=== PATIENT | female | born 1955 | race Caucasian/White ===

== ENCOUNTER 2020-12-10 10:21 | Inpatient (IN) | payer MEDICARE, MEDICAID, SELFPAY ==
[2020-12-10] VITALS (15 sets, daily range): BP systolic 122–159; BP diastolic 63–113; PULSE 67–85; RESP 14–26; TEMP 35.9–36.8; O2SAT 96–99; BMI 27.6
--- NOTE | 2020-12-10 10:24 | EKG12_ITS ---
Test Reason : STROKE Blood Pressure : / mmHG Vent. Rate : 069 BPM Atrial Rate : 159 BPM P-R Int : 000 ms QRS Dur : 090 ms QT Int : 430 ms P-R-T Axes : 000 016 231 degrees QTc Int : [address] & T wave abnormality, consider inferior ischemia ST & T wave abnormality, consider anterolateral ischemia Abnormal ECG Confirmed by ALESHA FARR, WILMA ([id number]), book or script editor JANELL BANGURA ([id number]) on 12/12/2020 12:31:55 PM Referred By: Confirmed By:WILMA EDUARDO MD
--- NOTE | 2020-12-10 10:24 | CT_ITS ---
STUDY: CTA HEAD AND NECK WITH CONTRAST REASON FOR EXAM: Female, 65 years old. Neuro deficit, acute, stroke suspected RADIATION DOSAGE (If Supplied By Facility): CTDIvol = ( ) mGy, DLP = ( ) mGycm TECHNIQUE: CT angiography was performed with a multi-detector CT scanner. Data acquisition was obtained from the skull base through the vertex following intravenous administration of IV 100mL Isovue-[id number]. MIP images were reconstructed from the axial data set. Post-processing of the angiographic images was performed, with multiplanar reformation and 3D reconstruction. Individualized dose optimization techniques were used for this CT. COMPARISON: No relevant priors. FINDINGS: Normal bilateral petrous carotid arteries. Normal right cavernous carotid artery with a normal supraclinoid bifurcation. Normal left cavernous carotid artery with a normal supraclinoid bifurcation. Normal right A1 segments of the anterior cerebral artery. Normal left A1 segments of the anterior cerebral artery. Normal intact anterior communicating artery (ACOM). Normal bilateral A2 segments of the anterior cerebral arteries. Normal right M1 and M2 segments of the middle cerebral arteries, with a normal M1 bifurcation. Normal left M1 and M2 segments of the middle cerebral arteries, with a normal M1 bifurcation. Normal right posterior communicating artery (PCOM). Normal left posterior communicating artery (PCOM). Normal bilateral vertebral arteries. Normal basilar artery with a normal basilar bifurcation. The visualized bilateral superior cerebellar (SCA) arteries are normal. Normal bilateral P1, P2 and visualized P3 segments of the posterior cerebral arteries. There is no demonstrated aneurysm of the [place] of [place]. AORTIC ARCH: Normal visualized aortic arch. Normal origins of the brachiocephalic, left common carotid, and left subclavian arteries. RIGHT CAROTID ARTERIES: Normal right common carotid artery (CCA). Normal right common carotid bulb. There is extensive atherosclerotic plaque formation of the origin of the right internal carotid artery with an estimated stenosis of greater than 80%. Normal visualized cervical portion of the right internal carotid artery. Normal origin of the right external carotid artery (ECA). LEFT CAROTID ARTERIES: Normal left common carotid artery (CCA). Normal left common carotid bulb. There is mild atherosclerotic plaque formation of the origin of the left internal carotid artery with less than 50% cross sectional diameter stenosis. Normal visualized cervical portion of the left internal carotid artery. Normal origin of the left external carotid artery (ECA). VERTEBRAL ARTERIES: Normal bilateral vertebral arteries. Multilevel degenerative changes of the cervical spine. CT/STROKE CTA Head AND Neck W/Con IMPRESSION: Calcific plaque at the origin of the right internal carotid artery causing greater than 80% luminal narrowing. Mild narrowing at the origin of the left internal carotid artery. N.B. : The above Results were Read Back by Yony Schmidt MD to Pedro Alex and understanding confirmed on 12/10/2020 10:44:46 (ET). Electronically Signed: Yony Schmidt MD at 10:46 EDT , Service support ,
--- NOTE | 2020-12-10 10:24 | RAD_ITS ---
STUDY: X-RAY CHEST REASON FOR EXAM: Female, 65 years old. Neuro deficit, acute, stroke suspected TECHNIQUE: Single AP portable view of the chest. COMPARISON: None. FINDINGS: EKG electrodes are seen. The lungs are clear and expanded. There is no demonstrated pleural abnormality. There is borderline cardiomegaly. Normal mediastinum and grover. Normal visualized pulmonary arteries. There is atherosclerotic tortuosity of the aortic arch and descending thoracic aorta. Normal visualized thoracic spine. Normal visualized ribs, clavicles, and shoulders. There is no demonstrated abnormality of the visualized soft tissue structures of the upper abdomen. RAD/Chest 1 View IMPRESSION: Borderline cardiomegaly. Electronically Signed: Yony Schmidt MD at 11:07 EDT , Service support ,
--- NOTE | 2020-12-10 10:24 | CT_ITS ---
STUDY: CT HEAD STROKE PROTOCOL W/O CONTRAST INJECTION REASON FOR EXAM: Female, 65 years old. Neuro deficit, acute, stroke suspected RADIATION DOSAGE (If Supplied By Facility): CTDIvol = ( 44.99 ) mGy, DLP = ( 745.49 ) mGycm TECHNIQUE: Transaxial CT imaging of the brain was performed without administration of intravenous contrast material. Individualized dose optimization techniques were used for this CT. COMPARISON: No relevant priors. FINDINGS: Normal soft tissue structures. Normal calvarium. There is mild cerebral atrophy with widening of the extra-axial spaces and ventricular dilatation. There are areas of decreased attenuation within the white matter tracts of the supratentorial brain, consistent with microvascular disease changes. Questionable early infarct in the left thalamus. Normal brainstem. Normal cerebellum. There is no intracranial hemorrhage. There are no findings of an acute ischemic infarction. Dense atherosclerotic calcification of the vertebral arteries bilaterally. Atherosclerotic calcification of the cavernous portions of the internal carotid arteries bilaterally. Normal visualized paranasal sinuses. CT/STROKE Brain/Head without Cont IMPRESSION: Questionable early changes of infarction in the left thalamus. Chronic involutional changes of the brain. N.B. : The above Results were Read Back by Yony Schmidt MD to Pedro Alex and understanding confirmed on 12/10/2020 10:37:32 (ET). Electronically Signed: Yony Schmidt MD at 10:38 EDT , Service support ,
[2020-12-10 10:40] LABS: Absolute Lymphocyte Count 2.43 X10^3/uL (0.83-4.51); Absolute Neutrophil Count 5.4 X10^3/uL (2.0-7.7); Basophil# 0.13 X10^3/uL; Basophil% 1.3 % (0-1); Eosinophil# 0.68 X10^3/uL; Eosinophils% 6.9 % (0-5); Hematocrit 52.5 % (37-47); Lymphocyte # 2.43 X10^3/ul (0.83-4.51); Lymphocyte % 24.5 % (19-41); Mean Corp Hgb Conc 34.9 g/dL (32-36); Mean Corpuscular Hgb 32.4 pg (27.0-32.0); Mean Corpuscular Volume 92.9 fL (81-99); Mean Platelet Vol. 9.8 fl (6.2-12.0); Monocyte# 1.14 X10^3/uL; Monocyte% 11.5 % (0-10); NRBC Flagged by Analyzer 0 % (0-5); Neutrophil % 54.6 % (47-70); Platelet Count 329 K/mm3 (150-450); RBC Distribution Width CV 12.2 % (11.6-14.6); RBC Distribution Width SD 42.1 fl (35.1-43.9); Red Blood Count 5.65 M/mm3 (4.2-5.4); White Blood Count 9.9 K/mm3 (4.4-11.0)
[2020-12-10 10:45] LABS: Bedside Glucose 123 mg/dL (70-110)
[2020-12-10 10:52] LABS: Partial Thromboplast Time 28.1 Seconds (24.1-36.2); Prothrombin Time (Protime)PT. 12.5 SECONDS (11.7-14.9)
[2020-12-10 10:58] LABS: Anion Gap 5 (5-15); BUN 26 mg/dL (7-18); BUN/Creat Ratio 28.6 RATIO (10-20); Calcium,Total 9.6 mg/dL (8.5-10.1); Chloride 103 mmol/L (98-107); Creatinine, Serum 0.91 mg/dL (0.55-1.02); EST Glomerular Filtration Rate 66 mL/min (>60); Est Glom Filt Rate - Afr Amer 80 mL/min (>60); Estimated Creatinine Clearance 56.93 ml/min; Glucose 118 mg/dL (74-106); Potassium 3.1 mmol/L (3.5-5.1); Sodium Level 136 mmol/L (136-145)
[2020-12-10 11:02] LABS: Differential Indicated SCAN CRITERIA MET
[2020-12-10 11:04] LABS: Hemoglobin 18.3 g/dL (12.0-15.0)
--- NOTE | 2020-12-10 11:05 | ED.VIS.STROK ---
HPI History of Present Illness Chief Complaint: Neuro S/Sx Informant: patient and EMS Narrative Narrative: 65-year-old female was found sitting in her car in the parking lot of a [employer]. She was noted to have facial droop and slurred speech and right-sided weakness. Patient states that she has been in [place] most of the day. She states the last time she felt normal was at 0300 hours. She states that she got drowsy at 0900 hours. She denies history of atrial fibrillation. She has a medication list in her purse does not show any anticoagulant use. PFSH PFS Social History Smoking Status: Unknown if ever smoked ROS ROS ED Constitutional Constitutional ED: Reports other Details: Fatigue ; Denies chills or weight loss Eyes Eyes: Denies change in vision or diplopia ENT ENT ED: Denies ear pain, rhinorrhea or sore throat Cardiovascular Cardiovascular: Denies chest pain, orthopnea, palpitations or racing heartbeat Respiratory/Chest Respiratory/Chest: Denies cough, dyspnea or orthopnea Gastrointestinal Gastrointestinal: Denies abdominal pain, diarrhea, nausea or vomiting Genitourinary Genitourinary ED: Denies dysuria, hematuria or urinary frequency Musculoskeletal Musculoskeletal: Denies arthralgias or myalgias Integumentary Denies abscess or rash Neurologic Neurologic: Reports weakness and other Details: Facial droop slurred speech ; Denies headache(s) Psychiatric Psychiatric: Denies anxiety, depression, suicidal ideation or suicidal thoughts Endocrine Endocrinology: Denies polydipsia, polyphagia or polyuria Allergic/Immunologic Allergic/Immunologic ED: Denies mouth swelling, tongue swelling or urticaria EXAM Physical Exam Const Vital Signs: 12/10/20 10:24 12/10/20 10:25 12/10/20 10:30 Temperature 97.2 F L 97.2 F L Temperature Source Temporal Temporal Pulse Rate 67 73 Respiratory Rate 26 H 21 H Blood Pressure 139/93 H 139/90 H Blood Pressure Mean 108 106 Pulse Ox 98 97 Oxygen Delivery Method Room Air Room Air Room Air Positive well nourished and well developed General Appearance ED: well developed HEENT Reports normocephalic, head/scalp atraumatic and moist mucous membranes Eyes PERRL and EOMs intact bilaterally Neck no lymphadenopathy, supple and no JVD Resp normal respiratory effort and clear to auscultation bilaterally Cardio regular rate, regular rhythm and no murmurs GI normal to inspection, nondistended, normoactive bowel sounds and non-tender Palpation: soft Back/Spine no CVA tenderness and normal ROM Extremity normal to inspection General Extremety ED: Negative for edema General Extremity: Negative for edema Neuro Neuro Narrative: Patient has noted dysarthria. She has facial droop on the right. Both arms are able to be lifted up off the bed and held. Both legs same. No apparent visual changes. She seems to have some mild extinction on the right. She is constantly yawning. Sensorium / Orientation: alert Psych mental status grossly normal Mood & Affect: Negative for depressed or tearful Skin no rashes or lesions noted and no wounds STROKE Vital Signs/Narrative: Vital Signs Temp Pulse Resp BP Pulse Ox 12/10/20 10:30 97.2 F L 73 21 H 139/90 H 97 12/10/20 10:25 97.2 F L 67 26 H 139/93 H 98 MDM MDM MDM Narrative Medical decision making narrative: Prehospital stroke team was called. Patient was met in the ambulance bay and taken directly to CT. Initial noncontrasted head CT shows no bleed. CTA shows 80% stenosis on the right RCA. No large vessel occlusion noted. Patient was assessed by [facility] neurology. No TPA was recommended. Was noted that the patient appears to have new onset atrial fibrillation. My interpretation of the chest x-ray is no acute process. Plan will be for admission into the hospital. Lab Data Attestation: I reviewed the patient's lab results. Labs: Laboratory Results - last 24 hr 12/10/20 12/10/20 12/10/20 10:25 10:25 10:25 WBC 9.9 RBC 5.65 H Hgb 18.3 H* Hct 52.5 H MCV 92.9 MCH 32.4 H MCHC 34.9 RDW Std Deviation 42.1 RDW Coeff of Chasity 12.2 Plt Count 329 MPV 9.8 Immature Gran % (Auto) 1.200 H Neut % (Auto) 54.6 Lymph % (Auto) 24.5 [place] % (Auto) 11.5 H Eos % (Auto) 6.9 H Baso % (Auto) 1.3 H Absolute Neuts (auto) 5.4 Absolute Lymphs (auto) 2.43 Nucleated RBC % 0 Diff Path Review May foll PT 12.5 INR 1.0 APTT 28.1 Sodium 136 Potassium 3.1 L Chloride 103 Carbon Dioxide 28.0 Anion Gap 5 BUN 26 H Creatinine 0.91 Estim Creat Clear Calc 56.93 Est GFR (MDRD) Af Amer 80 Est GFR (MDRD) Non-Af 66 BUN/Creatinine Ratio 28.6 H Glucose 118 H Calcium 9.6 Troponin I High Sens 8.0 POC Glucose 12/10/20 10:28 WBC RBC Hgb Hct MCV MCH MCHC RDW Std Deviation RDW Coeff of Chasity Plt Count MPV Immature Gran % (Auto) Neut % (Auto) Lymph % (Auto) [place] % (Auto) Eos % (Auto) Baso % (Auto) Absolute Neuts (auto) Absolute Lymphs (auto) Nucleated RBC % Diff Path Review PT INR APTT Sodium Potassium Chloride Carbon Dioxide Anion Gap BUN Creatinine Estim Creat Clear Calc Est GFR (MDRD) Af Amer Est GFR (MDRD) Non-Af BUN/Creatinine Ratio Glucose Calcium Troponin I High Sens POC Glucose 123 H Radiography Diagnostic Testing: Radiology Impression Brain CT 12/10/20 10:24 IMPRESSION: Questionable early changes of infarction in the left thalamus. Chronic involutional changes of the brain. N.B. : The above Results were Read Back by Yony Schmidt MD to Pedro Alex and understanding confirmed on 12/10/2020 10:37:32 (ET). Electronically Signed: Yony Schmidt MD at 10:38 EDT , Service support , ADDENDUM: 12/10/20 1045 IMPRESSION: Questionable early changes of infarction in the left thalamus. Chronic involutional changes of the brain. N.B. : The above Results were Read Back by Yony Schmidt MD to Pedro Alex and understanding confirmed on 12/10/2020 10:37:32 (ET). Electronically Signed: Yony Schmidt MD at 10:38 EDT , Service support , Head/Neck CTA 12/10/20 10:24 IMPRESSION: Calcific plaque at the origin of the right internal carotid artery causing greater than 80% luminal narrowing. Mild narrowing at the origin of the left internal carotid artery. N.B. : The above Results were Read Back by Yony Schmidt MD to Pedro Alex and understanding confirmed on 12/10/2020 10:44:46 (ET). Electronically Signed: Yony Schmidt MD at 10:46 EDT , Service support , ADDENDUM: 12/10/20 1053 IMPRESSION: Calcific plaque at the origin of the right internal carotid artery causing greater than 80% luminal narrowing. Mild narrowing at the origin of the left internal carotid artery. N.B. : The above Results were Read Back by Yony Schmidt MD to Pedro Alex and understanding confirmed on 12/10/2020 10:44:46 (ET). Electronically Signed: Yony Schmidt MD at 10:46 EDT , Service support , EKG Initial EKG: Attestation: I personally reviewed and interpreted this EKG as follows: Comments: EKG demonstrates atrial fibrillation at a rate of 69 bpm. Critical Care Time Critical Care Time: Yes Critical care time (excluding procedures): 30-74 minutes (35 min), Including time spent:, Discussing w/Patient &/or Family/Tracer Bullet Section Supervisor, Discussing w/Consultants, Arranging Admission or Transfer and Performing Direct Patient Care at Bedside Discharge Plan Dx/Rx/DC Orders Clinical Impression: New onset atrial fibrillation, Acute embolic stroke Disposition Disposition: Acute Care [facility]
[2020-12-10 11:42] LABS: Magnesium 2.3 mg/dL (1.6-2.6)
--- NOTE | 2020-12-10 12:00 | CM.ED ---
SOCIAL WORK Responded to Stroke Alert. Met with mother and sister in room. Education and support provided. Dr. Alex to meet with family. Nell Mancilla, INSECT CONTROL AIDE, SANDBLAST CARVER
--- NOTE | 2020-12-10 13:15 | MRI_ITS ---
ACR Level 3 findings have been noted. An addendum which confirms receipt of the report will follow. STUDY: MRI BRAIN WITHOUT CONTRAST REASON FOR EXAM: Female, 65 years old. CVA, effusion, right sided weakness TECHNIQUE: Standardized multiplanar fat and water weighted pulse sequences were obtained. COMPARISON: CT FINDINGS: There is mild cerebral atrophy with widening of the extra-axial spaces and ventricular dilatation. There are multiple white matter hyperintensities, distributed throughout the deep white matter tracts of the cerebral hemispheres, consistent with moderate chronic white matter ischemic changes. There are foci of restricted diffusion with recent, acute or subacute, infarcts of the left thalamus and periphery of the left parietal lobe, series 4 images through . There is no evidence for recent intracranial ischemia or other cause of cytotoxic edema on diffusion weighted imaging (DWI). Normal bilateral basal ganglia. There is no extra-axial fluid accumulation. Normal flow voids within the major intracranial circulation suggesting patency by spin echo criteria. Normal sella turcica, pituitary gland, infundibular stalk, optic chiasm and hypothalamus. Normal tectal plate and pineal gland. Normal midbrain, iain and medulla. Normal cerebellum. Normal basal cisterns. Normal bilateral temporal bones. Normal bilateral internal auditory canals. No demonstrated orbital abnormality, within the constraints of a routine brain study. Normal visualized paranasal sinuses. Normal calvarium and skull base. Normal visualized soft tissue structures. Normal visualized upper cervical spine. MRI/Brain without Contrast IMPRESSION: Involutional changes of the brain, as described above. Recent left parietal and thalamic infarcts. No hemorrhage. Electronically Signed: Inocente Lang MD at 16:00 EDT , Service support ,
--- NOTE | 2020-12-10 13:53 | ECHOCS_ITS ---
Reason For Study: TIA/CVA, NEW AFIB Procedure This was a 2D Doppler, Color Flow transthoracic echocardiogram. The study was technically difficult. Contrast injection was performed. Exam performed portable in patient room. Left Ventricle Normal LV size. Left ventricular systolic function is normal. The estimated ejection fraction is 55 %. Unable to assess diastolic dysfunction. No regional wall motion abnormalities noted. Right Ventricle Normal RV size. Normal systolic function. Atria The left atrium is moderately enlarged. The right atrium is moderately enlarged. No doppler evidence for ASD. Bubble contrast study negative for right to left interatrial shunt. Mitral Valve There is mild mitral annular calcification. Extension the mitral annular calcification on the base of the posterior mitral valve leaflet. Mild (1+) mitral valve insufficiency. Tricuspid Valve Normal tricuspid valve. Trivial tricuspid valve insufficiency. Right ventricular systolic pressure estimated to be 41 mmHg. Aortic Valve Trisinus/trileaflet aortic valve. Mild focal aortic valve calcification. Mild to moderate aortic stenosis. Trivial aortic valve insufficiency. Pulmonic Valve The pulmonic valve is not well visualized. Trivial pulmonic valve insufficiency. Great Vessels Normal sized aortic root. Pericardium/Pleural Trivial pericardial effusion. There are no echocardiographic indications of cardiac tamponade. Medication Performed a rapid injection of agitated mix of 9 cc saline and 1cc air to assess for atrial septal defect. Diluted definity 2ml given slow IV push to enhance endocardial definition. MMode/2D Measurements & Calculations LVIDd: 4.2 cm IVSd: 1.1 cm LVOT diam: 2.0 cm LVIDs: 2.9 cm LVPWd: 1.1 cm FS: 29.0 % LVOT area: 3.1 cm2 Ao root diam: 2.9 cm LAV(MOD-bp): 61.4 ml LVAd ap4: 23.2 cm2 LAV(MOD-bp) Indexed: 32.8 ml/m2 LVLd ap4: 7.2 cm LAV(MOD-sp2): 60.0 ml EDV(MOD-sp4): 62.4 ml LAV(MOD-sp4): 61.4 ml EDV(sp4-el): 63.5 ml LVAs ap4: 14.4 cm2 LVLs ap4: 6.2 cm ESV(MOD-sp4): 28.9 ml ESV(sp4-el): 28.4 ml EF(MOD-sp4): 53.7 % EF(sp4-el): 55.3 % SV(MOD-sp4): 33.5 ml SV(sp4-el): 35.1 ml LA A4 area: 21.5 cm2 LA dimension(2D): 4.1 cm RA A4 area: 20.2 cm2 Doppler Measurements & Calculations MV E max cristel: 94.8 cm/sec Ao V2 max: 237.7 cm/sec LV V1 max: 73.0 cm/sec Ao max P.6 mmHg LV V1 max P.1 mmHg Ao V2 mean: 181.8 cm/sec LV V1 mean P.2 mmHg Ao mean P.5 mmHg LV V1 mean: 50.8 cm/sec Ao V2 VTI: 48.6 cm LV V1 VTI: 14.4 cm JAYNE(I,D): 0.92 cm2 JAYNE(V,D): 0.95 cm2 SV(LVOT): 44.9 ml PA V2 max: 74.9 cm/sec TR max cristel: 307.9 cm/sec TR max P.9 mmHg ECHO/Echo Complete W/ Contrast Interpretation Summary The study was technically difficult. Contrast injection was performed. Left ventricular systolic function is normal. The estimated ejection fraction is 55 %. The left atrium is moderately enlarged. The right atrium is moderately enlarged. There is mild mitral annular calcification. Extension the mitral annular calcification on the base of the posterior mitral valve leaflet. Mild (1+) mitral valve insufficiency. Trivial tricuspid valve insufficiency. Mild focal aortic valve calcification. Mild to moderate aortic stenosis. Trivial aortic valve insufficiency. Trivial pulmonic valve insufficiency. Trivial pericardial effusion. There are no echocardiographic indications of cardiac tamponade. Right ventricular systolic pressure estimated to be 41 mmHg. Unable to assess diastolic dysfunction. Bubble contrast study negative for right to left interatrial shunt. Ordering Physician: Arvin Olguin Performed By: Lavonne Samson RDCS
--- NOTE | 2020-12-10 13:53 | CDU_ITS ---
Reason For Study: 80% occlusion in NIKKI on CTA, better clarification. CVA Rt. Velocities/BP Lt. Velocities/BP Prox CCA 53.9/9.5 cm/sec. Prox CCA 59.1/13.4 cm/sec. Mid CCA 44.7/10.8 cm/sec. Mid CCA 56.4/17.3 cm/sec. Dist CCA 56.5/12.1 cm/sec. Dist CCA 46/14.7 cm/sec. Prox ICA 89.1/30.4 cm/sec. Prox ICA 46/17.3 cm/sec. Mid ICA 95.6/27.8 cm/sec. Mid ICA 86.4/23.9 cm/sec. Dist ICA 78.6/23.9 cm/sec. Dist ICA 107.3/42.1 cm/sec. Rt. ICA/CCA = 1.77. Lt. ICA/CCA = 1.90. Prox ECA 76/9.5 cm/sec. Prox ECA 87.7/8.2 cm/sec. Rt. Vert. 53.9/12.1 cm/sec. Lt. Vert. 25.8/8.8 cm/sec. Right Extracranial There is homogeneous, smooth atherosclerotic plaque noted in the right common carotid artery. There is heterogeneous, irregular atherosclerotic plaque noted in the right internal carotid artery. There is intimal thickening but no significant atherosclerotic plaque noted in the right external carotid artery. Antegrade flow is noted in the right vertebral artery. Left Extracranial There is homogeneous, smooth atherosclerotic plaque noted in the left common carotid artery. There is homogeneous, irregular atherosclerotic plaque noted in the left internal carotid artery. There is heterogeneous, irregular atherosclerotic plaque noted in the left external carotid artery. Antegrade flow is noted in the left vertebral artery. Procedure Carotid Duplex 90024. This is a Carotid Duplex examination using B-mode, color flow and specral Doppler. Exam performed portable in patient room. VL/Carotid Duplex Ultrasound Interpretation Summary Irregular calcific plaque at the proximal right internal carotid artery with le ss than 50% stenosis Less than 50% stenosis right external carotid artery Mild plaque at the proximal left internal carotid artery with less than 50% mercedes nosis Less than 50% stenosis left external carotid artery Patent and antegrade vertebral arteries bilaterally Ordering Physician: Arvin Olguin Performed By: Robyn Vanessa RVT
[2020-12-10] MEDS: 0.9% Normal Saline 1,000 ML 100 ML IV (16:08)
--- NOTE | 2020-12-10 16:25 | TELEMED_ITS ---
[facility] Tele[facility] has confirmed receipt of a request for visit. This document confirms receipt of the order initiating the consult. To find the results of the consultation, please view the patient's reports for the scanned Telemed Consult.
[2020-12-10] MEDS: Aspirin 325 MG Tablet PO (17:02)
--- NOTE | 2020-12-10 17:05 | PCM.HP.STD ---
HPI - General General Date of Admission: 12/10/20 HPI Narrative NAOMI ANGUIANO, is a 65 F who presents from home with right facial droop and right weakness. She states that she wakes up at 3 AM and usually leaves the house for work at around 4. She states that she was feeling tired so she fell asleep in her car. She does remember much beyond that she was found in the parking lot of a [employer] where she was found to have slurred speech and right facial droop as well as right-sided weakness and EMS was called and she was brought here to the hospital. Initial work-up for stroke was negative on the CTA of her brain, she did have an 80% stenosis in the right ICA on CTA. An MRI of the brain was obtained on admission which did demonstrate left parietal and thalamic infarcts. Family states that she had had a similar episode about a week ago but never sought medical care. Also of note in the ER she was noted to have A. fib versus a flutter which is a new diagnosis for her. [facility] Home Medications atenolol 100 mg PO DAILY 12/10/20 [History Last Taken 12/10/20] fluticasone propion-salmeterol [Wixela Inhub] 1 inh INHALATION BID 12/10/20 [History Last Taken 12/10/20] fluticasone propionate 2 spray INTRANASAL DAILY 12/10/20 [History Last Taken 12/10/20] levothyroxine [Euthyrox] 75 mcg PO DAILY 12/10/20 [History Last Taken 12/10/20] losartan 100 mg PO BID 12/10/20 [History Last Taken 12/10/20] Allergy/AdvReac Type Severity Reaction Status Date / Time No Known Allergies Allergy Verified 12/10/20 11:14 Family History (Updated 12/10/20 @ 17:[address] Arvin Olguin MD) Other CAD (coronary artery disease) Cancer Social History (Updated 12/10/20 @ 17:[address] Arvin Olguin MD) Smoking Status: Never smoker alcohol intake: never substance use type: does not use ROS Constitutional Constitutional: Denies chills, fatigue, fever(s) or malaise Eyes Eyes: Denies blurry vision ENT HEENT: Denies headache(s) or nasal discharge Cardiovascular Cardiovascular: Denies chest pain, dyspnea on exertion or syncope Respiratory/Chest Respiratory/Chest: Denies cough, shortness of breath at rest or shortness of breath with exertion Gastrointestinal Gastrointestinal: Denies constipation, diarrhea, nausea or vomiting Genitourinary Genitourinary: Denies dysuria Neurologic Neurologic: Reports abnormal speech; Denies focal weakness, numbness or tremor(s) Psychiatric Psychiatric: Denies anxiety or depression Vital Signs Vital Signs Vital Signs: 12/10/20 10:24 12/10/20 10:25 12/10/20 10:30 Temperature 97.2 F L 97.2 F L Temperature Source Temporal Temporal Pulse Rate 67 73 Respiratory Rate 26 H 21 H Respiratory Effort Respiratory Depth Respiratory Pattern Blood Pressure 139/93 H 139/90 H Blood Pressure Mean 108 106 Blood Pressure Source Blood Pressure Position Blood Pressure Location Pulse Ox 98 97 Oxygen Delivery Method Room Air Room Air Room Air 12/10/20 10:54 12/10/20 11:24 12/10/20 11:30 Temperature 97.6 F L Temperature Source Temporal Pulse Rate 68 69 67 Respiratory Rate 17 19 H 20 H Respiratory Effort Respiratory Depth Respiratory Pattern Blood Pressure 142/92 H 133/81 H 122/83 H Blood Pressure Mean 108 98 96 Blood Pressure Source Blood Pressure Position Blood Pressure Location Pulse Ox 98 98 98 Oxygen Delivery Method Room Air Room Air Room Air 12/10/20 12:00 12/10/20 12:30 12/10/20 13:00 Temperature 96.7 F L 97.2 F L 97.6 F L Temperature Source Temporal Temporal Temporal Pulse Rate 72 75 74 Respiratory Rate 15 15 19 H Respiratory Effort Respiratory Depth Respiratory Pattern Blood Pressure 143/92 H 137/113 H 134/91 H Blood Pressure Mean 109 121 105 Blood Pressure Source Blood Pressure Position Blood Pressure Location Pulse Ox 96 97 98 Oxygen Delivery Method Room Air Room Air 12/10/20 13:30 12/10/20 13:55 12/10/20 15:00 Temperature 98.2 F Temperature Source Oral Pulse Rate 72 85 Respiratory Rate 16 16 Respiratory Effort Normal Short of Breath Respiratory Depth Normal Respiratory Pattern Normal Blood Pressure 143/92 H 159/103 H Blood Pressure Mean 109 121 Blood Pressure Source Manual Blood Pressure Position Semi-Fowlers Blood Pressure Location Right Arm Pulse Ox 98 99 Oxygen Delivery Method Room Air Room Air 12/10/20 15:38 Temperature Temperature Source Pulse Rate 70 Respiratory Rate Respiratory Effort Respiratory Depth Respiratory Pattern Blood Pressure Blood Pressure Mean Blood Pressure Source Blood Pressure Position Blood Pressure Location Pulse Ox Oxygen Delivery Method Weight Weight: 165 lb 9.074 oz Body Mass Index (BMI) 27.6 Physical Exam Const alert, oriented x3 and no apparent distress General Appearance: cooperative HEENT normocephalic Mouth: dry mucous membranes Eyes PERRL, EOMs intact bilaterally and conjunctivae normal Neck supple and no JVD Resp normal respiratory effort, no retractions, no use of accessory muscles and clear to auscultation bilaterally Auscultation: Negative for crackles, rales, rhonchi or wheezes Cardio regular rate, regular rhythm, S1 normal heart sound, S2 normal heart sound and no murmurs GI soft to palpation, non-tender and non-distended; Negative for hepatosplenomegaly Extremity no clubbing, cyanosis or edema Skin no rashes or lesions noted Neuro moves all extremities, no focal motor deficits and no sensory deficits noted Neuro Narrative: Right facial droop Psych affect normal Appearance: appropriate Results Lab / Micro Data Result Diagrams: 12/10/20 10:25 12/10/20 10:25 Labs: Laboratory Results - last 24 hr 12/10/20 10:25: WBC 9.9, RBC 5.65 H, Hgb 18.3 H*, Hct 52.5 H, MCV 92.9, MCH 32.4 H, MCHC 34.9, RDW Std Deviation 42.1, RDW Coeff of Chasity 12.2, Plt Count 329, MPV 9.8, Immature Gran % (Auto) 1.200 H, Neut % (Auto) 54.6, Lymph % (Auto) 24.5, [place] % (Auto) 11.5 H, Eos % (Auto) 6.9 H, Baso % (Auto) 1.3 H, Absolute Neuts (auto) 5.4, Absolute Lymphs (auto) 2.43, Nucleated RBC % 0, Diff Path Review September12/10/20 10:25: PT 12.5, INR 1.0, APTT 28.1 12/10/20 10:25: Sodium 136, Potassium 3.1 L, Chloride 103, Carbon Dioxide 28.0, Anion Gap 5, BUN 26 H, Creatinine 0.91, Estim Creat Clear Calc 56.93, Est GFR (MDRD) Af Amer 80, Est GFR (MDRD) Non-Af 66, BUN/Creatinine Ratio 28.6 H, Glucose 118 H, Calcium 9.6, Troponin I High Sens 8.0 12/10/20 10:25: Magnesium 2.3, TSH 1.40 12/10/20 10:28: POC Glucose 123 H Radiology Impression Brain CT 12/10/20 10:24 IMPRESSION: Questionable early changes of infarction in the left thalamus. Chronic involutional changes of the brain. N.B. : The above Results were Read Back by Yony Schmidt MD to Pedro Alex and understanding confirmed on 12/10/2020 10:37:32 (ET). Electronically Signed: Yony Schmidt MD at 10:38 EDT , Service support , ADDENDUM: 12/10/20 1045 IMPRESSION: Questionable early changes of infarction in the left thalamus. Chronic involutional changes of the brain. N.B. : The above Results were Read Back by Yony Schmidt MD to Pedro Alex and understanding confirmed on 12/10/2020 10:37:32 (ET). Electronically Signed: Yony Schmidt MD at 10:38 EDT , Service support , Chest X-Ray 12/10/20 10:24 IMPRESSION: Borderline cardiomegaly. Electronically Signed: oYny Schmidt MD at 11:07 EDT , Service support , Head/Neck CTA 12/10/20 10:24 IMPRESSION: Calcific plaque at the origin of the right internal carotid artery causing greater than 80% luminal narrowing. Mild narrowing at the origin of the left internal carotid artery. N.B. : The above Results were Read Back by Yony Schmidt MD to Pedro Alex and understanding confirmed on 12/10/2020 10:44:46 (ET). Electronically Signed: Yony Schmidt MD at 10:46 EDT , Service support , ADDENDUM: 12/10/20 1053 IMPRESSION: Calcific plaque at the origin of the right internal carotid artery causing greater than 80% luminal narrowing. Mild narrowing at the origin of the left internal carotid artery. N.B. : The above Results were Read Back by Yony Schmidt MD to Pedro Alex and understanding confirmed on 12/10/2020 10:44:46 (ET). Electronically Signed: Yony Schmidt MD at 10:46 EDT , Service support , Brain MRI 12/10/20 13:15 IMPRESSION: Involutional changes of the brain, as described above. Recent left parietal and thalamic infarcts. No hemorrhage. Electronically Signed: Inocente Lang MD at 16:00 EDT , Service support , ADDENDUM: 12/10/20 1631 IMPRESSION: Involutional changes of the brain, as described above. Recent left parietal and thalamic infarcts. No hemorrhage. N.B. : NUBIA Arguelles, confirmed on 12/10/2020 16:24:26 (ET) that the healthcare facility has received the radiology report. Electronically Signed: Inocente Lang MD at 16:00 EDT , Service support , Assessment & Plan Assessment/Plan (1) New onset atrial fibrillation: (2) Acute embolic stroke: PLAN: 1. Left-sided CVA likely embolic/new onset A. fib versus flutter/HTN/HLD -In the ER EKG demonstrated flutter versus A. fib, she will need to be on anticoagulation given the nature of her stroke in 2 different locations, however this can wait -We will start her on aspirin and allow for permissive hypertension, for 24 hours -Continue with Lipitor -Echo is pending, carotid duplex was also ordered secondary to the 80% stenosis just to get better clarification since it was identified on CTA initially -She will need this evaluated and repaired at some point in the future -Consult neurology 2. Hypothyroidism -Stable -Continue with Synthroid DVT: Lovenox Charges/Coding Visit Charges OBSV E&M: 26122 Initial observation care L3
[2020-12-10] MEDS: Atorvastatin Calcium 80 MG Tablet PO (22:09)
[2020-12-11] VITALS (13 sets, daily range): BP systolic 118–164; BP diastolic 57–111; PULSE 66–93; RESP 12–18; TEMP 36.2–37; O2SAT 94–99; BMI 27.6
[2020-12-11] MEDS: 0.9% Normal Saline 1,000 ML 100 ML IV ×2 (02:15→11:51)
[2020-12-11 06:07] LABS: Absolute Lymphocyte Count 2.34 X10^3/uL (0.83-4.51); Absolute Neutrophil Count 4.2 X10^3/uL (2.0-7.7); Basophil# 0.11 X10^3/uL; Basophil% 1.3 % (0-1); Eosinophil# 0.72 X10^3/uL; Eosinophils% 8.5 % (0-5); Hematocrit 47.9 % (37-47); Hemoglobin 15.9 g/dL (12.0-15.0); Lymphocyte # 2.34 X10^3/ul (0.83-4.51); Lymphocyte % 27.7 % (19-41); Mean Corp Hgb Conc 33.2 g/dL (32-36); Mean Corpuscular Hgb 31.8 pg (27.0-32.0); Mean Corpuscular Volume 95.8 fL (81-99); Mean Platelet Vol. 9.8 fl (6.2-12.0); Monocyte# 0.97 X10^3/uL; Monocyte% 11.5 % (0-10); NRBC Flagged by Analyzer 0 % (0-5); Neutrophil # 4.22 X10^3/uL (2.7-7.7); Neutrophil % 49.8 % (47-70); Platelet Count 262 K/mm3 (150-450); RBC Distribution Width CV 12.3 % (11.6-14.6); RBC Distribution Width SD 43.3 fl (35.1-43.9); White Blood Count 8.5 K/mm3 (4.4-11.0)
[2020-12-11 06:35] LABS: Anion Gap 7 (5-15); BUN 24 mg/dL (7-18); Calcium,Total 8.5 mg/dL (8.5-10.1); Chloride 106 mmol/L (98-107); Cholesterol 235 mg/dL (200); EST Glomerular Filtration Rate 59 mL/min (>60); Est Glom Filt Rate - Afr Amer 71 mL/min (>60); Estimated Creatinine Clearance 51.81 ml/min; Glucose 93 mg/dL (74-106); High Density Lipoprotein 51 mg/dL; Potassium 3.7 mmol/L (3.5-5.1); Sodium Level 140 mmol/L (136-145); Triglycerides 123 mg/dL; Very Low Density Lipoprotein 25 mg/dL (5-40)
[2020-12-11] MEDS: Aspirin 81 MG TAB.CHEW PO (08:59)
[2020-12-11] MEDS: Enoxaparin 40 MG/0.4 ML Syringe SC (08:59)
--- NOTE | 2020-12-11 09:14 | CASEMGMT ---
SW completed a PHQ 9 with patient as she had a Stroke. She scored a 2 which indicates minimal depression. She declined need for counseling resources nor did she want information on the [facility] Stroke support group. Wendy JOINER
--- NOTE | 2020-12-11 10:03 | MRI_ITS ---
STUDY: MRI BRAIN WITH AND WITHOUT CONTRAST REASON FOR EXAM: Female, 65 years old. repeat MRI to re-evaluate infarct -- per neurology TECHNIQUE: Standardized multiplanar fat and water weighted pulse sequences were obtained. IV 15cc dotarem was administered for the contrast portion of the examination. COMPARISON: MRI 12/10/2020 FINDINGS: There is mild cerebral atrophy with widening of the extra-axial spaces and ventricular dilatation. There are a limited number of small white matter hyperintensities, distributed throughout the deep white matter tracts of the cerebral hemispheres, consistent with mild chronic white matter ischemic changes. There is no change in the hyperintensity of the anterior aspect of the left thalamus which demonstrates restricted diffusion consistent with a acute/subacute infarct. There is also no change in the tiny hyperintensity of the cortex of the posterior left parietal lobe which demonstrates restricted diffusion consistent with a acute/subacute cortical infarct. Normal T2* images of the brain without demonstrated susceptibility artifact. There is no demonstrated hemosiderin stain. Normal bilateral basal ganglia. Normal thalami. There is no extra-axial fluid accumulation. Normal flow voids within the major intracranial circulation suggesting patency by spin echo criteria. Normal venous enhancement. There is no enhancing intra-axial or extra-axial abnormality. Normal sella turcica, pituitary gland, infundibular stalk, optic chiasm and hypothalamus. Normal tectal plate and pineal gland. Normal midbrain, iain and medulla. Normal cerebellum. Normal basal cisterns. Normal bilateral temporal bones. Normal bilateral internal auditory canals. No demonstrated orbital abnormality, within the constraints of a routine brain study. Normal visualized paranasal sinuses. Normal calvarium and skull base. Normal visualized soft tissue structures. Normal visualized upper cervical spine. MRI/Brain W/WO Contrast IMPRESSION: Involutional changes of the brain, as described above. No change in the acute/subacute infarcts of the anterior left thalamus and cortex of the posterior left parietal lobe. Electronically Signed: John Stone MD at 14:36 EDT Tel , Service support ,
--- NOTE | 2020-12-11 10:03 | MRI_ITS ---
STUDY: MRA NECK WITH AND WITHOUT CONTRAST REASON FOR EXAM: Female, 65 years old. neurology reccomendation TECHNIQUE: 3-D jofg-ru-[id number] (TOF) imaging was performed in an 1.5 T MRI scanner. 15 CC IV DOTAREM was administered for the contrast enhanced images. COMPARISON: None. FINDINGS: RIGHT CAROTID ARTERIES: Normal right common carotid artery (CCA). Normal right common carotid bulb. Normal origin of the right internal carotid (ICA) artery without a hemodynamically significant stenosis. Normal visualized cervical portion of the right internal carotid artery. Normal origin of the right external carotid artery (ECA). LEFT CAROTID ARTERIES: Normal left common carotid artery (CCA). Normal left common carotid bulb. Normal origin of the left internal carotid (ICA) artery without a hemodynamically significant stenosis. Normal visualized cervical portion of the left internal carotid artery. Normal origin of the left external carotid artery (ECA). VERTEBRAL ARTERIES: Normal antegrade flow within the bilateral vertebral artery without a hemodynamically significant stenosis. MRI/MRA Neck WITH and W/O Contrast IMPRESSION: Normal bilateral cervical carotid and vertebral arteries. Electronically Signed: John Stone MD at 14:37 EDT Tel , Service support ,
--- NOTE | 2020-12-11 10:50 | CASEMGMT ---
RN CM Face to Face with patient for initial transition planning/care coordination assessment. RN CM introduced self and role at [facility]. Patient lying in bed, alert and oriented, mother at bedside. Patient willing to participate in assessment and is able to answer all questions appropriately. Care providers, pharmacy, and demographics verified. Patient wishes to discharge home, denies need for home health at this time, will monitor progress with therapy. Patient states she has no further needs or concerns at this time. CM to follow for discharge planning needs that may arise. PCP: Fabián Specialists: none Preferred Pharmacy: [facility] Insurance: [employer] Prescription Benefit: yes Living Will/HPOA: none LNOK: mother Living Arrangements: Patient lives with mother in a single story home with 1 step and grab bar to enter the home. Patient states she is independent at home and works at [employer]. Transportation: self, mother DME/HHC: Patient states she has grab bar in shower at home. Denies further DME. Will monitor for HHC and DME pending therapy. Disposition Plan: Patient to discharge home with family support and follow-up plans in place. Possible HHC vs Outpt therapy. Robyn WHYTE, RN, CM
[2020-12-11 12:40] LABS: Pathologist Review Reviewed
--- NOTE | 2020-12-11 13:17 | PN.HOSP_ITS ---
Subjective Subjective Still with a right facial droop and slurred speech. Overnight she was having waxing and waning symptoms with her stroke. Objective Data Objective Data Vital Signs: Vital Signs Temp Pulse Resp BP Pulse Ox 97.8 F 82 16 123/89 H 94 12/11/20 11:44 12/11/20 11:44 12/11/20 11:44 12/11/20 11:44 12/11/20 11:44 Oxygen Delivery Method Room Air Weight: 165 lb 9.074 oz Body Mass Index (BMI) 27.6 Intake & Output: Intake and Output for Last 24 Hours 12/10/20 12/11/20 12/12/20 03:59 03:59 03:59 Intake Total 1000 / 1000 1201.67 / 1201.67 Output Total 0 / 0 Balance 1000 / 1000 1201.67 / 1201.67 Lab / Micro Data Result Diagrams: 12/11/20 05:55 12/11/20 05:45 Labs: Laboratory Results - last 24 hr 12/10/20 10:25: Diff Path Review Reviewed 12/11/20 05:45: Sodium 140, Potassium 3.7, Chloride 106, Carbon Dioxide 27.0, Anion Gap 7, BUN 24 H, Creatinine 1.00, Estim Creat Clear Calc 51.81, Est GFR (MDRD) Af Amer 71, Est GFR (MDRD) Non-Af 59 L, BUN/Creatinine Ratio 24.0 H, Glucose 93, Calcium 8.5, Triglycerides 123, Cholesterol 235 H, LDL Cholesterol 159 H, VLDL Cholesterol 25, HDL Cholesterol 51 12/11/20 05:55: WBC 8.5, RBC 5.00, Hgb 15.9 H, Hct 47.9 H, MCV 95.8, MCH 31.8, MCHC 33.2, RDW Std Deviation 43.3, RDW Coeff of Chasity 12.3, Plt Count 262, MPV 9.8, Immature Gran % (Auto) 1.200 H, Neut % (Auto) 49.8, Lymph % (Auto) 27.7, [place] % (Auto) 11.5 H, Eos % (Auto) 8.5 H, Baso % (Auto) 1.3 H, Absolute Neuts (auto) 4.2, Absolute Lymphs (auto) 2.34, Nucleated RBC % 0 Radiography Diagnostic Testing: Radiology Impression Brain MRI 12/10/20 13:15 IMPRESSION: Involutional changes of the brain, as described above. Recent left parietal and thalamic infarcts. No hemorrhage. Electronically Signed: Inocente Lang MD at 16:00 EDT , Service support , ADDENDUM: 12/10/20 1631 IMPRESSION: Involutional changes of the brain, as described above. Recent left parietal and thalamic infarcts. No hemorrhage. N.B. : NUBIA Arguelles, confirmed on 12/10/2020 16:24:26 (ET) that the healthcare facility has received the radiology report. Electronically Signed: Inocente Lang MD at 16:00 EDT , Service support , Carotid Duplex 12/10/20 13:53 Interpretation Summary Irregular calcific plaque at the proximal right internal carotid artery with less than 50% stenosis Less than 50% stenosis right external carotid artery Mild plaque at the proximal left internal carotid artery with less than 50% stenosis Less than 50% stenosis left external carotid artery Patent and antegrade vertebral arteries bilaterally Ordering Physician: Arvin Olguin Performed By: Robyn Vanessa RVT Physical Exam Const alert, oriented x3 and no apparent distress General Appearance: cooperative HEENT normocephalic Eyes PERRL, EOMs intact bilaterally and conjunctivae normal Neck supple and no JVD Resp normal respiratory effort, no retractions, no use of accessory muscles and clear to auscultation bilaterally Auscultation: Negative for crackles, rales, rhonchi or wheezes Cardio regular rate, regular rhythm, S1 normal heart sound, S2 normal heart sound and no murmurs GI soft to palpation, non-tender and non-distended; Negative for hepatosplenomegaly Extremity no clubbing, cyanosis or edema Skin no rashes or lesions noted Neuro moves all extremities, no focal motor deficits and no sensory deficits noted Neuro Narrative: Right facial droop Psych affect normal Appearance: appropriate Assessment & Plan Assessment/Plan (1) New onset atrial fibrillation: (2) Acute embolic stroke: PLAN: 1. Left-sided CVA likely embolic/new onset A. fib versus flutter/HTN/HLD -In the ER EKG demonstrated flutter versus A. fib, she will need to be on anticoagulation given the nature of her stroke in 2 different locations, however this can wait -We will start her on aspirin and allow for permissive hypertension, for 24 hours -Continue with Lipitor -CTA demonstrated 80% stenosis, carotid Doppler demonstrated a less than 50% stenosis, neurology was consulted and wanted to get a third study so we are proceeding with an MRI of the neck to see if there is concurrent with either an 80% or 50% stenosis. -Given her waxing waning symptoms overnight, we will repeat an MRI to help dictate when to initiate potential anticoagulation -Appreciate neurology recommendations -PT/OT/speech 2. Hypothyroidism -Stable -Continue with Synthroid DVT: Lovenox Charges/Coding Visit Charges Inpatient E&M: 57262 Subs Hosp L2
[2020-12-11] MEDS: Atorvastatin Calcium 80 MG Tablet PO (22:49)
[2020-12-12] VITALS (13 sets, daily range): BP systolic 137–159; BP diastolic 84–98; PULSE 38–92; RESP 12–18; TEMP 35.9–36.8; O2SAT 95–100
[2020-12-12 06:38] LABS: Absolute Lymphocyte Count 1.99 X10^3/uL (0.83-4.51); Absolute Neutrophil Count 3.6 X10^3/uL (2.0-7.7); Basophil# 0.12 X10^3/uL; Basophil% 1.7 % (0-1); Eosinophil# 0.78 X10^3/uL; Eosinophils% 10.7 % (0-5); Hematocrit 46.7 % (37-47); Hemoglobin 15.4 g/dL (12.0-15.0); Lymphocyte # 1.99 X10^3/ul (0.83-4.51); Lymphocyte % 27.4 % (19-41); Mean Corpuscular Hgb 31.4 pg (27.0-32.0); Mean Corpuscular Volume 95.3 fL (81-99); Mean Platelet Vol. 9.8 fl (6.2-12.0); Monocyte# 0.74 X10^3/uL; Monocyte% 10.2 % (0-10); NRBC Flagged by Analyzer 0 % (0-5); Neutrophil # 3.57 X10^3/uL (2.7-7.7); Platelet Count 243 K/mm3 (150-450); RBC Distribution Width SD 42.2 fl (35.1-43.9); White Blood Count 7.3 K/mm3 (4.4-11.0)
[2020-12-12 07:03] LABS: Anion Gap 5 (5-15); BUN 17 mg/dL (7-18); BUN/Creat Ratio 20.9 RATIO (10-20); Calcium,Total 8.6 mg/dL (8.5-10.1); Chloride 106 mmol/L (98-107); Creatinine, Serum 0.81 mg/dL (0.55-1.02); EST Glomerular Filtration Rate 75 mL/min (>60); Est Glom Filt Rate - Afr Amer 91 mL/min (>60); Estimated Creatinine Clearance 63.96 ml/min; Glucose 83 mg/dL (74-106); Potassium 3.7 mmol/L (3.5-5.1); Sodium Level 137 mmol/L (136-145)
[2020-12-12] MEDS: Aspirin 325 MG Tablet PO (08:42)
[2020-12-12] MEDS: Enoxaparin 40 MG/0.4 ML Syringe SC (10:54)
--- NOTE | 2020-12-12 14:43 | PN.HOSP_ITS ---
Subjective Subjective Still somewhat childlike in her behavior. She does have improvement in her right facial droop. Objective Data Objective Data Vital Signs: Vital Signs Temp Pulse Resp BP Pulse Ox 98.2 F 72 16 137/84 H 95 12/12/20 12:25 12/12/20 12:25 12/12/20 12:25 12/12/20 12:25 12/12/20 12:25 Oxygen Delivery Method Room Air Weight: 165 lb 9.074 oz Body Mass Index (BMI) 27.6 Intake & Output: Intake and Output for Last 24 Hours 12/11/20 12/12/20 12/13/20 03:59 03:59 03:59 Intake Total 1000 / 1000 1681.67 / 1681.67 640 / 640 Output Total 0 / 0 Balance 1000 / 1000 1681.67 / 1681.67 640 / 640 Medical Nutrition Assessment Dietitian: Nutrition Therapy Diagnosis Start: 12/12/20 10:52 Freq: Status: Active Protocol: Document 12/12/20 10:53 RMA (Rec: 12/12/20 10:53 RMA [id number]) Nutrition Malnutrition Evidence of Malnutrition Exists No Clinical Problem Swallowing Difficulty Etiology r/t stroke Signs/Symptoms as evidence by failed dysphagia screening and NPO status. Status Resolved Problem Recommendation Dietitian Recommendations/Changes Continue Cardiac diet as ordered. ONS only if PO fails at meals, will defer for now. Additional diet education as pt willing. Lab / Micro Data Result Diagrams: 12/12/20 06:14 12/12/20 06:14 Labs: Laboratory Results - last 24 hr 12/12/20 06:14: WBC 7.3, RBC 4.90, Hgb 15.4 H, Hct 46.7, MCV 95.3, MCH 31.4, MCHC 33.0, RDW Std Deviation 42.2, RDW Coeff of Chasity 12.0, Plt Count 243, MPV 9.8, Immature Gran % (Auto) 1.000 H, Neut % (Auto) 49.0, Lymph % (Auto) 27.4, [place] % (Auto) 10.2 H, Eos % (Auto) 10.7 H, Baso % (Auto) 1.7 H, Absolute Neuts (auto) 3.6, Absolute Lymphs (auto) 1.99, Nucleated RBC % 0 12/12/20 06:14: Sodium 137, Potassium 3.7, Chloride 106, Carbon Dioxide 26.0, Anion Gap 5, BUN 17, Creatinine 0.81, Estim Creat Clear Calc 63.96, Est GFR (MDRD) Af Amer 91, Est GFR (MDRD) Non-Af 75, BUN/Creatinine Ratio 20.9 H, Glucose 83, Calcium 8.6 Radiography Diagnostic Testing: Radiology Impression Echocardiogram 12/10/20 13:53 Interpretation Summary The study was technically difficult. Contrast injection was performed. Left ventricular systolic function is normal. The estimated ejection fraction is 55 %. The left atrium is moderately enlarged. The right atrium is moderately enlarged. There is mild mitral annular calcification. Extension the mitral annular calcification on the base of the posterior mitral valve leaflet. Mild (1+) mitral valve insufficiency. Trivial tricuspid valve insufficiency. Mild focal aortic valve calcification. Mild to moderate aortic stenosis. Trivial aortic valve insufficiency. Trivial pulmonic valve insufficiency. Trivial pericardial effusion. There are no echocardiographic indications of cardiac tamponade. Right ventricular systolic pressure estimated to be 41 mmHg. Unable to assess diastolic dysfunction. Bubble contrast study negative for right to left interatrial shunt. Ordering Physician: Arvin Olguin Performed By: Lavonne Samson RDCS Physical Exam Const alert, oriented x3 and no apparent distress General Appearance: cooperative HEENT normocephalic Eyes PERRL, EOMs intact bilaterally and conjunctivae normal Neck supple and no JVD Resp normal respiratory effort, no retractions, no use of accessory muscles and clear to auscultation bilaterally Auscultation: Negative for crackles, rales, rhonchi or wheezes Cardio regular rate, regular rhythm, S1 normal heart sound, S2 normal heart sound and no murmurs GI soft to palpation, non-tender and non-distended; Negative for hepatosplenomegaly Extremity no clubbing, cyanosis or edema Skin no rashes or lesions noted Neuro moves all extremities, no focal motor deficits and no sensory deficits noted Neuro Narrative: Right facial droop-improving Psych affect normal Appearance: appropriate Assessment & Plan Assessment/Plan (1) New onset atrial fibrillation: (2) Acute embolic stroke: PLAN: 1. Left-sided CVA likely embolic/new onset A. fib versus flutter/HTN/HLD -In the ER EKG demonstrated flutter versus A. fib, she will need to be on anticoagulation given the nature of her stroke in 2 different locations, however this can wait -We will start her on aspirin and allow for permissive hypertension, for 24 hours -Continue with Lipitor -CTA demonstrated 80% stenosis, carotid Doppler demonstrated a less than 50% stenosis, neurology was consulted and wanted to get a third study, MRA was negative for any significant stenosis on the right -Appreciate neurology recommendations -PT/OT/speech, evaluation shows decreased safety awareness and some weakness therefore will discuss with family for possible placement in rehab. 2. Hypothyroidism -Stable -Continue with Synthroid DVT: Lovenox Charges/Coding Visit Charges Inpatient E&M: 04885 Subs Hosp L2
--- NOTE | 2020-12-12 15:30 | CASEMGMT ---
Addendum entered by Wendy Carl 12/12/20 15:47: Patient's sister did say patient is normally not a very social person. She is very private. Patient's mom and sister did not even know patient had insurance as patient does not share any of this information with them. Wendy JOINER Original Note: MICKI called patient's mom and left a message for her to return SW's call. SW received a return call from patient's sister, Milka. She said she is with her mom right now. SW asked her if patient has any Developmental Delays. She said patient does not. She said normally she is very intelligent and has a college degree. SW repeated what patient told therapy when they asked her if she had a raised toilet seat. Patient said, I poop and tinkle on the potty. Patient's sister said that is not something patient would normally say. She does not watch cartoons regularly. She likes to watch the [employer]. She is usually a know it all. She said if patient is not independent with everything she cannot go home. She said that their mom cannot help patient. They were on their way in to the hospital. SW told her to ask for SW when they get here. MICKI spoke with patient's mom and sister when they arrived. MICKI discussed placement and coverage. MICKI also explained [facility] 4th floor rehab unit since patient had a Stroke. The physician then walked up and he spoke with them regarding patient's medical conditions. He recommended 4th floor rehab for patient. He also did not feel patient is in any condition to make appropriate decisions. MICKI explained to them that the physician in the Rehab Unit will have to accept patient and her insurance will have to approve her as well. MICKI explained this will not happen today. They just asked that SW keep them updated. MICKI spoke with Tonia regarding referral to the Inpatient Rehab Unit. She will check with Dr Rm. Await return call. Wendy JOINER
[2020-12-13] VITALS (10 sets, daily range): BP systolic 135–155; BP diastolic 83–100; PULSE 63–82; RESP 12–18; TEMP 36.2–36.9; O2SAT 94–99
[2020-12-13] MEDS: 0.9% Saline Lock 10 ML Syringe IV (02:00)
[2020-12-13] MEDS: Aspirin 325 MG Tablet PO (08:42)
--- NOTE | 2020-12-13 09:58 | CASEMGMT ---
MICKI spoke with Tonia on [facility] post acute referral line. She is still waiting to see if Dr Rm will accept patient in the rehab unit and then she will need to start the pre-cert. MICKI would like to wait until patient is accepted in rehab unit by Dr Rm before talking with patient about it. Wendy Carl VOLUNTEER RECRUITMENT COORDINATOR MARISEL
[2020-12-13] MEDS: Enoxaparin 40 MG/0.4 ML Syringe SC (10:33)
--- NOTE | 2020-12-13 12:07 | PN.HOSP_ITS ---
Subjective Subjective Doing well, still with some unsteadiness with physical therapy. Right facial droop is improving Objective Data Objective Data Vital Signs: Vital Signs Temp Pulse Resp BP Pulse Ox 98.4 F 68 16 149/86 H 98 12/13/20 08:30 12/13/20 08:30 12/13/20 08:30 12/13/20 08:30 12/13/20 08:30 Oxygen Delivery Method Room Air Weight: 165 lb 9.074 oz Body Mass Index (BMI) 27.6 Intake & Output: Intake and Output for Last 24 Hours 12/12/20 12/13/20 12/14/20 03:59 03:59 03:59 Intake Total 1681.67 / 1681.67 940 / 940 Balance 1681.67 / 1681.67 940 / 940 Medical Nutrition Assessment Dietitian: Nutrition Therapy Diagnosis Start: 12/12/20 10:52 Freq: Status: Active Protocol: Document 12/12/20 10:53 RMA (Rec: 12/12/20 10:53 RMA [id number]) Nutrition Malnutrition Evidence of Malnutrition Exists No Clinical Problem Swallowing Difficulty Etiology r/t stroke Signs/Symptoms as evidence by failed dysphagia screening and NPO status. Status Resolved Problem Recommendation Dietitian Recommendations/Changes Continue Cardiac diet as ordered. ONS only if PO fails at meals, will defer for now. Additional diet education as pt willing. Lab / Micro Data Result Diagrams: 12/12/20 06:14 12/12/20 06:14 Physical Exam Const alert, oriented x3 and no apparent distress General Appearance: cooperative HEENT normocephalic Eyes PERRL, EOMs intact bilaterally and conjunctivae normal Neck supple and no JVD Resp normal respiratory effort, no retractions, no use of accessory muscles and clear to auscultation bilaterally Auscultation: Negative for crackles, rales, rhonchi or wheezes Cardio regular rate, regular rhythm, S1 normal heart sound, S2 normal heart sound and no murmurs GI soft to palpation, non-tender and non-distended; Negative for hepatosplenomegaly Extremity no clubbing, cyanosis or edema Skin no rashes or lesions noted Neuro moves all extremities, no focal motor deficits and no sensory deficits noted Neuro Narrative: Right facial droop-improving Psych affect normal Appearance: appropriate Assessment & Plan Assessment/Plan (1) New onset atrial fibrillation: (2) Acute embolic stroke: PLAN: 1. Left-sided CVA likely embolic/new onset A. fib versus flutter/HTN/HLD -In the ER EKG demonstrated flutter versus A. fib, she will need to be on anticoagulation given the nature of her stroke in 2 different locations, however this can wait -We will start her on aspirin and allow for permissive hypertension, for 24 hours -Continue with Lipitor -CTA demonstrated 80% stenosis, carotid Doppler demonstrated a less than 50% mercedes nosis, neurology was consulted and wanted to get a third study, MRA was negative for any significant stenosis on the right -Appreciate neurology recommendations, will plan to get a CT scan of her brain tomorrow and if still no bleed, then can initiate Eliquis -PT/OT/speech, evaluation shows decreased safety awareness and some weakness therefore will discuss with family for possible placement in rehab. 2. Hypothyroidism -Stable -Continue with Synthroid DVT: Lovenox Charges/Coding Visit Charges Inpatient E&M: 59128 Subs Hosp L2
--- NOTE | 2020-12-13 12:32 | CASEMGMT ---
MICKI spoke with patient's mom in the room earlier and let her know at that time MICKI was waiting to hear whether or not the physician in rehab will take patient. She asked MICKI to call her daughter. MICKI received a voice mail from Tonia and Dr Rm will take patient in the rehab unit. Tonia will start pre-cert request with insurance. MICKI called patient's sister Milka. MICKI let her know Rehab will take patient, but we need to wait on insurance to approve. MICKI did let her know that it is possible insurance could deny her to go to the rehab unit. Usually if they do this they will say if they would approve SNF level of care. MICKI told her that if the rehab unit does not get approved we could move forward with snf placement. She asked about Medicaid etc. MICKI told her once patient clears up a little more we could do a Medicaid application. MICKI will talk with patient and her mom if she is present. Plan: [facility] 4th floor rehab unit pending insurance approval. Wendy Carl GYRO MECHANIC MARISEL
[2020-12-13] MEDS: Atorvastatin Calcium 80 MG Tablet PO (21:50)
[2020-12-14 02:58] VITALS: BP 157/96; PULSE 68; RESP 18; TEMP 36.6; O2SAT 100
[2020-12-14 03:00] VITALS: PULSE 75
[2020-12-14 07:05] VITALS: PULSE 67
--- NOTE | 2020-12-14 07:41 | CT_ITS ---
STUDY: CT BRAIN WITHOUT CONTRAST REASON FOR EXAM: Female, 65 years old. Check for post stroke bleed RADIATION DOSAGE (If Supplied By Facility): CTDIvol = ( 44.99 ) mGy, DLP = ( 745.49 ) mGycm TECHNIQUE: Transaxial CT imaging of the brain was performed without administration of intravenous contrast material. Individualized dose optimization techniques were used for this CT. COMPARISON: CT scan of the brain of 12/10/2020 and MRI of 12/11/2020. FINDINGS: Normal soft tissue structures. Normal calvarium. There is mild cerebral atrophy with widening of the extra-axial spaces and ventricular dilatation. There are areas of decreased attenuation within the white matter tracts of the supratentorial brain, consistent with mild microvascular disease changes. Acute infarct in the left thalamus is again seen. The left posterior parietal infarct is better evaluated by MRI. Normal cerebellum. There is no intracranial hemorrhage. Normal visualized paranasal sinuses. CT/Brain/Head without Contrast IMPRESSION: Left thalamic infarct unchanged prior exam. No evidence of acute bleed. Electronically Signed: Yaya Diaz MD at 9:48 EDT Tel , Service support ,
--- NOTE | 2020-12-14 09:08 | CASEMGMT ---
MICKI received a voice mail from [facility] and patient was approved for the Inpatient Rehab Unit. MICKI notified physician. MICKI will notify patient and family. Wendy JOINER
[2020-12-14 09:24] VITALS: BP 139/66; PULSE 64; RESP 16; TEMP 36.7; O2SAT 97
[2020-12-14] MEDS: Enoxaparin 40 MG/0.4 ML Syringe SC (09:35)
[2020-12-14] MEDS: Aspirin 325 MG Tablet PO (09:35)
--- NOTE | 2020-12-14 09:48 | CASEMGMT ---
MICKI went to patient's room. She was watching cartoons. SW let her know therapy and physician are recommending she to go [facility] Inpatient Rehab Unit. MICKI told her that her insurance approved her and she will likely go today. MICKI told her that her family can visit her over there just like they do here. She said ok what time. MICKI told her SW does not have a time yet. MICKI called patient's sister, Milka and let her know patient was approved for the rehab unit. MICKI told her that they should gather some clothes, toothbrush etc for patient. She thanked MICKI for all of the help. Plan: d/c to [facility] 4th Floor Rehab Unit. Wendy JOINER
--- NOTE | 2020-12-14 09:56 | PCM.DC ---
Discharge Instructions Diet Discharge Diet: Light diet - advance as tolerated Activity Discharge Activity: Return to Normal Activity Dressing / Incision Call your doctor if you observe: Fever of 101 or Higher, Shortness of breath, Dizziness, Swelling in the ankles, Chest pain and Increased palpitations (irregular heartbeat) Follow Up Care Test Results: Test results from this visit will be discussed in further detail at your follow-up appointment, if applicable. Discharge Plan Admission Admit Date/Time: 12/11/20 11:04 Attending Provider: Arvin Olguin Primary Care Provider: Corina Lockwood Instructions Patient Instructions: Stroke and Heart Disease, Stroke Prevent Live W Atrial Fib Discharge Orders/Prescriptions Prescriptions: New atorvastatin 80 mg Tablet 80 mg PO QHS Qty: 0 RF: 0 Eliquis 5 mg tablet 5 mg PO BID Qty: 60 RF: 0 aspirin 81 mg tablet,chewable 81 mg PO BREAKFAST Qty: 0 RF: 0 Continued fluticasone propion-salmeterol [Wixela Inhub] 250-50 mcg/dose blister with device 1 inh INHALATION BID RF: 0 levothyroxine [Euthyrox] 75 mcg tablet 75 mcg PO DAILY RF: 0 losartan 100 mg tablet 100 mg PO BID RF: 0 fluticasone propionate 50 mcg/actuation spray,suspension 2 spray INTRANASAL DAILY RF: 0 atenolol 100 mg tablet 100 mg PO DAILY Qty: 0 RF: 0 Referrals / Follow Up: Corina Lockwood MD [Primary Care Provider] - Care Physician,No Primary [NON-STAFF] - Disposition Disposition (needs filled in before D/C Order can be placed): Inpatient Rehab Unit/Facility
--- NOTE | 2020-12-14 10:13 | PCM.DC.SUM ---
Providers Date of Admission: 12/11/20 Primary Care Physician: Dr. Corina Lockwood MD Reason For Visit: CVA NEW AFIB Diagnosis Discharge Diagnosis (1) New onset atrial fibrillation: Status: Acute Code(s): I48.91 - Unspecified atrial fibrillation (2) Acute embolic stroke: Status: Acute Code(s): I63.9 - Cerebral infarction, unspecified Medications at Discharge Home Medications fluticasone propion-salmeterol [Wixela Inhub] 1 inh INHALATION BID 12/10/20 fluticasone propionate 2 spray INTRANASAL DAILY 12/10/20 levothyroxine [Euthyrox] 75 mcg PO DAILY 12/10/20 losartan 100 mg PO BID 12/10/20 apixaban [Eliquis] 5 mg PO BID #60 tab 12/14/20 aspirin 81 mg PO BREAKFAST #0 tab 12/14/20 atenolol 100 mg PO DAILY #0 tab 12/14/20 atorvastatin 80 mg PO QHS #0 tab 12/14/20 Hospital Course Operations None Procedures 2-D Echocardiogram Summary of Care Provided Minutes Spent on Discharge: 45 Hospital Course: Per HPI: NAOMI ANGUIANO, is a 65 F who presents from home with right facial droop and right weakness. She states that she wakes up at 3 AM and usually leaves the house for work at around 4. She states that she was feeling tired so she fell asleep in her car. She does remember much beyond that she was found in the parking lot of a [employer] where she was found to have slurred speech and right facial droop as well as right-sided weakness and EMS was called and she was brought here to the hospital. Initial work-up for stroke was negative on the CTA of her brain, she did have an 80% stenosis in the right ICA on CTA. An MRI of the brain was obtained on admission which did demonstrate left parietal and thalamic infarcts. Family states that she had had a similar episode about a week ago but never sought medical care. Also of note in the ER she was noted to have A. fib versus a flutter which is a new diagnosis for her. Hospital Course: 1. Left-sided CVA likely embolic/new onset A. fib versus flutter/HTN/TPG-65-vewd-old female who presented from home with right facial droop and right-sided weakness states that she had woken up at around 3 AM and felt tired on her way to work so she pulled over and [employer] parking lot and fell asleep and then when she woke up people noticed that she had a right facial droop and brought her to the hospital. She does not recall much of this history. Here in the hospital she was found to have a left-sided stroke on 2 different locations, neurology was consulted and recommended Eliquis therapy after a normal CT scan of the brain which was obtained today, pending read though on my read it does not look like she has had any bleed around the stroke therefore she is likely safe to start Eliquis this evening. We will decrease her aspirin from 325 to 81 mg daily. Continue with Lipitor as well. Of note the head and neck CTA read an 80% occlusion in the RCA however a carotid Doppler was obtained which said that the stenosis was less than 50%. Neurology felt that getting a third modality would help solve the issue so an MRA of the neck was performed which was also negative for an RCA stenosis. Of note she has not been restarted any of her home blood pressure medications during this admission, her heart rate is stayed below 80 so her atenolol was not restarted and her blood pressure has not been significantly elevated, I do recommend continuing her losartan will monitor her heart rate prior to restarting atenolol. 2. Hypothyroidism?stable, will continue with her home Synthroid. Physical Exam Const alert, oriented x3 and no apparent distress General Appearance: cooperative HEENT normocephalic Eyes PERRL, EOMs intact bilaterally and conjunctivae normal Neck supple and no JVD Resp normal respiratory effort, no retractions, no use of accessory muscles and clear to auscultation bilaterally Auscultation: Negative for crackles, rales, rhonchi or wheezes Cardio regular rate, regular rhythm, S1 normal heart sound, S2 normal heart sound and no murmurs GI soft to palpation, non-tender and non-distended; Negative for hepatosplenomegaly Extremity no clubbing, cyanosis or edema Skin no rashes or lesions noted Neuro moves all extremities, no focal motor deficits and no sensory deficits noted Neuro Narrative: Right facial droop-improving Psych affect normal Appearance: appropriate Medical Records Data Medical Nutrition Assessment Dietitian: Nutrition Therapy Diagnosis Start: 12/12/20 10:52 Freq: Status: Active Protocol: Document 12/12/20 10:53 RMA (Rec: 12/12/20 10:53 RMA [id number]) Nutrition Malnutrition Evidence of Malnutrition Exists No Clinical Problem Swallowing Difficulty Etiology r/t stroke Signs/Symptoms as evidence by failed dysphagia screening and NPO status. Status Resolved Problem Recommendation Dietitian Recommendations/Changes Continue Cardiac diet as ordered. ONS only if PO fails at meals, will defer for now. Additional diet education as pt willing. Weight / BMI Weight Weight: 165 lb 9.074 oz Body Mass Index (BMI) 27.6 ABG / Lab / Microbiology Data Result Diagrams: 12/12/20 06:14 12/12/20 06:14 D/C Instructions Discharge Diet: Light diet - advance as tolerated Call your doctor if you observe: Fever of 101 or Higher, Shortness of breath, Dizziness, Swelling in the ankles, Chest pain and Increased palpitations (irregular heartbeat) Meaningful Use Info Meaningful Use Diagnoses (Choose all that apply): None applicable Discharge Plan Admission Admit Date/Time: 12/11/20 11:04 Attending Provider: Arvin Olguin Primary Care Provider: Corina Lockwood Instructions Patient Instructions: Stroke and Heart Disease, Stroke Prevent Live W Atrial Fib Discharge Orders/Prescriptions Prescriptions: New atorvastatin 80 mg Tablet 80 mg PO QHS Qty: 0 RF: 0 Eliquis 5 mg tablet 5 mg PO BID Qty: 60 RF: 0 aspirin 81 mg tablet,chewable 81 mg PO BREAKFAST Qty: 0 RF: 0 Continued fluticasone propion-salmeterol [Wixela Inhub] 250-50 mcg/dose blister with device 1 inh INHALATION BID RF: 0 levothyroxine [Euthyrox] 75 mcg tablet 75 mcg PO DAILY RF: 0 losartan 100 mg tablet 100 mg PO BID RF: 0 fluticasone propionate 50 mcg/actuation spray,suspension 2 spray INTRANASAL DAILY RF: 0 atenolol 100 mg tablet 100 mg PO DAILY Qty: 0 RF: 0 Referrals / Follow Up: Corina Lockwood MD [Primary Care Provider] - Care Physician,No Primary [NON-STAFF] - Disposition Disposition (needs filled in before D/C Order can be placed): Inpatient Rehab Unit/Facility Charges/Coding Visit Charges Inpatient E&M: 77160 Disch Hosp
[2020-12-14 11:23] VITALS: PULSE 76
--- NOTE | 2020-12-14 11:42 | CASEMGMT ---
Patient's mom came to [facility]. MICKI let her know patient was approved to go to the Inpatient Rehab Unit. MICKI gave her an Inpatient Rehab pamphlet with visitation hours. She thanked MICKI for the assistance. Plan: d/c to [facility] 4th floor Inpatient Rehab Unit. Wendy JOINER
--- NOTE | 2020-12-14 14:00 | NURSING ---
Report called to FILIBERTO Garza in Rehab Unit.
[2020-12-14 14:45] VITALS: BP 130/91; PULSE 74; RESP 16; TEMP 36.7; O2SAT 99
== END 2020-12-14 15:05 | DRG 65 ==
LOC: ED 13:23 → PCU 13:30
PROVIDERS: Admitting Provider Family Medicine; Emergency Provider Emergency Medicine; PCP Internal Medicine; Visit Provider Family Medicine
DX: I63.49 Cerebral infarction due to embolism of other cerebral artery (principal); G81.91 Hemiplegia, unspecified affecting right dominant side; I48.91 Unspecified atrial fibrillation; I10 Essential (primary) hypertension; E78.5 Hyperlipidemia, unspecified; E03.9 Hypothyroidism, unspecified; R29.810 Facial weakness; R47.81 Slurred speech; Z79.899 Other long term (current) drug therapy
CPT/HCPCS: 36415; 70450; 70496; 70498; 70549; 70551; 70553; 71045; 80048; 80061; 82962; 83735; 84443; 84484; 85025; 85610; 85730; 92507; 92526; 92610; 93005; 93306; 93880; 94762; 97110; 97116; 97163; 97167; 97530; 97535; 97802; 97803; 99284; A9575; J7030; Q9957; Q9967; A4216; C8929; J3490

== ENCOUNTER 2020-12-14 15:19 | Inpatient (IN) | payer MEDICARE, MEDICAID, SELFPAY ==
[2020-12-11 07:58] VITALS: BMI 27.6
[2020-12-14 15:26] VITALS: BP 140/82; PULSE 65; RESP 18; TEMP 36.7; O2SAT 96; BMI 29.1
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
[2020-12-14 18:57] VITALS: BP 141/80; PULSE 70; RESP 18; TEMP 36.6; O2SAT 96
[2020-12-14 19:27] VITALS: O2SAT 95
[2020-12-14 19:48] VITALS: PULSE 89; RESP 16; O2SAT 95
[2020-12-14 20:25] VITALS: BMI 29.1
[2020-12-14 21:04] VITALS: PULSE 87
[2020-12-14] MEDS: Metoprolol Tartrate 25 MG Tablet PO (21:04)
[2020-12-14] MEDS: Fluticasone Propion/Salmeterol 250-50 Inhaler 1 PUFF INHALATION (21:04)
[2020-12-14] MEDS: Atorvastatin Calcium 80 MG Tablet PO (21:05)
[2020-12-14] MEDS: Losartan Potassium 100 MG Tablet PO (21:05)
[2020-12-14] MEDS: APIXABAN 5 MG TABLET PO (21:05)
--- NOTE | 2020-12-14 22:01 | NURSING ---
PT IMPULSIVE AND REMINDED REPEATEDLY TO USE CALL LIGHT FOR TOILETING NEEDS. PT HAS ATTEMPTED TO GET OUT OF BED TWICE AND SET OFF ALARMS. PT ACKNOWLEDGES STAFF REQUEST YET CONTINUES NONCOMPLIANCE WITH CALL LIGHT.
[2020-12-15] MEDS: Levothyroxine 75 MCG Tablet PO (06:13)
[2020-12-15 07:07] LABS: Absolute Lymphocyte Count 1.88 X10^3/uL (0.83-4.51); Absolute Neutrophil Count 7.4 X10^3/uL (2.0-7.7); Basophil# 0.08 X10^3/uL; Basophil% 0.7 % (0-1); Eosinophil# 0.79 X10^3/uL; Hematocrit 50.4 % (37-47); Hemoglobin 17.1 g/dL (12.0-15.0); Lymphocyte # 1.88 X10^3/ul (0.83-4.51); Lymphocyte % 16.6 % (19-41); Mean Corp Hgb Conc 33.9 g/dL (32-36); Mean Corpuscular Hgb 31.5 pg (27.0-32.0); Mean Corpuscular Volume 92.8 fL (81-99); Mean Platelet Vol. 10.1 fl (6.2-12.0); Monocyte# 1.15 X10^3/uL; Monocyte% 10.2 % (0-10); NRBC Flagged by Analyzer 0 % (0-5); Neutrophil # 7.37 X10^3/uL (2.7-7.7); Platelet Count 267 K/mm3 (150-450); RBC Distribution Width CV 11.9 % (11.6-14.6); RBC Distribution Width SD 40.8 fl (35.1-43.9); Red Blood Count 5.43 M/mm3 (4.2-5.4); White Blood Count 11.3 K/mm3 (4.4-11.0)
[2020-12-15 07:38] VITALS: BP 140/76; PULSE 67; RESP 17; TEMP 36.6; O2SAT 95
[2020-12-15 07:46] VITALS: PULSE 77
[2020-12-15] MEDS: Fluticasone 0.05% 1 SPRAY NASAL.SRY 2 SPRAY NASAL (07:46)
[2020-12-15] MEDS: Losartan Potassium 100 MG Tablet PO ×2 (07:46→19:56)
[2020-12-15] MEDS: APIXABAN 5 MG TABLET PO ×2 (07:46→19:56)
[2020-12-15] MEDS: Metoprolol Tartrate 25 MG Tablet PO ×2 (07:46→19:56)
[2020-12-15] MEDS: Aspirin 81 MG TAB.CHEW PO (07:46)
[2020-12-15] MEDS: Fluticasone Propion/Salmeterol 250-50 Inhaler 1 PUFF INHALATION ×2 (07:48→19:57)
[2020-12-15 08:05] LABS: Anion Gap 8 (5-15); BUN 23 mg/dL (7-18); BUN/Creat Ratio 26.4 RATIO (10-20); Calcium,Total 9.6 mg/dL (8.5-10.1); Chloride 102 mmol/L (98-107); Creatinine, Serum 0.87 mg/dL (0.55-1.02); EST Glomerular Filtration Rate 69 mL/min (>60); Est Glom Filt Rate - Afr Amer 84 mL/min (>60); Estimated Creatinine Clearance 52.62 ml/min; Glucose 106 mg/dL (74-106); Potassium 3.9 mmol/L (3.5-5.1); Sodium Level 133 mmol/L (136-145)
[2020-12-15 08:07] LABS: Hemoglobin A1c 5.4 % (3.8-5.6)
[2020-12-15] MEDS: QUEtiapine 25 MG Tablet 12.5 MG PO (11:24)
[2020-12-15 15:46] VITALS: BMI 29.1
[2020-12-15 19:33] VITALS: PULSE 82; O2SAT 97
[2020-12-15 19:56] VITALS: BP 124/76; PULSE 80
[2020-12-15] MEDS: Atorvastatin Calcium 80 MG Tablet PO (19:56)
[2020-12-15] MEDS: QUEtiapine 25 MG Tablet PO (19:56)
[2020-12-15 20:00] VITALS: PULSE 80; RESP 16; O2SAT 97
[2020-12-15 20:02] VITALS: BP 124/76; PULSE 80; RESP 16; TEMP 36.7; O2SAT 97
[2020-12-15 20:02] LABS: Red Blood Cells-Urine 0 SEEN /hpf (0-5); Squamous Epithelial Cells - UA 0 SEEN /hpf (5-10); White Blood Cells 0 SEEN /hpf (0-5)
[2020-12-15 20:06] LABS: Color, Urine Yellow (Yellow); Glucose, Dipstick Normal (Normal); Ketone-Dipstick Negative (Negative); Leukocyte Esterase-Dipstick Negative /ul (Negative); Nitrite-Dipstick Negative (Negative); Occult Blood-Urine Negative /ul (Negative); Protein-Dipstick 15 mg/dl (Negative); Urine Bilirubin Dipstick Negative (Negative); Urine Clarity Sl. Cloudy (Clear); Urine Urobilinogen Normal (Normal)
[2020-12-15 20:12] LABS: Bacteria RARE /hpf (None Seen); Mucous, Urine 1+ /hpf (<or=2+)
[2020-12-16] VITALS: BMI 29.1
--- NOTE | 2020-12-16 00:25 | NURSING ---
Reviewed and agree with [facility] documentation and assessment charting.
[2020-12-16] MEDS: Levothyroxine 75 MCG Tablet PO (05:32)
[2020-12-16 07:22] VITALS: BP 115/72; PULSE 76; RESP 16; TEMP 36.2; O2SAT 94
[2020-12-16] MEDS: Fluticasone 0.05% 1 SPRAY NASAL.SRY 2 SPRAY NASAL (07:53)
[2020-12-16] MEDS: Fluticasone Propion/Salmeterol 250-50 Inhaler 1 PUFF INHALATION ×2 (07:53→20:31)
[2020-12-16 07:54] VITALS: PULSE 70
[2020-12-16] MEDS: Losartan Potassium 100 MG Tablet PO ×2 (07:54→20:31)
[2020-12-16] MEDS: Metoprolol Tartrate 25 MG Tablet PO ×2 (07:54→20:27)
[2020-12-16] MEDS: Aspirin 81 MG TAB.CHEW PO (07:54)
[2020-12-16] MEDS: APIXABAN 5 MG TABLET PO ×2 (07:54→20:27)
[2020-12-16] MEDS: QUEtiapine 25 MG Tablet 12.5 MG PO (07:55)
[2020-12-16] MEDS: Acetaminophen 325 MG Tablet 650 MG PO ×2 (12:17→20:26)
--- NOTE | 2020-12-16 13:12 | PCM.RU.PYE ---
Admission Information Primary Diagnosis:: Debility due to embolic CVA's in the left thalamus and left parietal lobe Actual Problem List:: Pain, ALteration in Cmfrt, Cognitve Impr/Memory Loss, Alteration in Sleep, Mobility Impaired, Self Care Deficit, Ineffective Communication, Know.Dfct/Disease Process, Know.Dfct of Medicaitons, BP, Hypertension, Alteration/ Air Exchange and Alteration-Leisure Activ. Potential Problem List:: DVT, Bleeding, Infection, UTI, Aspiration, Falls, Skin Integrity and Depression Risk of Complications DVT: TOMMY Hose and - (Eliquis) Bleeding: Monitor Lab Values, Nursing to Teach Precautions for anti-coagulation therapy., Wound, if applicable, to be assessed every shift. and Stroke patients assessed for lethargy or change in status. Infection: Clinical Staff to Monitor for S/S of infection: and S/S of infection include fever, redness, warmth, etc. Urinary Tract Infection: Monitor for frequency, burning, discomfort, or incontinence. and Nursing will obtain urine sample for urinalysis and C&S when ordered. Aspiration: Clinical staff will monitor for coughing, drooling, congestion., Speech will evaluate swallowing and dsyphasia. and Nursing will monitor patient swallowing during meals. Falls: Patient will be evaluated for Fall Precautions and Patient will be placed on Fall Precautions as indicated per protocol. Skin Breakdown: Nursing will assess skin daily using assessment tool. and Nursing will place on Skin Breakdown Precautions as indicated. Pain: Clinical staff will assess patient's pain level per protocol., Medications will be given, if needed, and the pain level reassessed. and Other methods: Massage, distraction, decrease stimulus, etc. used PRN. Plan of Care Patient requires physician specializing in physical medicine and rehab oversight to provide close medical supervision of rehab issues including: Pain Management, Sleep Problems, Bowel and Bladder, Medical and co-morbidity Management, DVT prophylaxis, Rehabilitation Leadership and Coordination of treatment team Patient needs Physical Therapy: For a minimum of 1 hour and At least 5 out of 7 days Patient needs Physical Therapy to improve:: Mobility, Strengthening, Transfers, Stretching, ROM, Endurance, Stairs, Gait and Balance Patient needs Occupational Therapy: For a minimum of 1 hour and At least 5 out of 7 days Patient needs Occupational Therapy to improve ADL's incl.: Eating, Grooming, Bathing, Dressing, Toileting, Toilet transfers, Community Reintegration, Higher functioning activities, Household tasks, Adaptive Equipment, Splinting and Other activities as determined Patient requires speech therapy: For a minimum of 1 hour and At least 5 out of 7 days Patient requires speech therapy for: Swallowing, Cognition, Language Skills and Compensatory Strategies Patient requires 24/7 Rehabilitation Nursing for: Pain Issues, Identifying and preventing risk factors, Monitoring and reporting current medical conditions, Assisting with ambulation, transfer, and all ADL's, Teaching patients about disease process and medications, Family teaching, Providing safe environment, Bowel and Bladder Issues, Skin integrity and Medication Management Patient needs Event Marketing Specialist/ Case Management for: Discharge Planning, Arranging Home Equipment or Services and Family Interventions Patient needs Dietary and Nutrition Services for: Adequate Nutrition, Nutritional Supplements and Nutritional Education Goals Patient will remain: free from falls and or injury at time of discharge. Patient will perform bed mobility at: MOD I level of assist. Patient will complete transfers from bed to chair at: MOD I level of assist. Patient will ambulate: 100 feet and with LRD Patient will complete upper body dressing at: MOD I level of assist. Patient will complete lower body dressing at: MOD I level of assist. Patient will complete toileting at: MOD I level of assist. Patient will perform bathing at: MOD I level of assist. Patient will complete grooming at: MOD I level of assist. Patient will complete home management skills at: MOD I level of assist. Patient will achieve: - (1 curb step) Patient will have pain level of: of 3 or less Patient's skin will: remain intact Patient will receive: adequate nutrition. Discharge Planning Pt Prognosis for Sig. Practical Improv. w/in Reasonable Time: Good Estimated Length of stay (days): 28 Anticipated D/C Destination: Home Was Preadmission Assessment Accurate?: Yes
[2020-12-16 17:00] VITALS: BMI 29.1
[2020-12-16 20:09] VITALS: BP 121/79; PULSE 80; RESP 16; TEMP 36.6; O2SAT 97
[2020-12-16] MEDS: Atorvastatin Calcium 80 MG Tablet PO (20:26)
[2020-12-16 20:27] VITALS: BP 121/79; PULSE 80
[2020-12-16] MEDS: QUEtiapine 25 MG Tablet PO (20:31)
[2020-12-16 23:28] VITALS: BMI 29.1
[2020-12-17] MEDS: Levothyroxine 75 MCG Tablet PO (05:17)
[2020-12-17 07:00] VITALS: O2SAT 95
[2020-12-17 08:01] VITALS: BP 161/78; PULSE 69; RESP 18; TEMP 36.3; O2SAT 97
[2020-12-17] MEDS: QUEtiapine 25 MG Tablet 12.5 MG PO (08:12)
[2020-12-17] MEDS: APIXABAN 5 MG TABLET PO ×2 (08:12→19:55)
[2020-12-17] MEDS: Losartan Potassium 100 MG Tablet PO ×2 (08:12→19:55)
[2020-12-17] MEDS: Fluticasone 0.05% 1 SPRAY NASAL.SRY 2 SPRAY NASAL (08:12)
[2020-12-17] MEDS: Aspirin 81 MG TAB.CHEW PO (08:12)
[2020-12-17] MEDS: Fluticasone Propion/Salmeterol 250-50 Inhaler 1 PUFF INHALATION ×2 (08:13→19:56)
[2020-12-17 08:59] VITALS: PULSE 68
--- NOTE | 2020-12-17 10:27 | PN_ITS ---
Progress Note Jackelyn was Seen on team rounds today. Her mother Fadia and her Sister Ana were present in the room for rounds. afebrile VSS - BP is a little high today at 161/78 but other BP's have been well controlled. Maintaining appropriate oxygen saturation on RA while awake Oral intake is adequate Discussed with nursing - She slept well last night. she is not taking small bites or small sips. She is gulping and pocketing. She even picked the plate up and licked it. Reviewed the PT/OT/ST notes - her motivation seems to wax and wane which is wh at they observed on the acute side of the hospital. To the point where a second MRI was done to R/O extension of the stroke. There was no change. Medication list reviewed. I reviewed the overnight trending pulse ox yesterday and 50.9% of the time the pulse ox is 70-79%. This may explain the pulmonary hypertension and the polycythemia. She may also have an endocrine problem, such as hypertes tosteronism, that contributes to polycythemia. Physical Exam Const alert and no apparent distress Constitutional Narrative: She is lying in bed. she is able to verbalize when she needs to use the toilet. She is not using the RUE while lying in bed. She is constantly smoothing her hair but, only on the left side. She is requiring 2 people to get her to the toilet and she is not assisting or attempting to assist at all today. Resp normal respiratory effort and clear to auscultation bilaterally Resp Narrative: Diminished because she is breathing through her nose despite me telling her to breath through her mouth. She is not tachypneic. Cardio no murmurs and no gallops Cardio Narrative: She is in AF. The HR has been well controlled. She has been getting Metoprolol 25 mg BID. This AM the dose was held because the HR was < 80. No bradycardia and no tachycardia. GI soft to palpation, non-tender and non-distended GI Narrative: BS's present in all quadrants. No guarding with palpation. Extremity no calf tenderness and no pedal edema Skin Skin Narrative: + hirsutism General Skin Exam: no breakdown Rashes: no rashes Neuro Neuro Narrative: R facial droop is worse today. Mild dysarthria. She projects her voice well and is yelling at times. She has drift with the RUE and she is R handed. She neglects to use the R hand/RUE. No drift with the RLE. There is no drift with the LUE or the LLE. No sensory loss and no ataxia. Psych Psych Narrative: Strange behavior. Yelling when she does not get what she wants right away. Not really participating in a conversation but, will answer questions. Assessment & Plan Assessment/Plan (1) Debility: (2) Acute embolic stroke: (3) New onset atrial fibrillation: (4) Polycythemia: (5) Pulmonary hypertension: (6) Sleep-disordered breathing: (7) Hypoxemia: (8) Hirsutism: PLAN: 1. Encouraged increased water intake 2. Continue therapy 3. Oxygen when sleeping. I would try a CPAP trial but, I do not think she would tolerate due to the behavior issues at present. 4. Refer to Dr. Fitzgerald post DC to be evaluated for the cause of the hirsutism.......if she has increased androgens this may be contributing to the polycythemia which would increase risk for stroke. 5. May also need to refer to hematology to W/U fo the cause of the polycythemia. 6. she will need a formal sleep study post DC. Capacity Capacity Assessment Tool Can the patient make a choice & communicate that choice?: Unable to Determine Can the patient understand benefits, risks and alternatives?: Unable to Determine Can the patient make a logical, rational choice?: Unable to Determine Is the choice the patient makes consistent w/ their values?: Comment (I do not know her values) Is there an impending, emergent risk to the patient?: No Does the patient have an Advance Directive?: No Is there a Surrogate Available?: Yes i.e. HCPOA: No i.e. close relative (spouse, child, parent, sibling)?: Yes Visit Charges Inpatient E&M: 27468 Subs Hosp L2
--- NOTE | 2020-12-17 11:00 | CASEMGMT ---
Team meeting held today with pt, pt sister Milka and pt mother Fadia present. Pt is currently receiving PT/OT/ST with functional decline from time of admission until this morning. Per Dr. Rm, pt will need a sleep study at time of discharge due to likely sleep apnea. According to family, pt presenting with severe cognitive changes since time of stroke. SW met with Milka and Fadia after team. Pt lives at home with Fadia however Fadia will be unable to provide any care for pt if she were to return home. Per family, pt finances are very limited. SW provided a list of SNF providers including quality and resource use data and consistent with the patient's preferred geographic region, medical needs and insurance network. SW also explained Medicaid process to pt sister and provided a Medicaid application. Milka states intentions to complete on behalf of pt and submit to [facility]. SW provided emotional support and will continue to follow for support and discharge planning. ISRA Alva
[2020-12-17 13:40] VITALS: BMI 29.1
[2020-12-17] MEDS: Acetaminophen 325 MG Tablet 650 MG PO (16:58)
[2020-12-17 19:25] VITALS: BP 114/70; PULSE 62; RESP 16; TEMP 36.4; O2SAT 97
[2020-12-17 19:50] VITALS: BMI 29.1
[2020-12-17] MEDS: QUEtiapine 25 MG Tablet PO (19:51)
[2020-12-17] MEDS: Atorvastatin Calcium 80 MG Tablet PO (19:54)
[2020-12-17 19:56] VITALS: PULSE 64
[2020-12-17] MEDS: Metoprolol Tartrate 25 MG Tablet PO (19:56)
[2020-12-17 20:25] VITALS: BMI 29.1
[2020-12-17 22:00] VITALS: PULSE 65; RESP 16
[2020-12-18] MEDS: Acetaminophen 325 MG Tablet 650 MG PO (04:19)
[2020-12-18] MEDS: Levothyroxine 75 MCG Tablet PO (04:20)
--- NOTE | 2020-12-18 04:28 | NURSING ---
Pt x3 assist to transfer to and from [facility]. Pt cued to sit up straight or stand tall but pt failed command. Pt not using rt arm for transfer but able to lift bottom enough to assist with putting on shorts. Tylenol prn provided for c/o pain in neck while sitting up.
[2020-12-18 07:51] VITALS: BP 113/70; PULSE 78
[2020-12-18] MEDS: Aspirin 81 MG TAB.CHEW PO (07:51)
[2020-12-18] MEDS: Metoprolol Tartrate 25 MG Tablet PO ×2 (07:51→20:08)
[2020-12-18] MEDS: Losartan Potassium 100 MG Tablet PO ×2 (07:51→20:07)
[2020-12-18] MEDS: APIXABAN 5 MG TABLET PO ×2 (07:51→20:05)
[2020-12-18] MEDS: QUEtiapine 25 MG Tablet 12.5 MG PO (07:52)
[2020-12-18] MEDS: Fluticasone 0.05% 1 SPRAY NASAL.SRY 2 SPRAY NASAL (07:52)
[2020-12-18] MEDS: Fluticasone Propion/Salmeterol 250-50 Inhaler 1 PUFF INHALATION ×2 (07:52→20:04)
[2020-12-18 08:00] VITALS: BP 109/76; PULSE 76; RESP 18; TEMP 36.5; O2SAT 98
[2020-12-18 15:03] VITALS: BMI 29.1
[2020-12-18 19:11] VITALS: BP 149/91; PULSE 86; RESP 18; TEMP 36.8; O2SAT 95
[2020-12-18] MEDS: QUEtiapine 25 MG Tablet PO (19:56)
[2020-12-18 20:03] VITALS: BMI 29.1
[2020-12-18] MEDS: Senna/Docusate Sodium 1 Tablet 2 TABLET PO (20:05)
[2020-12-18 20:08] VITALS: PULSE 80
[2020-12-18] MEDS: Atorvastatin Calcium 80 MG Tablet PO (20:08)
[2020-12-18 20:23] VITALS: PULSE 82; RESP 17; O2SAT 97
[2020-12-19] MEDS: Levothyroxine 75 MCG Tablet PO (06:33)
[2020-12-19 07:29] VITALS: BP 132/84; PULSE 65; RESP 16; TEMP 36.8; O2SAT 92
[2020-12-19] MEDS: QUEtiapine 25 MG Tablet 12.5 MG PO (08:39)
[2020-12-19] MEDS: Aspirin 81 MG TAB.CHEW PO (08:39)
[2020-12-19] MEDS: Losartan Potassium 100 MG Tablet PO (08:40)
[2020-12-19] MEDS: Fluticasone 0.05% 1 SPRAY NASAL.SRY 2 SPRAY NASAL (08:40)
[2020-12-19] MEDS: APIXABAN 5 MG TABLET PO (08:40)
[2020-12-19 08:41] VITALS: PULSE 65
[2020-12-19] MEDS: Metoprolol Tartrate 25 MG Tablet PO (08:41)
[2020-12-19] MEDS: Fluticasone Propion/Salmeterol 250-50 Inhaler 1 PUFF INHALATION (08:41)
--- NOTE | 2020-12-19 09:45 | NURSING ---
0945 pt riding on [employer] at this time with PT when therapist calls to this RN for assistance. pt became very diaphoretic and and lethargic. pt's vital signs obtained BP was noted to be 76/47. Blood pressure cuff readjusted and taken again. after 3 minutes the blood pressure was 120/83, pulse of 92. Blood glucose obtained and was 85. pt given a cool rag and transferred back into recliner. pt still lethargic and not answering questions if asked. pt began to drool. Rapid response called at 0953. pt transferred into bed and vitals retaken. BP 120/78. pt assessed and transferred down to CT at 1000. Dr Sujey perkins.
[2020-12-19 10:00] LABS: Bedside Glucose 85 mg/dL (70-110)
--- NOTE | 2020-12-19 10:02 | CT_ITS ---
STUDY: CT BRAIN WITHOUT CONTRAST REASON FOR EXAM: Female, 65 years old. Altered mental status RADIATION DOSAGE (If Supplied By Facility): CTDIvol = ( 44.99 ) mGy, DLP = ( 745.49 ) mGycm TECHNIQUE: Transaxial CT imaging of the brain was performed without administration of intravenous contrast material. Individualized dose optimization techniques were used for this CT. COMPARISON: Comparison is made with prior study dated 12/14/2020. FINDINGS: Normal soft tissue structures. Normal calvarium. There is mild cerebral atrophy with widening of the extra-axial spaces and ventricular dilatation. There are areas of decreased attenuation within the white matter tracts of the supratentorial brain, consistent with microvascular disease changes. Once again, there is evidence of an acute infarct in the left thalamus. Focal area of decreased attenuation is also seen in the posterior medial aspect of the left parietal lobe in keeping with the acute to subacute infarct. Normal brainstem. Normal cerebellum. There is no intracranial hemorrhage. There are no findings of an acute ischemic infarction. Atherosclerotic calcification of the vertebral arteries and cavernous portions of the internal carotid arteries bilaterally. Normal visualized paranasal sinuses. CT/Brain/Head without Contrast IMPRESSION: Chronic involutional changes of the brain. Stable appearance of the infarction in the left thalamus. Progressive decrease attenuation in the posterior medial aspect of the left occipital lobe. Electronically Signed: Yony Schmidt MD at 10:49 EDT , Service support ,
--- NOTE | 2020-12-19 10:31 | PCM.DC.SUM ---
Providers Date of Admission: 12/14/20 Primary Care Physician: Dr. Corina Lockwood MD Reason For Visit: STROKE Diagnosis Discharge Diagnosis (1) Hemiparesis, right: Status: Acute Code(s): G81.91 - Hemiplegia, unspecified affecting right dominant side (2) Altered mental status: Status: Acute Code(s): R41.82 - Altered mental status, unspecified (3) Debility: Status: Acute Code(s): R53.81 - Other malaise (4) Acute embolic stroke: Status: Acute Code(s): I63.9 - Cerebral infarction, unspecified (5) New onset atrial fibrillation: Status: Acute Code(s): I48.91 - Unspecified atrial fibrillation (6) Behavioral change: Status: Acute Code(s): R46.89 - Other symptoms and signs involving appearance and behavior (7) Polycythemia: Status: Acute Code(s): D75.1 - Secondary polycythemia (8) Pulmonary hypertension: Status: Acute Code(s): I27.20 - Pulmonary hypertension, unspecified (9) Biatrial enlargement: Status: Acute Code(s): I51.7 - Cardiomegaly (10) Aortic stenosis: Status: Acute Code(s): I35.0 - Nonrheumatic aortic (valve) stenosis (11) Dyslipidemia: Status: Acute Code(s): E78.5 - Hyperlipidemia, unspecified (12) Hirsutism: Status: Acute Code(s): L68.0 - Hirsutism (13) Hypoxemia: Status: Acute Code(s): R09.02 - Hypoxemia (14) Sleep-disordered breathing: Status: Acute Code(s): G47.30 - Sleep apnea, unspecified (15) Hypothyroidism: Status: Acute Code(s): E03.9 - Hypothyroidism, unspecified Plan: An PATIENT SVCS MGR was called on Jackelyn this morning. While she was working with the PT she became confused, got diaphoretic and was not moving the R side at all. She was obtunded. She was taken for a STAT NO CTB and it was negative for hemorrhagic conversion. She was then transferred to PCU 120 for altered mental status and progressive neurologic deficit on the R side. Medications at Discharge Home Medications fluticasone propion-salmeterol [Wixela Inhub] 1 inh INHALATION BID 12/10/20 fluticasone propionate 2 spray INTRANASAL DAILY 12/10/20 levothyroxine [Euthyrox] 75 mcg PO DAILY 12/10/20 losartan 100 mg PO BID 12/10/20 apixaban [Eliquis] 5 mg PO BID 12/14/20 aspirin 81 mg PO BREAKFAST 12/14/20 atenolol 100 mg PO DAILY #0 tab 12/14/20 atorvastatin 80 mg PO QHS 12/14/20 Hospital Course Operations None Summary of Care Provided Minutes Spent on Discharge: 45 Hospital Course: a left thalamic infarct which was unchanged from the prior exam. There was no evidence of acute bleed.That showed JACKELYN ANGUIANO, is a 65 YO F with a PMH of HTN, Hypothyroidism and allergies for which she uses an inhaler and a nasal spray who presented to the ED at [facility] on 12/10/20 with R facial droop, slurred speech and R side weakness. LKW was > 4 hours prior to arriving in the ED. She was found to be in AF in the ED. A noncontrasted CT brain showed chronic involutional changes with no intracerebral hemorrhage but, with a questionable early change of ischemic infarction in the left thalamus. CTA of the head and neck showed calcific plaque at the origin of the right internal carotid artery causing greater than 80% luminal narrowing. Consult was obtained with [facility] telestroke and admission to the hospital was recommended but, no TPA because she was outside of the window. she was admitted to the Progressive care unit. Transthoracic echocardiogram showed a normal ejection fraction of 55% with no wall motion abnormalities. There was moderate biatrial enlargement. There was mild to moderate aortic stenosis. Right ventricular systolic pressure was estimated at 41 which is consistent with mild pulmonary hypertension. The bubble contrast study was negative for right to left interatrial shunt. A carotid duplex showed irregular calcific plaque at the proximal right internal carotid artery with less than 50% stenosis. There was also mild plaque at the proximal left internal carotid artery with less than 50% stenosis. MRI of the brain on 12/10/2020 showed involutional changes with recent left parietal and thalamic infarcts. There was no hemorrhage On 12/11/2020 another teleneurology consult was obtained with SOC because of fluctuating neurologic deficits. NIHSS score at the time of the SOC consult was 6. A repeat MRI and an MRA was recommended. Lipitor and an increase in aspirin to 325 mg was recommended. They also recommended a repeat CT head in approximately 4 days prior to starting anticoagulation. The repeat MRI was unchanged. MRA showed normal bilateral cervical carotid and vertebral arteries. She had a CT brain on 12/14/20 that showed a Left thalamic infarct unchanged from previous study with no evidence of bleeding. She was started on Eliquis 5 mg BID. She had been on Atenolol 100 mg prior to presenting to the ED for HTN but, it was held in the hospital because the HR was < 80 per documentation. Significant lab in the hospital was an LDL of 159 with an HDL of 51. Triglycerides were 123 and the TSH was within normal limits at 1.4. She was quite hemoconcentrated at admission with a hemoglobin of 18.3 and she was not on a diuretic as an outpatient. BUN was 26 with a creatinine of 0.91. Potassium was low at 3.7 and a random blood sugar was 118. She was transferred to the acute inpt rehab unit at [facility] on 12/14/20 for 3 hours of therapy daily to restore her at or near her prior level of function. Her behavior was quite child like. The NIHSS was 3 at the time of presentation to the rehab unit. She was unable to sleep at night and had behavior disturbances and she was started on Seroquel at and after that slept well. Because of the polycythemia and the Pulmonary HTN and new onset AF we obtained an overnight trending pulse ox which showed a pulse ox on to be 70-79% 50.9 % of the time she was monitored, Oxygen was ordered at 2-3 LPM any time she is sleeping. Her neurologic findings/functional ability have waxed and waned while on rehab. On the morning of 12/19 while she was working with the PT she developed garbled speech and was very impulsive. While doing the Nu-step she suddenly got diaphoretic. Vital signs showed a blood pressure of 74/46 while seated on the NuStep. A second blood pressure was immediately checked and was 120/76. The blood sugar was 85. She was drooling from the right side of her mouth. An PATIENT SVCS MGR was called and the pt was taken to CT under stroke protocol. A NC CTB was unchanged from the previous study and specifically there was no evidence of hemorrhagic conversion. While in rehab she has been on Metoprolol 25 BID and she has not had any tachycardia. She has not been bradycardic. Her oral intake has been decreased but, CREAT has been stable. She is polycythemic and this likely contributes to her hypercoagulability. she has been on ASA and Eliquis. She is also quite hirsute and I am curious to know if the Testosterone is elevated. she was transferred to PCU following the CTB and will be admitted by Dr. Holbrook to the hospitalist service. I notified her sister Ana of the transfer. We will be happy to take her back to rehab when she is ready. Physical Exam Const Constitutional Narrative: She is drowsy but she is able to follow my commands. Initially she was mumbling and speaking quite softly but, when asked to speak up the volume and dysarthria improved. HEENT normocephalic Mouth: dry mucous membranes Eyes PERRL and EOMs intact bilaterally Neck supple Neck Narrative: ? soft bruit on the R. Lymph Lymphatic: no lymphadenopathy noted Resp normal respiratory effort Auscultation: diminished lung sounds; Negative for rales, rhonchi or wheezes Cardio S1 normal heart sound, S2 normal heart sound, no murmurs, no rub and no gallops Cardio Narrative: She remains in AF with HR within normal limits. GI soft to palpation, non-tender and non-distended Extremity no clubbing, cyanosis or edema Skin General Skin Exam: no breakdown Rashes: no rashes Neuro Neuro Narrative: R facial droop is more pronounced today. She has 0/5 strength in the RUE and the RLE. She has intact sensation. She told me it was July but, she was able to tell me the correct age. She followed 2/2 commands appropriately. She has 5/5 strength on the left side. Mild dysarthria but, I am able to understand her. No ataxia. Psych Psych Narrative: She has had very child like behavior and she is quite impulsive. She expects her needs to be met immediately and if not then she starts yelling. This is new for her according to the family. Weight / BMI Weight Weight: 164 lb 3.91 oz Body Mass Index (BMI) 29.1 ABG / Lab / Microbiology Data Result Diagrams: 12/15/20 06:44 12/15/20 06:44 Laboratory: Laboratory Results - last 24 hr 12/19/20 09:43: POC Glucose 85 Meaningful Use Info Meaningful Use Diagnoses (Choose all that apply): Ischemic CVA CVA Therapy Assessed for PT,OT and/or ST?: Yes Ischemic Stroke Antithrombotic order at d/c?: Yes Dx of Atrial fib/flutter?: Yes Anticoagulant at discharge?: Yes Statins at discharge?: Yes Primary Dx Acute Ischemic CVA?: Yes IV tPA ordered during stay?: No Reason IV t-PA not ordered: Treatment not Indicated Discharge Plan Admission Admit Date/Time: 12/14/20 15:19 Primary Reason for Your Visit: DEBILITY DUE TO STROKE Attending Provider: Radha Rm Primary Care Provider: Corina Lockwood Discharge Orders/Prescriptions Prescriptions: No Action fluticasone propion-salmeterol [Wixela Inhub] 250-50 mcg/dose blister with device 1 inh INHALATION BID RF: 0 levothyroxine [Euthyrox] 75 mcg tablet 75 mcg PO DAILY RF: 0 losartan 100 mg tablet 100 mg PO BID RF: 0 fluticasone propionate 50 mcg/actuation spray,suspension 2 spray INTRANASAL DAILY RF: 0 atenolol 100 mg tablet 100 mg PO DAILY Qty: 0 RF: 0 atorvastatin 80 mg tablet 80 mg PO QHS RF: 0 aspirin 81 mg tablet,chewable 81 mg PO BREAKFAST RF: 0 Eliquis 5 mg tablet 5 mg PO BID RF: 0 Referrals / Follow Up: Corina Lockwood MD [Primary Care Provider] - Disposition Disposition (needs filled in before D/C Order can be placed): Acute Care Hospital [facility] Charges/Coding Visit Charges Inpatient E&M: 07249 Disch Hosp
--- NOTE | 2020-12-19 10:37 | EKG12_ITS ---
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 Rate : 068 BPM Atrial Rate : 068 BPM P-R Int : 160 ms QRS Dur : 082 ms QT Int : 404 ms P-R-T Axes : 036 042 100 degrees QTc Int : 429 ms Atrial fibrillation Nonspecific T wave abnormality Abnormal ECG Confirmed by MI FARR, CHARLENE ([id number]), acquisition editor JANELL BANGURA ([id number]) on 12/24/2020 10:39:06 AM Referred By: DR Leslie Confirmed By:DARIUS STARK MD
== END 2020-12-19 10:20 | disposition short-term general hospital (02) | DRG 57 ==
PROVIDERS: Admitting Provider Internal Medicine; PCP Internal Medicine; Visit Provider Internal Medicine
DX: I69.351 Hemiplegia and hemiparesis following cerebral infarction affecting right dominant side (principal); I69.392 Facial weakness following cerebral infarction; I69.322 Dysarthria following cerebral infarction; E03.9 Hypothyroidism, unspecified; I10 Essential (primary) hypertension; Z79.899 Other long term (current) drug therapy; Z79.01 Long term (current) use of anticoagulants; Z79.82 Long term (current) use of aspirin; Z79.51 Long term (current) use of inhaled steroids; J45.909 Unspecified asthma, uncomplicated; I48.91 Unspecified atrial fibrillation; E78.5 Hyperlipidemia, unspecified; I27.20 Pulmonary hypertension, unspecified; D75.1 Secondary polycythemia; L68.0 Hirsutism
CPT/HCPCS: 36415; 70450; 80048; 81001; 82962; 83036; 85025; 92507; 92523; 92526; 92610; 93005; 94762; 97110; 97112; 97116; 97140; 97162; 97166; 97530; 97535; 99251; G0463

== ENCOUNTER 2020-12-19 11:16 | Inpatient (IN) | payer MEDICARE, MEDICAID, SELFPAY ==
[2020-12-18 20:03] VITALS: BMI 29.1
[2020-12-19 10:30] VITALS: BP 106/67; PULSE 70; RESP 20; TEMP 36.1; O2SAT 99
[2020-12-19 10:41] VITALS: BMI 28.8
--- NOTE | 2020-12-19 11:15 | HP.PCM.HOS_ITS ---
HPI - General General Date of Admission: 12/19/20 Date of Service: 12/19/20 Chief Complaint: Altered mental status HPI Narrative NAOMI ANGUIANO, is a 65 F who who initially presented to the emergency department on 12/10/2020 with right facial droop slurred speech and right-sided weakness diagnosed with an acute ischemic infarction in the left thalamus. Patient did not receive TPA she was outside the window. Patient was also found to have new onset A. fib. Managed on a monitored bed and subsequently discharged to the inpatient rehab unit. Patient was found to have altered mental status with more lethargy and significant flaccid paralysis involving the right side worse compared to previously. A stat head CT was obtained which demonstrated Stable appearance of the infarction in the left thalamus. Progressive decrease attenuation in the posterior medial aspect of the left occipital lobe admitted to monitored bed for subsequent management [facility] Medical History (Updated 12/19/20 @ 12:[address] Vishal Holbrook MD) Allergic rhinitis Asthma Hirsutism Hypertension Hypothyroidism Stroke/cerebrovascular accident (~12/10/20) Home Medications fluticasone propion-salmeterol [Wixela Inhub] 1 inh INHALATION BID 12/10/20 [History Last Taken 12/10/20] fluticasone propionate 2 spray INTRANASAL DAILY 12/10/20 [History Last Taken ] levothyroxine [Euthyrox] 75 mcg PO DAILY 12/10/20 [History Last Taken 12/10/20] losartan 100 mg PO BID 12/10/20 [History Last Taken 12/10/20] apixaban [Eliquis] 5 mg PO BID 12/14/20 [History Last Taken Unknown] aspirin 81 mg PO BREAKFAST 12/14/20 [History Last Taken Unknown] atenolol 100 mg PO DAILY #0 tab 12/14/20 [Rx Last Taken 12/10/20] atorvastatin 80 mg PO QHS 12/14/20 [History Last Taken Unknown] Allergy/AdvReac Type Severity Reaction Status Date / Time No Known Allergies Allergy Verified 12/10/20 11:14 Family History Other CAD (coronary artery disease) Cancer Surgical History History of appendectomy History of repair of laceration Social History (Updated 12/14/20 @ 19:[address] 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 Smoking Status: Never smoker alcohol intake: never substance use type: does not use additional social history: She tells me that she graduated college in Business administration but, when I asked her where she worked after college she told me no where and said no one wanted her? She has never been and has never been . She currently lives with her mother. She drives. ROS Review of Systems ROS Unobtainable: due to encephalopathy Vital Signs Vital Signs Vital Signs: 12/19/20 10:30 Temperature 97.0 F L Temperature Source Temporal Pulse Rate 70 Respiratory Rate 20 H Blood Pressure 106/67 Blood Pressure Mean 80 Blood Pressure Source Monitor Blood Pressure Position Semi-Fowlers Blood Pressure Location Right Arm Pulse Ox 99 Oxygen Delivery Method Room Air Weight Weight: 73.9 kg Body Mass Index (BMI) 28.8 Physical Exam Narrative GENERAL: Lethargic but arousable and able to answer questions HEENT: Atraumatic; EYES; Anicteric, Normal Conjunctiva NECK; supple, normal thyroid, RESPIRATORY: Diminished to auscultation CARDIOVASCULAR: Regular S1 S2, GI: soft, normoactive bowel sounds, : No Renal angle tenderness; EXTREMITIES: No edema, no clubbing, MUSCULOSKELETAL: no muscle waisting NEURO: Flaccid paralysis involving the right side with right facial droop SKIN: No Rash PSYCH; Flat affect Assessment & Plan Assessment/Plan (1) Hemiparesis, right: (2) Hypothyroidism: (3) Altered mental status: (4) Acute embolic stroke: (5) New onset atrial fibrillation: (6) Dyslipidemia: (7) Hypertension: PLAN: Patient is a 65-year-old lady recently diagnosed with acute embolic CVA who was being managed on the inpatient rehab unit transferred to the progressive care unit after developing altered mental status and significant right-sided paralysis 1. Acute on chronic ischemic CVA ?Patient is known to have acute infarction involving the left thalamus. Repeat head CT obtained demonstrated new occipital lobe infarct as well as some infarct in the iain. Consult was placed to telemetry neurology SOC. The neurologist recommended repeat CT angio as well as MRI of the brain. Patient already on systemic anticoagulation with Eliquis aspirin and statin therapy continue 2. A. fib ?Recently diagnosed rate controlled on systemic anticoagulation with Eliquis did continue 3. Essential hypertension ?Patient blood pressure within acceptable range given her acute CVA no changes were made to her antihypertensive treatment 4. Acute encephalopathy ?Secondary to patient acute on subacute CVA. Case was discussed with neurology plan is for patient to be transferred to facility with neuro ICU capabilities. Did place a call to [facility] for transfer to 5. Dyslipidemia -Patient is on statin therapy, continued at home dose 6. Mild hyponatremia ?Repeat labs ordered subsequent management will depend on the levels 7. DVT prophylaxis ?Patient is on Eliquis Total critical care time spent evaluating patient reviewing images reviewing diagnostic data subsequent reevaluation of the patient as well as discussion with consultants on the case; 75 minutes Charges/Coding Procedures Hospitalists Procedures: 67009 Critial Care 1st Hr Multi Select Codes Hospitalists' Procedures Procedures: 81834 Critial Care Addl 30 Min
[2020-12-19 11:25] VITALS: BP 93/57; PULSE 68; RESP 16; TEMP 36.2; O2SAT 97
--- NOTE | 2020-12-19 11:30 | NURSING ---
This RN in to see patient. Patient noted to be very cool to touch and clammy. Responsive to painful stimuli. Blood sugar obtained 101. Vitals obtained. Respirations noted to be shallow with questionable periods of apnea noted. RN asked for Dr. Rm to come see patient as she was on unit and had been following patient over on the Rehab Unit. Dr. Rm in to see patient and orders received. Teleneurology consult done while Dr. Rm at bedside. Dr. Rm called and spoke with Dr. Holbrook. Updated on patient condition.
--- NOTE | 2020-12-19 11:42 | MRI_ITS ---
We are attempting to reach an attending provider to discuss findings. An addendum with communication details will be sent when the communication is complete. EXAM: MR HEAD WITHOUT INTRAVENOUS CONTRAST CLINICAL INDICATION: CVA, increased lethargy, increased flaccid paralysis rt side TECHNIQUE: Multiplanar and multisequence MR images of the brain were obtained without intravenous contrast. This report was created using [employer] report generation technology. COMPARISON: CTA head with and without contrast 12/19/2020 and 12/10/2020. MRI brain with and without contrast 12/11/2020. FINDINGS: BRAIN AND EXTRA-AXIAL SPACES: Abnormal gyriform diffusion restriction involving the left occipital pole, along the left lingual gyrus, left hippocampus and the left cerebral peduncle. Increase in length of the diffusion restriction along the left thalamus. Curvilinear diffusion restriction in the left supramarginal gyrus and a nodular diffusion restriction in the more caudal aspect of the left supramarginal gyrus. These are all visible on the T2 FLAIR sequence. These are consistent with subacute ischemic infarcts. No intra- or extra-axial hemorrhage. Posterior fossa structures are unremarkable. Ventricles are appropriate for age. No hydrocephalus. Basal cisterns are patent. SELLA: Unremarkable. Normal sella turcica, pituitary gland, infundibular stalk, optic chiasm and hypothalamus. AUDITORY SYSTEM: Unremarkable. The internal auditory canals are patent. BONES/JOINTS: Unremarkable. No discrete lytic or blastic abnormalities. SINUSES: Unremarkable as visualized. Clear. MASTOID AIR CELLS: Unremarkable as visualized. Clear. ORBITS: Unremarkable as visualized. Both globes, extraocular muscles, optic nerves and retrobulbar fat appear unremarkable. VASCULATURE: Unremarkable as visualized. Normal flow voids in the major intracranial circulation. MRI/Brain without Contrast IMPRESSION: 1. 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 2. No other additional findings or changes when compared to 12/11/2020. Electronically Signed: Moise Hurd MD at 15:53 EDT , Service support ,
[2020-12-19] MEDS: 0.9% Normal Saline 1,000 ML 100 ML IV (11:45)
--- NOTE | 2020-12-19 12:12 | CASEMGMT ---
[facility] is recommended is as follows: [facility], [place], [facility], [facility], [facility], [facility]), and . Sandra GUZMANN RN CM
--- NOTE | 2020-12-19 12:16 | CT_ITS ---
STUDY: CTA OF THE BRAIN REASON FOR EXAM: Female, 65 years old. ALTERED MENTAL STATUS RADIATION DOSAGE (If Supplied By Facility): CTDIvol = ( 24.20 ) mGy, DLP = ( 376.89 ) mGycm TECHNIQUE: CT angiography was performed with a multi-detector CT scanner. Data acquisition was obtained from the skull base through the vertex following intravenous administration of IV 100mL Isovue-370. MIP images were reconstructed from the axial data set. Post-processing of the angiographic images was performed, with multiplanar reformation and 3D reconstruction. Individualized dose optimization techniques were used for this CT. COMPARISON: None. FINDINGS: Normal bilateral petrous carotid arteries. Normal right cavernous carotid artery with a normal supraclinoid bifurcation. Normal left cavernous carotid artery with a normal supraclinoid bifurcation. Normal right A1 segments of the anterior cerebral artery. Normal left A1 segments of the anterior cerebral artery. Normal intact anterior communicating artery (ACOM). Normal bilateral A2 segments of the anterior cerebral arteries. Normal right M1 and M2 segments of the middle cerebral arteries, with a normal M1 bifurcation. Normal left M1 and M2 segments of the middle cerebral arteries, with a normal M1 bifurcation. Normal right posterior communicating artery (PCOM). Normal left posterior communicating artery (PCOM). Normal bilateral vertebral arteries. Normal basilar artery with a normal basilar bifurcation. The visualized bilateral superior cerebellar (SCA) arteries are normal. Normal bilateral P1, P2 and visualized P3 segments of the posterior cerebral arteries. There is no demonstrated aneurysm of the tribe of Fitzgerald. CT/CTA Head W/WO Contrast IMPRESSION: Normal tribe of Fitzgerald without a demonstrated aneurysm or hemodynamically significant stenosis. Electronically Signed: Yony Schmidt MD at 12:56 EDT , Service support ,
[2020-12-19 12:50] LABS: Allen Test Positive; Base Excess -3 mmol/L (-2 to +2); Bicarbonate 21.6 mmol/L (22-26); Blood Gas Specimen Type ART; O2 Delivery Device Cannula; PO2 160 mmHG (75-100); SITE L Radial; SO2 100 % (95-99); Total Carbon Dioxide 23 mmol/L; pCO2 33.1 mmHg (35-45); pH 7.42 (7.35-7.45)
[2020-12-19 12:56] LABS: Hematocrit 45.5 % (37-47); Mean Corpuscular Hgb 31.4 pg (27.0-32.0); Mean Corpuscular Volume 95.2 fL (81-99); Mean Platelet Vol. 10.2 fl (6.2-12.0); Platelet Count 236 K/mm3 (150-450); RBC Distribution Width CV 11.9 % (11.6-14.6); RBC Distribution Width SD 41.9 fl (35.1-43.9); Red Blood Count 4.78 M/mm3 (4.2-5.4); White Blood Count 9.7 K/mm3 (4.4-11.0)
[2020-12-19 13:19] LABS: ALB/GLOB Ratio 0.8 RATIO (0.9-2.4); AST(SGOT) 24 U/L (15-37); Alanine Aminotransfer ALT/SGPT 35 U/L (13-56); Albumin, Serum 2.7 g/dL (3.2-5.0); Alkaline Phosphatase 90 U/L (45-117); Anion Gap 7 (5-15); BUN 18 mg/dL (7-18); BUN/Creat Ratio 24.8 RATIO (10-20); Calcium,Total 8.8 mg/dL (8.5-10.1); Chloride 103 mmol/L (98-107); Creatinine, Serum 0.72 mg/dL (0.55-1.02); EST Glomerular Filtration Rate 85 mL/min (>60); Est Glom Filt Rate - Afr Amer 103 mL/min (>60); Estimated Creatinine Clearance 45.78 ml/min; Globulin 3.6 g/dL (2.2-4.2); Glucose 89 mg/dL (74-106); Potassium 4.1 mmol/L (3.5-5.1); Protein, Total 6.3 g/dL (6.4-8.2); Sodium Level 134 mmol/L (136-145); Troponin-I HS 7.6 pg/mL (3.0-53.7)
[2020-12-19 13:25] VITALS: RESP 20; O2SAT 99
[2020-12-19 14:25] LABS: Bedside Glucose 101 mg/dL (70-110)
[2020-12-19 15:37] VITALS: PULSE 63
--- NOTE | 2020-12-19 16:46 | PCM.DC.SUM ---
Providers Date of Admission: 12/19/20 Primary Care Physician: Dr. Corina Lockwood MD Diagnosis Discharge Diagnosis (1) Hemiparesis, right: Status: Acute Code(s): G81.91 - Hemiplegia, unspecified affecting right dominant side (2) Hypothyroidism: Status: Acute Code(s): E03.9 - Hypothyroidism, unspecified (3) Altered mental status: Status: Acute Code(s): R41.82 - Altered mental status, unspecified (4) Acute embolic stroke: Status: Acute Code(s): I63.9 - Cerebral infarction, unspecified (5) New onset atrial fibrillation: Status: Acute Code(s): I48.91 - Unspecified atrial fibrillation (6) Dyslipidemia: Status: Acute Code(s): E78.5 - Hyperlipidemia, unspecified (7) Hypertension: Status: Chronic Code(s): I10 - Essential (primary) hypertension Medications at Discharge Home Medications fluticasone propion-salmeterol [Wixela Inhub] 1 inh INHALATION BID 12/10/20 fluticasone propionate 2 spray INTRANASAL DAILY 12/10/20 levothyroxine [Euthyrox] 75 mcg PO DAILY 12/10/20 losartan 100 mg PO BID 12/10/20 Eliquis 5 mg PO BID 12/14/20 aspirin 81 mg PO BREAKFAST 12/14/20 atenolol 100 mg PO DAILY #0 tab 12/14/20 atorvastatin 80 mg PO QHS 12/14/20 Hospital Course Summary of Care Provided Minutes Spent on Discharge: 35 Hospital Course: Patient is a 65-year-old lady recently diagnosed with acute embolic CVA who was being managed on the inpatient rehab unit transferred to the progressive care unit after developing altered mental status and significant right-sided paralysis 1. Acute on chronic ischemic CVA ?Patient is known to have acute infarction involving the left thalamus. Repeat head CT obtained demonstrated new occipital lobe infarct as well as some infarct in the iain. Consult was placed to telemetry neurology SOC. The neurologist recommended repeat CT angio as well as MRI of the brain. Patient already on systemic anticoagulation with Eliquis aspirin and statin therapy continue -Case was discussed with telemetry neurology recommended for patient to be transferred to a facility with neuro ICU capabilities. Patient was transferred to [facility] 2. A. fib ?Recently diagnosed rate controlled on systemic anticoagulation with Eliquis did continue 3. Essential hypertension ?Patient blood pressure within acceptable range given her acute CVA no changes were made to her antihypertensive treatment 4. Acute encephalopathy ?Secondary to patient acute on subacute CVA. Case was discussed with neurology plan is for patient to be transferred to facility with neuro ICU capabilities. Did place a call to [facility] for transfer to 5. Dyslipidemia -Patient is on statin therapy, continued at home dose 6. Mild hyponatremia ?Repeat labs ordered subsequent management will depend on the levels 7. DVT prophylaxis ?Patient is on Eliquis Physical Exam Narrative GENERAL: Lethargic HEENT: Atraumatic; EYES; Anicteric, Normal Conjunctiva NECK; supple, normal thyroid, RESPIRATORY: Diminished to auscultation CARDIOVASCULAR: Regular S1 S2, GI: soft, normoactive bowel sounds, : No Renal angle tenderness; EXTREMITIES: No edema, no clubbing, MUSCULOSKELETAL: no muscle waisting NEURO: Flaccid paralysis involving the right side with right facial droop SKIN: No Rash PSYCH; Flat affect Medical Records Data Medical Nutrition Assessment Dietitian: Nutrition Therapy Diagnosis Start: 12/19/20 13:37 Freq: Status: Active Protocol: Document 12/19/20 13:47 AG (Rec: 12/19/20 13:47 AG [id number]) Nutrition Malnutrition Evidence of Malnutrition Exists No Clinical Problem Biting/Chewing Difficulty Etiology r/t hx of CVA Signs/Symptoms as evidenced by need for texture modifications Status Active Problem Recommendation Dietitian Recommendations/Changes continue regular diet, texture /consistency modifications per MACHINIST BENCH. Weight / BMI Weight Weight: 73.9 kg Body Mass Index (BMI) 28.8 ABG / Lab / Microbiology Data Result Diagrams: 12/19/20 12:48 12/19/20 12:48 Laboratory: Laboratory Results - last 24 hr 12/19/20 11:26: POC Glucose 101 12/19/20 12:06: Ammonia 21.0 12/19/20 12:48: WBC 9.7, RBC 4.78, Hgb 15.0, Hct 45.5, MCV 95.2, MCH 31.4, MCHC 33.0, RDW Std Deviation 41.9, RDW Coeff of Chasity 11.9, Plt Count 236, MPV 10.2 12/19/20 12:48: Sodium 134 L, Potassium 4.1, Chloride 103, Carbon Dioxide 24.0, Anion Gap 7, BUN 18, Creatinine 0.72, Estim Creat Clear Calc 45.78, Est GFR (MDRD) Af Amer 103, Est GFR (MDRD) Non-Af 85, BUN/Creatinine Ratio 24.8 H, Glucose 89, Calcium 8.8, Magnesium 2.0, Total Bilirubin 0.70, AST 24, ALT 35, Alkaline Phosphatase 90, Troponin I High Sens 7.6, Total Protein 6.3 L, Albumin 2.7 L, Globulin 3.6, Albumin/Globulin Ratio 0.8 L Microbiology: Microbiology 12/19/20 13:40 Mucosa - Nasopharyngeal SARS-CoV-2 Antigen (Rapid) - Final ABG: ABG 12/19/20 12:45 Specimen Type ART Sample Site L Radial pH 7.42 Bicarbonate Actual 21.6 L Total CO2 23 Base Excess -3 L O2 Saturation 100 H ABG pCO2 33.1 L ABG pO2 160 H Randall Test Positive O2 Delivery Device Cannula Liter Flow 3.0 Radiography Diagnostic Testing: Radiology Impression Brain MRI 12/19/20 11:42 IMPRESSION: 1. 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 2. No other additional findings or changes when compared to 12/11/2020. Electronically Signed: Moise Hurd MD at 15:53 EDT , Service support , ADDENDUM: 12/19/20 1609 IMPRESSION: 1. 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 2. No other additional findings or changes when compared to 12/11/2020. N.B. : The above Results were Read Back by Moise Hurd MD to Macarena Bright RN, and understanding confirmed on 12/19/2020 16:02:24 (ET). Electronically Signed: Moise Hurd MD at 15:53 EDT , Service support , Head CTA 12/19/20 12:16 IMPRESSION: Normal [place] without a demonstrated aneurysm or hemodynamically significant stenosis. Electronically Signed: Yony Schmidt MD at 12:56 EDT , Service support , Meaningful Use Info Meaningful Use Diagnoses (Choose all that apply): Ischemic CVA CVA Therapy Assessed for PT,OT and/or ST?: Yes Ischemic Stroke Antithrombotic order at d/c?: Yes Dx of Atrial fib/flutter?: Yes Anticoagulant at discharge?: Yes Statins at discharge?: Yes Primary Dx Acute Ischemic CVA?: Yes IV tPA ordered during stay?: No Reason IV t-PA not ordered: Medical Contraindication Discharge Plan Admission Admit Date/Time: 12/19/20 11:16 Primary Reason for Your Visit: Acute CVA Attending Provider: Vishal Holbrook Primary Care Provider: Corina Lockwood Instructions Additional Instructions / Restrictions: Patient Problems: Altered Health Status related to Hospitalization Patient Goals: *Optimal Level of Health *Keep Appointments *Medication Compliance *Remain Safe Discharge Orders/Prescriptions Prescriptions: Continued fluticasone propion-salmeterol [Wixela Inhub] 250-50 mcg/dose blister with device 1 inh INHALATION BID RF: 0 levothyroxine [Euthyrox] 75 mcg tablet 75 mcg PO DAILY RF: 0 losartan 100 mg tablet 100 mg PO BID RF: 0 fluticasone propionate 50 mcg/actuation spray,suspension 2 spray INTRANASAL DAILY RF: 0 atenolol 100 mg tablet 100 mg PO DAILY Qty: 0 RF: 0 atorvastatin 80 mg tablet 80 mg PO QHS RF: 0 aspirin 81 mg tablet,chewable 81 mg PO BREAKFAST RF: 0 Eliquis 5 mg tablet 5 mg PO BID RF: 0 Referrals / Follow Up: Corina Lockwood MD [Primary Care Provider] - Within 2 Weeks Disposition Disposition (needs filled in before D/C Order can be placed): Acute Care Hospital Charges/Coding Visit Charges Inpatient E&M: 81555 Disch Hosp
[2020-12-19 16:47] VITALS: BP 127/90; PULSE 57; RESP 11; TEMP 36.5; O2SAT 100
--- NOTE | 2020-12-19 17:15 | NURSING ---
Patient incontinent of urine. Attempted urinary straight catheterization x2 without success. Patient tolerated well.
--- NOTE | 2020-12-19 19:10 | NURSING ---
This RN phoned patient's sister, Ana for consent to transfer to [facility]. FILIBERTO Diaz was second RN to verify consent.
--- NOTE | 2020-12-19 19:24 | NURSING ---
This RN called [facility] to give report. RN at facility was not available. Message left with PCU phone number for [place] nurse at [facility] to call back for report.
--- NOTE | 2020-12-19 19:34 | NURSING ---
FILIBERTO Melara at [facility] phones. Report given.
== END 2020-12-19 19:50 | disposition short-term general hospital (02) | DRG 65 ==
PROVIDERS: Internal Medicine; Admitting Provider Internal Medicine; PCP Internal Medicine; Visit Provider Internal Medicine
DX: I63.9 Cerebral infarction, unspecified (principal); G93.40 Encephalopathy, unspecified; E87.1 Hypo-osmolality and hyponatremia; G81.01 Flaccid hemiplegia affecting right dominant side; I48.91 Unspecified atrial fibrillation; I10 Essential (primary) hypertension; E78.5 Hyperlipidemia, unspecified; Z79.02 Long term (current) use of antithrombotics/antiplatelets
CPT/HCPCS: 36415; 36600; 70496; 70551; 80053; 82140; 82803; 82962; 83735; 84484; 85027; 87426; 94762; 99251; J7030; J7040; Q9967; G0463

== ENCOUNTER 2020-12-25 18:00 | Inpatient (IN) | payer MEDICARE, SELFPAY ==
[2020-12-25 18:19] VITALS: BP 111/72; PULSE 80; RESP 16; TEMP 36.8; O2SAT 96; BMI 29.4
[2020-12-25 20:07] VITALS: BP 115/70; PULSE 84; RESP 16; TEMP 36.7; O2SAT 95
[2020-12-25] MEDS: Nystatin Powder 15gm Bottle 1 APPLIC TOPICAL (20:37)
[2020-12-25] MEDS: Menthol/Lanolin/Calamine/Znox 113 GM Tube 1 APPLIC TOPICAL (20:37)
[2020-12-25] MEDS: APIXABAN 5 MG TABLET PO (20:38)
[2020-12-25] MEDS: MELATONIN 3 MG TABLET PO (20:39)
[2020-12-25] MEDS: Atorvastatin Calcium 80 MG Tablet PO (20:39)
[2020-12-25] MEDS: Senna/Docusate Sodium 1 Tablet 2 TABLET PO (20:39)
[2020-12-25] MEDS: Fluticasone Propion/Salmeterol 250-50 Inhaler 1 PUFF INHALATION (20:40)
[2020-12-25 21:05] VITALS: O2SAT 95; BMI 29.4
[2020-12-25 22:00] VITALS: PULSE 84; RESP 16; O2SAT 95
--- NOTE | 2020-12-26 00:18 | NURSING ---
Pt still awake in bed at this time, fidgeting left leg. Pt states that she can not sleep. Staff has repositioned pt and inquired about comfortable room temperature. Pt denies needs.
[2020-12-26] MEDS: Levothyroxine 75 MCG Tablet PO (04:13)
[2020-12-26] MEDS: Acetaminophen 325 MG Tablet 650 MG PO (04:13)
[2020-12-26 06:58] VITALS: BP 99/75; PULSE 76; RESP 16; TEMP 36.5; O2SAT 94
[2020-12-26 07:08] VITALS: O2SAT 95
[2020-12-26] MEDS: Losartan Potassium 100 MG Tablet PO (09:20)
[2020-12-26] MEDS: Fluticasone 0.05% 1 SPRAY NASAL.SRY NASAL (09:20)
[2020-12-26] MEDS: Ergocalciferol 1.25 MG (50, 000 UNIT) Capsule PO (09:20)
[2020-12-26] MEDS: Aspirin 81 MG TAB.CHEW PO (09:20)
[2020-12-26] MEDS: APIXABAN 5 MG TABLET PO (09:20)
[2020-12-26] MEDS: Fluticasone Propion/Salmeterol 250-50 Inhaler 1 PUFF INHALATION (09:21)
[2020-12-26] MEDS: Atenolol 50 MG Tablet PO (09:21)
[2020-12-26] MEDS: Menthol/Lanolin/Calamine/Znox 113 GM Tube 1 APPLIC TOPICAL (09:27)
[2020-12-26] MEDS: Nystatin Powder 15gm Bottle 1 APPLIC TOPICAL (09:28)
--- NOTE | 2020-12-26 10:54 | EX.PCM.HP.RE ---
[facility] Date of Admission: 12/25/20 HPI Narrative JACKELYN ANGUIANO, is a 65 year-old female with a past medical history of hypertension, hypothyroidism, allergic rhinitis, sleep disordered breathing, atrial fibrillation, polycythemia, pulmonary hypertension, nonrheumatic aortic stenosis (mild to moderate), hyperlipidemia, biatrial enlargement and hirsutism who initially presented to the inpt acute rehab unit at [facility] on 12/14/20 for debility due to embolic CVA's involving the left thalamus and the Left parietal areas. On 12/19 while in PT she developed garbled speech and drooling and she became flaccid on the R side. She was taken for a stat noncontrasted CT brain and this showed new areas of infarction in the Left occipital lobe. 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 A CTA of the head was also obtained to r/o LVO and this showed a normal [place] without a demonstrated aneurysm or hemodynamically significant stenosis. Consult was obtained with tele-neurology and they recommended transfer to a facility with a neurologist on site and neuro ICU capabilities. She was transferred to [facility] on 12/19/20. MRI done at [facility] disclosed multiple areas of acute infarction in the left side of the thalamus, internal capsule, midbrain, left occipital lobe, iain, posterior parietal lobe, temporal lobe and corpus callosum. NIHSS was 12 at presentation to [facility]. The left P1 segment of the posterior cerebral artery showed severe stenosis. CTA of the neck showed 70% stenosis of the right internal carotid artery. While at [facility] she developed a pruritic maculopapular rash which was attributed to perspiration. No intervention was required and Jackelyn was transferred back to the inpt acute rehab floor at [facility] on 12/25/20 for 3 hours of therapy daily to restore function at or near her prior level of function and independence. All documentation sent with the pt from [facility] was personally reviewed. Today her blood pressure is on the low side at 99/75 and she complained of dizziness when standing and working with the occupational therapist. Heart rate is 76 and she is afebrile. She is 94 to 95% saturated on room air while awake. [facility] Medical History (Updated 12/28/20 @ 11:[address] Radha Rm DO) Allergic rhinitis Aortic stenosis Asthma Biatrial enlargement Dyslipidemia Hirsutism Hypertension Hypothyroidism New onset atrial fibrillation Polycythemia Pulmonary hypertension Sleep-disordered breathing Stroke/cerebrovascular accident (~12/10/20) Home Medications fluticasone propion-salmeterol [Wixela Inhub] 1 inh INHALATION BID 12/10/20 [History Last Taken 12/10/20] fluticasone propionate 1 spray INTRANASAL DAILY 12/10/20 [History Last Taken 12/10/20] levothyroxine [Euthyrox] 75 mcg PO DAILY 12/10/20 [History Last Taken 12/10/20] losartan 100 mg PO DAILY 12/10/20 [History Last Taken 12/10/20] Eliquis 5 mg PO BID 12/14/20 [History Last Taken Unknown] aspirin 81 mg PO DAILY 12/14/20 [History Last Taken Unknown] atorvastatin 80 mg PO QHS 12/14/20 [History Last Taken Unknown] albuterol sulfate [Proventil HFA] 2 puff INHALATION Q6H PRN PRN 12/25/20 [History Last Taken Unknown] atenolol 50 mg PO DAILY 12/25/20 [History Last Taken Unknown] zpnahughlz-onzetoc-bxudygjlls [Cepacol (with benzocain-menth)] 1 shan MUCOUS MEMBRANE Q2H PRN PRN 12/25/20 [History Last Taken Unknown] cholecalciferol (vitamin D3) 1,250 mcg PO QWEEK 12/25/20 [History Last Taken 12/19/20 10:00] hydroxyzine HCl [Atarax] 25 mg PO Q6H PRN PRN 12/25/20 [History Last Taken Unknown] lidocaine [Salonpas (lidocaine)] 1 patch TOPICAL DAILY 12/25/20 [History Last Taken Unknown] melatonin 3 mg PO QHS 12/25/20 [History Last Taken Unknown] triamcinolone acetonide [Kenalog] 1 applic TOPICAL BID 12/25/20 [History Last Taken Unknown] Allergy/AdvReac Type Severity Reaction Status Date / Time No Known Allergies Allergy Verified 12/10/20 11:14 Family History Other CAD (coronary artery disease) Cancer Surgical History History of appendectomy History of repair of laceration Social History household members: family number of children: 0 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 Smoking Status: Never smoker alcohol intake: never substance use type: does not use additional social history: She tells me that she graduated college in Business administration but, when I asked her where she worked after college she told me no where and said no one wanted her? She has never been and has never been . She currently lives with her mother. She drives. ROS Constitutional Constitutional: Reports fatigue Eyes Eyes: Reports change in vision ENT HEENT: Denies headache(s) or sore throat Cardiovascular Cardiovascular: Denies chest pain or edema Respiratory/Chest Respiratory/Chest: Reports cough and other Details: she is frequently clearing her throat and coughing a few times every 30-60 minutes even when not eating Gastrointestinal Gastrointestinal: Reports other Details: incontinent of stool ; Denies abdominal pain, constipation or diarrhea Genitourinary Genitourinary: Reports urinary incontinence; Denies dysuria Musculoskeletal Musculoskeletal: Reports other Details: she has a lidocaine patch on for left chest pain. Integumentary Integumentary: Reports rash Neurologic Neurologic: Reports abnormal speech, dizziness and focal weakness; Denies headache(s), numbness, seizures, sensory deficit or tremor(s) Vital Signs Vital Signs Vital Signs: 12/25/20 18:19 12/25/20 20:07 12/25/20 21:05 Temperature 98.3 F 98.1 F Temperature Source Oral Oral Pulse Rate 80 84 Respiratory Rate 16 16 Respiratory Effort Respiratory Depth Respiratory Pattern Blood Pressure 111/72 115/70 Blood Pressure Mean 85 85 Blood Pressure Source Monitor Monitor Blood Pressure Position Semi-Fowlers Semi-Fowlers Blood Pressure Location Left Arm Right Arm Pulse Ox 96 95 95 Oxygen Delivery Method Room Air Room Air Room Air 12/25/20 22:00 12/26/20 06:58 12/26/20 07:08 Temperature 97.7 F L Temperature Source Oral Pulse Rate 84 76 Respiratory Rate 16 16 Respiratory Effort Normal Non-Labored Respiratory Depth Normal Respiratory Pattern Normal Blood Pressure 99/75 Blood Pressure Mean 83 Blood Pressure Source Monitor Blood Pressure Position Semi-Fowlers Blood Pressure Location Left Arm Pulse Ox 95 94 95 Oxygen Delivery Method Room Air Room Air Room Air Weight Weight: 166 lb 0.129 oz Body Mass Index (BMI) 29.4 Indicators for Scoring Admitted with or Primary Diagnosis of CVA/Stroke: Yes Hx of CVA/Stroke: Yes Modified Acadia Score MRS Score at time of Evaluation: 5-Severe disability NIHSS NIHSS 1a. Level of Consciousness: Alert; keenly responsive 1b. LOC Questions: Answers BOTH questions correctly. 1c. LOC Commands: Performs both tasks correctly. 2. Best Gaze: Normal 3. Visual: Complete hemianopia 4. Facial Palsy: Partial paralysis (total or near-total paralysis of lower face) 5a. Left Arm: No drift; arm holds 90 (or 45) degrees for full 10 seconds 5b. Right Arm: No movement 6a. Left Leg: No drift; leg holds 30-degree position for full 5 seconds 6b. Right Leg: No movement 7. Limb Ataxia: Absent 8. Sensory: Normal; no sensory loss 9. Best Language: No aphasia; normal 10. Dysarthria: Mojd-os-ouwiideh dysarthria; 11. Extinction and Inattention: Visual, tactile, auditory, spatial, or personal inattention Total: 14 Stroke Questions Stroke Team Activated: No Physical Exam Const alert, oriented x3, no apparent distress and well nourished Constitutional Narrative: she has a roy General Appearance: cooperative, comfortable and well developed HEENT normocephalic Mouth: dry mucous membranes Eyes PERRL and EOMs intact bilaterally Neck no lymphadenopathy, supple, no JVD and no carotid bruits General: trachea midline Resp normal respiratory effort, no use of accessory muscles and clear to auscultation bilaterally Resp Narrative: Not tachypneic and no conversational dyspnea. No respiratory distress but not cooperating with taking deep breaths so the BS's are diminished Cardio regular rate, regular rhythm, S1 normal heart sound, S2 normal heart sound, no rub and no gallops Cardio Narrative: She has a 2/6 ATILIO at the second RICS Heart Sounds: murmur GI soft to palpation, non-tender and non-distended GI Narrative: No guarding with palpation. BS's heard in all Extremity no clubbing, cyanosis or edema and no calf tenderness Extremity Narrative: Negative George's and Marybeth's signs Skin Skin Narrative: She has a rash on her back that is red maculopapular and was attributed to a contact dermatitis at [facility] due to perspiration Neuro oriented x3 Neuro Narrative: See the NIHSS elsewhere documented in this H&P Psych cooperative Psych Narrative: she did not seem agitated like she was on the prior admission to the rehab unit Assessment & Plan Assessment/Plan (1) Debility: (2) Acute embolic stroke: (3) New onset atrial fibrillation: (4) Cognitive dysfunction: (5) Anjum-neglect of right side: (6) Hemianopsia: (7) Right hemiplegia: (8) Dysarthria: (9) Sleep-disordered breathing: (10) Dyslipidemia: (11) Aortic stenosis: (12) Biatrial enlargement: (13) Pulmonary hypertension: (14) Polycythemia: (15) Hypertension: (16) Hypothyroidism: (17) Hirsutism: (18) Cough: (19) Contact dermatitis: (20) Urinary incontinence: PLAN: PLAN PT for gait stability OT for ADL's ST for evaluation Analgesics as needed Bowel protocol Fall precautions Assess for Anxiety/Depression GI prophylaxis not necessary DVT prophylaxis with TOMMY joseph and she is on Eliquis 5 mg BID for AF Follow up with neurology and PCP following DC from IP Rehab Will more likely than not need SNF or ECF at DC since she lives with her mother and her mother is not able to physically care for her. Since Jackelyn is not competent to make financial or health care decisions for herself at this time her sister Milka has stepped up and will apply to be her guardian. Charges/Coding Visit Charges Inpatient E&M: 00026 Init Hosp L3
--- NOTE | 2020-12-26 11:28 | REHABEVAL_ITS ---
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 Potential Problem List:: DVT, Bleeding, Infection, UTI, Aspiration, Falls, Skin Integrity and Depression Risk of Complications DVT: TOMMY Cortez and - (Eliquis 5 mg p.o. twice daily for atrial fibrillation and DVT prophylaxis) Bleeding: Monitor Lab Values, Nursing to Teach Precautions for anti-coagulation therapy., Wound, if applicable, to be assessed every shift. and Stroke patients assessed for lethargy or change in status. Infection: Clinical Staff to Monitor for S/S of infection: and S/S of infection include fever, redness, warmth, etc. Urinary Tract Infection: Monitor for frequency, burning, discomfort, or incontinence. and Nursing will obtain urine sample for urinalysis and C&S when ordered. Aspiration: Clinical staff will monitor for coughing, drooling, congestion., Speech will evaluate swallowing and dsyphasia. and Nursing will monitor patient swallowing during meals. Falls: Patient will be evaluated for Fall Precautions and Patient will be placed on Fall Precautions as indicated per protocol. Skin Breakdown: Nursing will assess skin daily using assessment tool. and Nursing will place on Skin Breakdown Precautions as indicated. Pain: Clinical staff will assess patient's pain level per protocol., Medications will be given, if needed, and the pain level reassessed. and Other methods: Massage, distraction, decrease stimulus, etc. used PRN. Plan of Care Patient requires physician specializing in physical medicine and rehab oversight to provide close medical supervision of rehab issues including: Pain Management, Sleep Problems, Bowel and Bladder, Medical and co-morbidity Management, DVT prophylaxis, Rehabilitation Leadership and Coordination of treatment team Patient needs Physical Therapy: For a minimum of 1 hour and At least 5 out of 7 days Patient needs Physical Therapy to improve:: Mobility, Strengthening, Transfers, Stretching, ROM, Endurance, Stairs, Gait and Balance Patient needs Occupational Therapy: For a minimum of 1 hour and At least 5 out of 7 days Patient needs Occupational Therapy to improve ADL's incl.: Eating, Grooming, Bathing, Dressing, Toileting, Toilet transfers, Community Reintegration, Higher functioning activities, Household tasks, Adaptive Equipment, Splinting and Other activities as determined Patient requires speech therapy: For a minimum of 1 hour and At least 5 out of 7 days Patient requires speech therapy for: Swallowing, Cognition, Language Skills and Compensatory Strategies Patient requires 24/7 Rehabilitation Nursing for: Pain Issues, Identifying and preventing risk factors, Monitoring and reporting current medical conditions, Assisting with ambulation, transfer, and all ADL's, Teaching patients about disease process and medications, Family teaching, Providing safe environment, Bowel and Bladder Issues, Skin integrity and Medication Management Patient needs Electronic Maintenance Supervisor/ Case Management for: Discharge Planning, Arranging Home Equipment or Services and Family Interventions Patient needs Dietary and Nutrition Services for: Adequate Nutrition, Nutritional Supplements and Nutritional Education Goals Patient will remain: free from falls and or injury at time of discharge. Patient will perform bed mobility at: MOD I level of assist. Patient will complete transfers from bed to chair at: MOD I level of assist. Patient will ambulate: 50 feet and with LRD Patient will complete upper body dressing at: - (Minimal assist) Patient will complete lower body dressing at: - (Min assist) Patient will complete toileting at: - (Minimal assist) Patient will complete grooming at: MOD I level of assist. Patient will achieve: - (1 curb step) Patient will have pain level of: of 3 or less Patient's skin will: remain intact Patient will receive: adequate nutrition. Discharge Planning Pt Prognosis for Sig. Practical Improv. w/in Reasonable Time: Good Estimated Length of stay (days): 28 Anticipated D/C Destination: [facility] Facility Was Preadmission Assessment Accurate?: Yes
[2020-12-26 14:41] VITALS: BMI 29.4
[2020-12-26 20:49] VITALS: BP 91/44; PULSE 67; RESP 16; TEMP 36.3; O2SAT 96
[2020-12-26 22:00] VITALS: BMI 29.4
[2020-12-27] MEDS: APIXABAN 5 MG TABLET PO ×3 (00:18→22:18)
[2020-12-27] MEDS: MELATONIN 3 MG TABLET PO ×2 (00:19→22:18)
[2020-12-27] MEDS: Atorvastatin Calcium 80 MG Tablet PO ×2 (00:19→22:18)
[2020-12-27] MEDS: Nystatin Powder 15gm Bottle 1 APPLIC TOPICAL ×3 (00:19→22:19)
[2020-12-27] MEDS: Fluticasone Propion/Salmeterol 250-50 Inhaler 1 PUFF INHALATION ×3 (00:22→22:21)
[2020-12-27] MEDS: Menthol/Lanolin/Calamine/Znox 113 GM Tube 1 APPLIC TOPICAL ×3 (00:24→22:19)
[2020-12-27] MEDS: Levothyroxine 75 MCG Tablet PO (06:12)
[2020-12-27 07:05] VITALS: BP 129/67; PULSE 71; RESP 16; TEMP 36.6; O2SAT 95
[2020-12-27] MEDS: Fluticasone 0.05% 1 SPRAY NASAL.SRY NASAL (10:20)
[2020-12-27] MEDS: Losartan Potassium 100 MG Tablet PO (10:20)
[2020-12-27] MEDS: Aspirin 81 MG TAB.CHEW PO (10:20)
[2020-12-27] MEDS: Atenolol 50 MG Tablet PO (10:21)
--- NOTE | 2020-12-27 11:45 | SP.MBSS_ITS ---
Modified Barium Swallow - Patient Information Study Date: 12/27/20 Study Time: 11:45 Direct Billable Minutes: 135 Total Minutes procedure & reportin Diagnosis: dysphagia Referring Physician: Radha Rm Reason for Referral: Objective assessment of swallow function under fluoroscopy recommended following bedside assessment to further elucidate deficits and shape recommendations for diet texture, liquid consistency and therapeutic strategies to reduce aspiration risk s/p CVA. Medical History: This patient is a 65 year old female with below PMH. She recently experienced ischemic stroke on 12/10/20 and received nursing care and therapy at [facility]. She was transferred to [facility] inpatient rehabilitation on 12/14/20 for further m anagement of CVA and skilled OT, PT, and ST services. The patient was seeing speech therapy from 12/15/20-12/18/20 to address impairments related to oropharyngeal phase dysphagia and cognitive communication deficit. She was on soft and bite sized diet / thin liquids with 1:1 supervision and feeding assistance required due to impulsivity and rapid rate of intake. The patient was transferred on 12/19/20 to [facility] after Brain MRI revealed multiple areas of acute infarction in L thalamus, midbrain, occipital lobe, iain, posterior parietal lobe, temporal lobe, and corpus callosum. She was seen by speech therapy at [facility] with recommendation for continuation of soft and bite sized textures / thin liquids with 1:1 supervision to ensure use of aspiration precautions. She has been re-admitted to [facility] inpatient rehabilitation for continued ST, PT, and OT services with goal to discharge home to live with her mother. PMH: hypertension, hypothyroidism, allergic rhinitis, sleep disordered breat caitlin, atrial fibrillation, polycythemia, pulmonary hypertension, nonrheumatic aortic stenosis (mild to moderate), hyperlipidemia, biatrial enlargement and hirsutism Dentition: Natural Teeth, Missing Teeth Mental Status: Impaired - s/p CVA, R visuospatial neglect, impulsivity Respiratory Status: Oxygenating on Room Air - patient has been requiring aerosol breathing treatments and lung sounds are marked by bilateral fine crackles - Penetration-Aspiration Scale Penetration-Aspiration Scale: OBJECTIVE ASSESSMENT OF SWALLOW FUNCTION (QUANTITATIVE ? PER TRIAL): PENETRATION / ASPIRATION SCALE (CONTRERAS): 1 = does not enter airway 2 = enters airway/above vocal folds/ejected 3 = enters airway/above vocal folds/not ejected 4 = enters airway/contacts vocal folds/ejected 5 = enters airway/contacts vocal folds/not ejected 6 = enters airway/below vocal folds/ejected 7 = enters airway/below vocal folds/not ejected despite effort 8 = enters airway/below vocal folds/no effort - Penetration-Aspiration Scale Score Thin Liquid via teaspoon Result: 7= enters airways/below vocal folds/not ejected despite effort Thin Liquid via teaspoon Trial 2 Result: 2= enter airway/above vocal folds/ejected Thin Liquid via cup Result: 8= enters airway/below vocal folds/no effort Comment: pharyngeal residue post deglutition: 5 = enters airway/contacts folds, not ejected Thin Liquid via cup Trial 2 Result: 3= enters airways/above vocal folds/not ejected Comment: Contrast visible atop and below the vocal folds when fluoro turned on for next trial of thin liquid via straw Thin Liquid via straw Result: 8= enters airway/below vocal folds/no effort - enters laryngeal vestibule from the pyriform sinuses, contacting folds and silently dropping below Thin Liquid via straw Trial 2 Result: 5= enters airways/contacts vocal folds/not ejected Gazelle Thick Liquid via cup Result: 5= enters airways/contacts vocal folds/not ejected - trace, difficult to discern if residual from thin liquid vs. new penetration from pyriforms w/ nectar Honey Thick Liquid via cup Result: 1= does not enter airway Pudding Result: 1= does not enter airway Cookie Result: 1= does not enter airway Thin Liquid via cup Trial 3 Result: 2= enter airway/above vocal folds/ejected Thin Liquid via sequential sips from cup Result: 7= enters airways/below vocal folds/not ejected despite effort Thin Liquid via cup Trial 4 Result: 5= enters airways/contacts vocal folds/not ejected - penetration from pyriforms - Oral Phase Labial Seal: No Labial Escape Tongue Control During Bolus Hold: Posterior escape of greater than half of bolus Bolus Preparation/Mastication: Slow prolonged chewing/mashing with complete recollection Bolus Transport/Lingual Motion: Slowed tongue motion Oral Residue: Residue collection on oral structures - Pharyngeal Phase Initiation of Pharyngeal Swallow: Bolus head in pyriforms Soft Palate Elevation: No bolus between soft palate and pharyngeal wall Laryngeal Elevation: Partial superior movement thyroid cart/partial apprx aryt- epig petiole Anterior Hyoid Excursion: Partial anterior movement Epiglottic Movement: Complete inversion Laryngeal Vestibule Closure at Height of Swallow: Incomplete; narrow column of air/contrast in laryngeal vestibule Pharyngeal Stripping Wave: Present - complete Pharyngoesophageal Segment Opening: Parital distension and partial duration; parital obstruction of flow Tongue Base Retraction: Trace column of contrast between tongue base & post. pharyngeal wall Pharyngeal Residue: Collection of residue within or on pharyngeal structures - Esophageal Phase Esophageal Clearance: Esophageal retention w/ retrograde flow below pharyngoesophageal seg. - Treatment Strategies Effects of treatment strategies attemped:: * reduction in bolus volume = ineffective, unable to follow command to reduce liquid bolus volume * elimination of sequential swallows/reduced rate = effective * removal of straw = effective * cued cough to clear penetration/aspiration = not effective - Diagnosis/Impression Diagnosis: mild-moderate oropharyngeal dysphagia and pharyngoesphageal dysphagia Impression: Swallow function is characterized by: * poor oral control w/ liquids spilling into the pharynx - into the laryngeal vestibule and pooling into the pyriform sinuses - prior to swallow onset, resulting in penetration/aspiration of thin * slow mastication of solids w/ slowed lingual motion, mild oral residue retention * reduced tongue base retraction, although pharyngeal wall compensated well, mild residue collection on base of tongue w/ solids * thin and nectar thickened liquids additionally penetrated into laryngeal vestibule from the aryepiglottic folds/pyriforms during deglutition w/ contrast settling atop and eventually dropping below the folds w/ thin liquids * aspiration when entering directly into the laryngeal vestibule (thin liquid via teaspoon 1x and w/ sequential swallows of thin) resulted in a cough response, although all other penetration/aspiration attributed to trace contrast contacting the folds from the pyriforms and dropping below the vocal folds * cued coughing was extremely weak and ineffective to expel tracheal aspirate * improved swallow onset timing w/ honey thickened liquids, pudding and solids w/out pooling in pyriforms which eliminated penetration from into laryngeal vestibule from the aryepiglottic folds/pyriforms during deglutition * cricopharyngeal hypertrophy and cervical osteophyte at C 5-6 visibly reduced width of PES opening w/ trace contrast retention * esophageal screening for clearance revealed retrograde bolus flow * significant belching present following MBS conclusion; high probability of reflux also contributing to aspiration prandially as retrograde esophageal bolus flow was evidenced under fluoroscopy - Recommendations Diet: Regular Textures - Minced & Moist (IDDSI:5) , Honey-thick Liquids - Moderately Thick (IDDSI:3) Compensatory Strategies: Small Bites, Small Sips, No Straws, Slow Rate, Alternate bites/solids and sips/liquids, Sitting upright - 90 degrees for PO intake, remain upright for 30-60 minutes after intake (GERD precautions) Supervision: Total Feed, 1:1 Close Supervision Recommend Repeat Modified Barium Swallow: Yes - would discourage advancement beyond nectar thickened liquids w/out a repeat study Comment: Despite only trace amount of penetration/aspiration occurring w/ sips of thin and nectar via cup, honey thickened liquids are recommended at this time due to significant impulsivity demonstrated during meals w/ inability of this patient to consistently utilize small bites/sips, one sip at a time, placing her at high risk for continued aspiration w/ thin and nectar thickened liquids. Need for Skilled Speech Therapy Services: Yes Comment: Dysphagia intervention is recommended to: * assess diet tolerance w/ use of recommended compensatory swallowing strategies * initiate oral and pharyngeal strengthening exercises to improve swallow function and reduce aspiration risk * implement the Mendez Free Water Protocol * provide ongoing education re: MBS findings, CVA and risks associated w/ aspiration Recommended Referrals: GI Consult Education Completed: 1. Described result of evaluation., 7. Pt requires further education on strategies & risks. Comment: Extended time spent discussing findings w/ Dr. Qing DE LOS SANTOS. Will closely monitor diet tolerance. Anticipate an improvement in pulmonary status w/ downgrade to minced & moist textures and honey thickened liquids. Will initiate Mendez Free Water Protocol this date w/ water intake allowed ONLY after oral hygiene is completed by staff. If patent refuses thorough oral hygiene, was access will be restricted. Discussed findings from MBS and recommended plan of care w/ patient at bedside. Patient demonstrated poor attention and was unable to repeat back comprehension of instruction provided. FFWP signage hung and wristband indicating participation was applied. Anticipate need for frequent and ongoing patient/family education. - Status Active ST Patient: Active - Contact Information [facility] Speech Therapy:: Jaylene Pierre M.A., [facility]-OPERATING ROOM ASSISTANT [facility] [address] [place] [address] x [phone] [email or web address]
[2020-12-27 17:00] VITALS: BMI 29.4
[2020-12-27 19:50] VITALS: BP 99/55; PULSE 65; RESP 14; TEMP 36.6; O2SAT 95
[2020-12-27 22:05] VITALS: BMI 29.4
[2020-12-27] MEDS: Senna/Docusate Sodium 1 Tablet 2 TABLET PO (22:20)
[2020-12-28] MEDS: Levothyroxine 75 MCG Tablet PO (06:12)
[2020-12-28 07:33] VITALS: O2SAT 98
[2020-12-28] MEDS: Nystatin Powder 15gm Bottle 1 APPLIC TOPICAL ×2 (07:54→22:33)
[2020-12-28] MEDS: APIXABAN 5 MG TABLET PO ×2 (07:54→22:32)
[2020-12-28] MEDS: Fluticasone Propion/Salmeterol 250-50 Inhaler 1 PUFF INHALATION ×2 (07:54→22:45)
[2020-12-28] MEDS: Lidocaine 5% Patch 1 PATCH TOPICAL (07:55)
[2020-12-28] MEDS: Aspirin 81 MG TAB.CHEW PO (07:57)
[2020-12-28] MEDS: Losartan Potassium 100 MG Tablet PO (07:58)
[2020-12-28] MEDS: Atenolol 50 MG Tablet PO (08:00)
[2020-12-28] MEDS: Menthol/Lanolin/Calamine/Znox 113 GM Tube 1 APPLIC TOPICAL ×2 (08:00→22:34)
[2020-12-28] MEDS: Fluticasone 0.05% 1 SPRAY NASAL.SRY NASAL (08:01)
[2020-12-28] MEDS: Acetaminophen 325 MG Tablet 650 MG PO ×2 (08:03→22:32)
--- NOTE | 2020-12-28 08:54 | CASEMGMT ---
Social Work MICKI spoke with pt sister Milka who states she has submitted application to Medicaid last week and is waiting to hear back from S regarding case. Milka also inquiring about getting a financial POA for pt. MICKI consulted with Dr. Rm and it is agreed pt is not competent to appoint a POA at this time. MICKI explained this to Milka and explained the process of Guardianship. MICKI encouraged Milka to review the Probate Courts website and call the Probate court to obtain more information about Guardianship and to then let MICKI know if she is choosing to move forward. MICKI will continue to follow. ISRA Brand
[2020-12-28 09:28] VITALS: BP 128/72; PULSE 61; RESP 18; TEMP 36.4; O2SAT 95
--- NOTE | 2020-12-28 11:38 | PCM.PN.BLA ---
Progress Note Afebrile VSS Maintaining appropriate oxygen saturation on RA while awake. Nurses have not been putting the O2 on at night. Discussed with nursing - She remains very impulsive and she is frequently yelling and calling out for things without ringing the call light. she perseverates a lot. Reviewed the PT/OT/ST notes Medication list reviewed. Physical Exam Const alert, oriented x3 and no apparent distress General Appearance: uncooperative Resp Resp Narrative: Breath sounds are diminished but clear to auscultation with no rales, rhonchi or wheezes. She has no conversational dyspnea. Cardio regular rate, regular rhythm and no gallops Cardio Narrative: No change in the murmur at the second right intercostal space. GI normal to inspection, nondistended, normoactive bowel sounds Extremity no calf tenderness and no pedal edema General Extremity: Negative for cyanosis Skin General Skin Exam: no breakdown Rashes: rashes noted The allergic dermatitis on the back is improved Neuro Neuro Narrative: Persistent R side neglect. She remains flaccid on the R side. dysarthria is improving. Psych Psych Narrative: She is inappropriate. She yells out for things she wants and continues yelling with no patience or realization there are other patients on the floor that must be taken care of as well. She is very self aware and can express what she wants but does not seem to consider the people around her. She can be infantile. Assessment & Plan Assessment/Plan (1) Cognitive dysfunction: (2) Anjum-neglect of right side: (3) Hemianopsia: (4) Right hemiplegia: (5) Debility: (6) Acute embolic stroke: PLAN: Continue therapy Will ask her sister about any mental/emotional disabilities in the past Visit Charges Inpatient E&M: 18920 Subs Hosp L2
[2020-12-28 14:58] VITALS: BMI 29.4
[2020-12-28 22:30] VITALS: BP 135/86; PULSE 75; RESP 16; TEMP 36.8; O2SAT 97; BMI 29.4
[2020-12-28] MEDS: MELATONIN 3 MG TABLET PO (22:32)
[2020-12-28] MEDS: Atorvastatin Calcium 80 MG Tablet PO (22:33)
[2020-12-28] MEDS: Senna/Docusate Sodium 1 Tablet 2 TABLET PO (22:36)
[2020-12-28] MEDS: hydrOXYzine PAM 25 MG Capsule PO (23:07)
[2020-12-29] MEDS: Acetaminophen 325 MG Tablet 650 MG PO ×2 (05:28→20:19)
[2020-12-29] MEDS: Levothyroxine 75 MCG Tablet PO (05:29)
[2020-12-29] MEDS: Nystatin Powder 15gm Bottle 1 APPLIC TOPICAL ×2 (05:29→19:55)
[2020-12-29] MEDS: Fluticasone Propion/Salmeterol 250-50 Inhaler 1 PUFF INHALATION ×2 (07:40→19:57)
[2020-12-29] MEDS: Lidocaine 5% Patch 1 PATCH TOPICAL (07:40)
[2020-12-29] MEDS: Losartan Potassium 100 MG Tablet PO (07:41)
[2020-12-29] MEDS: Atenolol 50 MG Tablet PO (07:41)
[2020-12-29] MEDS: APIXABAN 5 MG TABLET PO ×2 (07:41→19:57)
[2020-12-29] MEDS: Aspirin 81 MG TAB.CHEW PO (07:41)
[2020-12-29] MEDS: Fluticasone 0.05% 1 SPRAY NASAL.SRY NASAL (07:41)
[2020-12-29] MEDS: Menthol/Lanolin/Calamine/Znox 113 GM Tube 1 APPLIC TOPICAL ×2 (07:47→20:03)
[2020-12-29 09:42] VITALS: BP 162/93; PULSE 56; RESP 18; TEMP 36.3; O2SAT 97
[2020-12-29 12:48] VITALS: BMI 29.4
[2020-12-29] MEDS: Atorvastatin Calcium 80 MG Tablet PO (19:57)
[2020-12-29] MEDS: MELATONIN 3 MG TABLET PO (19:57)
[2020-12-29 20:04] VITALS: BP 126/69; PULSE 70; RESP 16; TEMP 36.6; O2SAT 94
[2020-12-29 20:05] VITALS: BMI 29.4
[2020-12-29 22:00] VITALS: PULSE 69; RESP 16
--- NOTE | 2020-12-30 01:26 | NURSING ---
Pt rambling loudly in room and stating it is NOT time for sleeping. TV is not on at this time and pt continues to play with call light buttons, turning on lights. Pt has not been to sleep yet. Pt incontinent and digging at various spots on body. Pt is reminded to keep hands away while staff cleans up pt from incontinence. Pt can be heard at nursing station at times.
[2020-12-30] MEDS: Acetaminophen 325 MG Tablet 650 MG PO ×3 (02:23→20:55)
[2020-12-30] MEDS: Levothyroxine 75 MCG Tablet PO (06:20)
[2020-12-30] MEDS: Nystatin Powder 15gm Bottle 1 APPLIC TOPICAL ×2 (06:23→20:56)
[2020-12-30 07:16] VITALS: BP 158/95; PULSE 77; RESP 16; TEMP 36.4; O2SAT 98
[2020-12-30] MEDS: Lidocaine 5% Patch 1 PATCH TOPICAL (10:41)
[2020-12-30] MEDS: Aspirin 81 MG TAB.CHEW PO (10:42)
[2020-12-30] MEDS: APIXABAN 5 MG TABLET PO ×2 (10:42→20:54)
[2020-12-30] MEDS: Losartan Potassium 100 MG Tablet PO (10:42)
[2020-12-30] MEDS: Atenolol 50 MG Tablet PO (10:42)
[2020-12-30] MEDS: Fluticasone Propion/Salmeterol 250-50 Inhaler 1 PUFF INHALATION ×2 (10:42→20:55)
[2020-12-30] MEDS: Fluticasone 0.05% 1 SPRAY NASAL.SRY NASAL (10:44)
[2020-12-30] MEDS: hydrOXYzine PAM 25 MG Capsule PO ×2 (10:44→20:54)
[2020-12-30] MEDS: Menthol/Lanolin/Calamine/Znox 113 GM Tube 1 APPLIC TOPICAL ×2 (10:48→20:54)
[2020-12-30 15:15] VITALS: BMI 29.4
[2020-12-30 19:29] VITALS: BP 92/68; PULSE 75; RESP 18; TEMP 36.4; O2SAT 94
[2020-12-30 20:45] VITALS: PULSE 75; RESP 18; O2SAT 95; BMI 29.4
[2020-12-30] MEDS: QUEtiapine 25 MG Tablet 12.5 MG PO (20:53)
[2020-12-30] MEDS: Atorvastatin Calcium 80 MG Tablet PO (20:54)
[2020-12-30] MEDS: MELATONIN 3 MG TABLET PO (20:54)
--- NOTE | 2020-12-31 02:55 | NURSING ---
Reviewed and agree with AQUATIC CENTRE MANAGER documentation and assessment charting.
--- NOTE | 2020-12-31 02:55 | NURSING ---
Pt found sleeping about 01:25. Pt had been awake until then much quieter than previous night. Was uncooperative with hs care but not shouting out. Pt did not set off alarm and looked around room instead of trying to drift off to sleep. Pt is now resting and seems much more relaxed tonight.
[2020-12-31] MEDS: Acetaminophen 325 MG Tablet 650 MG PO (05:19)
[2020-12-31] MEDS: Levothyroxine 75 MCG Tablet PO (05:19)
[2020-12-31] MEDS: Nystatin Powder 15gm Bottle 1 APPLIC TOPICAL ×2 (05:20→21:13)
[2020-12-31 07:25] VITALS: BP 167/80; PULSE 84; RESP 16; TEMP 36.5; O2SAT 98
[2020-12-31] MEDS: Losartan Potassium 100 MG Tablet PO (07:33)
[2020-12-31] MEDS: APIXABAN 5 MG TABLET PO ×2 (07:33→21:15)
[2020-12-31] MEDS: Lidocaine 5% Patch 1 PATCH TOPICAL (07:33)
[2020-12-31] MEDS: Atenolol 50 MG Tablet PO (07:33)
[2020-12-31] MEDS: Aspirin 81 MG TAB.CHEW PO (07:33)
[2020-12-31] MEDS: Fluticasone Propion/Salmeterol 250-50 Inhaler 1 PUFF INHALATION ×2 (07:33→21:14)
[2020-12-31] MEDS: Fluticasone 0.05% 1 SPRAY NASAL.SRY NASAL (07:33)
[2020-12-31] MEDS: Menthol/Lanolin/Calamine/Znox 113 GM Tube 1 APPLIC TOPICAL ×2 (07:37→21:14)
[2020-12-31 10:15] VITALS: BP 115/71; PULSE 78
[2020-12-31] MEDS: Acetaminophen 500 MG Tablet 1000 MG PO ×2 (12:49→21:14)
--- NOTE | 2020-12-31 15:12 | PCM.PN.BLA ---
Progress Note Jackelyn was seen on team rounds today. Her Sister Ana and her mother were in her room to participate. Afebrile VSS Maintaining appropriate oxygen saturation on RA Oral intake isgood Discussed with nursing - no problems that need addressed Reviewed the PT/OT/ST notes Medication list reviewed. Physical Exam Const alert and oriented x3 Constitutional Narrative: When we tried to turn the TV off for the meeting she grabbed at the remote. she is constantly fixated on having the remote in her hand and she is watching cartoons and not paying attention to what is being said. General Appearance: uncooperative Resp normal respiratory effort and clear to auscultation bilaterally Effort and Inspection: able to speak in complete sentences Cardio regular rate, regular rhythm and no gallops Cardio Narrative: No ectopy GI normal to inspection, nondistended, normoactive bowel sounds Extremity normal capillary refill, no calf tenderness and no pedal edema Skin Skin Narrative: the rash she had at admission has resolved General Skin Exam: no breakdown Neuro Neuro Narrative: No significant change. Not very motivated to do therapy. Continues to perseverate and is frequently counting aloud Assessment & Plan Assessment/Plan (1) Anjum-neglect of right side: (2) Right hemiplegia: (3) Sleep-disordered breathing: (4) Acute embolic stroke: (5) New onset atrial fibrillation: PLAN: Continue therapy. She is really not progressing and I am very doubtful she will ever be able to go home. I suspect she is going to be in an ECF for the rest of her life. whatever underlying mental Health issue she has significantly impacts her ability to progress in therapy. Her mother is unable to care for her at home. We have been encouraging her sister Ana to be the guardian. Jackelyn is not capable at this time of making decisions regarding her finances or healthcare. Still awaiting family to designate an SNF. Visit Charges Inpatient E&M: 65056 Subs Hosp L2
[2020-12-31 15:15] VITALS: BMI 29.4
--- NOTE | 2020-12-31 16:45 | CASEMGMT ---
Team meeting held today with pt, pt mother Fadia and pt sister Milka present. Pt is receiving PT/OT/ST and participating. Pt and family notified that NRD for insurance is tomorrow 01/01 and continued stay is not guaranteed. Pt sister stating she is meeting with an insurance defense attorney tomorrow to discuss guardianship. Will continue with treatment plan at this time and plan to reteam next week. ISRA Brand
[2020-12-31 19:17] VITALS: BP 111/62; PULSE 71; RESP 16; TEMP 37.1; O2SAT 100
[2020-12-31 21:00] VITALS: PULSE 71; RESP 16; O2SAT 100; BMI 29.4
[2020-12-31] MEDS: ALPRAZolam 0.25 MG Tablet 0.125 MG PO (21:14)
[2020-12-31] MEDS: Atorvastatin Calcium 80 MG Tablet PO (21:15)
[2020-12-31] MEDS: BENZOCAINE/MENTHOL 1 LOZENGE MUCOUS MEM (21:15)
[2020-12-31] MEDS: MELATONIN 3 MG TABLET PO (21:15)
[2020-12-31] MEDS: hydrOXYzine PAM 25 MG Capsule PO (21:17)
--- NOTE | 2021-01-01 03:23 | NURSING ---
Reviewed and agree with EQUIPMENT CLEANER documentation and assessment charting.
[2021-01-01] MEDS: Acetaminophen 500 MG Tablet 1000 MG PO ×3 (05:05→22:51)
[2021-01-01] MEDS: Levothyroxine 75 MCG Tablet PO (05:05)
[2021-01-01] MEDS: Nystatin Powder 15gm Bottle 1 APPLIC TOPICAL ×2 (05:07→19:55)
[2021-01-01] MEDS: Lidocaine 5% Patch 1 PATCH TOPICAL (07:40)
[2021-01-01] MEDS: APIXABAN 5 MG TABLET PO ×2 (07:40→19:54)
[2021-01-01] MEDS: Atenolol 50 MG Tablet PO (07:40)
[2021-01-01] MEDS: Losartan Potassium 100 MG Tablet PO (07:40)
[2021-01-01] MEDS: Aspirin 81 MG TAB.CHEW PO (07:40)
[2021-01-01] MEDS: Fluticasone Propion/Salmeterol 250-50 Inhaler 1 PUFF INHALATION ×2 (07:40→19:52)
[2021-01-01] MEDS: Menthol/Lanolin/Calamine/Znox 113 GM Tube 1 APPLIC TOPICAL ×2 (07:41→19:54)
[2021-01-01] MEDS: Fluticasone 0.05% 1 SPRAY NASAL.SRY NASAL (07:42)
[2021-01-01] MEDS: Senna/Docusate Sodium 1 Tablet 2 TABLET PO ×2 (07:42→19:54)
[2021-01-01 08:08] VITALS: BP 145/74; PULSE 71; RESP 16; TEMP 36.7; O2SAT 100
[2021-01-01 08:49] VITALS: BMI 29.4
[2021-01-01 19:22] VITALS: BP 131/75; PULSE 72; RESP 16; TEMP 36.4; O2SAT 98
[2021-01-01] MEDS: Atorvastatin Calcium 80 MG Tablet PO (19:55)
[2021-01-01 20:00] VITALS: BMI 29.4
[2021-01-01 20:03] VITALS: PULSE 78; RESP 16; O2SAT 98
[2021-01-01] MEDS: MELATONIN 3 MG TABLET PO (22:52)
[2021-01-01] MEDS: ALPRAZolam 0.25 MG Tablet 0.125 MG PO (22:54)
--- NOTE | 2021-01-02 03:54 | NURSING ---
Pt awake in bed and states that I'm not tired, when asked by staff why she isn't sleeping. Pt fidgeting with left hand and left foot is tapping side of bed. Staff in room to check and change/reposition in bed since pt is not alerting staff of toileting needs.
[2021-01-02] MEDS: Acetaminophen 500 MG Tablet 1000 MG PO ×3 (05:11→23:12)
[2021-01-02] MEDS: Nystatin Powder 15gm Bottle 1 APPLIC TOPICAL ×2 (05:12→23:34)
[2021-01-02] MEDS: Levothyroxine 75 MCG Tablet PO (05:12)
[2021-01-02] MEDS: Aspirin 81 MG TAB.CHEW PO (08:08)
[2021-01-02] MEDS: Losartan Potassium 100 MG Tablet PO (08:08)
[2021-01-02] MEDS: Ergocalciferol 1.25 MG (50, 000 UNIT) Capsule PO (08:08)
[2021-01-02] MEDS: Atenolol 50 MG Tablet PO (08:09)
[2021-01-02] MEDS: Senna/Docusate Sodium 1 Tablet 2 TABLET PO (08:09)
[2021-01-02] MEDS: Lidocaine 5% Patch 1 PATCH TOPICAL (08:09)
[2021-01-02] MEDS: APIXABAN 5 MG TABLET PO ×2 (08:09→23:11)
[2021-01-02] MEDS: Fluticasone 0.05% 1 SPRAY NASAL.SRY NASAL (08:09)
[2021-01-02] MEDS: Menthol/Lanolin/Calamine/Znox 113 GM Tube 1 APPLIC TOPICAL ×2 (08:10→23:34)
[2021-01-02] MEDS: Fluticasone Propion/Salmeterol 250-50 Inhaler 1 PUFF INHALATION ×2 (08:10→23:14)
[2021-01-02 08:58] VITALS: BP 148/98; PULSE 74; RESP 16; TEMP 36.5; O2SAT 99
--- NOTE | 2021-01-02 09:55 | PCM.PN.BLA ---
Progress Note Afebrile VSS-blood pressure is high in the a.m. and she was started on Cardura 1 mg at HS and will get her first dose tonight. HR is WNL Maintaining appropriate oxygen saturation on RA while awake. She is on 2 L/min while sleeping due to sleep disordered breathing/hypoxia. Oral intake is good most days Bowel movements are regular. She is incontinent of stool and urine still. Discussed with nursing - no problems that need addressed. She is confused but is following commands. She is not sleeping at night. The Xanax has not helped.....she did not go to sleep until 5 AM today. As a result she is tired all day and napping. Reviewed the PT/OT/ST notes Medication list reviewed. Will DC the antihistamine so it does not further cause cognitive dysfunction. Jackelyn denies cough, shortness of breath, cephalgia, nausea/vomiting/abdominal pain, painful urination. Her only complaint is she is not sleeping well. Physical Exam Const alert and no apparent distress General Appearance: cooperative and comfortable HEENT moist oral mucous membranes Resp normal respiratory effort, normal air movement, no use of accessory muscles and clear to auscultation bilaterally Effort and Inspection: able to speak in complete sentences Cardio regular rate, regular rhythm and no gallops GI soft to palpation, non-tender and non-distended GI Narrative: Normal bowel sounds in all quadrants. Extremity no calf tenderness and no pedal edema Skin General Skin Exam: no breakdown Rashes: no rashes Neuro Neuro Narrative: The PT yesterday thought she was engaging the RLE a little when doing add exercises with the ball. On my exam today she was still flaccid in the RUE and the RLE. Less facial droop on the R side. No seizures. Speech is easy to understand and the dysarthria seems to be improving Psych Psych Narrative: She is pleasant and follows commands. No aggressive behavior. No outbursts and yelling. Assessment & Plan Assessment/Plan (1) Debility: (2) Acute embolic stroke: (3) New onset atrial fibrillation: (4) Cognitive dysfunction: (5) Anjum-neglect of right side: (6) Hemianopsia: (7) Right hemiplegia: (8) Dysarthria: (9) Insomnia: QUALIFIERS: Insomnia type: unspecified Qualified Code(s): G47.00 - Insomnia, unspecified (10) Sleep-disordered breathing: (11) Urinary incontinence: QUALIFIERS: Urinary Incontinence type: urinary incontinence without sensory awareness Qualified Code(s): N39.42 - Incontinence without sensory awareness (12) Fecal incontinence: QUALIFIERS: Fecal incontinence type: full incontinence of feces Qualified Code(s): R15.9 - Full incontinence of feces PLAN: 1. She is still requiring 1-2 people to maintain static balance at the wall rail. I think we will be sending to an SNF at [place]. Her sister Milka is working on getting guardianship because Jackelyn is not competent to make decisions at this time. She is better able to converse with her family now and is appropriate but, this is inconsistent. She is no longer getting ias irritated/agitated when her mother comes to visit. 2. Check a CBC and a BMP in the AM 3. Needs a formal sleep study post DC. Will continue O2 supplementation any time she is sleeping for now. 4. She needs to get a few nights of good sleep and we need to keep her awake during the day today. Continue Melatonin and DC the Xanax. Give 25 mg of Seroquel at 7 PM tonight and then tomorrow night start 12.5 mg Q HS. Capacity Capacity Assessment Tool Can the patient make a choice & communicate that choice?: Yes Can the patient understand benefits, risks and alternatives?: No Can the patient make a logical, rational choice?: No Is the choice the patient makes consistent w/ their values?: Unable to Determine Is there an impending, emergent risk to the patient?: No Is there a Surrogate Available?: Yes i.e. close relative (spouse, child, parent, sibling)?: Comment (her sister Milka) Visit Charges Inpatient E&M: 20529 Subs Hosp L2
[2021-01-02 10:51] VITALS: BMI 29.4
[2021-01-02] MEDS: QUEtiapine 25 MG Tablet PO (18:55)
[2021-01-02 19:50] VITALS: BP 114/67; PULSE 70; RESP 16; TEMP 37.1; O2SAT 97
[2021-01-02] MEDS: MELATONIN 3 MG TABLET PO (23:11)
[2021-01-02] MEDS: Atorvastatin Calcium 80 MG Tablet PO (23:11)
[2021-01-02] MEDS: Doxazosin 1 MG Tablet PO (23:11)
[2021-01-03 00:29] VITALS: BMI 29.4
[2021-01-03] MEDS: Acetaminophen 500 MG Tablet 1000 MG PO ×3 (05:24→21:09)
[2021-01-03] MEDS: Nystatin Powder 15gm Bottle 1 APPLIC TOPICAL ×2 (05:24→21:09)
[2021-01-03] MEDS: Levothyroxine 75 MCG Tablet PO (05:24)
[2021-01-03 05:42] LABS: Hematocrit 46.1 % (37-47); Hemoglobin 15.6 g/dL (12.0-15.0); Mean Corp Hgb Conc 33.8 g/dL (32-36); Mean Corpuscular Hgb 32.1 pg (27.0-32.0); Mean Corpuscular Volume 94.9 fL (81-99); Mean Platelet Vol. 9.8 fl (6.2-12.0); Platelet Count 308 K/mm3 (150-450); RBC Distribution Width CV 11.7 % (11.6-14.6); RBC Distribution Width SD 40.5 fl (35.1-43.9); Red Blood Count 4.86 M/mm3 (4.2-5.4); White Blood Count 10.6 K/mm3 (4.4-11.0)
[2021-01-03 06:05] LABS: Anion Gap 7 (5-15); BUN 28 mg/dL (7-18); BUN/Creat Ratio 43.3 RATIO (10-20); Calcium,Total 9.4 mg/dL (8.5-10.1); Chloride 105 mmol/L (98-107); Creatinine, Serum 0.65 mg/dL (0.55-1.02); EST Glomerular Filtration Rate 97 mL/min (>60); Est Glom Filt Rate - Afr Amer 118 mL/min (>60); Estimated Creatinine Clearance 45.78 ml/min; Glucose 98 mg/dL (74-106); Potassium 4.1 mmol/L (3.5-5.1); Sodium Level 137 mmol/L (136-145)
[2021-01-03 07:46] VITALS: BP 143/78; PULSE 86; RESP 19; TEMP 36.1; O2SAT 98
[2021-01-03] MEDS: Fluticasone Propion/Salmeterol 250-50 Inhaler 1 PUFF INHALATION ×2 (10:06→21:10)
[2021-01-03] MEDS: APIXABAN 5 MG TABLET PO ×2 (10:06→21:09)
[2021-01-03] MEDS: Atenolol 50 MG Tablet PO (10:06)
[2021-01-03] MEDS: Losartan Potassium 100 MG Tablet PO (10:06)
[2021-01-03] MEDS: Fluticasone 0.05% 1 SPRAY NASAL.SRY NASAL (10:06)
[2021-01-03] MEDS: Aspirin 81 MG TAB.CHEW PO (10:06)
[2021-01-03] MEDS: Lidocaine 5% Patch 1 PATCH TOPICAL (10:07)
[2021-01-03] MEDS: Menthol/Lanolin/Calamine/Znox 113 GM Tube 1 APPLIC TOPICAL ×2 (10:12→21:08)
[2021-01-03 11:35] VITALS: BMI 29.4
[2021-01-03 19:28] VITALS: BP 106/63; PULSE 77; RESP 18; TEMP 36.7; O2SAT 93
[2021-01-03] MEDS: QUEtiapine 25 MG Tablet 12.5 MG PO (21:08)
[2021-01-03] MEDS: Doxazosin 1 MG Tablet PO (21:09)
[2021-01-03] MEDS: MELATONIN 3 MG TABLET PO (21:09)
[2021-01-03] MEDS: Atorvastatin Calcium 80 MG Tablet PO (21:09)
[2021-01-04 01:18] VITALS: BMI 29.4
[2021-01-04] MEDS: Levothyroxine 75 MCG Tablet PO (05:57)
[2021-01-04] MEDS: Acetaminophen 500 MG Tablet 1000 MG PO ×3 (05:57→20:02)
[2021-01-04] MEDS: Nystatin Powder 15gm Bottle 1 APPLIC TOPICAL ×2 (05:58→19:55)
[2021-01-04 07:42] VITALS: BP 123/67; PULSE 68; RESP 18; TEMP 36.4; O2SAT 98
[2021-01-04] MEDS: Fluticasone 0.05% 1 SPRAY NASAL.SRY NASAL (08:21)
[2021-01-04] MEDS: Fluticasone Propion/Salmeterol 250-50 Inhaler 1 PUFF INHALATION ×2 (08:21→19:57)
[2021-01-04] MEDS: Lidocaine 5% Patch 1 PATCH TOPICAL (08:22)
[2021-01-04] MEDS: Atenolol 50 MG Tablet PO (08:22)
[2021-01-04] MEDS: Senna/Docusate Sodium 1 Tablet 2 TABLET PO (08:22)
[2021-01-04] MEDS: Aspirin 81 MG TAB.CHEW PO (08:22)
[2021-01-04] MEDS: Losartan Potassium 100 MG Tablet PO (08:22)
[2021-01-04] MEDS: APIXABAN 5 MG TABLET PO ×2 (08:22→19:54)
[2021-01-04] MEDS: Menthol/Lanolin/Calamine/Znox 113 GM Tube 1 APPLIC TOPICAL (08:24)
[2021-01-04 10:13] VITALS: BMI 29.4
[2021-01-04] MEDS: Atorvastatin Calcium 80 MG Tablet PO (19:53)
[2021-01-04] MEDS: Doxazosin 1 MG Tablet PO (19:54)
[2021-01-04] MEDS: MELATONIN 3 MG TABLET PO (19:54)
[2021-01-04] MEDS: QUEtiapine 25 MG Tablet 12.5 MG PO (19:56)
[2021-01-04 20:00] VITALS: BP 113/84; PULSE 73; RESP 18; TEMP 36.6; O2SAT 94; BMI 29.4
[2021-01-05] MEDS: Nystatin Powder 15gm Bottle 1 APPLIC TOPICAL ×2 (06:32→21:16)
[2021-01-05] MEDS: Levothyroxine 75 MCG Tablet PO (06:32)
[2021-01-05] MEDS: Acetaminophen 500 MG Tablet 1000 MG PO ×3 (06:32→21:15)
[2021-01-05 07:08] VITALS: BP 147/70; PULSE 70; RESP 16; TEMP 36.3; O2SAT 98
[2021-01-05] MEDS: Lidocaine 5% Patch 1 PATCH TOPICAL (09:09)
[2021-01-05] MEDS: Fluticasone 0.05% 1 SPRAY NASAL.SRY NASAL (09:09)
[2021-01-05] MEDS: Losartan Potassium 100 MG Tablet PO (09:09)
[2021-01-05] MEDS: Aspirin 81 MG TAB.CHEW PO (09:09)
[2021-01-05] MEDS: APIXABAN 5 MG TABLET PO ×2 (09:09→21:17)
[2021-01-05] MEDS: Atenolol 50 MG Tablet PO (09:10)
[2021-01-05] MEDS: Fluticasone Propion/Salmeterol 250-50 Inhaler 1 PUFF INHALATION ×2 (09:10→21:16)
[2021-01-05] MEDS: Menthol/Lanolin/Calamine/Znox 113 GM Tube 1 APPLIC TOPICAL ×2 (09:11→21:18)
[2021-01-05 15:15] VITALS: BMI 29.4
[2021-01-05 21:10] VITALS: BP 113/64; PULSE 67; RESP 16; TEMP 525.5; TEMP 978; O2SAT 96; BMI 29.4
[2021-01-05] MEDS: Senna/Docusate Sodium 1 Tablet 2 TABLET PO (21:14)
[2021-01-05] MEDS: QUEtiapine 25 MG Tablet 12.5 MG PO (21:15)
[2021-01-05] MEDS: Atorvastatin Calcium 80 MG Tablet PO (21:18)
[2021-01-05] MEDS: Doxazosin 1 MG Tablet PO (21:18)
[2021-01-05] MEDS: MELATONIN 3 MG TABLET PO (21:21)
--- NOTE | 2021-01-06 01:51 | NURSING ---
Reviewed and agree with CHEESE PROCESSOR assessment.
[2021-01-06] MEDS: Acetaminophen 500 MG Tablet 1000 MG PO ×3 (05:37→20:13)
[2021-01-06] MEDS: Nystatin Powder 15gm Bottle 1 APPLIC TOPICAL ×2 (05:37→20:14)
[2021-01-06] MEDS: Levothyroxine 75 MCG Tablet PO (05:37)
[2021-01-06 07:56] VITALS: BP 112/66; PULSE 69; RESP 18; O2SAT 96
[2021-01-06] MEDS: Lidocaine 5% Patch 1 PATCH TOPICAL (11:12)
[2021-01-06] MEDS: APIXABAN 5 MG TABLET PO ×2 (11:12→20:16)
[2021-01-06] MEDS: Fluticasone Propion/Salmeterol 250-50 Inhaler 1 PUFF INHALATION ×2 (11:12→20:13)
[2021-01-06] MEDS: Senna/Docusate Sodium 1 Tablet 2 TABLET PO (11:13)
[2021-01-06] MEDS: Fluticasone 0.05% 1 SPRAY NASAL.SRY NASAL (11:13)
[2021-01-06] MEDS: Aspirin 81 MG TAB.CHEW PO (11:13)
[2021-01-06] MEDS: Losartan Potassium 100 MG Tablet PO (11:13)
[2021-01-06] MEDS: Atenolol 50 MG Tablet PO (11:14)
[2021-01-06] MEDS: Menthol/Lanolin/Calamine/Znox 113 GM Tube 1 APPLIC TOPICAL ×2 (11:22→20:15)
[2021-01-06 11:45] VITALS: BMI 29.4
[2021-01-06 20:00] VITALS: BP 106/52; PULSE 57; RESP 16; TEMP 36.3; O2SAT 96; BMI 29.4
[2021-01-06] MEDS: QUEtiapine 25 MG Tablet 12.5 MG PO (20:13)
[2021-01-06] MEDS: Atorvastatin Calcium 80 MG Tablet PO (20:13)
[2021-01-06] MEDS: Doxazosin 1 MG Tablet PO (20:13)
[2021-01-06] MEDS: MELATONIN 3 MG TABLET PO (20:14)
--- NOTE | 2021-01-07 01:44 | NURSING ---
Reviewed and agree with VARNISH INSPECTOR assessment.
[2021-01-07] MEDS: Acetaminophen 500 MG Tablet 1000 MG PO ×3 (05:18→20:51)
[2021-01-07] MEDS: Levothyroxine 75 MCG Tablet PO (05:18)
[2021-01-07] MEDS: Nystatin Powder 15gm Bottle 1 APPLIC TOPICAL ×2 (05:19→19:57)
[2021-01-07 08:28] VITALS: BP 125/52; PULSE 79; RESP 16; TEMP 36.6; O2SAT 98
[2021-01-07] MEDS: Aspirin 81 MG TAB.CHEW PO (08:49)
[2021-01-07] MEDS: Atenolol 50 MG Tablet PO (08:49)
[2021-01-07] MEDS: Fluticasone Propion/Salmeterol 250-50 Inhaler 1 PUFF INHALATION ×2 (08:49→19:58)
[2021-01-07] MEDS: Fluticasone 0.05% 1 SPRAY NASAL.SRY NASAL (08:49)
[2021-01-07] MEDS: APIXABAN 5 MG TABLET PO ×2 (08:49→19:56)
[2021-01-07] MEDS: Lidocaine 5% Patch 1 PATCH TOPICAL (08:49)
[2021-01-07] MEDS: Losartan Potassium 100 MG Tablet PO (08:49)
[2021-01-07] MEDS: Menthol/Lanolin/Calamine/Znox 113 GM Tube 1 APPLIC TOPICAL ×2 (08:50→19:55)
[2021-01-07 10:11] VITALS: BMI 29.4
--- NOTE | 2021-01-07 10:12 | PN_ITS ---
Progress Note Jackelyn was seen on team rounds today. Her Sister Ana and Ana's were present. Afebrile VSS Maintaining appropriate oxygen saturation on RA while awake. She is on oxygen anytime she is sleeping. Oral intake is good Discussed with nursing - no problems that need addressed. She is sleeping at night now with the reinstitution of Seroquel 12.5 mg at 6 nightly. Reviewed the PT/OT/ST notes. Not really progressing with PT/OT but, she has made some improvement with cognition. Medication list reviewed. She has no complaints today. She is alert and pleasant. She is very attached to the remote and she will continue to demand the remote until you give it to her. does not seem motivated to walk. I had hoped that things would maybe warehouse order picker if she was getting adequate sleep. Physical Exam Const alert, oriented x3 and no apparent distress Constitutional Narrative: fidgety until she got the nurses to pull her up in the chair. she is perseverating on the remote falling on the floor and is obsessed with having it in her hand Resp Resp Narrative: Symmetric chest rise, good air exchange throughout, clear to auscultation. Not tachypneic and no accessory muscle use. Able to speak in full sentences. Cardio regular rate, regular rhythm and no gallops Cardio Narrative: has intermittent PAF but the rate is controlled GI soft to palpation, non-tender and non-distended GI Narrative: Normal bowel sounds, no guarding with palpation Extremity no calf tenderness and no pedal edema Skin General Skin Exam: no breakdown; Negative for ecchymosis Rashes: no rashes Neuro Neuro Narrative: She is able to articulate better and project her voice better than last week. Psych Psych Narrative: The therapists were wondering if she may be autistic/asb erger's? She does not like to be touched. She perseverates. She will count compulsively. Seems to lack social skills. Assessment & Plan Assessment/Plan (1) Debility: (2) Acute embolic stroke: (3) New onset atrial fibrillation: (4) Dysarthria: (5) Right hemiplegia: (6) Cognitive dysfunction: (7) Anjum-neglect of right side: (8) Hemianopsia: (9) Fecal incontinence: QUALIFIERS: Fecal incontinence type: full incontinence of feces Qualified Code(s): R15.9 - Full incontinence of feces (10) Urinary incontinence: QUALIFIERS: Urinary Incontinence type: urinary incontinence without sensory awareness Qualified Code(s): N39.42 - Incontinence without sensory awareness (11) Insomnia: QUALIFIERS: Insomnia type: unspecified Qualified Code(s): G47.00 - Insomnia, unspecified (12) Pulmonary hypertension: (13) Sleep-disordered breathing: (14) Hypoxemia: (15) Chronic anticoagulation: (16) Asperger's disorder: PLAN: 1. continue therapy. 2. Her sister is working on the guardianship 3. Will need SNF or ECF at [place]. 4. Continue Seroquel 12.5 mg at 6 PM daily 5. Recheck an H&H, BMP and magnesium in the a.m. Visit Charges Inpatient E&M: 73327 Subs Hosp L2
--- NOTE | 2021-01-07 15:00 | CASEMGMT ---
Social Work Team meeting held today with pt and pt sister Milka present. Pt is receiving PT/OT/ST and is Max A to dependent for care. SW updated pt sister that next review with insurance is 01/08 and continue stay is not guaranteed. SW inquired about process of guardianship/POA as pt will need to apply for Medicaid for ECF placement. Pt sister stating, I am working on it and gave this SW no further information. SW will wait for insurance decision and will speak with sister again about process of guardianship and need to make discharge plan. Will continue with treatment in [place] at this time and reteam next week. ISRA Brand
[2021-01-07] MEDS: QUEtiapine 25 MG Tablet 12.5 MG PO (17:45)
[2021-01-07 19:28] VITALS: BP 115/72; PULSE 85; RESP 18; TEMP 36.8; O2SAT 96
[2021-01-07 19:47] VITALS: BMI 29.4
[2021-01-07 19:48] VITALS: PULSE 88; RESP 16; O2SAT 97
[2021-01-07] MEDS: Atorvastatin Calcium 80 MG Tablet PO (19:56)
[2021-01-07] MEDS: Doxazosin 1 MG Tablet PO (19:56)
[2021-01-07] MEDS: MELATONIN 3 MG TABLET PO (19:57)
[2021-01-08] MEDS: Acetaminophen 500 MG Tablet 1000 MG PO ×3 (05:22→21:08)
[2021-01-08] MEDS: Nystatin Powder 15gm Bottle 1 APPLIC TOPICAL ×2 (05:22→21:13)
[2021-01-08] MEDS: Levothyroxine 75 MCG Tablet PO (05:22)
[2021-01-08 06:02] LABS: Hematocrit 42.6 % (37-47); Hemoglobin 14.3 g/dL (12.0-15.0)
[2021-01-08 06:29] LABS: Anion Gap 5 (5-15); BUN 24 mg/dL (7-18); BUN/Creat Ratio 39.9 RATIO (10-20); Calcium,Total 9.2 mg/dL (8.5-10.1); Chloride 106 mmol/L (98-107); EST Glomerular Filtration Rate 106 mL/min (>60); Est Glom Filt Rate - Afr Amer 128 mL/min (>60); Estimated Creatinine Clearance 45.78 ml/min; Glucose 97 mg/dL (74-106); Magnesium 1.8 mg/dL (1.6-2.6); Potassium 3.9 mmol/L (3.5-5.1); Sodium Level 136 mmol/L (136-145)
[2021-01-08 07:30] VITALS: BP 112/58; PULSE 92; RESP 16; TEMP 36.7; O2SAT 92
[2021-01-08] MEDS: Fluticasone Propion/Salmeterol 250-50 Inhaler 1 PUFF INHALATION ×2 (07:57→21:08)
[2021-01-08] MEDS: Losartan Potassium 100 MG Tablet PO (07:58)
[2021-01-08] MEDS: Lidocaine 5% Patch 1 PATCH TOPICAL (07:58)
[2021-01-08] MEDS: APIXABAN 5 MG TABLET PO ×2 (07:58→21:08)
[2021-01-08] MEDS: Aspirin 81 MG TAB.CHEW PO (07:58)
[2021-01-08] MEDS: Menthol/Lanolin/Calamine/Znox 113 GM Tube 1 APPLIC TOPICAL ×2 (08:12→21:13)
[2021-01-08] MEDS: Atenolol 50 MG Tablet PO (09:05)
--- NOTE | 2021-01-08 09:24 | PCM.PN.BLA ---
Progress Note Afebrile VSS Maintaining appropriate oxygen saturation on RA Oral intake is good Discussed with nursing - She still yells out at times It helps to give her counting tasks to do Reviewed the PT/OT/ST notes Medication list reviewed. All lab was personally reviewed. The only significant abnormality is an elevated BUN/creatinine ratio. Hemoglobin is normal. I suspect the HGB was high at admission due to severe sleep disordered breathing at night with hypoxemia. Now that she is getting supplemental oxygen at night the HGB is normal. She has no complaints today. Physical Exam Const alert, oriented x3, no apparent distress and well nourished Constitutional Narrative: continues to perseverate.....bello with numbers General Appearance: comfortable and well developed HEENT moist oral mucous membranes Chest Chest: symmetrical chest wall rise Resp normal respiratory effort, normal air movement, no use of accessory muscles and clear to auscultation bilaterally Effort and Inspection: able to speak in complete sentences Cardio regular rate, regular rhythm, S1 normal heart sound, S2 normal heart sound, no rub and no gallops Cardio Narrative: She has intermittent PAF but the rate is controlled. She has a 2/6 ATILIO at the second RICS. Heart Sounds: murmur GI normal to inspection, nondistended, normoactive bowel sounds, soft to palpation, non-tender and non-distended GI Narrative: no guarding with palpation Extremity no clubbing, cyanosis or edema, no calf tenderness and no pedal edema Extremity Narrative: Negative George's and Marybeth's signs Skin Skin Narrative: She has a rash on her back that is red maculopapular and was attributed to a contact dermatitis at [facility] due to perspiration General Skin Exam: no breakdown; Negative for ecchymosis Rashes: no rashes Neuro oriented x3 Neuro Narrative: She is able to articulate better and project her voice better. Still not able to even stand at the wall rail for > 30-45 secs, even with max assist of 1-2. Can not propel her WC. R side is very weak. Has not been making any significant progress with PT and OT Motor Exam: strength 5/5 throughout Psych cooperative Psych Narrative: The therapists were wondering if she may be autistic/asberger's? She does not like to be touched. She perseverates. She will count compulsively. Seems to lack social skills. She finished college and got a degree in business but, she has never been employed in the business world. 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 She does go to [place] regularly. Was living with her mother. Family not really very communicative about problems she may have had earlier in her life. Assessment & Plan Assessment/Plan (1) Cognitive dysfunction: (2) Urinary incontinence: QUALIFIERS: Urinary Incontinence type: urinary incontinence without sensory awareness Qualified Code(s): N39.42 - Incontinence without sensory awareness (3) Fecal incontinence: QUALIFIERS: Fecal incontinence type: full incontinence of feces Qualified Code(s): R15.9 - Full incontinence of feces (4) Anjum-neglect of right side: (5) Hemianopsia: (6) Right hemiplegia: (7) Asperger's disorder: (8) Chronic anticoagulation: (9) New onset atrial fibrillation: PLAN: 1. Continue therapy for now. I suspect she is somewhere on the autism spectrum. She does not seem motivated to try walking. She is more outgoing than at admission. 2. all lab was reviewed. HGB remains NL at 14.3. BUN/CREAT ratio is still high but, her MM are moist and she denies lightheadedness. I have encouraged her to drink more water. 3. I suspect she will not be able to return home and live with her mother because the mother is not able to adequately care for her. Visit Charges Inpatient E&M: 75867 Subs Hosp L2
[2021-01-08 15:08] VITALS: BMI 29.4
[2021-01-08] MEDS: QUEtiapine 25 MG Tablet 12.5 MG PO (17:34)
[2021-01-08 19:14] VITALS: BP 100/69; PULSE 82; RESP 20; TEMP 36.9; O2SAT 93
[2021-01-08 20:20] VITALS: BMI 29.4
[2021-01-08] MEDS: MELATONIN 3 MG TABLET PO (21:08)
[2021-01-08] MEDS: Atorvastatin Calcium 80 MG Tablet PO (21:09)
[2021-01-08] MEDS: Doxazosin 1 MG Tablet PO (21:13)
[2021-01-08 22:00] VITALS: PULSE 82; RESP 16; O2SAT 96
[2021-01-09] MEDS: Levothyroxine 75 MCG Tablet PO (05:15)
[2021-01-09] MEDS: Acetaminophen 500 MG Tablet 1000 MG PO ×3 (05:15→22:25)
[2021-01-09] MEDS: Nystatin Powder 15gm Bottle 1 APPLIC TOPICAL ×2 (05:16→22:26)
[2021-01-09 07:33] VITALS: BP 114/64; PULSE 71; RESP 16; TEMP 36.4; O2SAT 100
[2021-01-09] MEDS: APIXABAN 5 MG TABLET PO ×2 (08:12→22:25)
[2021-01-09] MEDS: Fluticasone Propion/Salmeterol 250-50 Inhaler 1 PUFF INHALATION ×2 (08:12→22:27)
[2021-01-09] MEDS: Lidocaine 5% Patch 1 PATCH TOPICAL (08:12)
[2021-01-09] MEDS: Atenolol 50 MG Tablet PO (08:12)
[2021-01-09] MEDS: Losartan Potassium 100 MG Tablet PO (08:12)
[2021-01-09] MEDS: Ergocalciferol 1.25 MG (50, 000 UNIT) Capsule PO (08:12)
[2021-01-09] MEDS: Aspirin 81 MG TAB.CHEW PO (08:12)
[2021-01-09] MEDS: Menthol/Lanolin/Calamine/Znox 113 GM Tube 1 APPLIC TOPICAL ×2 (08:13→22:26)
[2021-01-09] MEDS: Fluticasone 0.05% 1 SPRAY NASAL.SRY NASAL (08:13)
[2021-01-09 12:09] VITALS: BMI 29.4
[2021-01-09 19:49] VITALS: BP 90/56; PULSE 78; RESP 16; TEMP 36.7; O2SAT 95
[2021-01-09] MEDS: QUEtiapine 25 MG Tablet 12.5 MG PO (21:00)
[2021-01-09 22:00] VITALS: PULSE 78; RESP 16; O2SAT 95; BMI 29.4
[2021-01-09] MEDS: Doxazosin 1 MG Tablet PO (22:25)
[2021-01-09] MEDS: Atorvastatin Calcium 80 MG Tablet PO (22:25)
[2021-01-09] MEDS: MELATONIN 3 MG TABLET PO (22:26)
--- NOTE | 2021-01-10 02:40 | NURSING ---
Reviewed and agree with ASSEMBLER MOVEMENT documentation and assessment charting.
[2021-01-10] MEDS: Acetaminophen 500 MG Tablet 1000 MG PO ×3 (05:32→23:00)
[2021-01-10] MEDS: Levothyroxine 75 MCG Tablet PO (05:32)
[2021-01-10] MEDS: Nystatin Powder 15gm Bottle 1 APPLIC TOPICAL ×2 (05:33→23:00)
[2021-01-10 07:20] VITALS: BP 118/64; PULSE 60; RESP 16; TEMP 36.4; O2SAT 96
[2021-01-10] MEDS: Aspirin 81 MG TAB.CHEW PO (08:46)
[2021-01-10] MEDS: Losartan Potassium 100 MG Tablet PO ×2 (08:46→23:00)
[2021-01-10] MEDS: Fluticasone 0.05% 1 SPRAY NASAL.SRY NASAL (08:47)
[2021-01-10] MEDS: Fluticasone Propion/Salmeterol 250-50 Inhaler 1 PUFF INHALATION ×2 (08:47→23:00)
[2021-01-10] MEDS: Lidocaine 5% Patch 1 PATCH TOPICAL (08:47)
[2021-01-10] MEDS: Atenolol 50 MG Tablet PO (08:47)
[2021-01-10] MEDS: APIXABAN 5 MG TABLET PO ×2 (08:47→23:00)
[2021-01-10] MEDS: Menthol/Lanolin/Calamine/Znox 113 GM Tube 1 APPLIC TOPICAL ×2 (08:48→23:00)
--- NOTE | 2021-01-10 09:58 | CASEMGMT ---
Social Work SW spoke with team who state pt is not making as much progress as hoped with PT/OT. Phone call to pt sister Milka and discussed pt progress, insurance coverage and need for SNF. Milka is understanding and states she has toured the [facility] and would like referral made to this SNF. Milka also states that information has been provided to [facility] for Medicaid application. Referral made to the [facility] and they do have beds available. Clinical information faxed and SW will await determination if pt is accepted. Precert with insurance would be requested for skilled stay at [facility] initially to continue with rehabilitation. Email sent to [facility] inquiring about status of Medicaid application. Will notify the [facility] with a response once obtained. Plan: [facility], pending acceptance and precert ISRA Brand
--- NOTE | 2021-01-10 11:07 | PCM.PN.BLA ---
Progress Note Afebrile VSS-blood pressure has been mildly decreased at approximately 7 PM the past few days. She gets atenolol 50 mg and Cozaar 100 mg every morning. She takes Cardura 1 mg at at bedtime. Maintaining appropriate oxygen saturation on RA Oral intake has fallen off a little the past few days. Discussed with nursing - She is having 4-5 BM's a day and she is still incontinent of stool and urine. Has not been taking the senna. Has not been on any antibiotics. TSH in November was normal. Reviewed the PT/OT/ST notes Medication list reviewed. All lab from yesterday was personally reviewed. The hemoglobin is 14.3. Sodium is now normal at 136 and the potassium is stable at 3.9. BUN is 24 with a creatinine of 0.6. Jackelyn has no complaints today. She denies CP, SOB, N/V, abd pain, dysuria. Physical Exam Const alert, oriented x3 and no apparent distress Constitutional Narrative: continues to perseverate.....bello with numbers Chest Chest: symmetrical chest wall rise Resp normal respiratory effort Resp Narrative: rare coarse wheeze that usually clears after a cough Effort and Inspection: able to speak in complete sentences Cardio regular rate, regular rhythm and no gallops GI normal to inspection, nondistended, normoactive bowel sounds GI Narrative: no guarding with palpation Extremity no calf tenderness and no pedal edema Skin General Skin Exam: no breakdown Rashes: no rashes Assessment & Plan Assessment/Plan (1) Cognitive dysfunction: (2) Urinary incontinence: QUALIFIERS: Urinary Incontinence type: urinary incontinence without sensory awareness Qualified Code(s): N39.42 - Incontinence without sensory awareness (3) Fecal incontinence: QUALIFIERS: Fecal incontinence type: full incontinence of feces Qualified Code(s): R15.9 - Full incontinence of feces (4) Anjum-neglect of right side: (5) Hemianopsia: (6) Right hemiplegia: (7) Asperger's disorder: (8) Chronic anticoagulation: (9) New onset atrial fibrillation: PLAN: 1. Continue therapy. 2. her sister has not updated the SW on the progress toward obtaining guardianship 3. not really progressing - will need to DC to an SNF Visit Charges Inpatient E&M: [id number] Subs Hosp L2
--- NOTE | 2021-01-10 11:43 | CASEMGMT ---
Social Work Return call from [facility] and they are able to accept pt and will start precert at this time. ISRA Brand
[2021-01-10 16:44] VITALS: BMI 29.4
[2021-01-10] MEDS: QUEtiapine 25 MG Tablet 12.5 MG PO (18:27)
[2021-01-10 23:00] VITALS: BP 106/56; PULSE 67; RESP 16; TEMP 36.5; O2SAT 95; BMI 29.4
[2021-01-10] MEDS: Doxazosin 1 MG Tablet PO (23:00)
[2021-01-10] MEDS: Atorvastatin Calcium 80 MG Tablet PO (23:00)
[2021-01-10] MEDS: MELATONIN 3 MG TABLET PO (23:00)
[2021-01-11] MEDS: Nystatin Powder 15gm Bottle 1 APPLIC TOPICAL ×2 (06:09→23:38)
[2021-01-11] MEDS: Levothyroxine 75 MCG Tablet PO (06:09)
[2021-01-11] MEDS: Acetaminophen 500 MG Tablet 1000 MG PO ×3 (06:09→23:37)
[2021-01-11 07:47] VITALS: BP 103/67; PULSE 70; RESP 16; TEMP 36.3; O2SAT 95
[2021-01-11] MEDS: Aspirin 81 MG TAB.CHEW PO (08:58)
[2021-01-11] MEDS: Lidocaine 5% Patch 1 PATCH TOPICAL (08:59)
[2021-01-11] MEDS: APIXABAN 5 MG TABLET PO ×2 (08:59→23:36)
[2021-01-11] MEDS: Fluticasone 0.05% 1 SPRAY NASAL.SRY NASAL (08:59)
[2021-01-11] MEDS: Fluticasone Propion/Salmeterol 250-50 Inhaler 1 PUFF INHALATION ×2 (08:59→23:37)
[2021-01-11] MEDS: Atenolol 50 MG Tablet PO (08:59)
[2021-01-11] MEDS: Menthol/Lanolin/Calamine/Znox 113 GM Tube 1 APPLIC TOPICAL ×2 (09:04→23:39)
[2021-01-11 13:29] VITALS: BMI 29.4
--- NOTE | 2021-01-11 15:02 | CASEMGMT ---
Social Work SW spoke with [facility]. Pt has been declined by [facility]. Physician updated and pt will remain in Inpatient Rehab through the weekend with possible discharge Thursday or Thursday under Medicaid benefit and Level of Care. Pt sister Milka ferrara. ISRA Brand
[2021-01-11] MEDS: QUEtiapine 25 MG Tablet 12.5 MG PO (17:00)
[2021-01-11 19:55] VITALS: BP 148/78; PULSE 88; RESP 16; TEMP 36.4; O2SAT 94
[2021-01-11] MEDS: Losartan Potassium 100 MG Tablet PO (23:35)
[2021-01-11] MEDS: Doxazosin 1 MG Tablet PO (23:35)
[2021-01-11] MEDS: Atorvastatin Calcium 80 MG Tablet PO (23:36)
[2021-01-11] MEDS: MELATONIN 3 MG TABLET PO (23:36)
[2021-01-12 02:03] VITALS: BMI 29.4
--- NOTE | 2021-01-12 04:04 | NURSING ---
Reviewed and agree with DRYWALL WORKER assessment
[2021-01-12] MEDS: Levothyroxine 75 MCG Tablet PO (05:31)
[2021-01-12] MEDS: Acetaminophen 500 MG Tablet 1000 MG PO ×3 (05:31→22:12)
[2021-01-12] MEDS: Nystatin Powder 15gm Bottle 1 APPLIC TOPICAL ×2 (05:32→22:14)
[2021-01-12] MEDS: Lidocaine 5% Patch 1 PATCH TOPICAL (08:12)
[2021-01-12] MEDS: Fluticasone Propion/Salmeterol 250-50 Inhaler 1 PUFF INHALATION ×2 (08:12→22:12)
[2021-01-12] MEDS: Atenolol 50 MG Tablet PO (08:13)
[2021-01-12] MEDS: Aspirin 81 MG TAB.CHEW PO (08:13)
[2021-01-12] MEDS: APIXABAN 5 MG TABLET PO ×2 (08:13→22:11)
[2021-01-12] MEDS: Menthol/Lanolin/Calamine/Znox 113 GM Tube 1 APPLIC TOPICAL ×2 (08:18→22:13)
[2021-01-12] MEDS: Fluticasone 0.05% 1 SPRAY NASAL.SRY NASAL (08:18)
[2021-01-12 08:29] VITALS: BP 102/50; PULSE 70; RESP 16; TEMP 36.1; O2SAT 96
[2021-01-12 14:23] VITALS: BMI 29.4
[2021-01-12] MEDS: QUEtiapine 25 MG Tablet 12.5 MG PO (17:16)
[2021-01-12 22:00] VITALS: BP 120/58; PULSE 65; RESP 16; TEMP 36.5; O2SAT 97
[2021-01-12] MEDS: Losartan Potassium 100 MG Tablet PO (22:11)
[2021-01-12] MEDS: MELATONIN 3 MG TABLET PO (22:11)
[2021-01-12] MEDS: Atorvastatin Calcium 80 MG Tablet PO (22:11)
[2021-01-12] MEDS: Doxazosin 1 MG Tablet PO (22:11)
[2021-01-13 01:01] VITALS: BMI 29.4
--- NOTE | 2021-01-13 04:21 | NURSING ---
REVIEWED AND AGREE WITH SECURITY INTELLIGENCE ANALYST'S FUNCTIONAL ASSESSMENT AND HANDOFF CHARTING.
[2021-01-13] MEDS: Acetaminophen 500 MG Tablet 1000 MG PO ×3 (06:38→20:11)
[2021-01-13] MEDS: Levothyroxine 75 MCG Tablet PO (06:38)
[2021-01-13] MEDS: Nystatin Powder 15gm Bottle 1 APPLIC TOPICAL ×2 (06:39→20:11)
[2021-01-13] MEDS: Fluticasone Propion/Salmeterol 250-50 Inhaler 1 PUFF INHALATION ×2 (07:50→20:11)
[2021-01-13] MEDS: APIXABAN 5 MG TABLET PO ×2 (07:50→20:10)
[2021-01-13] MEDS: Aspirin 81 MG TAB.CHEW PO (07:50)
[2021-01-13] MEDS: Fluticasone 0.05% 1 SPRAY NASAL.SRY NASAL (07:50)
[2021-01-13] MEDS: Atenolol 50 MG Tablet PO (07:50)
[2021-01-13] MEDS: Lidocaine 5% Patch 1 PATCH TOPICAL (07:50)
[2021-01-13] MEDS: Menthol/Lanolin/Calamine/Znox 113 GM Tube 1 APPLIC TOPICAL ×2 (07:54→20:28)
[2021-01-13 08:12] VITALS: BP 144/69; PULSE 73; RESP 18; TEMP 36.4; O2SAT 98
[2021-01-13 09:27] VITALS: BMI 29.4
[2021-01-13] MEDS: QUEtiapine 25 MG Tablet 12.5 MG PO (16:45)
[2021-01-13 19:26] VITALS: BP 131/71; PULSE 68; RESP 18; TEMP 36.8; O2SAT 95
[2021-01-13] MEDS: Losartan Potassium 100 MG Tablet PO (20:10)
[2021-01-13] MEDS: Doxazosin 1 MG Tablet PO (20:10)
[2021-01-13] MEDS: MELATONIN 3 MG TABLET PO (20:10)
[2021-01-13] MEDS: Atorvastatin Calcium 80 MG Tablet PO (20:10)
[2021-01-14 00:15] VITALS: BMI 29.4
[2021-01-14] MEDS: Levothyroxine 75 MCG Tablet PO (05:37)
[2021-01-14] MEDS: Acetaminophen 500 MG Tablet 1000 MG PO ×3 (05:37→21:25)
[2021-01-14] MEDS: Nystatin Powder 15gm Bottle 1 APPLIC TOPICAL ×2 (05:38→21:26)
[2021-01-14] MEDS: Aspirin 81 MG TAB.CHEW PO (07:46)
[2021-01-14] MEDS: Fluticasone 0.05% 1 SPRAY NASAL.SRY NASAL (07:47)
[2021-01-14] MEDS: Atenolol 50 MG Tablet PO (07:47)
[2021-01-14] MEDS: Lidocaine 5% Patch 1 PATCH TOPICAL (07:47)
[2021-01-14] MEDS: APIXABAN 5 MG TABLET PO ×2 (07:47→21:25)
[2021-01-14] MEDS: Fluticasone Propion/Salmeterol 250-50 Inhaler 1 PUFF INHALATION ×2 (07:48→21:25)
[2021-01-14] MEDS: Menthol/Lanolin/Calamine/Znox 113 GM Tube 1 APPLIC TOPICAL ×2 (07:48→21:26)
[2021-01-14 07:51] VITALS: BP 115/61; PULSE 63; RESP 18; TEMP 36.2; O2SAT 99
--- NOTE | 2021-01-14 09:14 | TREXTCAR_ITS ---
Diet 12/25/20 18:44 Diet: Cardiac - Heart Healthy Food consistency:: Mechanical (Minced/Moist) Liquid Consistency:: Honey/Moderately Thick Diet Comments: total feed, alt small bites/sips, GERD precautions, Mendez Water Protocol Tube Feed: N/A Routine Orders/Code Status Enema Type: Fleetz Enema Frequency: Daily PRN Suppository Type: Dulcolax 10mg Suppository Frequency: Daily PRN O2 Liters per Minute: 2 LPM at night and anytime she is sleeping. O2 Frequency: Continuous Keep PO Greater than or Equal to (%): 90 Routine Lab Work: - (CBC, BMP MAG in 1 week. 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 (3) New onset atrial fibrillation: Status: Acute (4) Anjum-neglect of right side: Status: Acute (5) Hemianopsia: Status: Acute (6) Right hemiplegia: Status: Acute (7) Dysarthria: Status: Acute Comment: much improved (8) Cognitive dysfunction: Status: Acute (9) Chronic anticoagulation: Status: Acute (10) Fecal incontinence: Status: Acute (11) Urinary incontinence: Status: Acute (12) Insomnia: Status: Acute (13) Sleep-disordered breathing: Status: Chronic (14) Hypoxemia: Status: Chronic (15) Pulmonary hypertension: Status: Chronic Comment: The PA systolic is estimated at 41 on transthoracic echocardiogram (16) Dyslipidemia: Status: Chronic (17) Polycythemia: Status: Chronic Comment: this has resolved with instituting oxygen anytime she is sleeping (18) Aortic stenosis: Status: Chronic Comment: Mild to moderate (19) Biatrial enlargement: Status: Chronic Comment: Moderate enlargement of both atria (20) Hypertension: Status: Chronic (21) Hypothyroidism: Status: Chronic (22) Hirsutism: Status: Chronic (23) Asperger's disorder: Status: Suspected Allergies/Procedures Done in Hospital Allergies No Known Allergies Allergy (Verified 12/10/20 11:14) Type of Care/Length of Stay Estimated LOS: Convalescent Care Less Than 30 days Type of Care Needed: Skilled Rehab Potential: Fair Prognosis: Fair Additional Orders/Day of Discharge Additional Orders: She needs a formal sleep study. She spends half her sleeping hours with a saturation < 80% and needs O2 anytime she is sleeping. H&P will serve as current which was dated: 12/26/20 Day of Discharge: 01/14/21 Dietary and Speech Recommendations Dietitian Recommendations/Changes: Continue cardiac heart healthy diet. Food and liquid consistency per DRAGLINE ENGINEER. Oral nutrition supplement if intake fails at meals, no need at this time. Diet education as indicated. Follow Up Care Please follow up with your Primary Care Physician in: 2 weeks Please Follow Up With: Dr. Malik Morales When: after the sleep study has been done Please Follow Up With: neurology When: within 1 month Please Follow Up With: cardiology When: yearly Discharge Plan Admission Admit Date/Time: 12/25/20 18:00 Primary Reason for Your Visit: Debility secondary to multiple embolic CVAs Attending Provider: Radha Rm Primary Care Provider: Corina Lockwood Discharge Orders/Prescriptions Prescriptions: New acetaminophen 500 mg Tablet 1,000 mg PO TID PRN (Reason: fever or pain) Qty: 1 RF: 0 bisacodyl 10 mg Suppository 10 mg LA .PRN X 1 PRN (Reason: Constipation) Qty: 1 RF: 0 loperamide 2 mg Capsule 2 mg PO Q6H PRN PRN (Reason: diarrhea.) Qty: 1 RF: 0 doxazosin 1 mg Tablet 1 mg PO QHS Qty: 1 RF: 0 magnesium hydroxide 400 mg/5 mL Suspension 30 ml PO DAILY Qty: 1 RF: 0 quetiapine 25 mg Tablet 12.5 mg PO 1800 Qty: 1 RF: 0 nystatin [Nyamyc] 100,000 unit/gram Powder 1 applic topical BID@0600,2200 Qty: 1 RF: 0 menthol-zinc oxide [Calmoseptine] 0.44-20.6 % Ointment 1 applic topical BID Qty: 1 RF: 0 Remove Patch 1 patch topical DAILY@2199 Qty: 1 RF: 0 Continued fluticasone propion-salmeterol [Wixela Inhub] 250-50 mcg/dose blister with device 1 inh INHALATION BID RF: 0 levothyroxine [Euthyrox] 75 mcg tablet 75 mcg PO DAILY RF: 0 losartan 100 mg tablet 100 mg PO DAILY RF: 0 fluticasone propionate 50 mcg/actuation spray,suspension 1 spray INTRANASAL DAILY RF: 0 atorvastatin 80 mg tablet 80 mg PO QHS RF: 0 aspirin 81 mg tablet,chewable 81 mg PO DAILY RF: 0 Eliquis 5 mg tablet 5 mg PO BID RF: 0 atenolol 100 mg tablet 50 mg PO DAILY RF: 0 lidocaine [Salonpas (lidocaine)] 4 % Adhesive Patch,Medicated 1 patch TOPICAL DAILY RF: 0 melatonin 3 mg Tablet 3 mg PO QHS RF: 0 albuterol sulfate [Proventil HFA] 90 mcg/actuation Hfa Aerosol Inhaler 2 puff INHALATION Q6H PRN PRN (Reason: SOB/Wheezing) RF: 0 cholecalciferol (vitamin D3) 1,250 mcg (50,000 unit) Capsule 1,250 mcg PO QWEEK RF: 0 Discontinued triamcinolone acetonide [Kenalog] 0.1 % Cream 1 applic TOPICAL BID RF: 0 hydroxyzine HCl [Atarax] 25 mg Tablet 25 mg PO Q6H PRN PRN (Reason: Itching/rash) RF: 0 Cepacol (with benzocain-menth) 10-2.5 mg Lozenge 1 shan MUCOUS MEMBRANE Q2H PRN PRN (Reason: Sore Throat) RF: 0 Referrals / Follow Up: Corina Lockwood MD [Primary Care Provider] - Disposition Disposition (needs filled in before D/C Order can be placed): Intermediate Facility
--- NOTE | 2021-01-14 09:53 | DS.PCM_ITS ---
Providers Date of Admission: 12/25/20 Primary Care Physician: Dr. Corina Lockwood MD Reason For Visit: STROKE Diagnosis Discharge Diagnosis (1) Debility: Status: Acute Code(s): R53.81 - Other malaise (2) Acute embolic stroke: Status: Acute Code(s): I63.9 - Cerebral infarction, unspecified (3) New onset atrial fibrillation: Status: Acute Code(s): I48.91 - Unspecified atrial fibrillation (4) Anjum-neglect of right side: Status: Acute Code(s): R41.4 - Neurologic neglect syndrome (5) Hemianopsia: Status: Acute Code(s): H53.47 - Heteronymous bilateral field defects (6) Right hemiplegia: Status: Acute Code(s): G81.91 - Hemiplegia, unspecified affecting right dominant side (7) Dysarthria: Status: Acute Code(s): R47.1 - Dysarthria and anarthria (8) Cognitive dysfunction: Status: Acute Code(s): F09 - Unspecified mental disorder due to known physiological condition (9) Chronic anticoagulation: Status: Acute Code(s): Z79.01 - manager intermediate (current) use of anticoagulants (10) Fecal incontinence: Status: Acute Code(s): R15.9 - Full incontinence of feces Qualifiers: Fecal incontinence type: full incontinence of feces Qualified Code(s): R15.9 - Full incontinence of feces (11) Urinary incontinence: Status: Acute Code(s): R32 - Unspecified urinary incontinence Qualifiers: Urinary Incontinence type: urinary incontinence without sensory awareness Qualified Code(s): N39.42 - Incontinence without sensory awareness (12) Insomnia: Status: Acute Code(s): G47.00 - Insomnia, unspecified Qualifiers: Insomnia type: unspecified Qualified Code(s): G47.00 - Insomnia, unspecified (13) Sleep-disordered breathing: Status: Chronic Code(s): G47.30 - Sleep apnea, unspecified (14) Hypoxemia: Status: Chronic Code(s): R09.02 - Hypoxemia (15) Pulmonary hypertension: Status: Chronic Code(s): I27.20 - Pulmonary hypertension, unspecified (16) Dyslipidemia: Status: Chronic Code(s): E78.5 - Hyperlipidemia, unspecified (17) Polycythemia: Status: Chronic Code(s): D75.1 - Secondary polycythemia (18) Aortic stenosis: Status: Chronic Code(s): I35.0 - Nonrheumatic aortic (valve) stenosis (19) Biatrial enlargement: Status: Chronic Code(s): I51.7 - Cardiomegaly (20) Hypertension: Status: Chronic Code(s): I10 - Essential (primary) hypertension (21) Hypothyroidism: Status: Chronic Code(s): E03.9 - Hypothyroidism, unspecified (22) Hirsutism: Status: Chronic Code(s): L68.0 - Hirsutism (23) Asperger's disorder: Status: Suspected Code(s): F84.5 - Asperger's syndrome Medications at Discharge Home Medications fluticasone propion-salmeterol [Wixela Inhub] 1 inh INHALATION BID 12/10/20 fluticasone propionate 1 spray INTRANASAL DAILY 12/10/20 levothyroxine [Euthyrox] 75 mcg PO DAILY 12/10/20 losartan 100 mg PO DAILY 12/10/20 Eliquis 5 mg PO BID 12/14/20 aspirin 81 mg PO DAILY 12/14/20 atorvastatin 80 mg PO QHS 12/14/20 albuterol sulfate [Proventil HFA] 2 puff INHALATION Q6H PRN PRN 12/25/20 atenolol 50 mg PO DAILY 12/25/20 cholecalciferol (vitamin D3) 1,250 mcg PO QWEEK 12/25/20 lidocaine [Salonpas (lidocaine)] 1 patch TOPICAL DAILY 12/25/20 melatonin 3 mg PO QHS 12/25/20 Remove Patch 1 patch TOPICAL DAILY@2200 #1 patch 01/14/21 acetaminophen 1,000 mg PO TID PRN #1 tab 01/14/21 bisacodyl 10 mg ND .PRN X 1 PRN #1 ea 01/14/21 doxazosin 1 mg PO QHS #1 tab 01/14/21 loperamide 2 mg PO Q6H PRN PRN #1 cap 01/14/21 magnesium hydroxide 30 ml PO DAILY #1 ml 01/14/21 menthol-zinc oxide [Calmoseptine] 1 applic TOPICAL BID #1 g 01/14/21 nystatin [Nyamyc] 1 applic TOPICAL BID@0600,2200 #1 g 01/14/21 quetiapine 12.5 mg PO 1800 #1 tab 01/14/21 Hospital Course Operations None Procedures None Summary of Care Provided Minutes Spent on Discharge: 50 Hospital Course: JACKELYN ANGUIANO, is a 65 year-old female with a past medical history of hypertension, hypothyroidism, allergic rhinitis, sleep disordered breathing, atrial fibrillation, polycythemia, pulmonary hypertension, nonrheumatic aortic stenosis (mild to moderate), hyperlipidemia, biatrial enlargement and hirsutism who initially presented to the inpt acute rehab unit at [facility] on 12/14/20 for debility due to embolic CVA's involving the left thalamus and the Left parietal areas. The AF was new and she was started on Eliquis. An ECHO showed no PFO and the EF was normal. There was no clot in the heart on TTE. A carotid duplex study showed irregular calcific plaque at the proximal right internal carotid artery with less than 50% stenosis. There was also mild plaque in the proximal left internal carotid artery with less than 50% stenosis. On 12/19 while in PT she developed garbled speech and drooling and she became flaccid on the R side. She was taken for a stat noncontrasted CT brain and this showed new areas of infarction in the Left occipital lobe. MRI of the brain showed progression of subacute ischemic infarctions in size, number and location of the left PRACTICE CONSULTANT territory when compared to 12/11/20 despite ASA and Eliquis. She did not get the loading doses of Eliquis due to the CVA's and the increased risk for hemorrhagic conversion. A CTA of the head was obtained to r/o LVO and this showed a normal samish of Fitzgerald without a demonstrated aneurysm or hemodynamically significant stenosis. Consult was obtained with tele-neurology and they recommended transfer to a facility with a neurologist on site and neuro ICU capabilities. She was transferred to [facility] on 12/19/20. MRI done at [facility] disclosed multiple areas of acute infarction on the left side of the thalamus, internal capsule, midbrain, left occipital lobe, iain, posterior parietal lobe, temporal lobe and corpus callosum. NIHSS was 12 at presentation to [facility]. The left P1 segment of the posterior cerebral artery showed severe stenosis. CTA of the neck showed 70% stenosis of the right internal carotid artery. While at [facility] she developed a pruritic maculopapular rash which was attributed to perspiration. No intervention was required and Jackelyn was transferred back to the inpt acute rehab floor at [facility] on 12/25/20 for 3 hours of therapy daily to restore function at or near her prior level of function and independence. While at [facility] she had acute encephalopathy and Seroquel was discontinued. Following transfer back to [facility] she once again started with insomnia at night and then was sleeping during the day. We started Seroquel 12.5 mg at 1800 daily and she is sleeping well now and the yelling out at night has improved significantly. Because of polycythemia, biatrial enlargement, pulmonary HTN and new onset AF an overnight trending pulse ox was obtained and it showed the pulse ox on room air to be 70 to 79% for 50.9% of the time she was monitored. Oxygen was ordered for anytime she was sleeping and the polycythemia eventually resolved. Jackelyn has improved with therapy but, she has persistent deficits that make it impossible for her to go home. She was living with her mother and her mother is not able to provide care to the degree Jackelyn currently needs. She is still requiring max assist of 1-2 for standing and she can only stand for 30-45 secs evern with max assist of 1-2. She is max assist for stand pivots. she has not ambulated. Dysarthria is much better and she is doing better with swallowing. She must be monitored when eating because she tends to shovel food into her mouth and not take small bites and small sips. Her motivation and effort to do therapy waxes and wanes from day to day. I suspect Jackelyn has always had a mental health disorder. She perseverates and counts repetitively. She obsesses about the TV remote and gets agitated when you try and turn the TV off to talk with her. She gets easily agitated when her mother comes to visit. She knows when she has to have a BM and tells you but, she refuses to wait until she is in the restroom. I suspect at some point she is going to need to be in an ECF. Jackelyn was discharged to the [facility] on 01/14/21 for continued skilled therapy. She will need a formal sleep study arranged following transfer to the [facility]. I do not feel Jackelyn is competent to make Health care or financial decisions and we recommended her sister Ana apply for guardianship. Physical Exam Const alert, oriented x3, no apparent distress and well nourished Constitutional Narrative: She is sometimes cooperative and at other times she is not. Her effort to do therapy is often poor. At times she is content to sit in the nursing station and count over and over. General Appearance: comfortable and well developed HEENT normocephalic and moist oral mucous membranes Eyes PERRL and EOMs intact bilaterally Neck no lymphadenopathy, supple, no JVD and no carotid bruits General: trachea midline Resp normal respiratory effort, normal air movement, no use of accessory muscles and clear to auscultation bilaterally Resp Narrative: Symmetric chest rise, good air exchange throughout, clear to auscultation. Not tachypneic and no accessory muscle use. Able to speak in full sentences. She occasionally has expiratory wheezing.....usually when she tries to gulp Mendez water. Effort and Inspection: able to speak in complete sentences Cardio regular rate, regular rhythm, S1 normal heart sound, S2 normal heart sound, no rub and no gallops Cardio Narrative: She has intermittent PAF but the rate is controlled. She has a 2/6 ATILIO at the second RICS. Heart Sounds: murmur GI soft to palpation, non-tender and non-distended GI Narrative: Normal bowel sounds, no guarding with palpation Extremity no clubbing, cyanosis or edema, no calf tenderness and no pedal edema Extremity Narrative: Negative George's and Marybeth's signs Skin Skin Narrative: She has a rash on her back that is red maculopapular and was attributed to a contact dermatitis at [facility] due to perspiration General Skin Exam: no breakdown; Negative for ecchymosis Rashes: no rashes Neuro oriented x3 Neuro Narrative: She is able to articulate better and project her voice better. Still not able to even stand at the wall rail for > 30-45 secs, even with max assist of 1-2. Can not propel her WC. R side is very weak. Psych cooperative Psych Narrative: The therapists were wondering if she may be autistic/asberger's? She does not like to be touched. She perseverates. She will count compulsively. Seems to lack social skills. She finished college and got a degree in business but, she has never been employed in the business world. 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 She does go to [employer] regularly. Was living with her mother. Family not really very communicative about problems she may have had earlier in her life. Medical Records Data Medical Nutrition Assessment Dietitian: Malnutrition Criteria Met Start: 12/26/20 15:39 Freq: Status: Active Protocol: Document 01/01/21 11:03 RMA (Rec: 01/01/21 11:04 RMA [id number]) Nutrition Malnutrition Evidence of Malnutrition Exists No Clinical Problem Swallowing Difficulty Etiology r/t stroke and neurological deficit Signs/Symptoms as evidenced by downgrade of consistency to mechanical ( minced/moist) and honey/ moderately thick liquids after MBS on 12/27 indicating mild- moderate oropharyngeal dysphagia and pharyngoesphageal dysphagia. Status Active Problem Recommendation Dietitian Recommendations/Changes Trend weight--awaiting new weight since initial assessment. Continue cardiac heart healthy diet. Food and liquid consistency per PROCESS PROJECT ENGINEER. Oral nutrition supplement if intake fails at meals, no need at this time. Diet education as indicated. Weight / BMI Weight Weight: 162 lb 14.746 oz Body Mass Index (BMI) 29.4 ABG / Lab / Microbiology Data Result Diagrams: 01/08/21 05:49 01/08/21 05:49 Microbiology: Microbiology 01/11/21 09:20 Mucosa - Nose SARS-CoV-2 Antigen (Rapid) - Final D/C Instructions Please Follow Up With: Dr. Malik Morales Meaningful Use Info Meaningful Use Diagnoses (Choose all that apply): Ischemic CVA CVA Therapy Assessed for PT,OT and/or ST?: Yes Ischemic Stroke Antithrombotic order at d/c?: Yes Dx of Atrial fib/flutter?: Yes Anticoagulant at discharge?: Yes Statins at discharge?: Yes Primary Dx Acute Ischemic CVA?: Yes IV tPA ordered during stay?: No Reason IV t-PA not ordered: Treatment not Indicated Discharge Plan Admission Admit Date/Time: 12/25/20 18:00 Primary Reason for Your Visit: Debility secondary to multiple embolic CVAs Attending Provider: Radha Rm Primary Care Provider: Corina Lockwood Discharge Orders/Prescriptions Prescriptions: New acetaminophen 500 mg Tablet 1,000 mg PO TID PRN (Reason: fever or pain) Qty: 1 RF: 0 bisacodyl 10 mg Suppository 10 mg ND .PRN X 1 PRN (Reason: Constipation) Qty: 1 RF: 0 loperamide 2 mg Capsule 2 mg PO Q6H PRN PRN (Reason: diarrhea.) Qty: 1 RF: 0 doxazosin 1 mg Tablet 1 mg PO QHS Qty: 1 RF: 0 magnesium hydroxide 400 mg/5 mL Suspension 30 ml PO DAILY Qty: 1 RF: 0 quetiapine 25 mg Tablet 12.5 mg PO 1800 Qty: 1 RF: 0 nystatin [Nyamyc] 100,000 unit/gram Powder 1 applic topical BID@0600,2200 Qty: 1 RF: 0 menthol-zinc oxide [Calmoseptine] 0.44-20.6 % Ointment 1 applic topical BID Qty: 1 RF: 0 Remove Patch 1 patch topical DAILY@2200 Qty: 1 RF: 0 Continued fluticasone propion-salmeterol [Wixela Inhub] 250-50 mcg/dose blister with device 1 inh INHALATION BID RF: 0 levothyroxine [Euthyrox] 75 mcg tablet 75 mcg PO DAILY RF: 0 losartan 100 mg tablet 100 mg PO DAILY RF: 0 fluticasone propionate 50 mcg/actuation spray,suspension 1 spray INTRANASAL DAILY RF: 0 atorvastatin 80 mg tablet 80 mg PO QHS RF: 0 aspirin 81 mg tablet,chewable 81 mg PO DAILY RF: 0 Eliquis 5 mg tablet 5 mg PO BID RF: 0 atenolol 100 mg tablet 50 mg PO DAILY RF: 0 lidocaine [Salonpas (lidocaine)] 4 % Adhesive Patch,Medicated 1 patch TOPICAL DAILY RF: 0 melatonin 3 mg Tablet 3 mg PO QHS RF: 0 albuterol sulfate [Proventil HFA] 90 mcg/actuation Hfa Aerosol Inhaler 2 puff INHALATION Q6H PRN PRN (Reason: SOB/Wheezing) RF: 0 cholecalciferol (vitamin D3) 1,250 mcg (50,000 unit) Capsule 1,250 mcg PO QWEEK RF: 0 Discontinued triamcinolone acetonide [Kenalog] 0.1 % Cream 1 applic TOPICAL BID RF: 0 hydroxyzine HCl [Atarax] 25 mg Tablet 25 mg PO Q6H PRN PRN (Reason: Itching/rash) RF: 0 Cepacol (with benzocain-menth) 10-2.5 mg Lozenge 1 shan MUCOUS MEMBRANE Q2H PRN PRN (Reason: Sore Throat) RF: 0 Referrals / Follow Up: Corina Lockwood MD [Primary Care Provider] - Disposition Disposition (needs filled in before D/C Order can be placed): [facility] Charges/Coding Visit Charges Inpatient E&M: 63124 Disch Hosp
--- NOTE | 2021-01-14 14:43 | CASEMGMT ---
Social Work Team meeting held today with pt present and pt sister Milka on conference call. Pt continues to receive PT/OT/ST daily with minimal progress. Plans have been made for pt to transfer to [facility]. Pt sister Milka is aware and agreeable. Level of Care obtained and [facility] arranged [facility] cot transport at 1000. PT sister and team aware of discharge plan. Discharge orders faxed to [place] and phone call to [facility] updating on discharge plan. Discharge Date: 01/15/2021 Discharge Disposition: [facility]
[2021-01-14 17:00] VITALS: BMI 29.4
[2021-01-14] MEDS: QUEtiapine 25 MG Tablet 12.5 MG PO (17:40)
[2021-01-14 19:27] VITALS: BP 115/76; PULSE 78; RESP 16; TEMP 36.8; O2SAT 96
[2021-01-14 21:00] VITALS: PULSE 78; RESP 16; O2SAT 96; BMI 29.4
[2021-01-14] MEDS: Atorvastatin Calcium 80 MG Tablet PO (21:25)
[2021-01-14] MEDS: MELATONIN 3 MG TABLET PO (21:25)
[2021-01-14] MEDS: Losartan Potassium 100 MG Tablet PO (21:25)
[2021-01-14] MEDS: Doxazosin 1 MG Tablet PO (21:25)
--- NOTE | 2021-01-15 04:33 | NURSING ---
Reviewed and agree with consulting services associate documentation and charting.
[2021-01-15] MEDS: Acetaminophen 500 MG Tablet 1000 MG PO (05:48)
[2021-01-15] MEDS: Nystatin Powder 15gm Bottle 1 APPLIC TOPICAL (05:49)
[2021-01-15] MEDS: Levothyroxine 75 MCG Tablet PO (05:49)
[2021-01-15] MEDS: Fluticasone 0.05% 1 SPRAY NASAL.SRY NASAL (07:47)
[2021-01-15] MEDS: Fluticasone Propion/Salmeterol 250-50 Inhaler 1 PUFF INHALATION (07:47)
[2021-01-15] MEDS: Aspirin 81 MG TAB.CHEW PO (07:48)
[2021-01-15] MEDS: APIXABAN 5 MG TABLET PO (07:48)
[2021-01-15] MEDS: Atenolol 50 MG Tablet PO (07:48)
[2021-01-15 08:13] VITALS: BP 122/73; PULSE 73; RESP 16; TEMP 36.6; O2SAT 95
[2021-01-15 09:49] VITALS: BP 122/73; PULSE 73; RESP 16; TEMP 36.7; O2SAT 95
--- NOTE | 2021-01-15 10:22 | NURSING ---
Discharged [facility] transport. report called to [facility].
[2021-01-15 12:04] VITALS: BMI 29.4
== END 2021-01-15 10:23 | disposition skilled nursing facility (03) | DRG 57 ==
PROVIDERS: Admitting Provider Internal Medicine; PCP Internal Medicine; Visit Provider Internal Medicine
DX: I69.351 Hemiplegia and hemiparesis following cerebral infarction affecting right dominant side (principal); F84.5 Asperger's syndrome; I69.322 Dysarthria following cerebral infarction; I69.392 Facial weakness following cerebral infarction; I69.398 Other sequelae of cerebral infarction; I69.319 Unspecified symptoms and signs involving cognitive functions following cerebral infarction; H53.47 Heteronymous bilateral field defects; E78.5 Hyperlipidemia, unspecified; I27.20 Pulmonary hypertension, unspecified; I10 Essential (primary) hypertension; E03.9 Hypothyroidism, unspecified; D75.1 Secondary polycythemia; I48.91 Unspecified atrial fibrillation; L25.9 Unspecified contact dermatitis, unspecified cause; R15.9 Full incontinence of feces; N39.42 Incontinence without sensory awareness; Z79.899 Other long term (current) drug therapy; Z79.82 Long term (current) use of aspirin; Z79.01 Long term (current) use of anticoagulants; G47.30 Sleep apnea, unspecified
CPT/HCPCS: 36415; 74230; 80048; 83735; 85014; 85018; 85027; 87426; 92507; 92523; 92526; 92610; 92611; 97110; 97112; 97140; 97162; 97166; 97530; 97535; 97802

== ENCOUNTER 2021-05-07 16:16 | Inpatient (IN) | payer MEDICARE, MEDICAID, SELFPAY ==
[2021-05-07] VITALS (7 sets, daily range): BP systolic 89–100; BP diastolic 72–78; PULSE 71–81; RESP 17–30; TEMP 36.3–36.4; O2SAT 95–100; BMI 24.2; BMI 23.1
--- NOTE | 2021-05-07 16:33 | EX.ED.DYSGE1 ---
HPI History of Present Illness Chief Complaint: Abn Labs Informant: EMS Narrative Narrative: [facility] for sodium of 161 obtained today with increasing confusion. Reported normally compensated. History of stroke with right-sided deficits from records. History of atrial fibrillation currently on Eliquis. She also takes a baby aspirin. From paperwork labs were obtained today. She had electrolytes from 6 days ago had a sodium of 149. No other information obtainable at this time. Presented blood pressure 89/72 temperature 97.6 pulse of 77 respiratory 17, 98% on room air. Additionally from records apparently acute embolic stroke with right-sided deficit and new onset atrial fibrillation from November this year. [facility] Medical History (Updated 05/07/21 @ 19:[address] Selin Montalvo, DO) Acute embolic stroke Allergic rhinitis Aortic stenosis Asperger's disorder Asthma Biatrial enlargement CVA (cerebral vascular accident) Dysarthria Dyslipidemia Anjum-neglect of right side Hemianopsia Hirsutism Hypertension Hypothyroidism New onset atrial fibrillation Polycythemia Pulmonary hypertension Right hemiplegia Sleep-disordered breathing Stroke/cerebrovascular accident (~12/10/20) Home Medications fluticasone propion-salmeterol [Wixela Inhub] 1 inh INHALATION BID 12/10/20 [History Last Taken 12/10/20] fluticasone propionate 1 spray INTRANASAL DAILY 12/10/20 [History Last Taken 12/10/20] levothyroxine [Euthyrox] 75 mcg PO DAILY 12/10/20 [History Last Taken 12/10/20] losartan 100 mg PO QHS 12/10/20 [History Last Taken 12/10/20] Eliquis 5 mg PO BID 12/14/20 [History Last Taken Unknown] aspirin 81 mg PO DAILY 12/14/20 [History Last Taken Unknown] atorvastatin 40 mg PO QHS 12/14/20 [History Last Taken Unknown] albuterol sulfate [Proventil HFA] 2 puff INHALATION Q6H PRN PRN 12/25/20 [History Last Taken Unknown] atenolol 50 mg PO DAILY 12/25/20 [History Last Taken Unknown] cholecalciferol (vitamin D3) 1,250 mcg PO QWEEK 12/25/20 [History Last Taken 12/19/20 10:00] lidocaine [Salonpas (lidocaine)] 1 patch TOPICAL BID 12/25/20 [History Last Taken Unknown] melatonin 3 mg PO QHS 12/25/20 [History Last Taken Unknown] doxazosin 1 mg PO QHS #1 tab 01/14/21 [Rx Last Taken Unknown] loperamide 2 mg PO Q6H PRN PRN #1 cap 01/14/21 [Rx Last Taken Unknown] menthol-zinc oxide [Calmoseptine] 1 applic TOPICAL BID #1 g 01/14/21 [Rx Last Taken Unknown] quetiapine 12.5 mg PO 1800 #1 tab 01/14/21 [Rx Last Taken Unknown] acetaminophen 650 mg PO TID 05/07/21 [History Last Taken Unknown] bisacodyl 10 mg [place] DAILY PRN PRN 05/07/21 [History Last Taken Unknown] gabapentin 300 mg PO BID 05/07/21 [History Last Taken Unknown] magnesium hydroxide 30 ml PO DAILY 05/07/21 [History Last Taken Unknown] magnesium hydroxide [Milk of Magnesia] 5 ml PO DAILY PRN 05/07/21 [History Last Taken Unknown] mineral oil 118 ml [place] DAILY PRN 05/07/21 [History Last Taken Unknown] Allergy/AdvReac Type Severity Reaction Status Date / Time No Known Allergies Allergy Verified 05/07/21 16:17 Family History Other CAD (coronary artery disease) Cancer Surgical History History of appendectomy History of repair of laceration Social History (Updated 05/07/21 @ 19:[address] Selin Montalvo DO) number of children: 0 Smoking Status: Unknown if ever smoked alcohol intake: never substance use type: does not use ROS ROS ED Review of Systems ROS Unobtainable: due to mental status EXAM Physical Exam Const Vital Signs: 05/07/21 16:17 05/07/21 16:21 05/07/21 18:48 Temperature 97.6 F L Temperature Source Temporal Pulse Rate 77 81 Respiratory Rate 17 19 H Respiratory Effort Normal Non-Labored Respiratory Pattern Normal Blood Pressure 89/72 L 95/77 Blood Pressure Mean 77 83 Pulse Ox 98 95 Oxygen Delivery Method Room Air Constitutional Narrative: Patient not compensating, however is following some commands. General Appearance ED: NAD HEENT HEENT Narrative: Mild dry mucosal membranes, there was a soft white foreign body substance on her tongue which was removed. Unclear exact substance. normocephalic and atraumatic Eyes PERRL, EOMs intact bilaterally and conjunctivae normal General Eye ED: Yes normal appearance of both eyes Neck no lymphadenopathy and supple General: Negative for tenderness Chest Wall Chest Narrative: Lidocaine patches noted on her sternal chest wall. Chest: Negative for tenderness Resp normal respiratory effort and normal air movement Effort and Inspection: symmetric chest movement; Negative for respiratory distress Cardio regular rate and no murmurs Rhythm: abnormal rhythm Peripheral Pulses: pulses 2+ throughout GI normal to inspection, nondistended, normoactive bowel sounds and non-tender Palpation: Negative for guarding or rebound tenderness present Back/Spine no thoracic nor lumbar tenderness Extremity Extremity Narrative: No movement right side arms and legs due to her previous stroke. Patient would move her left arm and leg. General Extremety ED: Negative for edema or tenderness General Extremity: Negative for edema Neuro Neuro Narrative: Following some commands with deficits on the right side. Sensorium / Orientation: awake Skin no rashes or lesions noted MDM MDM MDM Narrative Medical decision making narrative: Patient altered on arrival. Difficulty with NIH due to her altered mental status definitely had right side paralysis with her known history of this. She is moving her left side. Soft blood pressure IV fluids were given. Recheck lab work sodium at 158 potassium 4.7 chloride 127 BUN 50 creatinine 0.9 calcium 10.9. WBC 10.2 hemoglobin 14.8. Chest x-ray negative. Cath urine also negative for infection. With her altered mental status stroke history CT head was obtained read by radiology noting concerns occipital region 3 to 10 days old. Remote right parietal and left thalamic infarct. Reevaluation of the patient she was more awaken, however she was not compensating normally she is more repeating my statements. Blood pressure 95/77 on reevaluation. I spoke with hospitalist Dr. Montalvo for admission to PCU. Lab Data Attestation: I reviewed the patient's lab results. Labs: Laboratory Results - last 24 hr 05/07/21 05/07/21 05/07/21 16:34 16:34 16:39 WBC 10.2 RBC 4.56 Hgb 14.8 Hct 48.2 H MCV 105.7 H MCH 32.5 H MCHC 30.7 L RDW Std Deviation 48.7 H RDW Coeff of Chasity 12.4 Plt Count 247 MPV 12.0 Immature Gran % (Auto) 0.500 Neut % (Auto) 59.9 Lymph % (Auto) 21.3 [place] % (Auto) 9.7 Eos % (Auto) 8.1 H Baso % (Auto) 0.5 Absolute Neuts (auto) 6.1 Absolute Lymphs (auto) 2.17 Nucleated RBC % 0 Sodium 158 H Potassium 4.7 Chloride 127 H* Carbon Dioxide 31.0 Anion Gap 0 L BUN 50 H Creatinine 0.92 Estim Creat Clear Calc 54.13 Est GFR (MDRD) Af Amer 78 Est GFR (MDRD) Non-Af 65 BUN/Creatinine Ratio 54.3 H Glucose 109 H Calcium 10.9 H Total Bilirubin 0.40 AST 57 H ALT 66 H Alkaline Phosphatase 108 Total Protein 7.3 Albumin 3.3 Globulin 4.0 Albumin/Globulin Ratio 0.8 L Urine Color Urine Clarity Urine pH Ur Specific [place] Urine Protein Urine Glucose (UA) Urine Ketones Urine Occult Blood Urine Nitrite Urine Bilirubin Urine Urobilinogen Ur Leukocyte Esterase Urine RBC Urine WBC Ur Squamous Epith Cells Amorphous Sediment Urine Bacteria Urine Mucus POC Glucose 103 05/07/21 17:05 WBC RBC Hgb Hct MCV MCH MCHC RDW Std Deviation RDW Coeff of Chasity Plt Count MPV Immature Gran % (Auto) Neut % (Auto) Lymph % (Auto) [place] % (Auto) Eos % (Auto) Baso % (Auto) Absolute Neuts (auto) Absolute Lymphs (auto) Nucleated RBC % Sodium Potassium Chloride Carbon Dioxide Anion Gap BUN Creatinine Estim Creat Clear Calc Est GFR (MDRD) Af Amer Est GFR (MDRD) Non-Af BUN/Creatinine Ratio Glucose Calcium Total Bilirubin AST ALT Alkaline Phosphatase Total Protein Albumin Globulin Albumin/Globulin Ratio Urine Color Yellow Urine Clarity Clear Urine pH 5.0 Ur Specific [place] 1.020 Urine Protein 15 H Urine Glucose (UA) Normal Urine Ketones 5 H Urine Occult Blood Negative Urine Nitrite Negative Urine Bilirubin Negative Urine Urobilinogen Normal Ur Leukocyte Esterase Negative Urine RBC 0 SEEN Urine WBC 0 SEEN Ur Squamous Epith Cells 0 SEEN Amorphous Sediment 1+ Urine Bacteria 0 SEEN Urine Mucus 0 SEEN POC Glucose Radiography Chest X-Ray - ED: 1 View, Read by ED Physician and Read by Radiologist Diagnostic Testing: Clinical Impression(s) from Imaging Studies Brain CT 05/07/21 16:38 IMPRESSION: 1. Left parieto-occipital infarct, probably subacute, 3-10 days old, with mild cortical hemorrhagic necrosis. 2. Underlying chronic left occipital infarct. 3. Remote right parietal and left thalamic infarct. N.B. : Bryce Ramos , , confirmed on 05/07/2021 19:10:22 (ET) that the healthcare facility has received the radiology report. Electronically Signed: Lacey Osborne MD at 18:13 EST Tel , Service support , EKG Initial EKG: Attestation: I personally reviewed and interpreted this EKG as follows: Comments: Rate controlled atrial fibrillation rate of 78, no. T wave inversion lateral leads. Discharge Plan Dx/Rx/DC Orders Clinical Impression: CVA (cerebral vascular accident), Altered mental status, Acute hypernatremia, Hyperchloremia Disposition Disposition: Acute Care Hospital [facility] Discharge Date/Time: 05/07/21 19:56
--- NOTE | 2021-05-07 16:38 | CT_ITS ---
STUDY: CT BRAIN WITHOUT CONTRAST REASON FOR EXAM: Female, 65 years old. Confusion RADIATION DOSAGE (If Supplied By Facility): CTDIvol = ( 44.99 ) mGy, DLP = ( 745.49 ) mGycm TECHNIQUE: Transaxial CT imaging of the brain was performed without administration of intravenous contrast material. Individualized dose optimization techniques were used for this CT. 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 There is likely cortical hemorrhagic necrosis. The infarct is in part superimposed on a chronic remote left occipital infarct which happened in November of current year. There is remote left thalamic and adjacent pontine infarct. There is remote right occipital infarct with chronic cortical hemorrhagic necrosis. There is remote left thalamic infarct. There is no midline shift, hydrocephalus or extra parenchymal fluid collections. The skull is intact. CT/Brain/Head without Contrast IMPRESSION: 1. Left parieto-occipital infarct, probably subacute, 3-10 days old, with mild cortical hemorrhagic necrosis. 2. Underlying chronic left occipital infarct. 3. Remote right parietal and left thalamic infarct. N.B. : Bryce Ramos , , confirmed on 05/07/2021 19:10:22 (ET) that the healthcare facility has received the radiology report. Electronically Signed: Lacey Osborne MD at 18:13 EST Tel , Service support ,
--- NOTE | 2021-05-07 16:38 | EKG12_ITS ---
Test Reason : ABNORMAL LABS Blood Pressure : / mmHG Vent. Rate : 078 BPM Atrial Rate : 072 BPM P-R Int : 000 ms QRS Dur : 080 ms QT Int : 410 ms P-R-T Axes : 000 -03 -76 degrees QTc Int : 467 ms Atrial fibrillation Nonspecific ST and T wave abnormality Abnormal ECG Anterior leads Confirmed by EVELYN FARR, MANE ([id number]), story editor JANELL BANGURA ([id number]) on 05/10/2021 12:59:39 PM Referred By: GLORIA Confirmed By:MANE RIVAS MD
--- NOTE | 2021-05-07 16:38 | RAD_ITS ---
STUDY: X-RAY CHEST REASON FOR EXAM: Female, 65 years old. Fever and cough TECHNIQUE: Single AP portable view of the chest. COMPARISON: 12/10/2020 FINDINGS: EKG leads overlie the chest The lungs are clear and expanded. There is no demonstrated pleural abnormality. Normal size heart. Normal mediastinum and grover. Normal visualized pulmonary arteries. Normal visualized aortic arch and descending thoracic aorta. Normal visualized thoracic spine. Normal visualized ribs, clavicles, and shoulders. There is no demonstrated abnormality of the visualized soft tissue structures of the upper abdomen. RAD/Chest 1 View (Portable) IMPRESSION: Normal x-ray examination of the chest. Electronically Signed: Tres Whaley MD at 17:42 EST , Service support ,
[2021-05-07 16:46] LABS: Bedside Glucose 103 mg/dL (70-110)
[2021-05-07 17:04] LABS: Absolute Lymphocyte Count 2.17 X10^3/uL (0.83-4.51); Absolute Neutrophil Count 6.1 X10^3/uL (2.0-7.7); Basophil# 0.05 X10^3/uL; Basophil% 0.5 % (0-1); Eosinophil# 0.83 X10^3/uL; Eosinophils% 8.1 % (0-5); Hematocrit 48.2 % (37-47); Hemoglobin 14.8 g/dL (12.0-15.0); Lymphocyte # 2.17 X10^3/ul (0.83-4.51); Lymphocyte % 21.3 % (19-41); Mean Corp Hgb Conc 30.7 g/dL (32-36); Mean Corpuscular Hgb 32.5 pg (27.0-32.0); Mean Corpuscular Volume 105.7 fL (81-99); Monocyte# 0.99 X10^3/uL; Monocyte% 9.7 % (0-10); NRBC Flagged by Analyzer 0 % (0-5); Neutrophil # 6.12 X10^3/uL (2.7-7.7); Neutrophil % 59.9 % (47-70); Platelet Count 247 K/mm3 (150-450); RBC Distribution Width CV 12.4 % (11.6-14.6); RBC Distribution Width SD 48.7 fl (35.1-43.9); Red Blood Count 4.56 M/mm3 (4.2-5.4); White Blood Count 10.2 K/mm3 (4.4-11.0)
[2021-05-07 17:08] LABS: Bacteria 0 SEEN /hpf (None Seen); Mucous, Urine 0 SEEN /hpf (<or=2+); Red Blood Cells-Urine 0 SEEN /hpf (0-5); Squamous Epithelial Cells - UA 0 SEEN /hpf (5-10); White Blood Cells 0 SEEN /hpf (0-5)
[2021-05-07 17:21] LABS: ALB/GLOB Ratio 0.8 RATIO (0.9-2.4); AST(SGOT) 57 U/L (15-37); Alanine Aminotransfer ALT/SGPT 66 U/L (13-56); Albumin, Serum 3.3 g/dL (3.2-5.0); Alkaline Phosphatase 108 U/L (45-117); Anion Gap 0 (5-15); BUN 50 mg/dL (7-18); BUN/Creat Ratio 54.3 RATIO (10-20); Calcium,Total 10.9 mg/dL (8.5-10.1); Chloride 127 mmol/L (98-107); Creatinine, Serum 0.92 mg/dL (0.55-1.02); EST Glomerular Filtration Rate 65 mL/min (>60); Est Glom Filt Rate - Afr Amer 78 mL/min (>60); Estimated Creatinine Clearance 54.13 ml/min; Glucose 109 mg/dL (74-106); Potassium 4.7 mmol/L (3.5-5.1); Protein, Total 7.3 g/dL (6.4-8.2); Sodium Level 158 mmol/L (136-145)
[2021-05-07] MEDS: 0.9% Normal Saline 1,000 ML 1000 ML IV (17:24)
[2021-05-07 17:29] LABS: Color, Urine Yellow (Yellow); Glucose, Dipstick Normal (Normal); Ketone-Dipstick 5 mg/dl (Negative); Leukocyte Esterase-Dipstick Negative /ul (Negative); Nitrite-Dipstick Negative (Negative); Occult Blood-Urine Negative /ul (Negative); Protein-Dipstick 15 mg/dl (Negative); Urine Bilirubin Dipstick Negative (Negative); Urine Clarity Clear (Clear); Urine Urobilinogen Normal (Normal)
[2021-05-07 17:41] LABS: Amorphous Sediment 1+
--- NOTE | 2021-05-07 19:26 | HP.PCM.HOS_ITS ---
HPI - General General Date of Admission: 05/07/21 Date of Service: 05/07/21 Chief Complaint: Abnormal labs/metabolic encephalopathy HPI Narrative NAOMI ANGUIANO, is a 65 F who presented to the emergency department at [facility] on 05/07/2021 for abnormal labs and increased confusion. Evidently she is living at the [place] since she had a stroke in November 2020, she has been there since 01/14/2021 and has a history of a large left-sided stroke with significant right-sided deficits. It was felt that that was cardioembolic and she was placed on Eliquis. She is also on baby aspirin. Evidently's BMP was obtained at the [facility] and her sodium was found to be 161. Per ER documentation she had electrolyte 6 days ago and her sodium was 149 at that time. It is unclear what her oral intake has been during that time. She is not able to give much history and will only shake her head yes and no to questions asked. She apparently is verbal at baseline but does have a history of Asperger's and I am wondering if this is more attributed to that than actual changes in her mental status however she does have marked laboratory abnormalities. Her vital signs on admission show mild hypotension with a blood pressure of 89/72 initially but this is improved with IV fluids to 97 overnight 78. She is afebrile her respiratory rate is normal and her oxygen saturation is 95 to 98% on room air. Her CBC is overall unremarkable. Her BMP shows marked hyponatremia with a sodium of 158, hyperchloremia with a chloride of 127 and she has a BUN of 50. Her calcium is also elevated at 10.9. She had some mildly elevated transaminases. A urine was obtained and her urine appears to be significantly concentrated her ketones are mildly elevated specific gravity of her urine was 1.02 however, there are no signs of infection. With her altered mental status and stroke history and had CT of her head was performed and noted concerns for subacute infarct that was documented is 3 to 10 days old on the read. There is also noted remote right parietal and left thalamic infarct. In the emergency department she was given IV fluids and request for admission was made. [facility] Medical History (Updated 05/07/21 @ 19:[address] Selin Montalvo, DO) Acute embolic stroke Allergic rhinitis Aortic stenosis Asperger's disorder Asthma Biatrial enlargement CVA (cerebral vascular accident) Dysarthria Dyslipidemia Anjum-neglect of right side Hemianopsia Hirsutism Hypertension Hypothyroidism New onset atrial fibrillation Polycythemia Pulmonary hypertension Right hemiplegia Sleep-disordered breathing Stroke/cerebrovascular accident (~12/10/20) Home Medications fluticasone propion-salmeterol [Wixela Inhub] 1 inh INHALATION BID 12/10/20 [Hi story Last Taken 12/10/20] fluticasone propionate 1 spray INTRANASAL DAILY 12/10/20 [History Last Taken 12/10/20] levothyroxine [Euthyrox] 75 mcg PO DAILY 12/10/20 [History Last Taken 12/10/20] losartan 100 mg PO QHS 12/10/20 [History Last Taken 12/10/20] Eliquis 5 mg PO BID 12/14/20 [History Last Taken Unknown] aspirin 81 mg PO DAILY 12/14/20 [History Last Taken Unknown] atorvastatin 40 mg PO QHS 12/14/20 [History Last Taken Unknown] albuterol sulfate [Proventil HFA] 2 puff INHALATION Q6H PRN PRN 12/25/20 [History Last Taken Unknown] atenolol 50 mg PO DAILY 12/25/20 [History Last Taken Unknown] cholecalciferol (vitamin D3) 1,250 mcg PO QWEEK 12/25/20 [History Last Taken 12/19/20 10:00] lidocaine [Salonpas (lidocaine)] 1 patch TOPICAL BID 12/25/20 [History Last Taken Unknown] melatonin 3 mg PO QHS 12/25/20 [History Last Taken Unknown] doxazosin 1 mg PO QHS #1 tab 01/14/21 [Rx Last Taken Unknown] loperamide 2 mg PO Q6H PRN PRN #1 cap 01/14/21 [Rx Last Taken Unknown] menthol-zinc oxide [Calmoseptine] 1 applic TOPICAL BID #1 g 01/14/21 [Rx Last Taken Unknown] quetiapine 12.5 mg PO 1800 #1 tab 01/14/21 [Rx Last Taken Unknown] acetaminophen 650 mg PO TID 05/07/21 [History Last Taken Unknown] bisacodyl 10 mg WI DAILY PRN PRN 05/07/21 [History Last Taken Unknown] gabapentin 300 mg PO BID 05/07/21 [History Last Taken Unknown] magnesium hydroxide 30 ml PO DAILY 05/07/21 [History Last Taken Unknown] magnesium hydroxide [Milk of Magnesia] 5 ml PO DAILY PRN 05/07/21 [History Last Taken Unknown] mineral oil 118 ml [place] DAILY PRN 05/07/21 [History Last Taken Unknown] Allergy/AdvReac Type Severity Reaction Status Date / Time No Known Allergies Allergy Verified 05/07/21 16:17 Family History Other CAD (coronary artery disease) Cancer Surgical History History of appendectomy History of repair of laceration Social History (Updated 05/07/21 @ 19:[address] Selin Montalvo DO) number of children: 0 Smoking Status: Never smoker alcohol intake: never substance use type: does not use ROS ROS Narrative Unable to obtain as patient is only nodding head yes and no and not consistently to questions Review of Systems ROS Unobtainable: due to mental status Vital Signs Vital Signs Vital Signs: 05/07/21 16:17 05/07/21 16:21 05/07/21 18:48 Temperature 97.6 F L Temperature Source Temporal Pulse Rate 77 81 Respiratory Rate 17 19 H Respiratory Effort Normal Non-Labored Respiratory Pattern Normal Blood Pressure 89/72 L 95/77 Blood Pressure Mean 77 83 Pulse Ox 98 95 Oxygen Delivery Method Room Air 05/07/21 19:25 Temperature 97.5 F L Temperature Source Temporal Pulse Rate 71 Respiratory Rate 30 H Respiratory Effort Respiratory Pattern Blood Pressure 97/78 Blood Pressure Mean 84 Pulse Ox 98 Oxygen Delivery Method Room Air Weight Weight: 66 kg Body Mass Index (BMI) 24.2 Physical Exam Const alert, oriented x3, no apparent distress and average body habitus Constitutional Narrative: Upper middle-aged white female sitting up in bed, appears much older than stated age, significant hirsutism, is awake and interact some but noncommunicative at this time, only shakes her head yes and no to answer questions and this is inconsistent General Appearance: cooperative HEENT normocephalic, head/scalp atraumatic and moist oral mucous membranes HEENT Narrative: Mallampati 3, no thrush, dentition is good Eyes PERRL, EOMs intact bilaterally and conjunctivae normal Eyes Narrative: No scleral icterus Neck no lymphadenopathy, supple, no JVD and no carotid bruits Neck Narrative: Trachea midline, neck veins are flat, no thyroid enlargement Resp normal respiratory effort, no retractions, no use of accessory muscles and clear to auscultation bilaterally Auscultation: Negative for crackles, rales, rhonchi or wheezes Cardio regular rate, S1 normal heart sound, S2 normal heart sound, no murmurs, no rub, no gallops, no clicks and no JVD Cardio Narrative: Irregular regular rhythm GI normal to inspection, nondistended, normoactive bowel sounds, soft to palpation, non-tender and non-distended Extremity no clubbing, cyanosis or edema Peripheral Pulses: Yes pulses 2+ throughout Skin no rashes or lesions noted, no wounds, skin turgor normal, no jaundice, no petechiae and no mottling Skin Narrative: Bruises stage of healing on bilateral shins Neuro Neuro Narrative: Patient follows all commands, right hemiparesis is noted, cranial nerves appear to be intact, unable to assess orientation as patient will not communicate with me at this time Sensorium / Orientation: awake and alert Psych Psych Narrative: Strange affect, patient is somewhat flat Results Lab / Micro Data Attestation: I reviewed the patient's lab results. Result Diagrams: 05/07/21 16:34 05/07/21 16:34 Labs: Laboratory Results - last 24 hr 05/07/21 16:34: WBC 10.2, RBC 4.56, Hgb 14.8, Hct 48.2 H, MCV 105.7 H, MCH 32.5 H, MCHC 30.7 L, RDW Std Deviation 48.7 H, RDW Coeff of Chasity 12.4, Plt Count 247, MPV 12.0, Immature Gran % (Auto) 0.500, Neut % (Auto) 59.9, Lymph % (Auto) 21.3, [place] % (Auto) 9.7, Eos % (Auto) 8.1 H, Baso % (Auto) 0.5, Absolute Neuts (auto) 6.1, Absolute Lymphs (auto) 2.17, Nucleated RBC % 0 05/07/21 16:34: Sodium 158 H, Potassium 4.7, Chloride 127 H*, Carbon Dioxide 31.0, Anion Gap 0 L, BUN 50 H, Creatinine 0.92, Estim Creat Clear Calc 54.13, Est GFR (MDRD) Af Amer 78, Est GFR (MDRD) Non-Af 65, BUN/Creatinine Ratio 54.3 H , Glucose 109 H, Calcium 10.9 H, Total Bilirubin 0.40, AST 57 H, ALT 66 H, Alkaline Phosphatase 108, Total Protein 7.3, Albumin 3.3, Globulin 4.0, Albumin/Globulin Ratio 0.8 L 05/07/21 16:39: POC Glucose 103 05/07/21 17:05: Urine Color Yellow, Urine Clarity Clear, Urine pH 5.0, Ur Specific [place] 1.020, Urine Protein 15 H, Urine Glucose (UA) Normal, Urine Ketones 5 H, Urine Occult Blood Negative, Urine Nitrite Negative, Urine Bilirubin Negative, Urine Urobilinogen Normal, Ur Leukocyte Esterase Negative, Urine RBC 0 SEEN, Urine WBC 0 SEEN, Ur Squamous Epith Cells 0 SEEN, Amorphous Sediment 1+, Urine Bacteria 0 SEEN, Urine Mucus 0 SEEN Micro: Microbiology 05/07/21 17:00 Nasal Secretion SARS-CoV-2 Antigen (Rapid) - Final Assessment & Plan Assessment/Plan (1) Metabolic encephalopathy: (2) Acute hypernatremia: (3) Hyperchloremia: (4) Chronic anticoagulation: PLAN: Acute metabolic encephalopathy -Likely related to electrolyte abnormalities -Suspect confounded by baseline Asperger's disease -With abnormalities noted on CT will perform NIH every 4 hours -Monitor for improvement with electrolyte correction Hypernatremia/hyperchloremia -Suspect related to acute dehydration -Specific gravity of urine is elevated and BUN is markedly elevated at 50 -Half-normal saline at 100 cc/h -Patient was given 1 L bolus normal saline in the emergency department -Every 4 hour BMPs with goal correction no more than 12 mEq in 24 hours -Is unclear what her p.o. intake has been at the [facility] -She is on a thin liquid diet at baseline Hypotension -Hold antihypertensives -Fluid bolus given the emergency department with improvement -IV fluids at 100 cc/h Subacute stroke -CT is suggestive of subacute infarct -Check NIH -Continue home medications including Eliquis and aspirin -BP meds on hold with borderline pressures on admission -MRI in a.m. -Consider SOC consult as patient is already on Eliquis and aspirin -PT/OT/speech consult Dysphagia -Patient is on thin liquid with mechanical soft diet -We will continue here -Speech to evaluate Persistent atrial fibrillation -Hold beta-johnson until blood pressure improves -Continue Eliquis Hyperlipidemia -Continue statin Hypothyroidism -Continue levothyroxine -Check TSH Asperger's disease -Continue Seroquel -Suspect this may be contributing to the appearance of a metabolic enceph alopathy although difficult to tell at this time DVT prophylaxis -Full anticoagulation CODE STATUS -Full code as per records from the [place] Charges/Coding Visit Charges Inpatient E&M: 50674 Init Hosp L3
--- NOTE | 2021-05-07 19:54 | ED.RN ---
called the [facility] and informed racing secretary x2 that this RN would like report to compare to pt baseline. Senior Loss Control Specialist stated she will have RN call back. Gave number for PCU. pt refused water for dysphagia screening.
--- NOTE | 2021-05-07 20:15 | PCS.PANDOC ---
PANDEMIC DOCUMENTATION INITIATED: Date: 01/07/2021 Time: 190
[2021-05-07] MEDS: 0.45% Normal Saline 1,000 ML 100 ML IV (20:54)
[2021-05-07] MEDS: 0.9% Saline Lock 10 ML Syringe IV (20:54)
[2021-05-07] MEDS: Menthol/Lanolin/Calamine/Znox 113 GM Tube 1 APPLIC TOPICAL (22:21)
[2021-05-07] MEDS: APIXABAN 5 MG TABLET PO (22:21)
[2021-05-07] MEDS: Doxazosin 1 MG Tablet PO (22:21)
[2021-05-07] MEDS: Atorvastatin Calcium 40 MG Tablet PO (22:21)
[2021-05-07] MEDS: Gabapentin 300 MG Capsule PO (22:21)
[2021-05-07 22:29] LABS: Anion Gap 2 (5-15); BUN 50 mg/dL (7-18); BUN/Creat Ratio 57.1 RATIO (10-20); Calcium,Total 10.1 mg/dL (8.5-10.1); Chloride 126 mmol/L (98-107); Creatinine, Serum 0.88 mg/dL (0.55-1.02); EST Glomerular Filtration Rate 69 mL/min (>60); Est Glom Filt Rate - Afr Amer 83 mL/min (>60); Estimated Creatinine Clearance 56.59 ml/min; Glucose 107 mg/dL (74-106); Sodium Level 158 mmol/L (136-145)
[2021-05-08] VITALS (17 sets, daily range): BP systolic 79–108; BP diastolic 53–74; PULSE 75–94; RESP 16–20; TEMP 36.3–37.2; O2SAT 5–100; BMI 23.1
[2021-05-08 01:25] LABS: Anion Gap 2 (5-15); BUN 45 mg/dL (7-18); BUN/Creat Ratio 58.7 RATIO (10-20); Calcium,Total 9.1 mg/dL (8.5-10.1); Chloride 121 mmol/L (98-107); Creatinine, Serum 0.77 mg/dL (0.55-1.02); EST Glomerular Filtration Rate 80 mL/min (>60); Est Glom Filt Rate - Afr Amer 97 mL/min (>60); Glucose 112 mg/dL (74-106); Potassium 3.1 mmol/L (3.5-5.1); Sodium Level 152 mmol/L (136-145)
[2021-05-08] MEDS: Levothyroxine 75 MCG Tablet PO (04:57)
[2021-05-08] MEDS: 0.9% Saline Lock 10 ML Syringe IV ×2 (04:57→09:46)
[2021-05-08 06:02] LABS: Absolute Lymphocyte Count 1.98 X10^3/uL (0.83-4.51); Absolute Neutrophil Count 5.5 X10^3/uL (2.0-7.7); Basophil# 0.04 X10^3/uL; Basophil% 0.4 % (0-1); Eosinophil# 1.04 X10^3/uL; Hemoglobin 11.9 g/dL (12.0-15.0); Lymphocyte # 1.98 X10^3/ul (0.83-4.51); Mean Corp Hgb Conc 30.5 g/dL (32-36); Mean Corpuscular Hgb 32.3 pg (27.0-32.0); Mean Platelet Vol. 11.9 fl (6.2-12.0); Monocyte# 0.89 X10^3/uL; Monocyte% 9.4 % (0-10); NRBC Flagged by Analyzer 0 % (0-5); Neutrophil # 5.45 X10^3/uL (2.7-7.7); Neutrophil % 57.7 % (47-70); Platelet Count 208 K/mm3 (150-450); RBC Distribution Width CV 12.5 % (11.6-14.6); Red Blood Count 3.68 M/mm3 (4.2-5.4); White Blood Count 9.5 K/mm3 (4.4-11.0)
[2021-05-08] MEDS: 0.45% Normal Saline 1,000 ML 100 ML IV (07:03)
[2021-05-08] MEDS: Albuterol 2.5 MG/3 ML VIAL.NEB. INHALATION ×3 (07:15→19:50)
[2021-05-08] MEDS: Budesonide Respules 0.5 MG/2 ML AMPUL.NEB. INHALATION ×2 (07:15→19:50)
[2021-05-08 07:56] LABS: ALB/GLOB Ratio 0.9 RATIO (0.9-2.4); AST(SGOT) 101 U/L (15-37); Alanine Aminotransfer ALT/SGPT 93 U/L (13-56); Albumin, Serum 2.7 g/dL (3.2-5.0); Alkaline Phosphatase 95 U/L (45-117); Anion Gap 3 (5-15); BUN 42 mg/dL (7-18); BUN/Creat Ratio 57.1 RATIO (10-20); Calcium,Total 9.8 mg/dL (8.5-10.1); Chloride 124 mmol/L (98-107); Creatinine, Serum 0.74 mg/dL (0.55-1.02); EST Glomerular Filtration Rate 84 mL/min (>60); Est Glom Filt Rate - Afr Amer 102 mL/min (>60); Glucose 92 mg/dL (74-106); Magnesium 2.5 mg/dL (1.6-2.6); Phosphorus 2.7 mg/dL (2.5-4.9); Potassium 3.5 mmol/L (3.5-5.1); Protein, Total 5.7 g/dL (6.4-8.2); Sodium Level 155 mmol/L (136-145); Thyroid Stim Hormone (TSH) 0.55 uIU/mL (0.358-3.74)
[2021-05-08] MEDS: APIXABAN 5 MG TABLET PO (08:46)
[2021-05-08] MEDS: Aspirin 81 MG TAB.CHEW PO (08:46)
[2021-05-08] MEDS: Fluticasone 0.05% 1 SPRAY NASAL.SRY NASAL (08:46)
[2021-05-08] MEDS: Gabapentin 300 MG Capsule PO ×2 (08:46→21:47)
[2021-05-08] MEDS: Menthol/Lanolin/Calamine/Znox 113 GM Tube 1 APPLIC TOPICAL ×2 (08:50→21:48)
--- NOTE | 2021-05-08 09:33 | CASEMGMT ---
Patient is from [place]. [facility] faxed updates. [facility]ICK[facility] will check with patient's family to make sure the plan is to return to [place]. Wendy Carl MSW PLASTICS AND COMPOSITES INSPECTOR
[2021-05-08] MEDS: LORazepam 2 MG/ML Syringe 0.5 MG IV (09:46)
--- NOTE | 2021-05-08 10:13 | MRI_ITS ---
We are attempting to reach an attending provider to discuss findings. An addendum with communication details will be sent when the communication is complete. STUDY: MRI BRAIN WITHOUT CONTRAST REASON FOR EXAM: Female, 65 years old. stroke TECHNIQUE: Standardized multiplanar fat and water weighted pulse sequences were obtained. COMPARISON: 12/19/2020 FINDINGS: There is moderate cerebral atrophy with widening of the extra-axial spaces and ventricular dilatation. There are multiple white matter hyperintensities, distributed throughout the deep white matter tracts of the cerebral hemispheres, consistent with moderate chronic white matter ischemic changes. Encephalomalacia and gliosis in the left occipital lobe consistent with chronic infarct. 1 cm focal hyperintensity in the right occipital lobe demonstrates restricted diffusion consistent with an acute/subacute infarct. Normal T2* images of the brain without demonstrated susceptibility artifact. There is no demonstrated hemosiderin stain. Normal bilateral basal ganglia. Chronic lacunar infarct in the anterior aspect of the left thalamus. There is no extra-axial fluid accumulation. Normal flow voids within the major intracranial circulation suggesting patency by spin echo criteria. Normal sella turcica, pituitary gland, infundibular stalk, optic chiasm and hypothalamus. Normal tectal plate and pineal gland. There are chronic white matter ischemic changes of the iain. The midbrain and medulla are otherwise normal. Normal cerebellum. Normal basal cisterns. Normal bilateral temporal bones. Normal bilateral internal auditory canals. No demonstrated orbital abnormality, within the constraints of a routine brain study. Normal visualized paranasal sinuses. Normal calvarium and skull base. Normal visualized soft tissue structures. Normal visualized upper cervical spine. MRI/Brain without Contrast IMPRESSION: Involutional changes of the brain, as described above. Acute/subacute 1 cm infarct of the right occipital lobe. Electronically Signed: John Stone MD at 11:24 EST Tel , Service support ,
--- NOTE | 2021-05-08 12:12 | PCM.PN.HOSP ---
Documented by User: Alan SCOTT 05/08/21 13:06 Subjective Subjective Patient is a 65-year-old female lying in bed, alert and oriented to self. Patient cannot provide much insight into her current condition as she is acutely confused. Does not appear in acute distress. Objective Data Objective Data Vital Signs: Vital Signs Temp Pulse Resp BP Pulse Ox 97.5 F L 93 18 79/53 L 97 05/08/21 11:10 05/08/21 11:10 05/08/21 11:10 05/08/21 11:10 05/08/21 11:10 Oxygen Delivery Method Room Air Weight: 138 lb 10.732 oz Body Mass Index (BMI) 23.1 Intake & Output: Intake and Output for Last 24 Hours 05/06/21 05/07/21 05/08/21 23:59 23:59 23:59 Intake Total 1400 / 1400 1370 / 1370 Balance 1400 / 1400 1370 / 1370 Lab / Micro Data Result Diagrams: 05/08/21 05:50 05/08/21 07:15 Labs: Laboratory Results - last 24 hr 05/07/21 16:34: WBC 10.2, RBC 4.56, Hgb 14.8, Hct 48.2 H, MCV 105.7 H, MCH 32.5 H, MCHC 30.7 L, RDW Std Deviation 48.7 H, RDW Coeff of Chasity 12.4, Plt Count 247, MPV 12.0, Immature Gran % (Auto) 0.500, Neut % (Auto) 59.9, Lymph % (Auto) 21.3, Mclennan % (Auto) 9.7, Eos % (Auto) 8.1 H, Baso % (Auto) 0.5, Absolute Neuts (auto) 6.1, Absolute Lymphs (auto) 2.17, Nucleated RBC % 0 05/07/21 16:34: Sodium 158 H, Potassium 4.7, Chloride 127 H*, Carbon Dioxide 31.0, Anion Gap 0 L, BUN 50 H, Creatinine 0.92, Estim Creat Clear Calc 54.13, Est GFR (MDRD) Af Amer 78, Est GFR (MDRD) Non-Af 65, BUN/Creatinine Ratio 54.3 H, Glucose 109 H, Calcium 10.9 H, Total Bilirubin 0.40, AST 57 H, ALT 66 H, Alkaline Phosphatase 108, Total Protein 7.3, Albumin 3.3, Globulin 4.0, Albumin/Globulin Ratio 0.8 L 05/07/21 16:39: POC Glucose 103 05/07/21 17:05: Urine Color Yellow, Urine Clarity Clear, Urine pH 5.0, Ur Specific [place] 1.020, Urine Protein 15 H, Urine Glucose (UA) Normal, Urine Ketones 5 H, Urine Occult Blood Negative, Urine Nitrite Negative, Urine Bilirubin Negative, Urine Urobilinogen Normal, Ur Leukocyte Esterase Negative, Urine RBC 0 SEEN, Urine WBC 0 SEEN, Ur Squamous Epith Cells 0 SEEN, Amorphous Sediment 1+, Urine Bacteria 0 SEEN, Urine Mucus 0 SEEN 05/07/21 21:10: Sodium 158 H, Potassium 4.0, Chloride 126 H, Carbon Dioxide 30.0, Anion Gap 2 L, BUN 50 H, Creatinine 0.88, Estim Creat Clear Calc 56.59, Est GFR (MDRD) Af Amer 83, Est GFR (MDRD) Non-Af 69, BUN/Creatinine Ratio 57.1 H, Glucose 107 H, Calcium 10.1 05/08/21 01:05: Sodium 152 H, Potassium 3.1 L, Chloride 121 H, Carbon Dioxide 29.0, Anion Gap 2 L, BUN 45 H, Creatinine 0.77, Estim Creat Clear Calc 49.80, Est GFR (MDRD) Af Amer 97, Est GFR (MDRD) Non-Af 80, BUN/Creatinine Ratio 58.7 H, Glucose 112 H, Calcium 9.1 05/08/21 05:50: WBC 9.5, RBC 3.68 L, Hgb 11.9 L, Hct 39.0, MCV 106.0 H, MCH 32.3 H, MCHC 30.5 L, RDW Std Deviation 49.0 H, RDW Coeff of Chasity 12.5, Plt Count 208, MPV 11.9, Immature Gran % (Auto) 0.500, Neut % (Auto) 57.7, Lymph % (Auto) 21.0, Mclennan % (Auto) 9.4, Eos % (Auto) 11.0 H, Baso % (Auto) 0.4, Absolute Neuts (auto) 5.5, Absolute Lymphs (auto) 1.98, Nucleated RBC % 0 05/08/21 05:50: Sodium Cancelled, Potassium Cancelled, Chloride Cancelled, Carbon Dioxide Cancelled, Anion Gap Cancelled, BUN Cancelled, Creatinine Cancelled, Estim Creat Clear Calc Cancelled, Est GFR (MDRD) Af Amer Cancelled, Est GFR (MDRD) Non-Af Cancelled, BUN/Creatinine Ratio Cancelled, Glucose Cancelled, Calcium Cancelled, Phosphorus Cancelled, Magnesium Cancelled, Total Bilirubin Cancelled, AST Cancelled, ALT Cancelled, Alkaline Phosphatase Cancelled, Total Protein Cancelled, Albumin Cancelled, Globulin Cancelled, Albumin/Globulin Ratio Cancelled, TSH Cancelled 05/08/21 07:15: Sodium 155 H, Potassium 3.5, Chloride 124 H, Carbon Dioxide 28.0, Anion Gap 3 L, BUN 42 H, Creatinine 0.74, Estim Creat Clear Calc 49.80, Est GFR (MDRD) Af Amer 102, Est GFR (MDRD) Non-Af 84, BUN/Creatinine Ratio 57.1 H, Glucose 92, Calcium 9.8, Phosphorus 2.7, Magnesium 2.5, Total Bilirubin 0.60, AST 101 H, ALT 93 H, Alkaline Phosphatase 95, Total Protein 5.7 L, Albumin 2.7 L, Globulin 3.0, Albumin/Globulin Ratio 0.9, TSH 0.55 Micro: Microbiology 05/07/21 17:05 Urine, Catheterized Urine Culture - Preliminary Culture exhibits no growth. 05/07/21 17:00 Nasal Secretion SARS-CoV-2 Antigen (Rapid) - Final Radiography Diagnostic Testing: Radiology Impression Brain CT 05/07/21 16:38 IMPRESSION: 1. Left parieto-occipital infarct, probably subacute, 3-10 days old, with mild cortical hemorrhagic necrosis. 2. Underlying chronic left occipital infarct. 3. Remote right parietal and left thalamic infarct. N.B. : Bryce Ramos , , confirmed on 05/07/2021 19:10:22 (ET) that the healthcare facility has received the radiology report. Electronically Signed: Lacey Osborne MD at 18:13 EST Tel , Service support , Chest X-Ray 05/07/21 16:38 IMPRESSION: Normal x-ray examination of the chest. Electronically Signed: Tres Whaley MD at 17:42 EST , Service support , Brain MRI 05/08/21 10:13 IMPRESSION: Involutional changes of the brain, as described above. Acute/subacute 1 cm infarct of the right occipital lobe. Electronically Signed: John Stone MD at 11:24 EST Tel , Service support , ADDENDUM: 05/08/21 1150 IMPRESSION: Involutional changes of the brain, as described above. Acute/subacute 1 cm infarct of the right occipital lobe. N.B. : The above Results were Read Back by John Stone MD to Renetta Garcia RN, and understanding confirmed on 05/08/2021 11:43:52 (ET). Electronically Signed: John Stone MD at 11:24 EST Tel , Service support , Physical Exam Const alert, oriented x3 and no apparent distress HEENT head/scalp atraumatic and moist oral mucous membranes Head and Scalp: normocephalic Eyes PERRL, EOMs intact bilaterally and conjunctivae normal Neck no lymphadenopathy, supple and no JVD Resp normal respiratory effort, no retractions, no use of accessory muscles and clear to auscultation bilaterally Cardio regular rate, regular rhythm, no murmurs and no JVD GI normal to inspection, nondistended, normoactive bowel sounds, soft to palpation and non-tender Extremity normal to inspection, full ROM and no clubbing, cyanosis or edema Skin no rashes or lesions noted, no wounds, skin turgor normal and no jaundice Neuro CN's II-XII intact bilaterally Psych affect normal Assessment & Plan Assessment/Plan (1) Metabolic encephalopathy: (2) Acute hypernatremia: (3) Chronic anticoagulation: (4) Hyperchloremia: PLAN: Day 1 Discharge planning: To return back to SNF when medically ready. 1) acute CVA Brain MRI demonstrated acute/subacute 1 cm infarct of the right occipital lobe. SOC consult obtained recommendations as follows: Diagnosis of right occipital stroke, obtain head and neck CTA, repeat CT of the head in 3 to 5 days to assess for hemorrhage, hold Eliquis, continue with aspirin and statin regimen. Allow for permissive hypertension, as needed hydralazine ordered, elevate head above bed, continue NIH stroke scale. 2) hypernatremia/hyperchloremia Sodium currently 155 chloride of 124. Complicates #1, suspect this was due to dehydration despite being at SNF. Continue fluids and continue to monitor BMP. 3) hypotension Currently 79/53, continue to hold antihypertensives and continue with fluids. 4) acute metabolic encephalopathy Complicated by electrolyte imbalance, hypotension and CVA. Plan as above. 5) dysphagia Continue thin liquid with mechanical soft diet, speech therapy eval ordered. 6) atrial fibrillation Patient is rate controlled on metoprolol and anticoagulated on Eliquis. Hold metoprolol due to hypotension and hold Eliquis due to concern for hemorrhage. 7) hyperlipidemia Continue statin. 8) hypothyroidism TSH within normal limits. Continue Synthroid. 9) Asperger's disease Complicates encephalopathy needs it is difficult to ascertain patient's baseline. Continue Seroquel. DVT prophylaxis - SCD's Patient seen by Alan Joy PA-C, under the supervision of Dr. Doyle. Documented by User: Dr. Chadwick Doyle MD 05/08/21 14:57 Subjective Subjective Patient is very confused. History is unobtainable. She keeps on repeating. Right upper extremity is weak. CT shows left parieto-occipital infarct, subacute 3 to 10 days old. Objective Data Lab / Micro Data Result Diagrams: 05/08/21 05:50 05/08/21 07:15 Physical Exam Narrative General: Confused, disoriented, does not follow command. HEENT: Atraumatic, PERRLA, EOMI, Normocephalic Oral: No Gingival or Mucosal Lesions/ Ulcerations Neck: Supple, No JVD, Negative Carotid Bruits Lungs: Air entry diminished in bilateral lung bases. No crepitation/rhonchi Cardiovascular: Regular rate, Regular Rhythm, Normal S1, Normal S2, No murmurs Abdomen: Bowel Sounds Present, Soft, Non Tender, Non-Distended : No renal angle tenderness. No suprapubic tenderness. Extremities: No edema, Capillary Refill Less than 3 Seconds Skin: No rashes, No breakdown Musculoskeletal: No Tenderness to Palpation of Joints or Extremities Neurological: Neuro exam bilateral. Right upper extremity weakness. No eye contact. Psych/Mental Status: Confused, disoriented. Assessment & Plan Assessment/Plan (1) Acute hypernatremia: PLAN: This patient was seen in conjunction with TYLER Swan. I have independently interviewed and examined the patient and reviewed pertinent history, examination findings, laboratory and plan of management. I have reviewed the note and agree with the documented findings with the few additional points. In brief, patient is admitted for abnormal labs, hyponatremia, increased confusion not following commands from extended facility. She had large left-sided ischemic stroke in November 2020 with significant residual deficit on the right side. It seems it was cardioembolic type and was started on Eliquis and baby aspirin since then. This time, CT head showed subacute 3 to 10 days old left occipital infarct. She is confused, disoriented repetitive behavior. Patient had recent echo in November which was negative for PFO therefore not repeated. SOC consult was done and recommended CT angiogram, hold Eliquis repeat CT head in 3 to 5 days to rule out hemorrhage and meantime continue baby aspirin and high intensity statin. CT angiogram reviewed shows 70% moderate atherosclerotic plaque in right ICA in the body of the report but mention 50% on the impression. Reconsult SOC to further evaluate the imaging. Rest of the comorbidities as mentioned above I have discussed my assessment with TYLER Swan and orders have been reviewed. Charges/Coding Visit Charges Inpatient E&M: 93879 Subs Hosp L2
--- NOTE | 2021-05-08 13:02 | CT_ITS ---
We are attempting to reach an attending provider to discuss findings. An addendum with communication details will be sent when the communication is complete. STUDY: CTA HEAD AND NECK WITH CONTRAST REASON FOR EXAM: Female, 65 years old. Stroke RADIATION DOSAGE (If Supplied By Facility): CTDIvol = ( 33.71 ) mGy, DLP = ( 1444.95 ) mGycm TECHNIQUE: CT angiography was performed with a multi-detector CT scanner. Data acquisition was obtained from the skull base through the vertex following intravenous administration of IV 100mL [id number]-[id number]. MIP images were reconstructed from the axial data set. Post-processing of the angiographic images was performed, with multiplanar reformation and 3D reconstruction. Individualized dose optimization techniques were used for this CT. COMPARISON: 02/19/2021 FINDINGS: Normal bilateral petrous carotid arteries. There is calcified plaque formation of the right cavernous carotid artery, without a cross-sectional luminal stenosis. There is calcified plaque formation of the left cavernous carotid artery, without a cross-sectional luminal stenosis. There is hypoplastic development of the right A1 segment of the anterior cerebral arteries with an atretic but intact artery. Normal left A1 segments of the anterior cerebral artery. Normal intact anterior communicating artery (ACOM). Normal bilateral A2 segments of the anterior cerebral arteries. Normal right M1 and M2 segments of the middle cerebral arteries, with a normal M1 bifurcation. Normal left M1 and M2 segments of the middle cerebral arteries, with a normal M1 bifurcation. Normal right posterior communicating artery (PCOM). Normal left posterior communicating artery (PCOM). Normal bilateral vertebral arteries. Normal basilar artery with a normal basilar bifurcation. The visualized bilateral superior cerebellar (SCA) arteries are normal. Multiple areas of segmental narrowing of the right posterior cerebral artery suggestive of vasospasm consistent with recent infarct. Diffuse attenuation of the left posterior cerebral artery consistent with a chronic infarct. There is no demonstrated aneurysm of the [place] of [place]. There is no demonstrated abnormality of the visualized brain. AORTIC ARCH: There is a bovine origin of the great vessels arising from the aortic arch with a common origin of the brachiocephalic and left common carotid artery. Normal origin of the left subclavian artery. Normal origins of the brachiocephalic, left common carotid, and left subclavian arteries. RIGHT CAROTID ARTERIES: Normal right common carotid artery (CCA). There is moderate atherosclerotic plaque formation with moderate narrowing of the right carotid bulb. There is extensive atherosclerotic plaque formation of the origin of the right internal carotid artery with an estimated stenosis of greater than 70%. Normal visualized cervical portion of the right internal carotid artery. Normal origin of the right external carotid artery (ECA). LEFT CAROTID ARTERIES: Normal left common carotid artery (CCA). There is mild atherosclerotic plaque formation with minimal narrowing of the left carotid bulb. There is mild atherosclerotic plaque formation of the origin of the left internal carotid artery with less than 50% cross sectional diameter stenosis. Normal visualized cervical portion of the left internal carotid artery. Normal origin of the left external carotid artery (ECA). VERTEBRAL ARTERIES: Normal bilateral vertebral arteries. CT/STROKE CTA Head AND Neck W/Con IMPRESSION: 1. Suspect vasospasm in the right posterior cerebral artery consistent with a recent infarct. 2. Diffuse attenuation of the left posterior cerebral artery consistent with a prior infarct. 3. Severe (80%) right carotid stenosis. 4. Mild (20%) left carotid stenosis. 5. Patent vertebral arteries bilaterally. Electronically Signed: John Stone MD at 14:26 EST Tel , Service support ,
[2021-05-08 13:31] LABS: Hemoglobin A1c 5.4 % (3.8-5.6)
--- NOTE | 2021-05-08 14:12 | CPS ---
patient refused full breathing treatment
[2021-05-08] MEDS: QUEtiapine 25 MG Tablet 12.5 MG PO (17:26)
--- NOTE | 2021-05-08 20:03 | CPS ---
Had to hold tx via blow by, pt is confused and yelling out.
[2021-05-08] MEDS: Doxazosin 1 MG Tablet PO (21:47)
[2021-05-08] MEDS: Atorvastatin Calcium 80 MG Tablet PO (21:47)
[2021-05-08] MEDS: Acetaminophen 325 MG Tablet 650 MG PO (23:13)
[2021-05-09] VITALS (13 sets, daily range): BP systolic 88–106; BP diastolic 60–69; PULSE 69–86; RESP 12–16; TEMP 36.8–37.2; O2SAT 94–99; BMI 23.1
[2021-05-09] MEDS: Levothyroxine 75 MCG Tablet PO (05:59)
--- NOTE | 2021-05-09 06:09 | NURSING ---
Pt would not open her eyes for the [address] assessment.
[2021-05-09 06:54] LABS: Absolute Lymphocyte Count 2.11 X10^3/uL (0.83-4.51); Absolute Neutrophil Count 3.9 X10^3/uL (2.0-7.7); Basophil# 0.05 X10^3/uL; Basophil% 0.7 % (0-1); Eosinophil# 0.81 X10^3/uL; Eosinophils% 10.8 % (0-5); Hematocrit 36.5 % (37-47); Hemoglobin 11.7 g/dL (12.0-15.0); Lymphocyte # 2.11 X10^3/ul (0.83-4.51); Mean Corp Hgb Conc 32.1 g/dL (32-36); Mean Corpuscular Hgb 33.1 pg (27.0-32.0); Mean Corpuscular Volume 103.1 fL (81-99); Mean Platelet Vol. 12.1 fl (6.2-12.0); Monocyte# 0.64 X10^3/uL; Monocyte% 8.5 % (0-10); NRBC Flagged by Analyzer 0 % (0-5); Neutrophil # 3.86 X10^3/uL (2.7-7.7); Neutrophil % 51.2 % (47-70); Platelet Count 195 K/mm3 (150-450); RBC Distribution Width CV 12.3 % (11.6-14.6); RBC Distribution Width SD 46.5 fl (35.1-43.9); Red Blood Count 3.54 M/mm3 (4.2-5.4); White Blood Count 7.5 K/mm3 (4.4-11.0)
[2021-05-09 07:10] LABS: Anion Gap 6 (5-15); BUN 26 mg/dL (7-18); BUN/Creat Ratio 39.5 RATIO (10-20); Calcium,Total 9.3 mg/dL (8.5-10.1); Chloride 116 mmol/L (98-107); Cholesterol 107 mg/dL (200); Creatinine, Serum 0.66 mg/dL (0.55-1.02); EST Glomerular Filtration Rate 95 mL/min (>60); Est Glom Filt Rate - Afr Amer 115 mL/min (>60); Glucose 103 mg/dL (74-106); High Density Lipoprotein 31 mg/dL; Potassium 3.5 mmol/L (3.5-5.1); Sodium Level 148 mmol/L (136-145); Triglycerides 139 mg/dL; Very Low Density Lipoprotein 28 mg/dL (5-40)
[2021-05-09] MEDS: Budesonide Respules 0.5 MG/2 ML AMPUL.NEB. INHALATION (07:13)
[2021-05-09] MEDS: Albuterol 2.5 MG/3 ML VIAL.NEB. INHALATION (07:13)
--- NOTE | 2021-05-09 07:35 | CPS ---
pt took mask off after 1 minute into rx. pt stated she did not want.
[2021-05-09] MEDS: Aspirin 81 MG TAB.CHEW PO (10:03)
[2021-05-09] MEDS: Menthol/Lanolin/Calamine/Znox 113 GM Tube 1 APPLIC TOPICAL ×2 (10:03→20:20)
[2021-05-09] MEDS: Gabapentin 300 MG Capsule PO ×2 (10:03→20:21)
--- NOTE | 2021-05-09 10:21 | CASEMGMT ---
MICKI spoke with Marisol at [facility] and let her know patient may be returning today. 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 SW also called patient's sister, Milka and she confirmed the plan is for patient to return to [facility]. Wendy Carl STORE RECEIVING SPECIALIST MARISEL
--- NOTE | 2021-05-09 11:11 | PN.HOSP_ITS ---
Documented by User: Priscila Michael NP-C 05/09/21 11:39 Subjective Subjective Patient seen and examined. Patient lying in bed no distress noted. Patient continues to be disoriented, unable to verbalize month or year. Patient frequently repeating what is said to her. Objective Data Objective Data Vital Signs: Vital Signs Temp Pulse Resp BP Pulse Ox 98.5 F 81 16 99/66 99 05/09/21 09:45 05/09/21 09:45 05/09/21 09:45 05/09/21 09:45 05/09/21 09:45 Oxygen Delivery Method Room Air Weight: 144 lb 13.499 oz Body Mass Index (BMI) 23.1 Intake & Output: Intake and Output for Last 24 Hours 05/07/21 05/08/21 05/09/21 23:59 23:59 23:59 Intake Total 1400 / 1400 2595 / 2595 965 / 965 Output Total 0 / 0 Balance 1400 / 1400 2595 / 2595 965 / 965 Lab / Micro Data Result Diagrams: 05/09/21 05:40 05/09/21 05:40 Labs: Laboratory Results - last 24 hr 05/08/21 05:50: Hemoglobin A1c 5.4 05/09/21 05:40: Sodium 148 H, Potassium 3.5, Chloride 116 H, Carbon Dioxide 26.0, Anion Gap 6, BUN 26 H, Creatinine 0.66, Estim Creat Clear Calc 49.80, Est GFR (MDRD) Af Amer 115, Est GFR (MDRD) Non-Af 95, BUN/Creatinine Ratio 39.5 H, Glucose 103, Calcium 9.3, Triglycerides 139, Cholesterol 107, LDL Cholesterol 48, VLDL Cholesterol 28, HDL Cholesterol 31 L 05/09/21 05:40: WBC 7.5, RBC 3.54 L, Hgb 11.7 L, Hct 36.5 L, MCV 103.1 H, MCH 33.1 H, MCHC 32.1 D, RDW Std Deviation 46.5 H, RDW Coeff of Chasity 12.3, Plt Count 195, MPV 12.1 H, Immature Gran % (Auto) 0.800, Neut % (Auto) 51.2, Lymph % (Auto) 28.0, [place] % (Auto) 8.5, Eos % (Auto) 10.8 H, Baso % (Auto) 0.7, Absolute Neuts (auto) 3.9, Absolute Lymphs (auto) 2.11, Nucleated RBC % 0 Micro: Microbiology 05/07/21 17:05 Urine, Catheterized Urine Culture - Preliminary Culture exhibits no growth. 05/07/21 17:00 Nasal Secretion SARS-CoV-2 Antigen (Rapid) - Final Radiography Diagnostic Testing: Radiology Impression Brain MRI 05/08/21 10:13 IMPRESSION: Involutional changes of the brain, as described above. Acute/subacute 1 cm infarct of the right occipital lobe. Electronically Signed: John Stone MD at 11:24 EST Tel , Service support , ADDENDUM: 05/08/21 1150 IMPRESSION: Involutional changes of the brain, as described above. Acute/subacute 1 cm infarct of the right occipital lobe. N.B. : The above Results were Read Back by John Stone MD to Renetta Garcia RN, and understanding confirmed on 05/08/2021 11:43:52 (ET). Electronically Signed: John Stone MD at 11:24 EST Tel , Service support , Head/Neck CTA 05/08/21 13:02 IMPRESSION: 1. Suspect vasospasm in the right posterior cerebral artery consistent with a recent infarct. 2. Diffuse attenuation of the left posterior cerebral artery consistent with a prior infarct. 3. Severe (80%) right carotid stenosis. 4. Mild (20%) left carotid stenosis. 5. Patent vertebral arteries bilaterally. Electronically Signed: John Stone MD at 14:26 EST Tel , Service support , ADDENDUM: 05/08/21 1435 IMPRESSION: 1. Suspect vasospasm in the right posterior cerebral artery consistent with a recent infarct. 2. Diffuse attenuation of the left posterior cerebral artery consistent with a prior infarct. 3. Severe (80%) right carotid stenosis. 4. Mild (20%) left carotid stenosis. 5. Patent vertebral arteries bilaterally. N.B. : The above Results were Read Back by John Stone MD to LOGAN ECHEVARRIA and understanding confirmed on 05/08/2021 14:28:52 (ET). Electronically Signed: John Stone MD at 14:26 EST Tel , Service support , ADDENDUM: 05/08/21 1438 IMPRESSION: 1. Suspect vasospasm in the right posterior cerebral artery consistent with a recent infarct. 2. Diffuse attenuation of the left posterior cerebral artery consistent with a prior infarct. 3. Severe (80%) right carotid stenosis. 4. Mild (20%) left carotid stenosis. 5. Patent vertebral arteries bilaterally. N.B. : The above Results were Read Back by John Stone MD to aMrce Martinez [id number], and understanding confirmed on 05/08/2021 14:31:22 (ET). Electronically Signed: John Stone MD at 14:26 EST Tel , Service support , Physical Exam Const alert and no apparent distress Orientation / Consciousness: confused and disoriented HEENT head/scalp atraumatic Head and Scalp: normocephalic Eyes conjunctivae normal and no scleral icterus Neck full ROM and supple General: trachea midline Resp normal respiratory effort, normal air movement and clear to auscultation bilaterally Cardio regular rate, regular rhythm, S1 normal heart sound and S2 normal heart sound GI normal to inspection, nondistended, normoactive bowel sounds, soft to palpation and non-tender Extremity normal to inspection and no clubbing, cyanosis or edema Peripheral Pulses: Yes pulses 2+ throughout Skin no rashes or lesions noted, no wounds and skin turgor normal Neuro Neuro Narrative: Right hemiparesis noted, chronic from past stroke Sensorium / Orientation: awake, alert, orientation impaired and confused Speech: speech abnormal Details: Positive for other (Repetitive) Psych Attitude: bizarre Activity / Motor Behavior: fidgetting and restless Speech: echolalia Mood & Affect: flat affect Thought Process: disorganized and confused Assessment & Plan Assessment/Plan (1) Metabolic encephalopathy: (2) Acute hypernatremia: (3) Hyperchloremia: (4) CVA (cerebral vascular accident): QUALIFIERS: CVA mechanism: unspecified Qualified Code(s): I63.9 - Cerebral infarction, unspecified PLAN: Patient is a 65-year-old female who originally presented with altered mental status with a history of stroke, atrial fibrillation, Asperger's disease and was found to have hypernatremia and hyperchloremia. 1. Acute metabolic encephalopathy -Continue every 4 hour NIH -Electrolyte abnormalities improving however patient continues to have altered mental status with echolalia as well as disorientation 2. Hypernatremia/hyperchloremia -Secondary to dehydration -Continue IV fluids -Daily BMP -Sodium 148 and chloride 116 today, improved 3. Subacute CVA -Patient seen by [facility] teleneurology recommend continuing anticoagulation with Eliquis and continuing antiplatelet therapy with aspirin. -Does not recommend any further acute intervention regarding right carotid stenosis as per patient's family has been told in the past that she is a poor candidate and they are not interested in seeking further intervention at this time. -Continue every 4 NIH monitoring -Repeat head and neck CTA demonstrates right posterior cerebral artery vasospasm, diffuse attenuation of the left posterior cerebral artery consistent with prior infarct, sick 80% right carotid stenosis, 20% left carotid stenosis -Continue speech therapy for dysphagia 4. Hypotension -Improved today BP currently 99/66 -Continue to hold metoprolol 5. Atrial fibrillation -Metoprolol held due to hypotension -Eliquis held due to concern for hemorrhage Continue patient's home medication for chronic diseases including hyperlipidemia, hypothyroidism, arthritis disease. DVT prophylaxis-SCDs This patient was seen by Priscila Michael NP-C under the supervision of Dr. Doyle. Documented by User: Dr. Chadwick Doyle MD 05/09/21 15:38 Subjective Subjective Patient is confused and disoriented but able to tell her date of and full name but took long time to reply. Discussed with nursing staff and patient can eat and swallow. She also pulled her IV line. Objective Data Lab / Micro Data Result Diagrams: 05/09/21 05:40 05/09/21 05:40 Physical Exam Narrative General: Confused, disoriented, but improving. Follow simple command HEENT: Atraumatic, PERRLA, EOMI, Normocephalic Oral: No Gingival or Mucosal Lesions/ Ulcerations Neck: Supple, No JVD, Negative Carotid Bruits Lungs: Air entry diminished in bilateral lung bases. No crepitation/rhonchi Cardiovascular: Regular rate, Regular Rhythm, Normal S1, Normal S2, No murmurs Abdomen: Bowel Sounds Present, Soft, Non Tender, Non-Distended : No renal angle tenderness. No suprapubic tenderness. Extremities: No edema, Capillary Refill Less than 3 Seconds Skin: No rashes, No breakdown Musculoskeletal: No Tenderness to Palpation of Joints or Extremities Neurological: Detailed neuro exam unobtainable. Right upper extremity weakness. Seems intermittent inattention/neglect Psych/Mental Status: Confused, disoriented. Assessment & Plan Assessment/Plan (1) CVA (cerebral vascular accident): QUALIFIERS: CVA mechanism: unspecified Qualified Code(s): I63.9 - Cerebral infarction, unspecified PLAN: This patient was seen in conjunction with RACIEL Francois. I have independently interviewed and examined the patient and reviewed pertinent history, examination findings, laboratory and plan of management. I have reviewed the note and agree with the documented findings with the few additional points. In brief, patient is admitted for abnormal labs, hyponatremia, increased confusion not following commands from extended facility. She had large left- sided ischemic stroke in November 2020 with significant residual deficit on the right side. It seems it was cardioembolic type and was started on Eliquis and baby aspirin since then. This time, CT head showed subacute 3 to 10 days old left occipital infarct. She is confused, disoriented repetitive behavior. Patient had recent echo in November which was negative for PFO therefore not repeated. MRI brain shows recent right [employer] HEAD Acute/subacute 1 cm infarct of right occipital lobe. Head and neck CTA shows severe 80% right ICA stenosis which seems chronic after talking to the family member was told he is not good surg ical candidate. SOC consult was done and recommended to continue medical therapy. Continue speech therapy PT and OT as per stroke guidelines. SOC was reconsulted and recommended to continue aspirin and Eliquis. Recommend no further acute intervention regarding patient right ICA stenosis. Rest of the comorbidities as mentioned above I have discussed my assessment with RACIEL Francois and orders have been reviewed. Charges/Coding Visit Charges Inpatient E&M: 45543 Subs Hosp L2
[2021-05-09] MEDS: Potassium Chloride Oral Tablet 20 MEQ 40 MEQ PO (12:24)
[2021-05-09] MEDS: QUEtiapine 25 MG Tablet 12.5 MG PO (17:22)
[2021-05-09] MEDS: Atorvastatin Calcium 80 MG Tablet PO (20:21)
[2021-05-09] MEDS: Doxazosin 1 MG Tablet PO (20:21)
[2021-05-09] MEDS: APIXABAN 5 MG TABLET PO (20:25)
--- NOTE | 2021-05-09 22:26 | NURSING ---
updated [facility] on pt condition
[2021-05-10] VITALS (8 sets, daily range): BP systolic 83–105; BP diastolic 64–88; PULSE 75–92; RESP 14–18; TEMP 36.3–37.1; O2SAT 95–100; BMI 23.1
[2021-05-10] MEDS: 0.9% Saline Lock 10 ML Syringe IV ×2 (03:36→09:30)
[2021-05-10] MEDS: 0.45% Normal Saline 1,000 ML 100 ML IV (03:36)
[2021-05-10] MEDS: Levothyroxine 75 MCG Tablet PO (05:02)
[2021-05-10 06:17] LABS: Absolute Lymphocyte Count 2.13 X10^3/uL (0.83-4.51); Absolute Neutrophil Count 4.2 X10^3/uL (2.0-7.7); Basophil# 0.04 X10^3/uL; Basophil% 0.5 % (0-1); Eosinophil# 0.91 X10^3/uL; Eosinophils% 11.5 % (0-5); Hematocrit 38.2 % (37-47); Hemoglobin 12.8 g/dL (12.0-15.0); Lymphocyte # 2.13 X10^3/ul (0.83-4.51); Lymphocyte % 26.9 % (19-41); Mean Corp Hgb Conc 33.5 g/dL (32-36); Mean Corpuscular Hgb 32.7 pg (27.0-32.0); Mean Corpuscular Volume 97.4 fL (81-99); Mean Platelet Vol. 11.8 fl (6.2-12.0); Monocyte% 7.6 % (0-10); NRBC Flagged by Analyzer 0 % (0-5); Neutrophil # 4.19 X10^3/uL (2.7-7.7); Neutrophil % 52.7 % (47-70); Platelet Count 194 K/mm3 (150-450); RBC Distribution Width CV 12.3 % (11.6-14.6); RBC Distribution Width SD 43.8 fl (35.1-43.9); Red Blood Count 3.92 M/mm3 (4.2-5.4); White Blood Count 7.9 K/mm3 (4.4-11.0)
[2021-05-10 06:43] LABS: Anion Gap 5 (5-15); BUN 17 mg/dL (7-18); BUN/Creat Ratio 28.7 RATIO (10-20); Calcium,Total 9.4 mg/dL (8.5-10.1); Chloride 113 mmol/L (98-107); Creatinine, Serum 0.59 mg/dL (0.55-1.02); EST Glomerular Filtration Rate 108 mL/min (>60); Est Glom Filt Rate - Afr Amer 130 mL/min (>60); Glucose 85 mg/dL (74-106); Potassium 3.5 mmol/L (3.5-5.1); Sodium Level 145 mmol/L (136-145)
[2021-05-10] MEDS: APIXABAN 5 MG TABLET PO (09:30)
[2021-05-10] MEDS: Gabapentin 300 MG Capsule PO (09:30)
[2021-05-10] MEDS: Fluticasone 0.05% 1 SPRAY NASAL.SRY NASAL (09:30)
[2021-05-10] MEDS: Aspirin 81 MG TAB.CHEW PO (09:30)
[2021-05-10] MEDS: Menthol/Lanolin/Calamine/Znox 113 GM Tube 1 APPLIC TOPICAL (09:31)
--- NOTE | 2021-05-10 10:06 | TREXTCAR_ITS ---
Documented by User: THEO WellerC 05/10/21 10:16 Diet 05/07/21 20:13 Diet: Cardiac - Heart Healthy Food consistency:: Mechanical (Minced/Moist) Liquid Consistency:: Regular/Thin Is pt able to select menu?: No Routine Orders/Code Status Enema Type: Fleetz Enema Frequency: Daily PRN Suppository Type: Dulcolax 10mg Suppository Frequency: Daily PRN Routine Lab Work: CBC and BMP Code Status: Full Code Suggestions for Active Care Change Position every (hours): 2 Therapies Physical Therapy: Eval and Treat Occupational Therapy: Eval and Treat Speech Therapy: Eval and Treat Problem/Diagnosis (1) CVA (cerebral vascular accident): Status: Acute Allergies/Procedures Done in Hospital Allergies No Known Allergies Allergy (Verified 05/07/21 16:17) Type of Care/Length of Stay Estimated LOS: Convalescent Care Less Than 30 days Type of Care Needed: Skilled Rehab Potential: Fair Prognosis: Fair Additional Orders/Day of Discharge Day of Discharge: 05/10/21 Dietary and Speech Recommendations Dietitian Recommendations/Changes: continue cardiac diet, texture/consistency modification per [employer]. Continue 120mL ensure enlive 4x/day w/ medpass. Speech Linguistic Eval Summary: Patient presents w/ moderate-severe mixed expressive and receptive aphasia characterized by impaired orientation, auditory comprehension and verbal expression. Oriented to self, only w/ noted perseveration on words. Oriented to month only, unable to recall year, current city/state, or where she is at. Fluent verbal expression with patient perseverating on previous responses, word substitutions, and paraphasias. Given simple yes/no questions - responded no 100% of the time. ST wrote down yes/no choices w/ patient continued to respond no for 100% of opportunities. Given 60s - able to name 0 animals despite MAX verbal cues w/ patient responding animals repeatedly. 1 step directions w/ verbal cue - 50% acc. Discharge Plan Admission Admit Date/Time: 05/07/21 19:05 Primary Reason for Your Visit: CVA Attending Provider: Chadwick Doyle Primary Care Provider: Kirt Salazar Instructions Additional Instructions / Restrictions: Push PO water intake to keep sodium normal Discharge Orders/Prescriptions Prescriptions: New atorvastatin 80 mg Tablet 80 mg PO QHS Qty: 0 RF: 0 Continued fluticasone propion-salmeterol [Wixela Inhub] 250-50 mcg/dose blister with device 1 inh INHALATION BID RF: 0 levothyroxine [Euthyrox] 75 mcg tablet 75 mcg PO DAILY RF: 0 losartan 100 mg tablet 100 mg PO QHS RF: 0 fluticasone propionate 50 mcg/actuation spray,suspension 1 spray INTRANASAL DAILY RF: 0 aspirin 81 mg tablet,chewable 81 mg PO DAILY RF: 0 Eliquis 5 mg tablet 5 mg PO BID RF: 0 lidocaine [Salonpas (lidocaine)] 4 % Adhesive Patch,Medicated 1 patch TOPICAL BID RF: 0 melatonin 3 mg Tablet 3 mg PO QHS RF: 0 albuterol sulfate [Proventil HFA] 90 mcg/actuation Hfa Aerosol Inhaler 2 puff INHALATION Q6H PRN PRN (Reason: SOB/Wheezing) RF: 0 cholecalciferol (vitamin D3) 1,250 mcg (50,000 unit) Capsule 1,250 mcg PO QWEEK RF: 0 loperamide 2 mg Capsule 2 mg PO Q6H PRN PRN (Reason: diarrhea.) Qty: 1 RF: 0 doxazosin 1 mg Tablet 1 mg PO QHS Qty: 1 RF: 0 quetiapine 25 mg Tablet 12.5 mg PO 1800 Qty: 1 RF: 0 menthol-zinc oxide [Calmoseptine] 0.44-20.6 % Ointment 1 applic topical BID Qty: 1 RF: 0 acetaminophen 325 mg Tablet 650 mg PO TID RF: 0 mineral oil Enema 118 ml AK DAILY PRN (Reason: Constipation) RF: 0 gabapentin 300 mg Tablet 300 mg PO BID RF: 0 bisacodyl 10 mg suppository 10 mg AK DAILY PRN PRN (Reason: Constipation) RF: 0 atenolol 100 mg tablet 50 mg PO DAILY Qty: 0 RF: 0 Discontinued atorvastatin 80 mg tablet 40 mg PO QHS RF: 0 magnesium hydroxide [Milk of Magnesia] 400 mg/5 mL Suspension 5 ml PO DAILY PRN (Reason: Constipation) RF: 0 magnesium hydroxide 400 mg/5 mL suspension 30 ml PO DAILY RF: 0 Referrals / Follow Up: Kirt Salazar MD [Primary Care Provider] - Within 2 Weeks Disposition Disposition (needs filled in before D/C Order can be placed): [facility]-Way Facility Documented by User: Dr. Chadwick Doyle MD 05/10/21 10:42 Allergies/Procedures Done in Hospital Allergies No Known Allergies Allergy (Verified 05/07/21 16:17) Discharge Plan Admission Admit Date/Time: 05/07/21 19:05 Primary Reason for Your Visit: CVA Attending Provider: Chadwick Doyle Primary Care Provider: Kirt Salazar Instructions Additional Instructions / Restrictions: Push PO water intake to keep sodium normal Discharge Orders/Prescriptions Prescriptions: New atorvastatin 80 mg Tablet 80 mg PO QHS Qty: 0 RF: 0 Continued fluticasone propion-salmeterol [Wixela Inhub] 250-50 mcg/dose blister with device 1 inh INHALATION BID RF: 0 levothyroxine [Euthyrox] 75 mcg tablet 75 mcg PO DAILY RF: 0 losartan 100 mg tablet 100 mg PO QHS RF: 0 fluticasone propionate 50 mcg/actuation spray,suspension 1 spray INTRANASAL DAILY RF: 0 aspirin 81 mg tablet,chewable 81 mg PO DAILY RF: 0 Eliquis 5 mg tablet 5 mg PO BID RF: 0 lidocaine [Salonpas (lidocaine)] 4 % Adhesive Patch,Medicated 1 patch TOPICAL BID RF: 0 melatonin 3 mg Tablet 3 mg PO QHS RF: 0 albuterol sulfate [Proventil HFA] 90 mcg/actuation Hfa Aerosol Inhaler 2 puff INHALATION Q6H PRN PRN (Reason: SOB/Wheezing) RF: 0 cholecalciferol (vitamin D3) 1,250 mcg (50,000 unit) Capsule 1,250 mcg PO QWEEK RF: 0 loperamide 2 mg Capsule 2 mg PO Q6H PRN PRN (Reason: diarrhea.) Qty: 1 RF: 0 doxazosin 1 mg Tablet 1 mg PO QHS Qty: 1 RF: 0 quetiapine 25 mg Tablet 12.5 mg PO 1800 Qty: 1 RF: 0 menthol-zinc oxide [Calmoseptine] 0.44-20.6 % Ointment 1 applic topical BID Qty: 1 RF: 0 acetaminophen 325 mg Tablet 650 mg PO TID RF: 0 mineral oil Enema 118 ml [place] DAILY PRN (Reason: Constipation) RF: 0 gabapentin 300 mg Tablet 300 mg PO BID RF: 0 bisacodyl 10 mg suppository 10 mg AK DAILY PRN PRN (Reason: Constipation) RF: 0 atenolol 100 mg tablet 50 mg PO DAILY Qty: 0 RF: 0 Discontinued atorvastatin 80 mg tablet 40 mg PO QHS RF: 0 magnesium hydroxide [Milk of Magnesia] 400 mg/5 mL Suspension 5 ml PO DAILY PRN (Reason: Constipation) RF: 0 magnesium hydroxide 400 mg/5 mL suspension 30 ml PO DAILY RF: 0 Referrals / Follow Up: Kirt Salazar MD [Primary Care Provider] - Within 2 Weeks Disposition Disposition (needs filled in before D/C Order can be placed): Half-Way Facility
--- NOTE | 2021-05-10 10:16 | PCM.DC.SUM ---
Documented by User: ANDREW Weller 05/10/21 10:24 Providers Date of Admission: 05/07/21 Primary Care Physician: Dr. Kirt Salazar MD Reason For Visit: HYPERNATREMIA/METABOLIC ENCEPHALOPATHY Diagnosis Discharge Diagnosis (1) CVA (cerebral vascular accident): Status: Acute Code(s): I63.9 - Cerebral infarction, unspecified Qualifiers: CVA mechanism: unspecified Qualified Code(s): I63.9 - Cerebral infarction, unspecified Medications at Discharge Home Medications fluticasone propion-salmeterol [Wixela Inhub] 1 inh INHALATION BID 12/10/20 fluticasone propionate 1 spray INTRANASAL DAILY 12/10/20 levothyroxine [Euthyrox] 75 mcg PO DAILY 12/10/20 losartan 100 mg PO QHS 12/10/20 Eliquis 5 mg PO BID 12/14/20 aspirin 81 mg PO DAILY 12/14/20 albuterol sulfate [Proventil HFA] 2 puff INHALATION Q6H PRN PRN 12/25/20 cholecalciferol (vitamin D3) 1,250 mcg PO QWEEK 12/25/20 lidocaine [Salonpas (lidocaine)] 1 patch TOPICAL BID 12/25/20 melatonin 3 mg PO QHS 12/25/20 doxazosin 1 mg PO QHS #1 tab 01/14/21 loperamide 2 mg PO Q6H PRN PRN #1 cap 01/14/21 menthol-zinc oxide [Calmoseptine] 1 applic TOPICAL BID #1 g 01/14/21 quetiapine 12.5 mg PO 1800 #1 tab 01/14/21 acetaminophen 650 mg PO TID 05/07/21 bisacodyl 10 mg NC DAILY PRN PRN 05/07/21 gabapentin 300 mg PO BID 05/07/21 mineral oil 118 ml NC DAILY PRN 05/07/21 atenolol 50 mg PO DAILY #0 tab 05/10/21 atorvastatin 80 mg PO QHS #0 tab 05/10/21 Hospital Course Operations None Procedures None Summary of Care Provided Minutes Spent on Discharge: 35 Hospital Course: Is a 65-year-old female who initially presented with increased confusion. Patient has a history of stroke in November and at baseline has some confusion. Patient also has history of Asperger's which complicates evaluation of mental status. Patient has been on Eliquis and aspirin since her initial stroke in November 2020. Patient also was hypernatremic and hyperchloremic upon presentation. Patient labs now within normal limits. Patient will be discharged to [facility] with recommendations for continued PT, OT, ST. It is also recommended that patient undergo CBC and BMP within the next week to track sodium levels. Per recommendations from [facility] teleneurology patient will be continued on aspirin and Eliquis. Patient's statin was increased from 40 mg daily to 80 mg daily. Physical Exam Const alert, no apparent distress and average body habitus General Appearance: cooperative Orientation / Consciousness: confused and disoriented HEENT normocephalic, head/scalp atraumatic and moist oral mucous membranes Eyes conjunctivae normal and no scleral icterus Neck full ROM, no lymphadenopathy and supple General: trachea midline Resp normal respiratory effort, normal air movement, no retractions, no use of accessory muscles and clear to auscultation bilaterally Auscultation: Negative for crackles Cardio regular rate, regular rhythm, S1 normal heart sound, S2 normal heart sound, no clicks and no JVD GI normal to inspection, nondistended, normoactive bowel sounds, soft to palpation and non-tender Extremity normal to inspection, normal capillary refill and no clubbing, cyanosis or edema General Extremity: no tenderness to palpation of joints or extremities Skin no rashes or lesions noted, no wounds, skin turgor normal, no jaundice, no petechiae and no mottling Skin Narrative: Bruises stage of healing on bilateral shins Neuro Neuro Narrative: Right hemiparesis noted, chronic from past stroke Sensorium / Orientation: awake, alert, orientation impaired and confused Speech: speech abnormal Details: Positive for other (Repetitive) Psych Psych Narrative: Strange affect, patient is somewhat flat Attitude: bizarre Activity / Motor Behavior: fidgetting and restless Speech: echolalia Mood & Affect: flat affect Thought Process: disorganized and confused Weight / BMI Weight Weight: 144 lb 13.499 oz Body Mass Index (BMI) 23.1 ABG / Lab / Microbiology Data Result Diagrams: 05/10/21 05:45 05/10/21 05:45 Laboratory: Laboratory Results - last 24 hr 05/10/21 05:45: WBC 7.9, RBC 3.92 L, Hgb 12.8, Hct 38.2, MCV 97.4 D, MCH 32.7 H, MCHC 33.5, RDW Std Deviation 43.8, RDW Coeff of Chasity 12.3, Plt Count 194, MPV 11.8, Immature Gran % (Auto) 0.800, Neut % (Auto) 52.7, Lymph % (Auto) 26.9, [place] % (Auto) 7.6, Eos % (Auto) 11.5 H, Baso % (Auto) 0.5, Absolute Neuts (auto) 4.2, Absolute Lymphs (auto) 2.13, Nucleated RBC % 0 05/10/21 05:45: Sodium 145, Potassium 3.5, Chloride 113 H, Carbon Dioxide 27.0, Anion Gap 5, BUN 17, Creatinine 0.59, Estim Creat Clear Calc 49.80, Est GFR (MDRD) Af Amer 130, Est GFR (MDRD) Non-Af 108, BUN/Creatinine Ratio 28.7 H, Glucose 85, Calcium 9.4 Microbiology: Microbiology 05/07/21 17:05 Urine, Catheterized Urine Culture - Final Culture exhibits no growth. 05/07/21 17:00 Nasal Secretion SARS-CoV-2 Antigen (Rapid) - Final D/C Instructions Discharge Diet: Low fat / Low cholesterol Discharge Activity: Return to Normal Activity Call your doctor if you observe: Numbness or Tingling Meaningful Use Info Meaningful Use Diagnoses (Choose all that apply): Ischemic CVA CVA Therapy Assessed for PT,OT and/or ST?: Yes Ischemic Stroke Antithrombotic order at d/c?: Yes Dx of Atrial fib/flutter?: Yes Anticoagulant at discharge?: Yes Statins at discharge?: Yes Primary Dx Acute Ischemic CVA?: Yes IV tPA ordered during stay?: No Reason IV t-PA not ordered: Medical Contraindication Discharge Plan Admission Admit Date/Time: 05/07/21 19:05 Primary Reason for Your Visit: CVA Attending Provider: Chadwick Doyle Primary Care Provider: Kirt Salazar Instructions Additional Instructions / Restrictions: Patient Problems: Altered Health Status related to Hospitalization Patient Goals: *Optimal Level of Health *Keep Appointments *Medication Compliance *Remain SafePush PO water intake to keep sodium normal Discharge Orders/Prescriptions Prescriptions: New atorvastatin 80 mg Tablet 80 mg PO QHS Qty: 0 RF: 0 Continued fluticasone propion-salmeterol [Wixela Inhub] 250-50 mcg/dose blister with device 1 inh INHALATION BID RF: 0 levothyroxine [Euthyrox] 75 mcg tablet 75 mcg PO DAILY RF: 0 losartan 100 mg tablet 100 mg PO QHS RF: 0 fluticasone propionate 50 mcg/actuation spray,suspension 1 spray INTRANASAL DAILY RF: 0 aspirin 81 mg tablet,chewable 81 mg PO DAILY RF: 0 Eliquis 5 mg tablet 5 mg PO BID RF: 0 lidocaine [Salonpas (lidocaine)] 4 % Adhesive Patch,Medicated 1 patch TOPICAL BID RF: 0 melatonin 3 mg Tablet 3 mg PO QHS RF: 0 albuterol sulfate [Proventil HFA] 90 mcg/actuation Hfa Aerosol Inhaler 2 puff INHALATION Q6H PRN PRN (Reason: SOB/Wheezing) RF: 0 cholecalciferol (vitamin D3) 1,250 mcg (50,000 unit) Capsule 1,250 mcg PO QWEEK RF: 0 loperamide 2 mg Capsule 2 mg PO Q6H PRN PRN (Reason: diarrhea.) Qty: 1 RF: 0 doxazosin 1 mg Tablet 1 mg PO QHS Qty: 1 RF: 0 quetiapine 25 mg Tablet 12.5 mg PO 1800 Qty: 1 RF: 0 menthol-zinc oxide [Calmoseptine] 0.44-20.6 % Ointment 1 applic topical BID Qty: 1 RF: 0 acetaminophen 325 mg Tablet 650 mg PO TID RF: 0 mineral oil Enema 118 ml NC DAILY PRN (Reason: Constipation) RF: 0 gabapentin 300 mg Tablet 300 mg PO BID RF: 0 bisacodyl 10 mg suppository 10 mg NC DAILY PRN PRN (Reason: Constipation) RF: 0 atenolol 100 mg tablet 50 mg PO DAILY Qty: 0 RF: 0 Discontinued atorvastatin 80 mg tablet 40 mg PO QHS RF: 0 magnesium hydroxide [Milk of Magnesia] 400 mg/5 mL Suspension 5 ml PO DAILY PRN (Reason: Constipation) RF: 0 magnesium hydroxide 400 mg/5 mL suspension 30 ml PO DAILY RF: 0 Referrals / Follow Up: Kirt Salazar MD [Primary Care Provider] - Within 2 Weeks Disposition Disposition (needs filled in before D/C Order can be placed): [facility] Documented by User: Dr. Chadwick Doyle MD 05/10/21 15:32 Providers Date of Admission: 05/07/21 Reason For Visit: HYPERNATREMIA/METABOLIC ENCEPHALOPATHY Medications at Discharge Home Medications fluticasone propion-salmeterol [Wixela Inhub] 1 inh INHALATION BID 12/10/20 fluticasone propionate 1 spray INTRANASAL DAILY 12/10/20 levothyroxine [Euthyrox] 75 mcg PO DAILY 12/10/20 losartan 100 mg PO QHS 12/10/20 Eliquis 5 mg PO BID 12/14/20 aspirin 81 mg PO DAILY 12/14/20 albuterol sulfate [Proventil HFA] 2 puff INHALATION Q6H PRN PRN 12/25/20 cholecalciferol (vitamin D3) 1,250 mcg PO QWEEK 12/25/20 lidocaine [Salonpas (lidocaine)] 1 patch TOPICAL BID 12/25/20 melatonin 3 mg PO QHS 12/25/20 doxazosin 1 mg PO QHS #1 tab 01/14/21 loperamide 2 mg PO Q6H PRN PRN #1 cap 01/14/21 menthol-zinc oxide [Calmoseptine] 1 applic TOPICAL BID #1 g 01/14/21 quetiapine 12.5 mg PO 1800 #1 tab 01/14/21 acetaminophen 650 mg PO TID 05/07/21 bisacodyl 10 mg NC DAILY PRN PRN 05/07/21 gabapentin 300 mg PO BID 05/07/21 mineral oil 118 ml NC DAILY PRN 05/07/21 atenolol 50 mg PO DAILY #0 tab 05/10/21 atorvastatin 80 mg PO QHS #0 tab 05/10/21 Hospital Course Summary of Care Provided Hospital Course: This patient was seen in conjunction with RACIEL Francois. I have independently interviewed and examined the patient and reviewed pertinent history, examination findings, laboratory and plan of management. I have reviewed the note and agree with the documented findings with the few additional points. In brief, patient is a 65-year-old female with history of previous stroke in November 2020, Asperger's disorder admitted with abnormal labs, hyponatremia, increased confusion not following commands from extended facility. She had large left-sided ischemic stroke in November 2020 with significant residual deficit on the right side. It seems it was cardioembolic type and was started on Eliquis and baby aspirin since then. This time, CT head showed subacute 3 to 10 days old left occipital infarct. She is confused, disoriented repetitive behavior. Patient had recent echo in November which was negative for PFO therefore not repeated. 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 Head and neck CTA shows severe 80% right ICA stenosis which seems chronic after talking to the family member was told he is not good surgical candidate. SOC consult was done and recommended to continue medical therapy. Continue speech therapy PT and OT as per stroke guidelines. SOC was reconsulted and recommended to continue aspirin and Eliquis. Recommend no further acute intervention regarding patient right ICA stenosis. Serum sodium level improved from 1 55-145. Advised to drink water 1.5 to 2 L daily to avoid hyponatremia in [facility]. Rest of the comorbidities as mentioned above Discharge medication reconciliation done. Discharge follow-up instructions completed. Discharge process discussed with the patient and all questions were answered to patient's satisfaction. Total time spent, exact 35 minutes on discharge meds reconciliation, examination, coordination of care with nurses and ancillary staff, review of imaging and blood test and discussion with the patient on follow-up instructions I have discussed my assessment with Priscila, [employer] and orders have been reviewed. Physical Exam Narrative Seen and examined. Patient is more verbal today. She tells me her date of but around age. She is oriented to time of the day. Oriented to place. General: Mild confused but improving. Follow simple command. HEENT: Atraumatic, PERRLA, EOMI, Normocephalic Oral: No Gingival or Mucosal Lesions/ Ulcerations Neck: Supple, No JVD, Negative Carotid Bruits Lungs: Air entry diminished in bilateral lung bases. No crepitation/rhonchi Cardiovascular: Regular rate, Regular Rhythm, Normal S1, Normal S2, No murmurs Abdomen: Bowel Sounds Present, Soft, Non Tender, Non-Distended : No renal angle tenderness. No suprapubic tenderness. Extremities: No edema, Capillary Refill Less than 3 Seconds Skin: No rashes, No breakdown Musculoskeletal: No Tenderness to Palpation of Joints or Extremities Neurological: Detailed neuro exam unobtainable. Right upper extremity weakness. Seems intermittent inattention/neglect Psych/Mental Status: Confused, disoriented. ABG / Lab / Microbiology Data Result Diagrams: 05/10/21 05:45 05/10/21 05:45 Discharge Plan Admission Admit Date/Time: 05/07/21 19:05 Primary Reason for Your Visit: CVA Attending Provider: Chadwick Doyle Primary Care Provider: Kirt Salazar Instructions Additional Instructions / Restrictions: Patient Problems: Altered Health Status related to Hospitalization Patient Goals: *Optimal Level of Health *Keep Appointments *Medication Compliance *Remain SafePush PO water intake to keep sodium normal Discharge Orders/Prescriptions Prescriptions: New atorvastatin 80 mg Tablet 80 mg PO QHS Qty: 0 RF: 0 Continued fluticasone propion-salmeterol [Wixela Inhub] 250-50 mcg/dose blister with device 1 inh INHALATION BID RF: 0 levothyroxine [Euthyrox] 75 mcg tablet 75 mcg PO DAILY RF: 0 losartan 100 mg tablet 100 mg PO QHS RF: 0 fluticasone propionate 50 mcg/actuation spray,suspension 1 spray INTRANASAL DAILY RF: 0 aspirin 81 mg tablet,chewable 81 mg PO DAILY RF: 0 Eliquis 5 mg tablet 5 mg PO BID RF: 0 lidocaine [Salonpas (lidocaine)] 4 % Adhesive Patch,Medicated 1 patch TOPICAL BID RF: 0 melatonin 3 mg Tablet 3 mg PO QHS RF: 0 albuterol sulfate [Proventil HFA] 90 mcg/actuation Hfa Aerosol Inhaler 2 puff INHALATION Q6H PRN PRN (Reason: SOB/Wheezing) RF: 0 cholecalciferol (vitamin D3) 1,250 mcg (50,000 unit) Capsule 1,250 mcg PO QWEEK RF: 0 loperamide 2 mg Capsule 2 mg PO Q6H PRN PRN (Reason: diarrhea.) Qty: 1 RF: 0 doxazosin 1 mg Tablet 1 mg PO QHS Qty: 1 RF: 0 quetiapine 25 mg Tablet 12.5 mg PO 1800 Qty: 1 RF: 0 menthol-zinc oxide [Calmoseptine] 0.44-20.6 % Ointment 1 applic topical BID Qty: 1 RF: 0 acetaminophen 325 mg Tablet 650 mg PO TID RF: 0 mineral oil Enema 118 ml NC DAILY PRN (Reason: Constipation) RF: 0 gabapentin 300 mg Tablet 300 mg PO BID RF: 0 bisacodyl 10 mg suppository 10 mg NC DAILY PRN PRN (Reason: Constipation) RF: 0 atenolol 100 mg tablet 50 mg PO DAILY Qty: 0 RF: 0 Discontinued atorvastatin 80 mg tablet 40 mg PO QHS RF: 0 magnesium hydroxide [Milk of Magnesia] 400 mg/5 mL Suspension 5 ml PO DAILY PRN (Reason: Constipation) RF: 0 magnesium hydroxide 400 mg/5 mL suspension 30 ml PO DAILY RF: 0 Referrals / Follow Up: Kirt Salazar MD [Primary Care Provider] - Within 2 Weeks Disposition Disposition (needs filled in before D/C Order can be placed): [facility] Charges/Coding Visit Charges Inpatient E&M: 02426 Disch Hosp
--- NOTE | 2021-05-10 11:28 | CASEMGMT ---
Patient is ready for discharge back to [facility] today. MICKI notified Marisol at [facility]. SW obtained orders. MICKI arranged for patient to get picked up at via [facility]. SW faxed orders, negative COVID test within 72 hrs, and pick remover time to [facility]. MICKI also notified RN, admin secretary, and patient's sister, Milka. All in agreement with discharge plan. Discharge back to [facility] under skilled level of care. [facility]. Wendy JOINER
--- NOTE | 2021-05-10 11:49 | NURSING ---
report called to shreya at [facility]
== END 2021-05-10 13:10 | DRG 64 ==
LOC: ED 19:16 → PCU 19:32
PROVIDERS: Nurse Practitioner Family; Physician Assistant; Admitting Provider Internal Medicine; Emergency Provider Emergency Medicine; PCP Family Medicine; Visit Provider Internal Medicine
DX: I63.89 Other cerebral infarction (principal); G93.41 Metabolic encephalopathy; I69.351 Hemiplegia and hemiparesis following cerebral infarction affecting right dominant side; F84.5 Asperger's syndrome; E87.0 Hyperosmolality and hypernatremia; I48.19 Other persistent atrial fibrillation; E78.5 Hyperlipidemia, unspecified; I10 Essential (primary) hypertension; E86.0 Dehydration; E03.9 Hypothyroidism, unspecified; I27.20 Pulmonary hypertension, unspecified; D75.1 Secondary polycythemia; I95.9 Hypotension, unspecified; R13.10 Dysphagia, unspecified; Z79.899 Other long term (current) drug therapy; Z79.01 Long term (current) use of anticoagulants; Z79.82 Long term (current) use of aspirin
CPT/HCPCS: 36415; 70450; 70496; 70498; 70551; 71045; 80048; 80053; 80061; 81001; 82962; 83036; 83735; 84100; 84443; 85025; 87086; 87426; 92507; 92523; 92526; 92610; 93005; 94640; 97110; 97163; 97166; 97530; 97535; 97802; 99251; 99285; J7030; P9612; Q9967; A4216; G0463

== ENCOUNTER 2021-06-10 12:38 | Inpatient (IN) | payer MEDICARE, MEDICAID, SELFPAY ==
[2021-06-10] VITALS (14 sets, daily range): BP systolic 72–110; BP diastolic 47–85; PULSE 76–103; RESP 12–18; TEMP 36.2–36.8; O2SAT 96–100; BMI 25.4; BMI 24.8
--- NOTE | 2021-06-10 13:16 | CT_ITS ---
STUDY: CT BRAIN WITHOUT CONTRAST REASON FOR EXAM: Female, 65 years old. Weakness RADIATION DOSAGE (If Supplied By Facility): CTDIvol = ( 47.06 ) mGy, DLP = ( 1674.78 ) mGycm TECHNIQUE: Transaxial CT imaging of the brain was performed without administration of intravenous contrast material. Individualized dose optimization techniques were used for this CT. COMPARISON: Comparison is made with prior examination dated 05/08/2021. FINDINGS: Normal soft tissue structures. Normal calvarium. There is mild cerebral atrophy with widening of the extra-axial spaces and ventricular dilatation. There are areas of decreased attenuation within the white matter tracts of the supratentorial brain, consistent with microvascular disease changes. Stable focal area of decreased attenuation in the posterior right parieto-occipital lobe. Tiny lacuna is seen in the left side of the iain. This is unchanged. Stable lacunar infarcts in the left thalamus. Stable encephalomalacia in the posterior left parietal occipital lobes. Normal cerebellum. There is no intracranial hemorrhage. There are no findings of an acute ischemic infarction. Atherosclerotic plaque formation of the carotid arteries and cavernous portions of the internal carotid arteries bilaterally. Normal visualized paranasal sinuses. CT/Brain/Head without Contrast IMPRESSION: Stable examination. No acute abnormality is seen. Electronically Signed: Yony Schmidt MD at 14:08 EST , Service support ,
--- NOTE | 2021-06-10 13:17 | EKG12_ITS ---
Test Reason : ALT LOC Blood Pressure : / mmHG Vent. Rate : 095 BPM Atrial Rate : 059 BPM P-R Int : 000 ms QRS Dur : 080 ms QT Int : 322 ms P-R-T Axes : 000 029 226 degrees QTc Int : 404 ms Atrial fibrillation Low voltage QRS Nonspecific ST and T wave abnormality Abnormal ECG Confirmed by ALESHA FARR, WILMA ([id number]), editor department JANELL BANGURA ([id number]) on 06/12/2021 9:07:19 AM Referred By: ART Confirmed By:WILMA EDUARDO MD
--- NOTE | 2021-06-10 13:18 | EDS_ITS ---
HPI History of Present Illness Chief Complaint: Hypotension Informant: patient, EMS and SNF Narrative Narrative: Patient sent in from the [facility] after being found unresponsive sometime between 10 AM and noon today. She reported was last seen by her nurse around 6 AM. They do note that her blood pressure is low. Patient has a history of Asperger's as well as prior stroke. She has limited verbal skills at this time. Patient will nod her head for me. She states that she does not have any pain and does not feel short of breath. [facility] also felt that her left side was flaccid. She has right hemiparesis from a prior stroke. [facility] Medical History Acute embolic stroke Allergic rhinitis Aortic stenosis Asperger's disorder Asthma Biatrial enlargement CVA (cerebral vascular accident) Dysarthria Dyslipidemia Anjum-neglect of right side Hemianopsia Hirsutism Hypertension Hypothyroidism New onset atrial fibrillation Polycythemia Pulmonary hypertension Right hemiplegia Sleep-disordered breathing Stroke/cerebrovascular accident (~12/10/20) Home Medications fluticasone propion-salmeterol [Wixela Inhub] 1 inh INHALATION BID 12/10/20 [History Last Taken 12/10/20] fluticasone propionate 1 spray INTRANASAL DAILY 12/10/20 [History Last Taken 12/10/20] levothyroxine [Euthyrox] 75 mcg PO DAILY 12/10/20 [History Last Taken 12/10/20] losartan 100 mg PO QHS 12/10/20 [History Last Taken 12/10/20] Eliquis 5 mg PO BID 12/14/20 [History Last Taken Unknown] aspirin 81 mg PO DAILY 12/14/20 [History Last Taken Unknown] albuterol sulfate [Proventil HFA] 2 puff INHALATION Q6H PRN PRN 12/25/20 [History Last Taken Unknown] cholecalciferol (vitamin D3) 1,250 mcg PO QWEEK 12/25/20 [History Last Taken 12/19/20 10:00] lidocaine [Salonpas (lidocaine)] 1 patch TOPICAL BID 12/25/20 [History Last Taken Unknown] melatonin 3 mg PO QHS 12/25/20 [History Last Taken Unknown] doxazosin 1 mg PO QHS #1 tab 01/14/21 [Rx Last Taken Unknown] loperamide 2 mg PO Q6H PRN PRN #1 cap 01/14/21 [Rx Last Taken Unknown] menthol-zinc oxide [Calmoseptine] 1 applic TOPICAL BID #1 g 01/14/21 [Rx Last Taken Unknown] quetiapine 12.5 mg PO 1800 #1 tab 01/14/21 [Rx Last Taken Unknown] acetaminophen 650 mg PO TID 05/07/21 [History Last Taken Unknown] bisacodyl 10 mg DC DAILY PRN PRN 05/07/21 [History Last Taken Unknown] gabapentin 300 mg PO BID 05/07/21 [History Last Taken Unknown] mineral oil 118 ml DC DAILY PRN 05/07/21 [History Last Taken Unknown] atenolol 50 mg PO DAILY #0 tab 05/10/21 [Rx Last Taken Unknown] atorvastatin 80 mg PO QHS #0 tab 05/10/21 [Rx Last Taken Unknown] Allergy/AdvReac Type Severity Reaction Status Date / Time No Known Allergies Allergy Verified 05/07/21 16:17 Family History Other CAD (coronary artery disease) Cancer Surgical History History of appendectomy History of repair of laceration Social History number of children: 0 Smoking Status: Never smoker alcohol intake: never substance use type: does not use ROS ROS ED Review of Systems ROS Unobtainable: other Details: Limited review of systems secondary to patient's mental status. She would nod yes or no to some questions. Constitutional Constitutional ED: Denies chills or fever(s) Cardiovascular Cardiovascular: Denies chest pain Respiratory/Chest Respiratory/Chest: Denies cough or dyspnea Gastrointestinal Gastrointestinal: Denies abdominal pain or nausea Neurologic Neurologic: Reports weakness EXAM Physical Exam Const Vital Signs: 06/10/21 12:39 06/10/21 12:48 06/10/21 12:49 Temperature 98.2 F Temperature Source Oral Pulse Rate 76 90 Respiratory Rate 12 Respiratory Effort Normal Non-Labored Respiratory Pattern Normal Blood Pressure 72/51 L 92/67 Blood Pressure Mean 58 75 Pulse Ox 97 Oxygen Delivery Method Room Air Room Air 06/10/21 13:31 Temperature Temperature Source Pulse Rate 83 Respiratory Rate 12 Respiratory Effort Respiratory Pattern Blood Pressure 93/54 L Blood Pressure Mean 67 Pulse Ox 96 Oxygen Delivery Method Room Air Positive well nourished and well developed General Appearance ED: well developed and pallor HEENT Reports moist mucous membranes Eyes PERRL and EOMs intact bilaterally Neck supple Chest Wall inspection of chest normal and palpation of chest normal Resp normal respiratory effort and clear to auscultation bilaterally Cardio regular rate and regular rhythm GI non-tender GI Narrative: Dark brown to maroon-colored stool noted in depends. Stool sample sent. Auscultation: hypoactive bowel sounds Palpation: soft Neuro Neuro Narrative: Will nod yes and no to some questions. Right side hemiparesis from prior stroke. We will hold left arm up and will move left foot to command. Sensorium / Orientation: alert Skin no rashes or lesions noted General Skin Exam: pallor MDM MDM MDM Narrative Medical decision making narrative: CT head ordered. EKG, lab work, stool guaiac ordered. Patient given liter IV fluids. Lab Data Attestation: I reviewed the patient's lab results. Labs: Laboratory Results - last 24 hr 06/10/21 06/10/21 06/10/21 12:53 12:53 12:53 WBC 11.5 H RBC 2.92 L Hgb 9.6 L Hct 30.0 L MCV 102.7 H MCH 32.9 H MCHC 32.0 RDW Std Deviation 50.5 H RDW Coeff of Chasity 13.3 Plt Count 277 MPV 10.8 Immature Gran % (Auto) 0.500 Neut % (Auto) 71.1 H Lymph % (Auto) 14.6 L [place] % (Auto) 11.9 H Eos % (Auto) 1.5 Baso % (Auto) 0.4 Absolute Neuts (auto) 8.2 H Absolute Lymphs (auto) 1.68 Nucleated RBC % 0 PT 19.9 H INR 1.8 APTT 36.8 H Sodium 143 Potassium 5.1 Chloride 107 Carbon Dioxide 30.0 Anion Gap 6 BUN 60 H Creatinine 2.04 H Estim Creat Clear Calc 23.42 Est GFR (MDRD) Af Amer 31 L Est GFR (MDRD) Non-Af 26 L BUN/Creatinine Ratio 29.4 H Glucose 132 H Lactic Acid Calcium 9.6 Total Bilirubin 0.30 Direct Bilirubin 0.08 AST 36 ALT 57 H Alkaline Phosphatase 96 Total Protein 6.2 L Albumin 3.0 L Globulin 3.2 06/10/21 12:53 WBC RBC Hgb Hct MCV MCH MCHC RDW Std Deviation RDW Coeff of Chasity Plt Count MPV Immature Gran % (Auto) Neut % (Auto) Lymph % (Auto) [place] % (Auto) Eos % (Auto) Baso % (Auto) Absolute Neuts (auto) Absolute Lymphs (auto) Nucleated RBC % PT INR APTT Sodium Potassium Chloride Carbon Dioxide Anion Gap BUN Creatinine Estim Creat Clear Calc Est GFR (MDRD) Af Amer Est GFR (MDRD) Non-Af BUN/Creatinine Ratio Glucose Lactic Acid 2.1 H* Calcium Total Bilirubin Direct Bilirubin AST ALT Alkaline Phosphatase Total Protein Albumin Globulin Radiography Diagnostic Testing: Clinical Impression(s) from Imaging Studies Brain CT 06/10/21 13:16 IMPRESSION: Stable examination. No acute abnormality is seen. Electronically Signed: Yony Schmidt MD at 14:08 EST , Service support , EKG Initial EKG: Attestation: I personally reviewed and interpreted this EKG as follows: Interpretation: Atrial Fibrillation (A. fib at 95 with no acute ischemia. Nonspecific diffuse T wave flattening.) Treatment and Re-Evaluation Comments:: After 1 L IV fluids blood pressure is in the mid to upper 90s systolic. It appears her baseline blood pressure is anywhere between 88 and 108 systolic. Lab work reviewed. Lactic acid is elevated at 2.1. Patient has new renal insufficiency with a creatinine of 2.04. Hemoglobin is 9.6. This is dropped nearly 3 g in the last 1 month. Stool guaiac is positive. Protonix will be ordered. Patient is currently on Eliquis secondary to embolic strokes. Second liter IV fluid bolus has been ordered. CT head reveals no acute abnormality. I will speak with both GI as well as hospitalist for admission. Discharge Plan Dx/Rx/DC Orders Clinical Impression: GI bleed, Hypotension Disposition Disposition: [facility]
[2021-06-10] MEDS: 0.9% Normal Saline 1,000 ML 1000 ML IV (13:26)
[2021-06-10 13:29] LABS: Absolute Lymphocyte Count 1.68 X10^3/uL (0.83-4.51); Absolute Neutrophil Count 8.2 X10^3/uL (2.0-7.7); Basophil# 0.05 X10^3/uL; Basophil% 0.4 % (0-1); Eosinophil# 0.17 X10^3/uL; Eosinophils% 1.5 % (0-5); Hemoglobin 9.6 g/dL (12.0-15.0); Lymphocyte # 1.68 X10^3/ul (0.83-4.51); Lymphocyte % 14.6 % (19-41); Mean Corpuscular Hgb 32.9 pg (27.0-32.0); Mean Corpuscular Volume 102.7 fL (81-99); Mean Platelet Vol. 10.8 fl (6.2-12.0); Monocyte# 1.37 X10^3/uL; Monocyte% 11.9 % (0-10); NRBC Flagged by Analyzer 0 % (0-5); Neutrophil # 8.17 X10^3/uL (2.7-7.7); Neutrophil % 71.1 % (47-70); Platelet Count 277 K/mm3 (150-450); RBC Distribution Width CV 13.3 % (11.6-14.6); RBC Distribution Width SD 50.5 fl (35.1-43.9); Red Blood Count 2.92 M/mm3 (4.2-5.4); White Blood Count 11.5 K/mm3 (4.4-11.0)
--- NOTE | 2021-06-10 13:37 | ED.RN ---
PT. INCONTINENT OF STOOL. STOOL WAS LOOSE WITH DARK RED COLOR. DR. CORDOVA OBTAINED HEMOCCULT SPECIMEN.
[2021-06-10 13:39] LABS: AST(SGOT) 36 U/L (15-37); Alanine Aminotransfer ALT/SGPT 57 U/L (13-56); Alkaline Phosphatase 96 U/L (45-117); Anion Gap 6 (5-15); BUN 60 mg/dL (7-18); BUN/Creat Ratio 29.4 RATIO (10-20); Bilirubin, Direct 0.08 mg/dL (0.00-0.30); Calcium,Total 9.6 mg/dL (8.5-10.1); Chloride 107 mmol/L (98-107); Creatinine, Serum 2.04 mg/dL (0.55-1.02); EST Glomerular Filtration Rate 26 mL/min (>60); Est Glom Filt Rate - Afr Amer 31 mL/min (>60); Estimated Creatinine Clearance 23.42 ml/min; Globulin 3.2 g/dL (2.2-4.2); Glucose 132 mg/dL (74-106); International Normalized Ratio 1.8; Potassium 5.1 mmol/L (3.5-5.1); Protein, Total 6.2 g/dL (6.4-8.2); Prothrombin Time (Protime)PT. 19.9 SECONDS (11.7-14.9); Sodium Level 143 mmol/L (136-145)
[2021-06-10 13:40] LABS: Partial Thromboplast Time 36.8 Seconds (24.1-36.2)
[2021-06-10 13:49] LABS: Lactic Acid 2.1 mmol/L (0.4-1.9)
[2021-06-10] MEDS: 0.9% Normal Saline 1,000 ML 999 ML IV ×2 (13:56→15:02)
[2021-06-10] MEDS: 0.9% Normal Saline 1,000 ML 150 ML IV (14:42)
[2021-06-10 17:23] LABS: Reflex Lactate? Y
--- NOTE | 2021-06-10 18:09 | CON.PCM.GI_ITS ---
HPI Consult Data Date of Consult: 06/10/21 HPI Narrative HPI Narrative: NAOMI ANGUIANO, is a 65 F who presents after being found unresponsive around 10 AM this morning. She has a past medical history of multiple embolic strokes on aspirin and Eliquis therapy. She has right hemiparesis from a prior stroke. There was reports from the [facility] that she had blood in her diaper. When she arrived to the ED blood pressures were in the 50s systolic. She responded to 2 L of fluid resuscitation and has been maintaining a blood pressure in the 90s. 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 She also suffers from Asperger's but is able to hold full conversations and says that she was having some intermittent epigastric pain nonradiating that started yesterday. She received 40 mg of Protonix in the ED. She says that she has never had a colonoscopy. [facility] Medical History Acute embolic stroke Allergic rhinitis Aortic stenosis Asperger's disorder Asthma Biatrial enlargement CVA (cerebral vascular accident) Dysarthria Dyslipidemia Anjum-neglect of right side Hemianopsia Hirsutism Hypertension Hypothyroidism New onset atrial fibrillation Polycythemia Pulmonary hypertension Right hemiplegia Sleep-disordered breathing Stroke/cerebrovascular accident (~12/10/20) Home Medications fluticasone propion-salmeterol [Wixela Inhub] 1 inh INHALATION BID 12/10/20 [History Last Taken 06/10/21] fluticasone propionate 1 spray INTRANASAL DAILY 12/10/20 [History Last Taken 06/10/21] levothyroxine [Euthyrox] 75 mcg PO DAILY 12/10/20 [History Last Taken 06/10/21] losartan 100 mg PO QHS 12/10/20 [History Last Taken 06/09/21] Eliquis 5 mg PO BID 12/14/20 [History Last Taken 06/10/21] aspirin 81 mg PO DAILY 12/14/20 [History Last Taken 06/10/21] cholecalciferol (vitamin D3) 1,250 mcg PO WE 12/25/20 [History Last Taken 06/05/21] lidocaine [Salonpas (lidocaine)] 1 patch TOPICAL DAILY 12/25/20 [History Last Taken 06/09/21] melatonin 3 mg PO QHS 12/25/20 [History Last Taken 06/09/21] acetaminophen 650 mg PO TID 05/07/21 [History Last Taken 06/10/21] atenolol 50 mg PO DAILY 06/10/21 [History Last Taken 06/10/21] atorvastatin 80 mg PO QHS 06/10/21 [History Last Taken 06/09/21] doxazosin 1 mg PO QHS 06/10/21 [History Last Taken 06/09/21] gabapentin 300 mg PO BID 06/10/21 [History Last Taken 06/10/21] magnesium hydroxide 30 ml PO DAILY 06/10/21 [History Last Taken 06/10/21] menthol-zinc oxide [Calmoseptine] 1 applic TOPICAL BID 06/10/21 [History Last Taken 06/10/21] nut tx, lact-reduced, iron [Boost VHC] 120 ml PO TIDCM 06/10/21 [History Last Taken 06/10/21] quetiapine 12.5 mg PO DAILY@199906/10/21 [History Last Taken 06/09/21] Allergy/AdvReac Type Severity Reaction Status Date / Time No Known Allergies Allergy Verified 05/07/21 16:17 Family History Other CAD (coronary artery disease) Cancer Surgical History History of appendectomy History of repair of laceration Social History number of children: 0 Smoking Status: Never smoker alcohol intake: never substance use type: does not use ROS Review of Systems ROS Unobtainable: other Constitutional Constitutional: Denies fatigue, fever(s), poor appetite, weight gain or weight loss ENT HEENT: Denies mouth lesions Cardiovascular Cardiovascular: Denies abdominal bloating, abdominal edema or abdominal pain Respiratory/Chest Respiratory/Chest: Denies change in mental status, change in phlegm color, chest congestion or chest tightness Gastrointestinal Gastrointestinal: Denies belching, bloating, change in bowel habits, change in stool character, chewing difficulty, coffee ground emesis, constipation, cramping, diarrhea, dyspepsia, dysphagia, early satiety, excessive flatus, fecal incontinence, heartburn, hematemesis, hematochezia, hemorrhoids, loose stools, melena, nausea, odynophagia, rectal bleeding, tenesmus, vomiting or weight changes Genitourinary Genitourinary: Denies abdominal discomfort, burning urination or itching Musculoskeletal Musculoskeletal: Reports as per HPI; Denies muscle weakness or myalgias Integumentary Integumentary: Denies jaundice Neurologic Neurologic: Denies lack of coordination or weakness Psychiatric Psychiatric: Denies confusion, depression, memory loss, mood swings, paranoia or suicidal ideation Endocrine Endocrinology: Denies systems reviewed and no addt'l complaints, except as do cumented Hematologic/Lymphatic Hematologic/Lymphatic: Denies anemia, easy bleeding, easy bruising or lymphadenopathy Allergic/Immunologic Allergic/Immunologic: Denies systems reviewed and no addt'l complaints, except as documented Physical Exam Const alert General Appearance: cooperative Orientation / Consciousness: oriented to person HEENT hearing grossly normal bilaterally Head and Scalp: normal to inspection Face and Sinus: face symmetric Nose: external nose normal Mouth: oral and palatal mucosa normal Eyes conjunctivae normal General Eye: normal appearance of both eyes Neck full ROM General: normal visual inspection Lymph Lymphatic: no lymphadenopathy noted Chest inspection of chest normal and palpation of chest normal Chest: symmetrical chest wall rise Resp normal respiratory effort Effort and Inspection: able to speak in complete sentences Cardio regular rate GI non-distended Percussion: normal to percussion Rectal Exam: deferred Neuro Speech: speech normal Gait (Neuro): normal gait Lab / Micro Data Result Diagrams: 06/10/21 12:53 06/10/21 12:53 Labs: Laboratory Results - last 24 hr 06/10/21 12:53: WBC 11.5 H, RBC 2.92 L, Hgb 9.6 L, Hct 30.0 L, MCV 102.7 H, MCH 32.9 H, MCHC 32.0, RDW Std Deviation 50.5 H, RDW Coeff of Chasity 13.3, Plt Count 277, MPV 10.8, Immature Gran % (Auto) 0.500, Neut % (Auto) 71.1 H, Lymph % (Auto) 14.6 L, [place] % (Auto) 11.9 H, Eos % (Auto) 1.5, Baso % (Auto) 0.4, Abs olute Neuts (auto) 8.2 H, Absolute Lymphs (auto) 1.68, Nucleated RBC % 0 06/10/21 12:53: PT 19.9 H, INR 1.8, APTT 36.8 H 06/10/21 12:53: Sodium 143, Potassium 5.1, Chloride 107, Carbon Dioxide 30.0, Anion Gap 6, BUN 60 H, Creatinine 2.04 H, Estim Creat Clear Calc 23.42, Est GFR (MDRD) Af Amer 31 L, Est GFR (MDRD) Non-Af 26 L, BUN/Creatinine Ratio 29.4 H, Glucose 132 H, Calcium 9.6, Total Bilirubin 0.30, Direct Bilirubin 0.08, AST 36, ALT 57 H, Alkaline Phosphatase 96, Total Protein 6.2 L, Albumin 3.0 L, Globulin 3.2 06/10/21 12:53: Lactic Acid 2.1 H* Micro: Microbiology 06/10/21 13:19 Stool Stool Occult Blood ([facility]) - Final Occult Blood Positive Radiology Impression Brain CT 06/10/21 13:16 IMPRESSION: Stable examination. No acute abnormality is seen. Electronically Signed: Yony Schmidt MD at 14:08 EST , Service support , Assessment & Plan Assessment/Plan (1) GI bleed: PLAN: Acute GI bleed possibly secondary to peptic ulcer disease, AVMs, neoplasia. Patient should undergo an upper lower endoscopy to evaluate however lower GI tract as she will need to be on aspirin and anticoagulation therapy. She was explained alternatives, risk, benefits including not withstanding bleeding, infection, sepsis, perforation, need for emergent surgery . She will have an ASA of 3. Continue Protonix therapy. Hold antiplatelet therapy and anticoagulation. (2) Hypotension: PLAN: Hypotension likely secondary to acute GI bleed. Monitor hemoglobin to keep hematocrit greater than 30%. Transfuse for hemoglobin less than 8. Charges/Coding Visit Charges Inpatient E&M: 41654 Init Hosp L2
[2021-06-10 18:18] LABS: Lactic Acid 1.9 mmol/L (0.4-1.9)
--- NOTE | 2021-06-10 20:08 | HP.PCM.HOS_ITS ---
HPI - General General Date of Admission: 06/10/21 Chief Complaint: Hypotension, unresponsiveness and blood in the diaper found today in detention HPI Narrative NAOMI ANGUIANO, is a 65 F with multiple comorbidities including Asperger syndrome, recent admission in April 2021 for acute right-sided occipital/ORIENTAL RUG STRETCHER stroke. Patient on aspirin and Eliquis since November 2020 when she had significant residual deficit on the right side due to left-sided parieto-occipital ischemic stroke. This time patient was found hypotensive in the detention, and unresponsive between 10 AM and noon today as per ED documentation. She was last seen by nurse around 6 AM. When I see the patient, she is having repeated speech, echolalia stating she wants to go for fishing. She is not giving any meaningful history. She was found to have blood in the diaper and her blood p ressure was 50 systolic in ED. Blood pressure responded appropriately to IV fluid to her usual baseline in the 90s. Her blood pressure has been in the 90s in April 2021 admission. BP was better in the 110s and 120s in December 2020. Her most recent blood pressure was 105/85 Currently history is limited because of the rapidity of speech, Asperger syndrome although she knows that she is in hospital. [facility] Medical History Acute embolic stroke Allergic rhinitis Aortic stenosis Asperger's disorder Asthma Biatrial enlargement CVA (cerebral vascular accident) Dysarthria Dyslipidemia Anjum-neglect of right side Hemianopsia Hirsutism Hypertension Hypothyroidism New onset atrial fibrillation Polycythemia Pulmonary hypertension Right hemiplegia Sleep-disordered breathing Stroke/cerebrovascular accident (~12/10/20) Home Medications fluticasone propion-salmeterol [Wixela Inhub] 1 inh INHALATION BID 12/10/20 [History Last Taken 06/10/21] fluticasone propionate 1 spray INTRANASAL DAILY 12/10/20 [History Last Taken 06/10/21] levothyroxine [Euthyrox] 75 mcg PO DAILY 12/10/20 [History Last Taken 06/10/21] losartan 100 mg PO QHS 12/10/20 [History Last Taken 06/09/21] Eliquis 5 mg PO BID 12/14/20 [History Last Taken 06/10/21] aspirin 81 mg PO DAILY 12/14/20 [History Last Taken 06/10/21] cholecalciferol (vitamin D3) 1,250 mcg PO WE 12/25/20 [History Last Taken 06/05/21] lidocaine [Salonpas (lidocaine)] 1 patch TOPICAL DAILY 12/25/20 [History Last Taken 06/09/21] melatonin 3 mg PO QHS 12/25/20 [History Last Taken 06/09/21] acetaminophen 650 mg PO TID 05/07/21 [History Last Taken 06/10/21] atenolol 50 mg PO DAILY 06/10/21 [History Last Taken 06/10/21] atorvastatin 80 mg PO QHS 06/10/21 [History Last Taken 06/09/21] doxazosin 1 mg PO QHS 06/10/21 [History Last Taken 06/09/21] gabapentin 300 mg PO BID 06/10/21 [History Last Taken 06/10/21] magnesium hydroxide 30 ml PO DAILY 06/10/21 [History Last Taken 06/10/21] menthol-zinc oxide [Calmoseptine] 1 applic TOPICAL BID 06/10/21 [History Last Taken 06/10/21] nut tx, lact-reduced, iron [Boost VHC] 120 ml PO TIDCM 06/10/21 [History Last Taken 06/10/21] quetiapine 12.5 mg PO DAILY@199906/10/21 [History Last Taken 06/09/21] Allergy/AdvReac Type Severity Reaction Status Date / Time No Known Allergies Allergy Verified 05/07/21 16:17 Family History Other CAD (coronary artery disease) Cancer Surgical History History of appendectomy History of repair of laceration Social History number of children: 0 Smoking Status: Never smoker alcohol intake: never substance use type: does not use ROS ROS Narrative 14 system ROS is unobtainable due to inability to comprehend, Asperger syndrome and debility behavior Review of Systems ROS Unobtainable: due to encephalopathy and due to mental condition Vital Signs Vital Signs Vital Signs: 06/10/21 12:39 06/10/21 12:48 06/10/21 12:49 Temperature 98.2 F Temperature Source Oral Pulse Rate 76 90 Respiratory Rate 12 Respiratory Effort Normal Non-Labored Respiratory Pattern Normal Blood Pressure 72/51 L 92/67 Blood Pressure Mean 58 75 Blood Pressure Source Blood Pressure Position Blood Pressure Location Pulse Ox 97 Oxygen Delivery Method Room Air Room Air 06/10/21 13:31 06/10/21 14:53 06/10/21 14:57 Temperature 97.1 F L Temperature Source Temporal Pulse Rate 83 92 92 Respiratory Rate 12 14 16 Respiratory Effort Respiratory Pattern Blood Pressure 93/54 L 82/47 L 87/52 L Blood Pressure Mean 67 58 63 Blood Pressure Source Blood Pressure Position Blood Pressure Location Pulse Ox 96 100 98 Oxygen Delivery Method Room Air Room Air Room Air 06/10/21 16:00 06/10/21 16:09 06/10/21 16:53 Temperature Temperature Source Pulse Rate 93 Respiratory Rate 14 Respiratory Effort Respiratory Pattern Blood Pressure 94/55 L 98/51 L 99/58 L Blood Pressure Mean 68 66 71 Blood Pressure Source Blood Pressure Position Blood Pressure Location Pulse Ox 96 Oxygen Delivery Method Room Air Room Air 06/10/21 17:25 06/10/21 17:47 06/10/21 18:26 Temperature 97.9 F Temperature Source Temporal Pulse Rate 96 86 Respiratory Rate 14 16 Respiratory Effort Respiratory Pattern Blood Pressure 99/60 110/70 94/48 L Blood Pressure Mean 73 83 63 Blood Pressure Source Monitor Blood Pressure Position Semi-Fowlers Blood Pressure Location Right Arm Pulse Ox 96 99 Oxygen Delivery Method Room Air Room Air Room Air 06/10/21 19:05 Temperature Temperature Source Pulse Rate 91 Respiratory Rate Respiratory Effort Respiratory Pattern Blood Pressure Blood Pressure Mean Blood Pressure Source Blood Pressure Position Blood Pressure Location Pulse Ox Oxygen Delivery Method Weight Weight: 145 lb 11.609 oz Body Mass Index (BMI) 24.8 Physical Exam Narrative General: Awake, oriented x2, repeatedly behavior. HEENT: Atraumatic, PERRLA, EOMI, Normocephalic Oral: Oral mucosa moist. No Gingival or Mucosal Lesions/ Ulcerations Neck: Supple, No JVD, Negative Carotid Bruits Lungs: Air entry diminished in bilateral lung bases. No crepitation/rhonchi Cardiovascular: Irregular rhythm, A. fib, Normal S1, Normal S2, No murmurs Abdomen: Bowel Sounds Present, Soft, Non Tender, Non-Distended : No renal angle tenderness. No suprapubic tenderness. Extremities: No edema, Capillary Refill Less than 3 Seconds Skin: No rashes, No breakdown Musculoskeletal: No Tenderness to Palpation of Joints or Extremities Neurological: Neuro exam unobtainable, chronic left-sided weakness Psych/Mental Status: Normal Affect, Appropriate. Results Lab / Micro Data Result Diagrams: 06/10/21 12:53 06/10/21 12:53 Labs: Laboratory Results - last 24 hr 06/10/21 12:53: WBC 11.5 H, RBC 2.92 L, Hgb 9.6 L, Hct 30.0 L, MCV 102.7 H, MCH 32.9 H, MCHC 32.0, RDW Std Deviation 50.5 H, RDW Coeff of Chasity 13.3, Plt Count 277, MPV 10.8, Immature Gran % (Auto) 0.500, Neut % (Auto) 71.1 H, Lymph % (Auto) 14.6 L, [place] % (Auto) 11.9 H, Eos % (Auto) 1.5, Baso % (Auto) 0.4, Absolute Neuts (auto) 8.2 H, Absolute Lymphs (auto) 1.68, Nucleated RBC % 0 06/10/21 12:53: PT 19.9 H, INR 1.8, APTT 36.8 H 06/10/21 12:53: Sodium 143, Potassium 5.1, Chloride 107, Carbon Dioxide 30.0, Anion Gap 6, BUN 60 H, Creatinine 2.04 H, Estim Creat Clear Calc 23.42, Est GFR (MDRD) Af Amer 31 L, Est GFR (MDRD) Non-Af 26 L, BUN/Creatinine Ratio 29.4 H, Glucose 132 H, Calcium 9.6, Total Bilirubin 0.30, Direct Bilirubin 0.08, AST 36, ALT 57 H, Alkaline Phosphatase 96, Total Protein 6.2 L, Albumin 3.0 L, Globulin 3.2 06/10/21 12:53: Lactic Acid 2.1 H* 06/10/21 17:35: Lactic Acid 1.9 Micro: Microbiology 06/10/21 13:19 Stool Stool Occult Blood ([facility]) - Final Occult Blood Positive Radiology Impression Brain CT 06/10/21 13:16 IMPRESSION: Stable examination. No acute abnormality is seen. Electronically Signed: Yony Schmidt MD at 14:08 EST , Service support , Assessment & Plan Assessment/Plan (1) GI bleed: QUALIFIERS: GI bleed type/associated pathology: anorectal hemorrhage Qualified Code(s): K62.5 - Hemorrhage of anus and rectum PLAN: 1. Acute GI bleed most probably from apixaban and baby aspirin with hypotension and unresponsiveness: Patient was hypotensive and unresponsive in ECF. Blood pressure recovered after 3 L of normal saline bolus given in ER. Fluid is decreased to 100 mL Ringer lactate. On Protonix 40 IV twice daily. Patient seen by supervisor power reactor Dr. Luke. Plan for EGD and colonoscopy tomorrow AM. H&H now and if less than 8 g, will transfuse total of 2 units. Platelet count 277,000. Hold baby aspirin and apixaban. 2. Acute encephalopathy with unresponsiveness on background history of Asperger syndrome: Orientation cues. Avoid benzodiazepines/morphine. 3. Acute on symptomatic normocytic normochromic anemia due to acute GI blood loss: Hemoglobin dropped to 9.6 from her baseline around 12 g%. Rest as mentioned above. 4. Multiple cardioembolic stroke: Admission HPI, recent 2 strokes in November 2020 and April 2021. Continue statin. 5. Oropharyngeal dysphagia, most likely due to stroke: Currently on clear liquid diet, n.p.o. past midnight. Speech therapy evaluation. 6 chronic atrial fibrillation: Heart rate is controlled. Hold atenolol because of hypotension. Eliquis on hold as mentioned above. 7 dyslipidemia: Continue statin. 8 hypothyroidism: Continue Synthroid. TSH tomorrow a.m. 9 Asperger's disease: Difficult to ascertain patient's baseline. On Seroquel, continued Living will/advanced directive/end of life care: Full code unverified Charges/Coding Visit Charges Inpatient E&M: 74013 Init Hosp L3
[2021-06-10 20:17] LABS: Magnesium 3.4 mg/dL (1.6-2.6)
[2021-06-10] MEDS: Lactated Ringers 1,000 ML 100 ML IV (20:40)
[2021-06-10] MEDS: QUEtiapine 25 MG Tablet 12.5 MG PO (21:12)
[2021-06-10] MEDS: Menthol/Lanolin/Calamine/Znox 113 GM Tube 1 APPLIC TOPICAL (21:12)
[2021-06-10] MEDS: Atorvastatin Calcium 80 MG Tablet PO (21:13)
[2021-06-10] MEDS: Doxazosin 1 MG Tablet PO (21:13)
[2021-06-10] MEDS: MELATONIN 3 MG TABLET PO (21:13)
[2021-06-10] MEDS: Gabapentin 300 MG Capsule PO (22:38)
[2021-06-10] MEDS: Acetaminophen 325 MG Tablet 650 MG PO (22:38)
[2021-06-10 23:07] LABS: Hematocrit 23.2 % (37-47); Hemoglobin 7.7 g/dL (12.0-15.0)
[2021-06-11] VITALS (17 sets, daily range): BP systolic 85–124; BP diastolic 55–77; PULSE 74–103; RESP 16–18; TEMP 36.2–37.1; O2SAT 92–100; BMI 24.8
[2021-06-11] MEDS: Lactated Ringers 1,000 ML 100 ML IV (06:51)
[2021-06-11] MEDS: Magnesium Citrate 300 ML PO ×2 (07:51→09:06)
[2021-06-11] MEDS: Menthol/Lanolin/Calamine/Znox 113 GM Tube 1 APPLIC TOPICAL (09:07)
[2021-06-11] MEDS: Fluticasone 0.05% 1 SPRAY NASAL.SRY NASAL (09:08)
[2021-06-11] MEDS: Lidocaine 5% Patch 1 PATCH TOPICAL (09:08)
--- NOTE | 2021-06-11 09:15 | CASEMGMT ---
Patient is from [facility]. MICKI faxed updates to [place]. Wendy Carl INPATIENT SERVICES RN MARISEL
[2021-06-11 09:21] LABS: Absolute Lymphocyte Count 1.65 X10^3/uL (0.83-4.51); Absolute Neutrophil Count 6.2 X10^3/uL (2.0-7.7); Basophil# 0.07 X10^3/uL; Basophil% 0.8 % (0-1); Eosinophil# 0.49 X10^3/uL; Eosinophils% 5.3 % (0-5); Hematocrit 24.4 % (37-47); Hemoglobin 7.8 g/dL (12.0-15.0); Lymphocyte # 1.65 X10^3/ul (0.83-4.51); Lymphocyte % 17.8 % (19-41); Mean Corpuscular Hgb 32.1 pg (27.0-32.0); Mean Corpuscular Volume 100.4 fL (81-99); Mean Platelet Vol. 10.7 fl (6.2-12.0); Monocyte# 0.88 X10^3/uL; Monocyte% 9.5 % (0-10); NRBC Flagged by Analyzer 0 % (0-5); Neutrophil # 6.16 X10^3/uL (2.7-7.7); Neutrophil % 66.2 % (47-70); Platelet Count 251 K/mm3 (150-450); RBC Distribution Width SD 48.3 fl (35.1-43.9); Red Blood Count 2.43 M/mm3 (4.2-5.4); White Blood Count 9.3 K/mm3 (4.4-11.0)
[2021-06-11 10:00] LABS: Anion Gap 6 (5-15); BUN 33 mg/dL (7-18); BUN/Creat Ratio 47.7 RATIO (10-20); Calcium,Total 9.6 mg/dL (8.5-10.1); Chloride 113 mmol/L (98-107); Creatinine, Serum 0.69 mg/dL (0.55-1.02); EST Glomerular Filtration Rate 90 mL/min (>60); Est Glom Filt Rate - Afr Amer 109 mL/min (>60); Estimated Creatinine Clearance 47.79 ml/min; Glucose 99 mg/dL (74-106); Potassium 3.8 mmol/L (3.5-5.1); Sodium Level 144 mmol/L (136-145); Thyroid Stim Hormone (TSH) 0.52 uIU/mL (0.358-3.74)
--- NOTE | 2021-06-11 10:14 | NURSING ---
This RN called [facility] to clarify Lidoderm order as in their MAR it states to apply to chest. [facility] nurse states they apply to right/left ribcage area and alternate side with application.
--- NOTE | 2021-06-11 11:32 | PN.HOSP_ITS ---
Documented by User: ANDREW Wleler 06/11/21 11:45 Subjective Subjective Patient seen and examined. Patient lying in bed no distress noted, nursing bedside. Patient continues to have echolalia and cannot answer questions appropriately. Objective Data Objective Data Vital Signs: Vital Signs Temp Pulse Resp BP Pulse Ox 97.8 F 81 18 97/60 92 06/11/21 08:12 06/11/21 08:12 06/11/21 08:12 06/11/21 08:12 06/11/21 08:35 Oxygen Delivery Method Room Air Weight: 145 lb 11.609 oz Body Mass Index (BMI) 24.8 Intake & Output: Intake and Output for Last 24 Hours 06/09/21 06/10/21 06/11/21 23:59 23:59 23:59 Intake Total 3722.5 / 3722.5 1000 / 1000 Output Total Balance 3722.5 / 3721.5 999 / 999 Lab / Micro Data Result Diagrams: 06/11/21 09:05 06/11/21 09:05 Labs: Laboratory Results - last 24 hr 06/10/21 12:53: WBC 11.5 H, RBC 2.92 L, Hgb 9.6 L, Hct 30.0 L, MCV 102.7 H, MCH 32.9 H, MCHC 32.0, RDW Std Deviation 50.5 H, RDW Coeff of Chasity 13.3, Plt Count 277, MPV 10.8, Immature Gran % (Auto) 0.500, Neut % (Auto) 71.1 H, Lymph % (Auto) 14.6 L, [place] % (Auto) 11.9 H, Eos % (Auto) 1.5, Baso % (Auto) 0.4, Absolute Neuts (auto) 8.2 H, Absolute Lymphs (auto) 1.68, Nucleated RBC % 0 06/10/21 12:53: PT 19.9 H, INR 1.8, APTT 36.8 H 06/10/21 12:53: Sodium 143, Potassium 5.1, Chloride 107, Carbon Dioxide 30.0, Anion Gap 6, BUN 60 H, Creatinine 2.04 H, Estim Creat Clear Calc 23.42, Est GFR (MDRD) Af Amer 31 L, Est GFR (MDRD) Non-Af 26 L, BUN/Creatinine Ratio 29.4 H, Glucose 132 H, Calcium 9.6, Total Bilirubin 0.30, Direct Bilirubin 0.08, AST 36, ALT 57 H, Alkaline Phosphatase 96, Total Protein 6.2 L, Albumin 3.0 L, Globulin 3.2 06/10/21 12:53: Lactic Acid 2.1 H* 06/10/21 12:53: Magnesium 3.4 H 06/10/21 17:35: Lactic Acid 1.9 06/10/21 22:55: Hgb 7.7 L, Hct 23.2 L 06/11/21 09:05: WBC 9.3, RBC 2.43 L, Hgb 7.8 L, Hct 24.4 L, MCV 100.4 H, MCH 32. 1 H, MCHC 32.0, RDW Std Deviation 48.3 H, RDW Coeff of Chasity 13.0, Plt Count 251, MPV 10.7, Immature Gran % (Auto) 0.400, Neut % (Auto) 66.2, Lymph % (Auto) 17.8 L, [place] % (Auto) 9.5, Eos % (Auto) 5.3 H, Baso % (Auto) 0.8, Absolute Neuts (auto) 6.2, Absolute Lymphs (auto) 1.65, Nucleated RBC % 0 06/11/21 09:05: Sodium 144, Potassium 3.8, Chloride 113 H, Carbon Dioxide 25.0, Anion Gap 6, BUN 33 H, Creatinine 0.69, Estim Creat Clear Calc 47.79, Est GFR (MDRD) Af Amer 109, Est GFR (MDRD) Non-Af 90, BUN/Creatinine Ratio 47.7 H, Glucose 99, Calcium 9.6, TSH 0.52 Micro: Microbiology 06/11/21 09:05 Nasal Secretion SARS-CoV-2 Antigen (Rapid) - Final 06/10/21 13:19 Stool Stool Occult Blood ([facility]) - Final Occult Blood Positive Radiography Diagnostic Testing: Radiology Impression Brain CT 06/10/21 13:16 IMPRESSION: Stable examination. No acute abnormality is seen. Electronically Signed: Yony Schmidt MD at 14:08 EST , Service support , Physical Exam Const alert General Appearance: comfortable Orientation / Consciousness: confused and disoriented HEENT head/scalp atraumatic Head and Scalp: normocephalic Eyes conjunctivae normal and no scleral icterus Neck supple General: trachea midline Resp normal respiratory effort, normal air movement and clear to auscultation bilaterally Effort and Inspection: symmetric chest movement Cardio regular rate, regular rhythm, S1 normal heart sound and S2 normal heart sound GI normal to inspection, nondistended, normoactive bowel sounds and soft to palpation Extremity normal to inspection and no clubbing, cyanosis or edema Peripheral Pulses: Yes pulses 2+ throughout Skin no rashes or lesions noted, no wounds and skin turgor normal Neuro Neuro Narrative: Chronic left-sided weakness noted from previous stroke Sensorium / Orientation: awake and alert Psych Mood & Affect: flat affect Assessment & Plan Assessment/Plan (1) GI bleed: QUALIFIERS: GI bleed type/associated pathology: anorectal hemorrhage Qualified Code(s): K62.5 - Hemorrhage of anus and rectum (2) Hypotension: QUALIFIERS: Hypotension type: hypotension due to hypovolemia Qualified Code(s): I95.89 - Other hypotension; E86.1 - Hypovolemia PLAN: 1. GI bleed -Dr. Luke following -Patient going for colonoscopy later today -Continue Protonix -Antiplatelet and anticoagulation on hold -Initial hemoglobin 9.6, currently 7.8 2. Hypotension -Likely secondary to #1 -Improved with fluid administration 3. Chronic anticoagulation -Complicates #1 -On hold due to GI bleed DVT prophylaxis-SCDs This patient was seen by Priscila Michael NP-C under the supervision of Dr. Olguin. 9 minutes spent in clinical coordination of patient's plan of care. Documented by User: Dr. Arvin Olguni MD 06/11/21 14:09 Objective Data Lab / Micro Data Result Diagrams: 06/11/21 09:05 06/11/21 09:05 Charges/Coding Addendum Addendum: Dr. Olguin: I personally reviewed the chart and examined the patient, and agree with the above findings. 65-year-old female presents from the long-term with what appears to be a GI bleed. Hemoglobin is dropped about 7.8 gastroenterology has been consulted and is planning an EGD and colonoscopy. She is still unable to provide any significant history. We will have to discontinue her Eliquis and can consider restarting if a causative lesion is found and it is definitively repaired then may be able to resume Eliquis in a few weeks. Clinical care time: 18 minutes Visit Charges Inpatient E&M: 79531 Subs Hosp L2
--- NOTE | 2021-06-11 13:59 | CPS ---
started by nursing
--- NOTE | 2021-06-11 15:55 | PCS.PANDOC ---
PANDEMIC DOCUMENTATION INITIATED: Date: 01/07/2021 Time: 190
--- NOTE | 2021-06-11 16:31 | OP.EGD_ITS ---
Patient Name: Jackelyn Green Procedure Date: 06/11/2021 4:01 PM Date of : 1955 Age: 65 Procedure: Upper GI endoscopy Indications: Coffee-ground emesis, Melena Providers: Maicol Luke DO Medicines: See the Anesthesia note for documentation of the administered medications Patient Profile: This is a 65 year old female. Refer to note in patient chart for documentation of history and physical. Patient has symptoms of acute vomiting. Complications: No immediate complications. Procedure: Pre-Anesthesia Assessment: - Prior to the procedure, a History and Physical was performed, and patient medications and allergies were reviewed. The patient is competent. The risks and benefits of the procedure and the sedation options and risks were discussed with the patient. All questions were answered and informed consent was obtained. Patient identification and proposed procedure were verified by the physician in the pre-procedure area. Mental Status Examination: alert and oriented. Airway Examination: normal oropharyngeal airway and neck mobility. Respiratory Examination: clear to auscultation. CV Examination: normal. Prophylactic Antibiotics: The patient does not require prophylactic antibiotics. Prior Anticoagulants: The patient has taken no previous anticoagulant or antiplatelet agents. ASA Grade Assessment: II - A patient with mild systemic disease. After reviewing the risks and benefits, the patient was deemed in satisfactory condition to undergo the procedure. The anesthesia plan was to use moderate sedation / analgesia (conscious sedation). Immediately prior to administration of medications, the patient was re-assessed for adequacy to receive sedatives. The heart rate, respiratory rate, oxygen saturations, blood pressure, adequacy of pulmonary ventilation, and response to care were monitored throughout the procedure. The physical status of the patient was re-assessed after the procedure. After obtaining informed consent, the endoscope was passed under direct vision. Throughout the procedure, the patient's blood pressure, pulse, and oxygen saturations were monitored continuously. The gastroscope was introduced through the mouth, and advanced to the second part of duodenum. The upper GI endoscopy was accomplished without difficulty. The patient tolerated the procedure well. Moderate Sedation: Moderate (conscious) sedation was administered by the endoscopy nurse and supervised by the endoscopist. The patient's oxygen saturation, heart rate, blood pressure and response to care were monitored. Total physician intraservice time was 15 minutes. Scope In: 4:16:32 PM Scope Out: 4:24:12 PM Total Procedure Duration Time 0 hours 7 minutes 40 seconds Findings: The examined esophagus was normal. Three non-bleeding cratered gastric ulcers with no stigmata of bleeding were found in the prepyloric region of the stomach. The largest lesion was 6 mm in largest dimension. Red blood was found in the gastric body. A single 5 mm bleeding angiodysplastic lesion was found in the gastric body. Coagulation for hemostasis using argon plasma at 0.4 liters/minute and 20 mulligan was successful. Estimated blood loss was minimal. Localized moderate inflammation characterized by congestion (edema), erosions and erythema was found in the duodenal bulb. Biopsies were taken with a cold forceps for histology. Verification of patient identification for the specimen was done. Estimated blood loss was minimal. Impression: - Normal esophagus. - Non-bleeding gastric ulcers with no stigmata of bleeding. - Red blood in the gastric body. - A single bleeding angiodysplastic lesion in the stomach. Treated with argon plasma coagulation (APC). - Acute duodenitis. Biopsied. Recommendation: - Return patient to [facility] for ongoing care. - Use Protonix (pantoprazole) 40 mg PO BID for 8 weeks. - Continue present medications. Okay to start Eliquis in 3 days. No aspirin for 2 weeks. Procedure Code(s): --- Professional --- 59105, 59, Esophagogastroduodenoscopy, flexible, transoral; with control of bleeding, any method 99096, Esophagogastroduodenoscopy, flexible, transoral; with biopsy, single or multiple 39840, 59, Moderate sedation services provided by the same physician or other qualified health resident care assistant performing the diagnostic or therapeutic service that the sedation supports, requiring the presence of an independent trained observer to assist in the monitoring of the patient's level of consciousness and physiological status; initial 15 minutes of intraservice time, patient age 5 years or older CPT copyright 2017 [employer]. All rights reserved. The codes documented in this report are preliminary and upon certified medical records coder review may be revised to meet current compliance requirements. Maicol Luke DO 06/11/2021 4:31:22 PM This report has been signed electronically. Number of Addenda: 2 Note Initiated On: 06/11/2021 4:01 PM Addendum Number: 1 Addendum Date: 01/30/2022 6:15:21 AM MAC was used instead of moderate sedation for the patient. Maicol Luke DO 01/30/2022 6:15:28 AM This report has been signed electronically. Addendum Number: 2 Addendum Date: 01/30/2022 6:15:36 AM MAC was used instead of moderate sedation for the patient. Maicol Luke DO 01/30/2022 6:15:41 AM This report has been signed electronically.
--- NOTE | 2021-06-11 16:32 | OP.CCLET_ITS ---
01/30/2022 Kirt Salazar MD [address] [id number] Re : Upper GI endoscopy procedure for Jackelyn Green Dear Dr. Salazar This procedure was performed on Friday, June 11, 2021. My impressions and recommendations are as follows: Impressions : - Normal esophagus. - Non-bleeding gastric ulcers with no stigmata of bleeding. - Red blood in the gastric body. - A single bleeding angiodysplastic lesion in the stomach. Treated with argon plasma coagulation (APC). - Acute duodenitis. Biopsied. Recommendations : - Return patient to hospital [facility] for ongoing care. - Use Protonix (pantoprazole) 40 mg PO BID for 8 weeks. - Continue present medications. Okay to start Eliquis in 3 days. No aspirin for 2 weeks. My findings are described in the full procedure note, which is enclosed. If I can be of further assistance, please feel free to contact me at . Sincerely, Maicol Luke, 06/11/2021 4:31:22 PM This report has been signed electronically.
[2021-06-11 17:45] LABS: Hematocrit 22.4 % (37-47); Hemoglobin 7.7 g/dL (12.0-15.0)
--- NOTE | 2021-06-11 17:50 | EGD_PTH ---
PATIENT: NAOMI ANGUIANO LOC: [facility] U#:[id number] AGE/SX: 65/F ROOM: [facility] RE06/10/[address]: Dr. Arvin Olguin MD : 1955 BED: 1 DIS: 06/13/2021 SPEC #: [id number] RECD: 06/11/21 20:20 STATUS: MARY SANCHEZ #: [id number] CARLOS: 06/11/21 17:[address]: Maicol Luke DEPT: SURGICAL PATHOLOGY RECD BY: Natividad Hartley ENTERED: 06/12/21 09:34 SP TYPE: EGD BIOPSY OTHR DR: MD Dr. Chadwick Ogden MD Dr. Paul Nielsen, MD Tissues: Duodenum, NOS Procedures: Surgery Specimen Level IV Comments: @ Ordering doctor for SUIV edited from to @ by DASHAWN at 06/12/21 1522 @ Submitting doctor edited from to @ by EMILIANAOD at 06/12/21 1522 HEADER OPERATION: Colonoscopy, EGD ([facility]) PRE-OP DIAGNOSIS: GI bleed TISSUE SUBMITTED: Duodenal bulb biopsy MICROSCOPIC DIAGNOSIS Duodenal bulb, biopsy: Fragments of duodenal mucosa with mild Ronny gland hyperplasia. MINA:екатерина 06/13/2021 MICROSCOPIC DESCRIPTION Slides are reviewed. GROSS DESCRIPTION Received in fixative is one container labeled with the patient's name and designated duodenal bulb biopsy. The specimen consists of multiple irregular fragments of light rothman soft tissue that in aggregate measure 0.5 x 0.4 x 0.1 cm. The specimen is totally submitted in one cassette. / MINA:екатерина 06/12/2021 :5 CPT: 76386
[2021-06-11] MEDS: QUEtiapine 25 MG Tablet 12.5 MG PO (18:03)
[2021-06-11] MEDS: Pantoprazole Sodium 40 MG Tablet PO (21:52)
[2021-06-11] MEDS: Acetaminophen 325 MG Tablet 650 MG PO (21:52)
[2021-06-11] MEDS: Atorvastatin Calcium 80 MG Tablet PO (21:53)
[2021-06-11] MEDS: Doxazosin 1 MG Tablet PO (21:53)
[2021-06-11] MEDS: MELATONIN 3 MG TABLET PO (21:53)
[2021-06-11] MEDS: Gabapentin 300 MG Capsule PO (21:53)
[2021-06-12] VITALS (14 sets, daily range): BP systolic 94–137; BP diastolic 67–91; PULSE 89–114; RESP 16–18; TEMP 36.8–37.1; O2SAT 95–100
[2021-06-12 06:30] LABS: Absolute Neutrophil Count 4.8 X10^3/uL (2.0-7.7); Basophil# 0.05 X10^3/uL; Basophil% 0.7 % (0-1); Eosinophil# 0.21 X10^3/uL; Eosinophils% 2.9 % (0-5); Hematocrit 20.3 % (37-47); Hemoglobin 6.6 g/dL (12.0-15.0); Lymphocyte % 18.2 % (19-41); Mean Corp Hgb Conc 32.5 g/dL (32-36); Mean Corpuscular Hgb 32.2 pg (27.0-32.0); Mean Platelet Vol. 10.8 fl (6.2-12.0); Monocyte# 0.75 X10^3/uL; Monocyte% 10.5 % (0-10); NRBC Flagged by Analyzer 0 % (0-5); Neutrophil # 4.77 X10^3/uL (2.7-7.7); Platelet Count 239 K/mm3 (150-450); RBC Distribution Width CV 12.8 % (11.6-14.6); RBC Distribution Width SD 46.2 fl (35.1-43.9); Red Blood Count 2.05 M/mm3 (4.2-5.4); White Blood Count 7.1 K/mm3 (4.4-11.0)
[2021-06-12 06:54] LABS: Anion Gap 3 (5-15); BUN 20 mg/dL (7-18); BUN/Creat Ratio 37.9 RATIO (10-20); Calcium,Total 9.4 mg/dL (8.5-10.1); Chloride 114 mmol/L (98-107); Creatinine, Serum 0.53 mg/dL (0.55-1.02); EST Glomerular Filtration Rate 123 mL/min (>60); Est Glom Filt Rate - Afr Amer 149 mL/min (>60); Estimated Creatinine Clearance 47.79 ml/min; Glucose 92 mg/dL (74-106); Potassium 3.5 mmol/L (3.5-5.1); Sodium Level 144 mmol/L (136-145)
[2021-06-12] MEDS: Albuterol 2.5 MG/3 ML VIAL.NEB. INHALATION ×3 (07:16→20:38)
[2021-06-12] MEDS: Budesonide Respules 0.5 MG/2 ML AMPUL.NEB. INHALATION ×2 (07:17→20:38)
[2021-06-12] MEDS: Lidocaine 5% Patch 1 PATCH TOPICAL (10:28)
[2021-06-12] MEDS: Menthol/Lanolin/Calamine/Znox 113 GM Tube 1 APPLIC TOPICAL ×2 (10:29→20:26)
[2021-06-12] MEDS: Gabapentin 300 MG Capsule PO ×2 (10:29→20:25)
[2021-06-12] MEDS: Fluticasone 0.05% 1 SPRAY NASAL.SRY NASAL (10:29)
[2021-06-12] MEDS: Pantoprazole Sodium 40 MG Tablet PO ×2 (10:29→20:24)
--- NOTE | 2021-06-12 11:54 | PCM.PN.HOSP ---
Documented by User: ANDREW Weller 06/12/21 11:59 Subjective Subjective Patient seen and examined. Patient lying in bed, no distress noted. Patient continues to have echolalia and is repeating sentences from TV show that is currently on. Objective Data Objective Data Vital Signs: Vital Signs Temp Pulse Resp BP Pulse Ox 98.6 F 108 H 18 120/74 100 06/12/21 10:32 06/12/21 10:32 06/12/21 10:32 06/12/21 10:32 06/12/21 10:32 Oxygen Delivery Method Room Air Weight: 145 lb 11.609 oz Body Mass Index (BMI) 24.8 Intake & Output: Intake and Output for Last 24 Hours 06/10/21 06/11/21 06/12/21 23:59 23:59 23:59 Intake Total 3722.5 / 3722.5 2680 / 2680 100 / 100 Output Total Balance 3722.5 / 3721.5 2679 / 2679 100 / 100 Lab / Micro Data Result Diagrams: 06/12/21 06:03 06/12/21 06:03 Labs: Laboratory Results - last 24 hr 06/10/21 12:53: Blood Type O POSITIVE, Antibody Screen NEGATIVE 06/10/21 12:53: Crossmatch See Detail 06/11/21 17:34: Hgb 7.7 L, Hct 22.4 L 06/12/21 06:03: WBC 7.1, RBC 2.05 L, Hgb 6.6 L, Hct 20.3 L, MCV 99.0, MCH 32.2 H, MCHC 32.5, RDW Std Deviation 46.2 H, RDW Coeff of Chasity 12.8, Plt Count 239, MPV 10.8, Immature Gran % (Auto) 0.700, Neut % (Auto) 67.0, Lymph % (Auto) 18.2 L, [place] % (Auto) 10.5 H, Eos % (Auto) 2.9, Baso % (Auto) 0.7, Absolute Neuts (auto) 4.8, Absolute Lymphs (auto) 1.30, Nucleated RBC % 0 06/12/21 06:03: Sodium 144, Potassium 3.5, Chloride 114 H, Carbon Dioxide 27.0, Anion Gap 3 L, BUN 20 H, Creatinine 0.53 L, Estim Creat Clear Calc 47.79, Est GFR (MDRD) Af Amer 149, Est GFR (MDRD) Non-Af 123, BUN/Creatinine Ratio 37.9 H, Glucose 92, Calcium 9.4 Micro: Microbiology 06/10/21 12:53 Blood Culture (Wb) - No Site/Description Given Blood Culture - Preliminary No growth in 48 hours. 06/10/21 13:30 Blood Culture (Wb) - Anticubital Left Bacteria Detection (PCR) - Final 06/10/21 13:30 Blood Culture (Wb) - Anticubital Left Blood Culture - Preliminary 06/11/21 09:05 Nasal Secretion SARS-CoV-2 Antigen (Rapid) - Final 06/10/21 13:19 Stool Stool Occult Blood (ANNABELLE) - Final Occult Blood Positive Physical Exam Const alert General Appearance: comfortable Orientation / Consciousness: confused and disoriented HEENT head/scalp atraumatic Eyes conjunctivae normal and no scleral icterus Neck supple General: trachea midline Resp normal respiratory effort, normal air movement and clear to auscultation bilaterally Effort and Inspection: symmetric chest movement Cardio regular rate, regular rhythm, S1 normal heart sound and S2 normal heart sound GI normal to inspection, nondistended, normoactive bowel sounds and soft to palpation Extremity normal to inspection and no clubbing, cyanosis or edema Peripheral Pulses: Yes pulses 2+ throughout Skin no rashes or lesions noted, no wounds and skin turgor normal Skin Narrative: Patient noted to have a still developing bruise to her left flank. [facility] reports that they found her on the floor 2 to 3 days ago but unclear if she fell Neuro Neuro Narrative: Chronic left-sided weakness noted from previous stroke Sensorium / Orientation: awake and alert Psych Mood & Affect: flat affect Assessment & Plan Assessment/Plan (1) GI bleed: QUALIFIERS: GI bleed type/associated pathology: anorectal hemorrhage Qualified Code(s): K62.5 - Hemorrhage of anus and rectum (2) Hypotension: QUALIFIERS: Hypotension type: hypotension due to hypovolemia Qualified Code(s): I95.89 - Other hypotension; E86.1 - Hypovolemia PLAN: 1. GI bleed -Dr. Luke following -EGD demonstrates nonbleeding gastric ulcers, red blood in the gastric body, single bleeding angiodysplastic lesion in the stomach which was treated with argon plasma coagulation, acute duodenitis -Continue Protonix -Antiplatelet and anticoagulation on hold -Initial hemoglobin 9.6, currently 6.6. Patient receiving 1 unit packed red blood cells with repeat hemoglobin ordered 2. Hypotension -Resolved 3. Chronic anticoagulation -Complicates #1 -On hold due to GI bleed DVT prophylaxis-SCDs This patient was seen by Priscila Michael NP-C under the supervision of Dr. Olguin. 10 minutes spent in clinical coordination of patient's plan of care. Documented by User: Dr. Arvin Olguin MD 06/12/21 12:45 Objective Data Lab / Micro Data Result Diagrams: 06/12/21 06:03 06/12/21 06:03 Charges/Coding Addendum Addendum: Dr. Olguin: I personally reviewed the chart and examined the patient, and agree with the above findings. 65-year-old female presents from the [facility] with what appears to be a GI bleed. Hemoglobin is dropped about 7.8 gastroenterology has been consulted and is planning an EGD and colonoscopy. She is still unable to provide any significant history. We will have to discontinue her Eliquis and can consider restarting if a causative lesion is found and it is definitively repaired then may be able to resume Eliquis in a few weeks. Clinical care time: 18 minutes 06/12/2021: Hemoglobin this morning was 6.6, will transfuse and recheck. EGD demonstrated angiodysplasia in the stomach which was treated by gastroenterology, there is also nonbleeding gastric ulcers. We will continue with PPI, and we will restart Eliquis in a few days per recommendations. Of note her ITA has resolved IV fluids. And she did have 1 out of 4 blood culture vials come back positive for an alphahemolytic strep representing skin contamination, will not az. Time spent in all patient care activities: 15 minutes Visit Charges Inpatient E&M: 70772 Subs Hosp L2
[2021-06-12] MEDS: Acetaminophen 325 MG Tablet 650 MG PO ×2 (13:51→20:25)
[2021-06-12 13:55] LABS: Hematocrit 25.5 % (37-47); Hemoglobin 8.4 g/dL (12.0-15.0)
[2021-06-12] MEDS: oxyCODONE 5 MG Tablet PO (16:48)
--- NOTE | 2021-06-12 18:37 | PN_ITS ---
Subjective Subjective Patient does not have any complaints. There has been no signs of GI bleeding today. There has been no signs of nausea or vomiting. She is tolerating a diet. Objective Data Objective Data Vital Signs: Vital Signs Temp Pulse Resp BP Pulse Ox 98.4 F 105 H 16 137/81 H 95 06/12/21 16:47 06/12/21 16:47 06/12/21 16:47 06/12/21 16:47 06/12/21 16:47 Oxygen Delivery Method Room Air Weight: 145 lb 11.609 oz Body Mass Index (BMI) 24.8 Intake & Output: Intake and Output for Last 24 Hours 06/10/21 06/11/21 06/12/21 23:59 23:59 23:59 Intake Total 3722.5 / 3722.5 2680 / 2680 680 / 680 Output Total Balance 3722.5 / 3721.5 2679 / 2679 680 / 680 Lab / Micro Data Result Diagrams: 06/12/21 13:45 06/12/21 06:03 Labs: Laboratory Results - last 24 hr 06/10/21 12:53: Crossmatch See Detail 06/12/21 06:03: WBC 7.1, RBC 2.05 L, Hgb 6.6 L, Hct 20.3 L, MCV 99.0, MCH 32.2 H , MCHC 32.5, RDW Std Deviation 46.2 H, RDW Coeff of Chasity 12.8, Plt Count 239, MPV 10.8, Immature Gran % (Auto) 0.700, Neut % (Auto) 67.0, Lymph % (Auto) 18.2 L, [place] % (Auto) 10.5 H, Eos % (Auto) 2.9, Baso % (Auto) 0.7, Absolute Neuts (auto) 4.8, Absolute Lymphs (auto) 1.30, Nucleated RBC % 0 06/12/21 06:03: Sodium 144, Potassium 3.5, Chloride 114 H, Carbon Dioxide 27.0, Anion Gap 3 L, BUN 20 H, Creatinine 0.53 L, Estim Creat Clear Calc 47.79, Est GFR (MDRD) Af Amer 149, Est GFR (MDRD) Non-Af 123, BUN/Creatinine Ratio 37.9 H, Glucose 92, Calcium 9.4 06/12/21 13:45: Hgb 8.4 L, Hct 25.5 L Micro: Microbiology 06/10/21 13:30 Blood Culture (Wb) - Anticubital Left Bacteria Detection (PCR) - Final 06/10/21 13:30 Blood Culture (Wb) - Anticubital Left Blood Culture - Preliminary Alpha Hemolytic Streptococcus 06/10/21 12:53 Blood Culture (Wb) - No Site/Description Given Blood Culture - Preliminary No growth in 48 hours. 06/11/21 09:05 Nasal Secretion SARS-CoV-2 Antigen (Rapid) - Final 06/10/21 13:19 Stool Stool Occult Blood (ANNABELLE) - Final Occult Blood Positive Physical Exam Const alert General Appearance: cooperative Orientation / Consciousness: oriented to person HEENT hearing grossly normal bilaterally Head and Scalp: normal to inspection Face and Sinus: face symmetric Nose: external nose normal Mouth: oral and palatal mucosa normal Eyes conjunctivae normal General Eye: normal appearance of both eyes Neck full ROM General: normal visual inspection Lymph Lymphatic: no lymphadenopathy noted Chest inspection of chest normal and palpation of chest normal Chest: symmetrical chest wall rise Resp normal respiratory effort Effort and Inspection: able to speak in complete sentences Cardio regular rate GI non-distended Percussion: normal to percussion Rectal Exam: deferred Neuro Speech: speech normal Gait (Neuro): normal gait Assessment & Plan Assessment/Plan (1) GI bleed: QUALIFIERS: GI bleed type/associated pathology: anorectal hemorrhage Qualified Code(s): K62.5 - Hemorrhage of anus and rectum PLAN: She underwent upper endoscopy yesterday and multiple areas of bleeding were seen and treated endoscopically. She is off of antiplatelets and anticoagulation at this time. She is on medical treatment for upper GI bleeding. Her hemoglobin seems to be stable. Continue current medical therapy. Charges/Coding Visit Charges Inpatient E&M: 69983 Subs Hosp L2
[2021-06-12] MEDS: QUEtiapine 25 MG Tablet 12.5 MG PO (20:25)
[2021-06-12] MEDS: MELATONIN 3 MG TABLET PO (20:25)
[2021-06-12] MEDS: Doxazosin 1 MG Tablet PO (20:25)
[2021-06-12] MEDS: Atorvastatin Calcium 80 MG Tablet PO (20:25)
[2021-06-13] VITALS (8 sets, daily range): BP systolic 100–128; BP diastolic 67–80; PULSE 94–114; RESP 16–18; TEMP 36.9–37.2; O2SAT 97–98
[2021-06-13] MEDS: Acetaminophen 325 MG Tablet 650 MG PO ×2 (05:02→13:57)
[2021-06-13] MEDS: Albuterol 2.5 MG/3 ML VIAL.NEB. INHALATION ×2 (06:57→13:41)
[2021-06-13] MEDS: Budesonide Respules 0.5 MG/2 ML AMPUL.NEB. INHALATION (06:57)
[2021-06-13 07:29] LABS: Absolute Lymphocyte Count 0.92 X10^3/uL (0.83-4.51); Absolute Neutrophil Count 4.5 X10^3/uL (2.0-7.7); Basophil# 0.04 X10^3/uL; Basophil% 0.6 % (0-1); Eosinophil# 0.19 X10^3/uL; Hematocrit 25.1 % (37-47); Lymphocyte # 0.92 X10^3/ul (0.83-4.51); Lymphocyte % 14.4 % (19-41); Mean Corp Hgb Conc 31.9 g/dL (32-36); Mean Corpuscular Hgb 31.9 pg (27.0-32.0); Mean Platelet Vol. 10.3 fl (6.2-12.0); Monocyte# 0.71 X10^3/uL; Monocyte% 11.1 % (0-10); NRBC Flagged by Analyzer 0 % (0-5); Neutrophil # 4.47 X10^3/uL (2.7-7.7); Neutrophil % 70.1 % (47-70); Platelet Count 244 K/mm3 (150-450); RBC Distribution Width CV 14.5 % (11.6-14.6); RBC Distribution Width SD 53.2 fl (35.1-43.9); Red Blood Count 2.51 M/mm3 (4.2-5.4); White Blood Count 6.4 K/mm3 (4.4-11.0)
[2021-06-13 07:51] LABS: Anion Gap 6 (5-15); BUN 18 mg/dL (7-18); BUN/Creat Ratio 36.3 RATIO (10-20); Calcium,Total 8.9 mg/dL (8.5-10.1); Chloride 111 mmol/L (98-107); EST Glomerular Filtration Rate 132 mL/min (>60); Est Glom Filt Rate - Afr Amer 160 mL/min (>60); Estimated Creatinine Clearance 47.79 ml/min; Glucose 87 mg/dL (74-106); Potassium 3.5 mmol/L (3.5-5.1); Sodium Level 143 mmol/L (136-145)
[2021-06-13] MEDS: Fluticasone 0.05% 1 SPRAY NASAL.SRY NASAL (08:25)
[2021-06-13] MEDS: Lidocaine 5% Patch 1 PATCH TOPICAL (08:25)
[2021-06-13] MEDS: Menthol/Lanolin/Calamine/Znox 113 GM Tube 1 APPLIC TOPICAL (08:25)
[2021-06-13] MEDS: Pantoprazole Sodium 40 MG Tablet PO (08:26)
[2021-06-13] MEDS: Gabapentin 300 MG Capsule PO (08:26)
--- NOTE | 2021-06-13 11:14 | PCM.TXEXTCAR ---
Documented by User: Alan SCOTT 06/13/21 13:51 Diet 06/11/21 17:31 Diet: Clear Liquid Is pt able to select menu?: No Diet Comments: NPO at Midnight Problem/Diagnosis (1) GI bleed: Status: Acute Allergies/Procedures Done in Hospital Allergies No Known Allergies Allergy (Verified 05/07/21 16:17) Type of Care/Length of Stay Estimated LOS: More Than 30 Days Type of Care Needed: Intermediate Rehab Potential: Fair Prognosis: Fair Additional Orders/Day of Discharge Day of Discharge: 06/13/21 Dietary and Speech Recommendations Dietitian Recommendations/Changes: cardiac diet as medically appropriate- TEXTURE/CONSISTENCY MODFICATIONS per SNF orders/ consult 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 120mL ensure enlive 4x/day w/ medpass when PO diet ordered. Discharge Plan Admission Admit Date/Time: 06/10/21 20:01 Primary Reason for Your Visit: GI bleed Attending Provider: Arvin Olguin Primary Care Provider: Kirt Salazar Discharge Orders/Prescriptions Prescriptions: New pantoprazole 40 mg Tablet,Delayed Release (Dr/Ec) 40 mg PO BID Qty: 120 RF: 0 Continued fluticasone propion-salmeterol [Wixela Inhub] 250-50 mcg/dose blister with device 1 inh INHALATION BID RF: 0 levothyroxine [Euthyrox] 75 mcg tablet 75 mcg PO DAILY RF: 0 losartan 100 mg tablet 100 mg PO QHS RF: 0 fluticasone propionate 50 mcg/actuation spray,suspension 1 spray INTRANASAL DAILY RF: 0 lidocaine [Salonpas (lidocaine)] 4 % Adhesive Patch,Medicated 1 patch TOPICAL DAILY RF: 0 melatonin 3 mg Tablet 3 mg PO QHS RF: 0 cholecalciferol (vitamin D3) 1,250 mcg (50,000 unit) Capsule 1,250 mcg PO WE RF: 0 acetaminophen 325 mg Tablet 650 mg PO TID RF: 0 magnesium hydroxide 400 mg/5 mL Suspension 30 ml PO DAILY RF: 0 gabapentin 300 mg Capsule 300 mg PO BID RF: 0 atenolol 50 mg tablet 50 mg PO DAILY RF: 0 Boost VHC 0.09-2.25 gram-kcal/mL Liquid 120 ml PO TIDCM RF: 0 quetiapine 25 mg tablet 12.5 mg PO DAILY@1999 RF: 0 atorvastatin 80 mg tablet 80 mg PO QHS RF: 0 doxazosin 1 mg tablet 1 mg PO QHS RF: 0 menthol-zinc oxide [Calmoseptine] 0.44-20.6 % ointment 1 applic topical BID RF: 0 Held aspirin 81 mg tablet,chewable 81 mg PO DAILY RF: 0 Hold Instructions: Resume on 06/25/21. Eliquis 5 mg tablet 5 mg PO BID RF: 0 Hold Instructions: Resume on 06/14/21. Referrals / Follow Up: Kirt Salazar MD [Primary Care Provider] - Within 2 Weeks FriendMaicol DO [STAFF PHYSICIAN] - Within 2 Weeks Disposition Disposition (needs filled in before D/C Order can be placed): [facility] Documented by User: Dr. Arvin Olguin MD 06/13/21 14:17 Allergies/Procedures Done in Hospital Allergies No Known Allergies Allergy (Verified 05/07/21 16:17) Discharge Plan Admission Admit Date/Time: 06/10/21 20:01 Primary Reason for Your Visit: GI bleed Attending Provider: Arvin Olguin Primary Care Provider: Kirt Salazar Discharge Orders/Prescriptions Prescriptions: New pantoprazole 40 mg Tablet,Delayed Release (Dr/Ec) 40 mg PO BID Qty: 120 RF: 0 Continued fluticasone propion-salmeterol [Wixela Inhub] 250-50 mcg/dose blister with device 1 inh INHALATION BID RF: 0 levothyroxine [Euthyrox] 75 mcg tablet 75 mcg PO DAILY RF: 0 losartan 100 mg tablet 100 mg PO QHS RF: 0 fluticasone propionate 50 mcg/actuation spray,suspension 1 spray INTRANASAL DAILY RF: 0 lidocaine [Salonpas (lidocaine)] 4 % Adhesive Patch,Medicated 1 patch TOPICAL DAILY RF: 0 melatonin 3 mg Tablet 3 mg PO QHS RF: 0 cholecalciferol (vitamin D3) 1,250 mcg (50,000 unit) Capsule 1,250 mcg PO WE RF: 0 acetaminophen 325 mg Tablet 650 mg PO TID RF: 0 magnesium hydroxide 400 mg/5 mL Suspension 30 ml PO DAILY RF: 0 gabapentin 300 mg Capsule 300 mg PO BID RF: 0 atenolol 50 mg tablet 50 mg PO DAILY RF: 0 Boost VHC 0.09-2.25 gram-kcal/mL Liquid 120 ml PO TIDCM RF: 0 quetiapine 25 mg tablet 12.5 mg PO DAILY@1999 RF: 0 atorvastatin 80 mg tablet 80 mg PO QHS RF: 0 doxazosin 1 mg tablet 1 mg PO QHS RF: 0 menthol-zinc oxide [Calmoseptine] 0.44-20.6 % ointment 1 applic topical BID RF: 0 Held aspirin 81 mg tablet,chewable 81 mg PO DAILY RF: 0 Hold Instructions: Resume on 06/25/21. Eliquis 5 mg tablet 5 mg PO BID RF: 0 Hold Instructions: Resume on 06/14/21. Referrals / Follow Up: Kirt Salazar MD [Primary Care Provider] - Within 2 Weeks Maicol Luke DO [STAFF PHYSICIAN] - Within 2 Weeks Disposition Disposition (needs filled in before D/C Order can be placed): [facility]
--- NOTE | 2021-06-13 11:35 | CASEMGMT ---
MICKI called Marisol at [facility] and let her know patient will be returning today. She said that is fine. Wendy Carl MARINE PIPE WELDER MARISEL
[2021-06-13 13:20] LABS: Hematocrit 25.2 % (37-47)
--- NOTE | 2021-06-13 14:25 | PCM.DC.SUM ---
Documented by User: Alan SCOTT 06/13/21 14:35 Providers Date of Admission: 06/10/21 Primary Care Physician: Dr. Kirt Salazar MD Reason For Visit: ACUTE GI BLEED Diagnosis Discharge Diagnosis (1) GI bleed: Status: Acute Code(s): K92.2 - Gastrointestinal hemorrhage, unspecified Qualifiers: GI bleed type/associated pathology: anorectal hemorrhage Qualified Code(s): K62.5 - Hemorrhage of anus and rectum Medications at Discharge Home Medications fluticasone propion-salmeterol [Wixela Inhub] 1 inh INHALATION BID 12/10/20 fluticasone propionate 1 spray INTRANASAL DAILY 12/10/20 levothyroxine [Euthyrox] 75 mcg PO DAILY 12/10/20 losartan 100 mg PO QHS 12/10/20 Eliquis 5 mg PO BID 12/14/20 aspirin 81 mg PO DAILY 12/14/20 cholecalciferol (vitamin D3) 1,250 mcg PO WE 12/25/20 lidocaine [Salonpas (lidocaine)] 1 patch TOPICAL DAILY 12/25/20 melatonin 3 mg PO QHS 12/25/20 acetaminophen 650 mg PO TID 05/07/21 Boost VHC 120 ml PO TIDCM 06/10/21 atenolol 50 mg PO DAILY 06/10/21 atorvastatin 80 mg PO QHS 06/10/21 doxazosin 1 mg PO QHS 06/10/21 gabapentin 300 mg PO BID 06/10/21 magnesium hydroxide 30 ml PO DAILY 06/10/21 menthol-zinc oxide [Calmoseptine] 1 applic TOPICAL BID 06/10/21 quetiapine 12.5 mg PO DAILY@199906/10/21 pantoprazole 40 mg PO BID #120 tab 06/13/21 Hospital Course Procedures EGD Summary of Care Provided Minutes Spent on Discharge: 25 Hospital Course: Patient is a 65-year-old female who was admitted to the hospital on 06/10/2021 for evaluation and management of acute GI bleed and acute encephalopathy. Patient underwent evaluation by EGD per GI which demonstrated a normal esophagus, nonbleeding gastric ulcers, presence of red blood in the stomach with a single bleeding angiodysplastic lesion which was subsequently treated with argon plasma and acute duodenitis which was biopsied. Recommendations from GI were to initiate Protonix 40 mg p.o. twice daily for 8 weeks, reinitiate Eliquis on discharge and hold aspirin for 2 weeks. It is unclear the source of patient's encephalopathy as work-up was unremarkable during admission. Patient does have a background history of Asperger syndrome which complicates this diagnosis. On day of discharge patient seemed to be at her baseline which is alert and oriented to self. Patient cannot provide much insight into current condition due to Asperger syndrome. Patient will be discharged back to the [facility]. She is to follow-up with Dr. Luke and her primary care provider within the next 2 weeks. Patient seen by Alan Joy PA-C, under the supervision of Dr. Olguin. Time spent on patient care: 25 minutes. Physical Exam Narrative Patient is a 65-year-old female who is lying in bed, alert and oriented to self. Patient cannot provide much insight into current condition as she suffers from Asperger's syndrome and communication abilities are limited. Does not appear in acute distress. Const alert and no apparent distress HEENT normocephalic, head/scalp atraumatic and hearing grossly normal bilaterally Eyes PERRL, EOMs intact bilaterally and conjunctivae normal Neck no lymphadenopathy, supple and no JVD Resp normal respiratory effort, no retractions, no use of accessory muscles and clear to auscultation bilaterally Cardio regular rate, regular rhythm, no murmurs and no JVD GI normal to inspection, nondistended, normoactive bowel sounds, soft to palpation and non-tender Extremity normal to inspection, full ROM and no clubbing, cyanosis or edema Skin no rashes or lesions noted and skin turgor normal Neuro CN's II-XII intact bilaterally Psych affect normal Weight / BMI Weight Weight: 145 lb 11.609 oz Body Mass Index (BMI) 24.8 ABG / Lab / Microbiology Data Result Diagrams: 06/13/21 13:10 06/13/21 07:12 Laboratory: Laboratory Results - last 24 hr 06/13/21 07:12: WBC 6.4, RBC 2.51 L, Hgb 8.0 L, Hct 25.1 L, MCV 100.0 H, MCH 31.9, MCHC 31.9 L, RDW Std Deviation 53.2 H, RDW Coeff of Chasity 14.5, Plt Count 244, MPV 10.3, Immature Gran % (Auto) 0.800, Neut % (Auto) 70.1 H, Lymph % (Auto) 14.4 L, Kent % (Auto) 11.1 H, Eos % (Auto) 3.0, Baso % (Auto) 0.6, Absolute Neuts (auto) 4.5, Absolute Lymphs (auto) 0.92, Nucleated RBC % 0 06/13/21 07:12: Sodium 143, Potassium 3.5, Chloride 111 H, Carbon Dioxide 26.0, Anion Gap 6, BUN 18, Creatinine 0.50 L, Estim Creat Clear Calc 47.79, Est GFR (MDRD) Af Amer 160, Est GFR (MDRD) Non-Af 132, BUN/Creatinine Ratio 36.3 H, Glucose 87, Calcium 8.9 06/13/21 13:10: Hgb 8.0 L, Hct 25.2 L Microbiology: Microbiology 06/10/21 13:30 Blood Culture (Wb) - Anticubital Left Bacteria Detection (PCR) - Final 06/10/21 13:30 Blood Culture (Wb) - Anticubital Left Blood Culture - Preliminary Granulicatella adiacens 06/10/21 12:53 Blood Culture (Wb) - No Site/Description Given Blood Culture - Preliminary No growth in 48 hours. 06/11/21 09:05 Nasal Secretion SARS-CoV-2 Antigen (Rapid) - Final 06/10/21 13:19 Stool Stool Occult Blood (ANNABELLE) - Final Occult Blood Positive Meaningful Use Info Meaningful Use Diagnoses (Choose all that apply): None applicable Discharge Plan Admission Admit Date/Time: 06/10/21 20:01 Primary Reason for Your Visit: GI bleed Attending Provider: Arvin Olguin Primary Care Provider: Kirt Salazar Discharge Orders/Prescriptions Prescriptions: New pantoprazole 40 mg Tablet,Delayed Release (Dr/Ec) 40 mg PO BID Qty: 120 RF: 0 Continued fluticasone propion-salmeterol [Wixela Inhub] 250-50 mcg/dose blister with device 1 inh INHALATION BID RF: 0 levothyroxine [Euthyrox] 75 mcg tablet 75 mcg PO DAILY RF: 0 losartan 100 mg tablet 100 mg PO QHS RF: 0 fluticasone propionate 50 mcg/actuation spray,suspension 1 spray INTRANASAL DAILY RF: 0 lidocaine [Salonpas (lidocaine)] 4 % Adhesive Patch,Medicated 1 patch TOPICAL DAILY RF: 0 melatonin 3 mg Tablet 3 mg PO QHS RF: 0 cholecalciferol (vitamin D3) 1,250 mcg (50,000 unit) Capsule 1,250 mcg PO WE RF: 0 acetaminophen 325 mg Tablet 650 mg PO TID RF: 0 magnesium hydroxide 400 mg/5 mL Suspension 30 ml PO DAILY RF: 0 gabapentin 300 mg Capsule 300 mg PO BID RF: 0 atenolol 50 mg tablet 50 mg PO DAILY RF: 0 Boost VHC 0.09-2.25 gram-kcal/mL Liquid 120 ml PO TIDCM RF: 0 quetiapine 25 mg tablet 12.5 mg PO DAILY@1999 RF: 0 atorvastatin 80 mg tablet 80 mg PO QHS RF: 0 doxazosin 1 mg tablet 1 mg PO QHS RF: 0 menthol-zinc oxide [Calmoseptine] 0.44-20.6 % ointment 1 applic topical BID RF: 0 Held aspirin 81 mg tablet,chewable 81 mg PO DAILY RF: 0 Hold Instructions: Resume on 06/25/21. Eliquis 5 mg tablet 5 mg PO BID RF: 0 Hold Instructions: Resume on 06/14/21. Referrals / Follow Up: Kirt Salazar MD [Primary Care Provider] - Within 2 Weeks FriendMaicol DO [STAFF PHYSICIAN] - Within 2 Weeks Disposition Disposition (needs filled in before D/C Order can be placed): [facility] Documented by User: Dr. Arvin Olguin MD 06/13/21 16:22 Providers Date of Admission: 06/10/21 Reason For Visit: ACUTE GI BLEED Medications at Discharge Home Medications fluticasone propion-salmeterol [Wixela Inhub] 1 inh INHALATION BID 12/10/20 fluticasone propionate 1 spray INTRANASAL DAILY 12/10/20 levothyroxine [Euthyrox] 75 mcg PO DAILY 12/10/20 losartan 100 mg PO QHS 12/10/20 Eliquis 5 mg PO BID 12/14/20 aspirin 81 mg PO DAILY 12/14/20 cholecalciferol (vitamin D3) 1,250 mcg PO WE 12/25/20 lidocaine [Salonpas (lidocaine)] 1 patch TOPICAL DAILY 12/25/20 melatonin 3 mg PO QHS 12/25/20 acetaminophen 650 mg PO TID 05/07/21 Boost VHC 120 ml PO TIDCM 06/10/21 atenolol 50 mg PO DAILY 06/10/21 atorvastatin 80 mg PO QHS 06/10/21 doxazosin 1 mg PO QHS 06/10/21 gabapentin 300 mg PO BID 06/10/21 magnesium hydroxide 30 ml PO DAILY 06/10/21 menthol-zinc oxide [Calmoseptine] 1 applic TOPICAL BID 06/10/21 quetiapine 12.5 mg PO DAILY@199906/10/21 pantoprazole 40 mg PO BID #120 tab 06/13/21 ABG / Lab / Microbiology Data Result Diagrams: 06/13/21 13:10 06/13/21 07:12 Discharge Plan Admission Admit Date/Time: 06/10/21 20:01 Primary Reason for Your Visit: GI bleed Attending Provider: Arvin Olguin Primary Care Provider: Kirt Salazar Discharge Orders/Prescriptions Prescriptions: New pantoprazole 40 mg Tablet,Delayed Release (Dr/Ec) 40 mg PO BID Qty: 120 RF: 0 Continued fluticasone propion-salmeterol [Wixela Inhub] 250-50 mcg/dose blister with device 1 inh INHALATION BID RF: 0 levothyroxine [Euthyrox] 75 mcg tablet 75 mcg PO DAILY RF: 0 losartan 100 mg tablet 100 mg PO QHS RF: 0 fluticasone propionate 50 mcg/actuation spray,suspension 1 spray INTRANASAL DAILY RF: 0 lidocaine [Salonpas (lidocaine)] 4 % Adhesive Patch,Medicated 1 patch TOPICAL DAILY RF: 0 melatonin 3 mg Tablet 3 mg PO QHS RF: 0 cholecalciferol (vitamin D3) 1,250 mcg (50,000 unit) Capsule 1,250 mcg PO WE RF: 0 acetaminophen 325 mg Tablet 650 mg PO TID RF: 0 magnesium hydroxide 400 mg/5 mL Suspension 30 ml PO DAILY RF: 0 gabapentin 300 mg Capsule 300 mg PO BID RF: 0 atenolol 50 mg tablet 50 mg PO DAILY RF: 0 Boost VHC 0.09-2.25 gram-kcal/mL Liquid 120 ml PO TIDCM RF: 0 quetiapine 25 mg tablet 12.5 mg PO DAILY@2000 RF: 0 atorvastatin 80 mg tablet 80 mg PO QHS RF: 0 doxazosin 1 mg tablet 1 mg PO QHS RF: 0 menthol-zinc oxide [Calmoseptine] 0.44-20.6 % ointment 1 applic topical BID RF: 0 Held aspirin 81 mg tablet,chewable 81 mg PO DAILY RF: 0 Hold Instructions: Resume on 06/25/21. Eliquis 5 mg tablet 5 mg PO BID RF: 0 Hold Instructions: Resume on 06/14/21. Referrals / Follow Up: Kirt Salazar MD [Primary Care Provider] - Within 2 Weeks FriendMaicol DO [STAFF PHYSICIAN] - Within 2 Weeks Disposition Disposition (needs filled in before D/C Order can be placed): [facility] Charges/Coding Addendum Addendum: Dr. Olguin: I personally reviewed the chart and examined the patient, and agree with the above findings. 65-year-old [facility] what appears to be a GI bleed. Hemoglobin is dropped about 7.8 gastroenterology has been consulted and is planning an EGD and colonoscopy. She is still unable to provide any significant history. We will have to discontinue her Eliquis and can consider restarting if a causative lesion is found and it is definitively repaired then may be able to resume Eliquis in a few weeks. Clinical care time: 18 minutes 06/12/2021: Hemoglobin this morning was 6.6, will transfuse and recheck. EGD demonstrated angiodysplasia in the stomach which was treated by gastroenterology, there is also nonbleeding gastric ulcers. We will continue with PPI, and we will restart Eliquis in a few days per recommendations. Of note her ITA has resolved IV fluids. And she did have 1 out of 4 blood culture vials come back positive for an alphahemolytic strep representing skin contamination, will not az. Time spent in all patient care activities: 15 minutes 06/13/2021: Doing well, no issues overnight. Her hemoglobin this morning was 8 down from 8.4 yesterday however repeat hemoglobin at around 1330 this afternoon was also 8. There is no further signs of bleeding it does appear that the angiodysplasia that he cauterized during EGD likely solve the issue therefore she can continue her Eliquis in 3 to 5days after discharge for her A. fib with positive previous strokes. Clinical care time and all aspects of patient care: 20 Visit Charges Inpatient E&M: [id number] Disch Hosp
--- NOTE | 2021-06-13 15:01 | CASEMGMT ---
SW arranged for patient to get picked up at 545p. SW faxed orders, COVID test, and pickle processor time to [place]. SW notified RN and front office secretary. Plan: d/c back to [place] under intermediate level of care. [facility] transported via [facility]. Wendy JOINER
--- NOTE | 2021-06-13 17:30 | NURSING ---
Attempted to call [facility], unable to reach nurse, will try back.
--- NOTE | 2021-06-13 18:41 | NURSING ---
after multiple attempts, report given to [facility], no further questions voiced.
== END 2021-06-13 18:05 | DRG 378 ==
LOC: ED 14:25 → PCU 15:19
PROVIDERS: Internal Medicine Gastroenterology; Nurse Practitioner Family; Admitting Provider Internal Medicine; Emergency Provider Emergency Medicine; PCP Family Medicine; Visit Provider Family Medicine
PROC: 0DJD8ZZ Inspection of Lower Intestinal Tract, Via Natural or Artificial Opening Endoscopic (ICD-10-PCS; CPT 45378; principal; 2021-06-11 17:45)
DX: K31.811 Angiodysplasia of stomach and duodenum with bleeding (principal); I48.20 Chronic atrial fibrillation, unspecified; G93.40 Encephalopathy, unspecified; N17.9 Acute kidney failure, unspecified; I69.354 Hemiplegia and hemiparesis following cerebral infarction affecting left non-dominant side; K22.10 Ulcer of esophagus without bleeding; F84.5 Asperger's syndrome; E86.1 Hypovolemia; I95.89 Other hypotension; E78.5 Hyperlipidemia, unspecified; I69.322 Dysarthria following cerebral infarction; I69.391 Dysphagia following cerebral infarction; E03.9 Hypothyroidism, unspecified; K29.80 Duodenitis without bleeding; I10 Essential (primary) hypertension; K27.4 Chronic or unspecified peptic ulcer, site unspecified, with hemorrhage; Z79.01 Long term (current) use of anticoagulants; Z51.5 Encounter for palliative care; Z79.82 Long term (current) use of aspirin
CPT/HCPCS: 36415; 70450; 80048; 80076; 82274; 83605; 83735; 84443; 85014; 85018; 85025; 85610; 85730; 86850; 86900; 86901; 86920; 87040; 87077; 87149; 87426; 88305; 93005; 94640; 97802; 99251; 99285; J7030; J7040; J7120; P9016; A4216; G0463; J2405; J3490